=== PATIENT | male | born 1945 | race Caucasian/White ===

== ENCOUNTER 2016-08-17 03:42 | Observation (INO) | payer MEDICARE, MEDICAID ==
[~2016-08-17] VITALS: Ht 185.4 cm; Wt 87.4 kg
[~2016-08-17 03:42] MED LIST: ADVODART; ALPR.25T PO; AMLO5TAB2 PO; ASPI325T4; BENZ100C8 PO; BSP10T PO; CEFP500T4 PO; CEPH-507 PO; CEPH500C PO; CODE-54 PO; CPR500T PO; FLC100T1 PO; FNST5T PO; HYDR-757 PO; HYDR-91 PO; LSNP20T PO; MECL12.579 PO; METR500T PO; NERVE PILL; NITR-65 PO; ONDA-42 SL; PHEN-639 PO; TMSL.4C PO; TRAM50TA2 PO; [UNRECOGNIZED DRUG - CODE] INJ; [UNRECOGNIZED DRUG - REMARK] PO
[2016-08-17] MEDS ORDERED: RT-ALBUTEROL/IPRATROPIUM 3 ML (DUONEB) VIAL ONE (03:48)
--- OUTSIDE RECORDS SUMMARY | 2016-08-17 03:49 | XMS REPORT | Continuity of Care Document ---
Author Author [facility] Address Unknown Phone Unavailable Allergies Active Description Code Type Severity Reaction Onset Reported/Identified Relationship to Patient Clinical Status Yes iodine [id number] Drug Allergy Mild N/A 03/26/2009 Yes Iodine Drug Allergy N/A N/A 09/04/2009 Medications Problems Date Dx Coded Attending Type Code Diagnosis Diagnosed By 02/23/2008 NARDA MONTANA DO 401.1 HYPERTENSION, BENIGN ESSENTIAL 02/23/2008 NAN WALKER NARDA K 721.90 OSTEOARTHRITIS 02/23/2008 NAN WALKER NARDA K 401.1 HYPERTENSION, BENIGN ESSENTIAL 02/23/2008 LINUS MONTANA DOA K 721.90 OSTEOARTHRITIS 02/29/2008 LINUS MONTANA DOA K 338.4 PAIN CHRONIC SYNDROME 02/29/2008 NAN WALKER NARDA K 338.4 PAIN CHRONIC SYNDROME 06/05/2008 NAN WALKER NARDA K 780.52 Insomnia Unspecified 06/05/2008 NAN WALKER NARDA K 780.52 Insomnia Unspecified 07/10/2008 LINUS MONTANA DOA K 307.40 Insomnia 07/10/2008 NAN WALKER NARDA K 729.5 PAIN IN LIMB 07/10/2008 MONTANA DO NARDA K 307.40 Insomnia 07/10/2008 LINUS MONTANA DOA K 729.5 PAIN IN LIMB 11/24/2008 NAN WALKER NARDA K 780.79 MALAISE AND FATIGUE 11/24/2008 MON[place] DO NARDA K 780.79 MALAISE AND FATIGUE 01/29/2009 NAN WALKER NARDA K 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 01/29/2009 NAN WALKER NARDA K 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 02/07/2009 NAN WALKER NARDA K 270.7 Hyperglycemia 02/07/2009 NAN WALKER NARDA K 296.90 Mo Mood Dis Nos 02/07/2009 LINUS MONTANA DOA K 270.7 Hyperglycemia 02/07/2009 MON[place] DO NARDA K 296.90 Mo Mood Dis Nos 02/13/2009 NAN WALKER NARDA K NODX No Diagnosis 02/13/2009 MONTANA DO, NARDA K NODX No Diagnosis 02/16/2009 MONTANA DO, NARDA K 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 02/16/2009 MONTANA DO, NARDA K 300.00 An Anxiety Unspec 02/16/2009 MONTANA DO, NARDA K 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 02/16/2009 MON[place]NA DO NARDA K 300.00 An Anxiety Unspec 02/26/2009 MONTANA DO NARDA K 300.02 An Gen Anxiety 02/26/2009 MONTANA DO, NARDA K 301.6 PD DEPENDENT 02/26/2009 MONTANA DO, NARDA K 300.02 An Gen Anxiety 02/26/2009 MONTANA DO, NARDA K 301.6 PD DEPENDENT 03/14/2009 MONTANA DO NARDA K 788.1 Dysuria 03/14/2009 MONTANA DO, NARDA K 788.1 Dysuria 04/02/2009 MONTANA DO NARDA K 590.2 Kidney Stones 04/02/2009 MONTANA DO NARDA K 590.2 Kidney Stones 04/17/2009 MONTANA DO, NARDA K 465.9 Upper Respiratory Infection 04/17/2009 MONTANA DO, NARDA K 465.9 Upper Respiratory Infection 04/25/2010 MONTANA DO, NARDA K 914.0 Abrasion Or Friction Burn Of Hand(s) Except Finger(s) Alone Without Infection 04/25/2010 MONTANA DO, NARDA K E906.0 Dog Bite 04/25/2010 MONTANA DO, NARDA K 914.0 Abrasion Or Friction Burn Of Hand(s) Except Finger(s) Alone Without Infection 04/25/2010 MON[place] DO NARDA K E906.0 Dog Bite 06/12/2010 MON[place] DO NARDA K 681.02 Onychia And Paronychia Of Finger 06/12/2010 MONTANA DO, NARDA K 681.02 Onychia And Paronychia Of Finger 07/25/2010 Ot 038.42 07/25/2010 Ot 300.4 07/25/2010 Ot 403.90 07/25/2010 Ot 585.9 07/25/2010 Ot 599.0 07/25/2010 Ot 600.91 07/25/2010 Ot 715.90 07/25/2010 Ot 788.41 07/25/2010 Ot 788.62 07/25/2010 Ot 788.63 07/25/2010 Ot 788.64 07/25/2010 Ot 995.91 07/25/2010 Ot V12.79 07/25/2010 Ot V13.01 10/24/2010 Ot 599.0 10/24/2010 Ot V58.69 12/31/2010 Ot 562.11 12/31/2010 Ot 789.00 12/31/2010 Ot 791.9 01/06/2011 Ot 276.50 01/06/2011 Ot 300.4 01/06/2011 Ot 401.9 01/06/2011 Ot 562.11 01/06/2011 Ot 584.9 01/06/2011 Ot 600.00 01/06/2011 Ot 715.90 01/06/2011 Ot 995.94 01/31/2011 Ot 562.10 11/29/2011 Ot 038.42 11/29/2011 Ot 276.50 11/29/2011 Ot 300.00 11/29/2011 Ot 311 11/29/2011 Ot 401.9 11/29/2011 Ot 562.10 11/29/2011 Ot 592.0 11/29/2011 Ot 593.2 11/29/2011 Ot 593.9 11/29/2011 Ot 599.0 11/29/2011 Ot 600.90 11/29/2011 Ot 601.9 11/29/2011 Ot 715.89 11/29/2011 Ot 995.91 11/29/2011 Ot V03.82 11/29/2011 Ot V13.01 12/03/2011 Ot 592.0 12/31/2011 Ot 401.9 12/31/2011 Ot 592.0 04/13/2012 Ot 599.0 04/13/2012 Ot V58.69 04/26/2013 NARDA MONTANA DO 599.0 URINARY TRACT INFECTION 04/26/2013 NARDA MONTANA DO 599.0 URINARY TRACT INFECTION 05/11/2013 NARDA MONTANA DO 724.2 LUMBAGO/ LOW BACK PAIN 09/13/2013 ALEXANDER NULL DO Ot 490 09/13/2013 ALEXANDER NULL DO Ot 786.2 09/18/2013 BUBBA URIAS, MIKE T Ot 276.8 09/18/2013 BUBBA URIAS, MIKE T Ot 599.0 09/18/2013 BUBBA URIAS, MIKE T Ot 787.02 11/29/2013 BUBBA URIAS, MIKE T Ot 466.0 11/29/2013 BUBBA URIAS, MIKE T Ot 786.05 11/29/2013 BUBBA URIAS, MIKE T Ot 790.29 11/29/2013 BUBBA URIAS, MIKE T Ot V58.69 05/15/2014 Ot 715.36 05/15/2014 Ot 719.62 05/15/2014 Ot 401.9 05/15/2014 Ot 780.79 05/15/2014 Ot 255.41 05/15/2014 Ot 592.0 05/15/2014 Ot V72.81 05/15/2014 Ot 592.0 05/15/2014 Ot V72.83 05/15/2014 Ot V74.8 05/15/2014 Ot 592.0 05/15/2014 Ot V45.89 05/15/2014 Ot 592.0 05/15/2014 Ot V45.89 05/15/2014 Ot 599.0 05/15/2014 Ot V58.69 05/15/2014 Ot 564.00 05/15/2014 Ot 789.00 05/17/2014 Ot 715.36 05/17/2014 Ot 719.62 05/17/2014 Ot 401.9 05/17/2014 Ot 780.79 05/17/2014 Ot 255.41 05/17/2014 Ot 592.0 05/17/2014 Ot V72.81 05/17/2014 Ot 592.0 05/17/2014 Ot V72.83 05/17/2014 Ot V74.8 05/17/2014 Ot 592.0 05/17/2014 Ot V45.89 05/17/2014 Ot 592.0 05/17/2014 Ot V45.89 05/17/2014 Ot 599.0 05/17/2014 Ot V58.69 05/17/2014 Ot 564.00 05/17/2014 Ot 789.00 05/24/2014 ANTIONETTE RODRIGUES DO Ot 786.50 06/05/2014 ANTIONETTE RODRIGUES DO Ot 786.50 07/07/2014 ANTIONETTE RODRIGUES DO Ot 786.50 08/03/2014 Ot 715.36 08/03/2014 Ot 719.62 08/03/2014 Ot 401.9 08/03/2014 Ot 780.79 08/03/2014 Ot 255.41 08/03/2014 Ot 592.0 08/03/2014 Ot V72.81 08/03/2014 Ot 592.0 08/03/2014 Ot V72.83 08/03/2014 Ot V74.8 08/03/2014 Ot 592.0 08/03/2014 Ot V45.89 08/03/2014 Ot 592.0 08/03/2014 Ot V45.89 08/03/2014 Ot 599.0 08/03/2014 Ot V58.69 08/03/2014 Ot 564.00 08/03/2014 Ot 789.00 08/03/2014 ANTIONETTE RODRIGUES DO Ot 786.50 01/17/2015 Ot 715.36 01/17/2015 Ot 719.62 01/17/2015 Ot 401.9 01/17/2015 Ot 780.79 01/17/2015 Ot 255.41 01/17/2015 Ot 592.0 01/17/2015 Ot V72.81 01/17/2015 Ot 592.0 01/17/2015 Ot V72.83 01/17/2015 Ot V74.8 01/17/2015 Ot 592.0 01/17/2015 Ot V45.89 01/17/2015 Ot 592.0 01/17/2015 Ot V45.89 01/17/2015 Ot 786.2 01/17/2015 Ot 599.0 01/17/2015 Ot V58.69 01/17/2015 Ot 564.00 01/17/2015 Ot 789.00 01/17/2015 ANTIONETTE RODRIGUES DO Ot 786.50 01/30/2015 Ot 786.2 02/14/2015 ANTIONETTE RODRIGUES DO Ot 781.0 02/26/2015 ANTIONETTE RODRIGUES DO Ot 781.0 03/30/2015 DALILA PORTILLO Ot F01.50 03/30/2015 DALILA PORTILLO Ot N39.0 03/30/2015 DALILA PORTILLO Ot R25.1 03/30/2015 DALILA PORTILLO Ot Z79.899 06/19/2015 DONNA BYRD BLACK TOPPER Ot S63.115A 06/19/2015 DONNA BYRD BLACK TOPPER Ot W01.0XXA 06/19/2015 DONNA BYRD BLACK TOPPER Ot Y92.009 06/19/2015 DONNA BYRD BLACK TOPPER Ot Y99.8 07/09/2016 Ot 562.11 DIVERTICULITIS COLON (W/O MENT OF HEMORR 07/09/2016 Ot 789.00 ABDOMINAL PAIN, UNSPECIFIED SITE 07/09/2016 Ot 791.9 ABN URINE FINDINGS NEC Procedures Code [place] [address] UA W/ CULTURE IF INDICATED 04/26/2013 66080 CULTURE URINE 68566 URINE DRUG SCREEN (IN-HOUSE) 05/11/2013 73374 UA W/ CULTURE IF INDICATED 05/11/2013 Results Encounters ACCT No. Visit Date/Time Discharge Status Pt. Type Provider Facility Loc./Unit Complaint [id number] 05/11/2013 13:11:00 05/11/2013 23: 59:59 CLS Outpatient NARDA MONTANA DO [id number] 04/26/2013 18:13:00 04/26/2013 23: 59:59 CLS Outpatient NARDA MONTANA DO
[2016-08-17] MEDS ORDERED: NS IV 1000 ML 1,000 ML IV ONE ×2 (03:50→05:01)
[2016-08-17] MEDS ORDERED: RT-ALBUTEROL SULF 2.5 MG/3 ML PRE-MIX VIAL ONE ×2 (03:57→04:18)
[2016-08-17] MEDS ORDERED: RT-ALBUTEROL/IPRATROPIUM 3 ML (DUONEB) VIAL INH ONE (04:00)
[2016-08-17] MEDS ORDERED: RT-ALBUTEROL SULF 2.5 MG/3 ML PRE-MIX VIAL IH ONE (04:00)
[2016-08-17 04:17] LABS: BASOPHILS % (AUTO) 0 % (0-10); EOSINOPHILS # (AUTO) 0.4 10^3/uL (0.0-0.3); EOSINOPHILS % (AUTO) 8 % (0-10); LYMPHOCYTES # (AUTO) 1.4 X 10^3 (1.0-4.0); LYMPHOCYTES % (AUTO) 31 % (12-44); MEAN CORPUSCULAR HEMOGLOBIN 31 PG (25-34); MEAN CORPUSCULAR HGB CONC 34 G/DL (32-36); MEAN CORPUSCULAR VOLUME 92 FL (80-99); MEAN PLATELET VOLUME 9.1 FL (7.4-10.4); MONOCYTES # (AUTO) 0.7 X 10^3 (0.0-1.0); MONOCYTES % (AUTO) 15 % (0-12); NEUTROPHILS # (AUTO) 2.1 X 10^3 (1.8-7.8); NEUTROPHILS % (AUTO) 46 % (42-75); PLATELET COUNT 170 10^3/uL (130-400); RED BLOOD COUNT 4.55 10^6/uL (4.35-5.85); WHITE BLOOD COUNT 4.6 10^3/uL (4.3-11.0)
[2016-08-17 04:30] LABS: PROTHROMBIN TIME PATIENT 12.8 SEC (12.2-14.7)
[2016-08-17] MEDS ORDERED: RT-ALBUTEROL SULF 2.5 MG/3 ML PRE-MIX VIAL INH ONE (04:30)
[2016-08-17] MEDS ORDERED: DIVA125C10 (04:36)
[2016-08-17] MEDS ORDERED: METO-333 (04:36)
[2016-08-17] MEDS ORDERED: BUSP10TA95 (04:36)
[2016-08-17] MEDS ORDERED: RIVA1PAT (04:36)
[2016-08-17 04:38] LABS: ALBUMIN 3.7 G/DL (3.2-4.5); BILIRUBIN,TOTAL 0.3 MG/DL (0.1-1.0); CALCIUM 8.8 MG/DL (8.5-10.1); CREATININE SERUM 2.46 MG/DL (0.60-1.30); POTASSIUM 4.2 MMOL/L (3.6-5.0); TOTAL PROTEIN 6.6 G/DL (6.4-8.2)
[2016-08-17] MEDS ORDERED: methylPREDNISolone 125 MG (Solu-MEDROL) VIAL IVP ONE (04:45)
[2016-08-17 04:48] LABS: hs C REACTIVE PROTEIN 0.6 MG/DL (0.00-0.50)
--- NOTE | 2016-08-17 05:17 | ED General ---
General Chief Complaint: Respiratory Problems Stated Complaint: SOA Nursing Triage Note: patient reports having a cold and cough for a couple days, patient reports waking up with severe SOA. Nursing Sepsis Screen: Possible Sepsis Risk Source of Information: Patient, Family, Old Records Exam Limitations: No Limitations History of Present Illness Time Seen by Provider: 03:45 Initial Comments This 70-year-old gentleman presents to the emergency room in respiratory distress with very tight and wheezing. He has had URI symptoms with cough and congestion for a couple of days. No fever. He had diarrhea yesterday. He denies history of COPD or cardiac problems. He does have some dementia and has a little difficulty providing his medical history. Chart was reviewed for some information. He presents with friends or family with whom he is presently living. They wonder if cat allergies may be part of his problem. Allergies and Home Medications Allergies Coded Allergies: iodine (Unverified Allergy, Mild, 03/26/09) Home Medications Alprazolam 0.25 Mg Tablet 1 TAB PO TID PRN (Reported) Amlodipine Besylate 5 Mg Tablet 5 MG PO DAILY (Reported) Buspirone HCl 10 Mg Tablet #56 (Reported) Divalproex Sodium 125 Mg Cap.sprink #120 (Reported) Finasteride 5 Mg Tab 5 MG PO DAILY (Reported) Metoprolol Tartrate 25 Mg Tablet #56 (Reported) Rivastigmine 4.6 Mg Patch #30 (Reported) Tamsulosin Hcl 0.4 Mg Cap 0.4 MG PO Daily@@2100 (Reported) Constitutional: no symptoms reported EENTM: see HPI Respiratory: no symptoms reported Cardiovascular: no symptoms reported Gastrointestinal: no symptoms reported Genitourinary: no symptoms reported Musculoskeletal: no symptoms reported Skin: no symptoms reported Psychiatric/Neurological: No Symptoms Reported Hematologic/Lymphatic: No Symptoms Reported Past Ivcotxp-Jhqxfm-Kptnvf Hx Patient Social History Alcohol Use: Denies Use Recreational Drug Use: No Smoking Status: Never a Smoker Recent Foreign Travel: No Contact w/Someone Who Travel: No Recent Infectious Disease Expo: No Recent Hopitalizations: No (previous kidney stones) Immunizations Up To Date Date of Pneumonia Vaccine: Dec 10, 2011 Date of Influenza Vaccine: Feb 06, 2011 Surgeries HX Surgeries: Yes (for previous kidney stones, and left ankle) Surgeries: Orthopedic (ankle), Renal (renal stent, lithotripsy and laparotomy for renal stone resection) Respiratory Hx Respiratory Disorders: No Cardiovascular Hx Cardiac Disorders: Yes Cardiac Disorders: Hypertension Neurological Hx Neurological Disorders: Yes Neurological Disorders: Dementia Reproductive System Hx Reproductive Disorders: No Genitourinary Hx Genitourinary Disorders: Yes (history of pyelonephritis) Genitourinary Disorders: Benign Prostatic Hyperpl, Kidney Stones, Renal Failure (chronic kidney disease) Gastrointestinal Hx Gastrointestinal Disorders: Yes Gastrointestinal Disorders: Diverticulosis (with diverticulitis) Musculoskeletal Hx Musculoskeletal Disorders: Yes (Left ankle) Musculoskeletal Disorders: Arthritis, Fractures Endocrine Hx Endocrine Disorders: No HEENT HX ENT Disorders: No Cancer Hx Cancer: No Psychosocial Hx Psychiatric Problems: Yes Behavioral Health Disorders: Sleep Difficulties, Anxiety, Bipolar, Depression Integumentary HX Skin/Integumentary Disorder: No Blood Transfusions Hx Blood Disorders: No Family Medical History Significant Family History: No Pertinent Family Hx Physical Exam Vital Signs Vital Sign - Last 12Hours 08/17/16 08/17/16 03:47 03:54 Temp 98.4 Pulse 93 Resp 34 B/P 178/138 Pulse Ox 90 O2 Delivery Room Air O2 Flow Rate 4 Capillary Refill : Less Than 3 Seconds General Appearance: WD/WN Moderate Distress HEENT: PERRL/EOMI Normal ENT Inspection Pharynx Normal Neck: Normal Inspection Respiratory: Accessory Muscle Use Respiratory Distress Wheezing (very tight wheezing with prolonged expiratory phase) Cardiovascular: Regular Rate, Rhythm No Edema No Murmur Gastrointestinal: Non Tender Soft Extremity: Normal Inspection Non Tender No Calf Tenderness No Pedal Edema Other (negative Agatha) Neurologic/Psychiatric: Alert Oriented x3 No Motor/Sensory Deficits Normal 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 Norm as Tested Skin: Normal Color Warm/Dry Progress/Results/Core Measures Results/Orders Lab Results Laboratory Tests Test 08/17/16 04:02 Range/Units Activated Partial Thromboplast Time 28 24-35 SEC Alanine Aminotransferase (ALT/SGPT) 9 0-55 U/L Albumin 3.7 3.2-4.5 G/DL Alkaline Phosphatase 70 40-136 U/L Anion Gap 13 5-14 MMOL/L Aspartate Amino Transf (AST/SGOT) 14 5-34 U/L B-Type Natriuretic Peptide 28.5 <100.0 PG/ML BUN/Creatinine Ratio 14 Basophils # (Auto) 0.0 0.0-0.1 10^3/uL Basophils (%) (Auto) 0 0-10 % Blood Urea Nitrogen 34 H 7-18 MG/DL C-Reactive Protein High Sensitivity 0.60 H 0.00-0.50 MG/DL Calcium Level 8.8 8.5-10.1 MG/DL Carbon Dioxide Level 20 L 21-32 MMOL/L Chloride Level 109 H 98-107 MMOL/L Creatinine 2.46 H 0.60-1.30 MG/DL D-Dimer 0.44 0.00-0.49 UG/ML Eosinophils # (Auto) 0.4 H 0.0-0.3 10^3/uL Eosinophils (%) (Auto) 8 0-10 % Estimat Glomerular Filtration Rate 26 Glucose Level 173 H 70-105 MG/DL Hematocrit 42 40-54 % Hemoglobin 14.1 13.3-17.7 G/DL INR Comment 1.0 0.8-1.4 Lactic Acid Level 1.36 0.50-2.00 MMOL/L Lymphocytes # (Auto) 1.4 1.0-4.0 X 10^3 Lymphocytes (%) (Auto) 31 12-44 % Mean Corpuscular Hemoglobin 31 25-34 PG Mean Corpuscular Hemoglobin Concent 34 32-36 G/DL Mean Corpuscular Volume 92 80-99 FL Mean Platelet Volume 9.1 7.4-10.4 FL Monocytes # (Auto) 0.7 0.0-1.0 X 10^3 Monocytes (%) (Auto) 15 H 0-12 % Neutrophils # (Auto) 2.1 1.8-7.8 X 10^3 Neutrophils (%) (Auto) 46 42-75 % Platelet Count 170 130-400 10^3/uL Potassium Level 4.2 3.6-5.0 MMOL/L Prothrombin Time 12.8 12.2-14.7 SEC Red Blood Count 4.55 4.35-5.85 10^6/uL Red Cell Distribution Width 14.0 10.0-14.5 % Sodium Level 142 135-145 MMOL/L Total Bilirubin 0.3 0.1-1.0 MG/DL Total Protein 6.6 6.4-8.2 G/DL Valproic Acid (Depakene) Level 44.0 L 50.0-100.0 UG/ML White Blood Count 4.6 4.3-11.0 10^3/uL Micro Results Microbiology 3/12/17 Influenza Types A,B Antigen (ABDIAZIZ) - Final, Complete My Orders Orders-MIKE MAC MD Albuterol/Ipra Inhalation Soln (Duoneb I (08/17/16 04:00) Svn Sm Volume Nebulizer Rt-Rfs (08/17/16 03:49) Albuterol/Ipra Inhalation Soln (Duoneb I (08/17/16 03:48) Cbc With Automated Diff (08/17/16 03:50) Comprehensive Metabolic Panel (08/17/16 03:50) Lactic Acid Analyzer (08/17/16 03:50) Blood Culture (08/17/16 03:50) Sputum Culture (08/17/16 03:50) Ua Culture If Indicated (08/17/16 03:50) Protime With Inr (08/17/16 03:50) Partial Thromboplastin Time (08/17/16 03:50) Chest 1 View, Ap/Pa Only (08/17/16 03:50) O2 (08/17/16 03:50) Saline Lock/Iv-Start (08/17/16 03:50) Saline Lock/Iv-Start (08/17/16 03:50) Ekg Tracing (08/17/16 03:50) Vital Signs Adult Sepsis Patie Q1HR (08/17/16 03:50) Remove Rings In Anticipation O (08/17/16 03:50) Influenza A And B Antigens (08/17/16 03:50) BNP (08/17/16 03:50) Ns Iv 1000 Ml (Sodium Chloride 0.9%) (08/17/16 03:50) Albuterol Pre-Mix Nebs (Rt) (Proventil P (08/17/16 03:57) Albuterol Pre-Mix Nebs (Rt) (Proventil P (08/17/16 04:00) Albuterol Pre-Mix Nebs (Rt) (Proventil P (08/17/16 04:18) Albuterol Pre-Mix Nebs (Rt) (Proventil P (08/17/16 04:30) Rt Request For Service (08/17/16 04:22) Hs C Reactive Protein (08/17/16 04:33) Fibrin Degradation Products (08/17/16 04:33) Valproic Acid (08/17/16 04:33) Methylprednisolone Sod Succ (Solu-Medrol (08/17/16 04:45) Ns Iv 1000 Ml (Sodium Chloride 0.9%) (08/17/16 05:01) Medications Given in ED Current Medications Medications Dose Ordered Sig/Farideh Route Start Time Stop Time Status Last Admin Dose Admin Albuterol Sulfate 2.5 mg STK-MED ONCE .ROUTE 08/17/16 03:57 08/17/16 04:01 DC 08/17/16 04:02 2.5 MG Albuterol Sulfate 10 mg ONCE ONCE INH 08/17/16 04:30 08/17/16 04:31 DC 08/17/16 04:28 10 MG Albuterol/ Ipratropium 3 ml 3 ml STK-MED ONCE .ROUTE 08/17/16 03:48 08/17/16 03:50 DC 08/17/16 03:53 3 ML Methylprednisolone Sodium Succinate 62.5 mg 62.5 mg ONCE ONCE IVP 08/17/16 04:45 08/17/16 04:46 DC 08/17/16 04:40 62.5 MG Sodium Chloride 1,000 ml @ 0 mls/hr Q0M ONCE IV 08/17/16 03:50 08/17/16 03:52 DC 08/17/16 04:09 0 MLS/HR Sodium Chloride 1,000 ml @ 0 mls/hr Q0M ONCE IV 08/17/16 05:01 08/17/16 05:02 DC 08/17/16 05:07 0 MLS/HR Vital Signs/I&O Vital Sign - Last 12Hours 08/17/16 08/17/16 08/17/16 08/17/16 03:47 03:54 04:03 04:12 Temp 98.4 Pulse 93 Resp 34 B/P 178/138 Pulse Ox 90 94 97 92 O2 Delivery Room Air Nasal Cannula Nasal Cannula Nasal Cannula O2 Flow Rate 4 4 4 08/17/16 04:26 Pulse Ox 95 O2 Delivery Nasal Cannula O2 Flow Rate 4 Blood Pressure Mean: 151 Progress Note : Progress Note Patient was initially treated with DuoNeb followed by albuterol. He remained rather tight and an hour-long treatment was ordered. After the 2 initial treatments he was still hypoxic with saturations around 90 percent on 4 L by nasal cannula. Septic workup was pursued because of the severity of his respiratory status. Workup was relatively unremarkable. Patient was given Solu -Medrol 62.5 mg by IV route. After steroid therapy and the hour-long treatment , he had significant improvement in his respiratory status. A liter of IV fluids was ordered after review of labs and x-ray. Patient was admitted for observation due to the severity of his respiratory status on presentation and concern for rapid rebound. 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 ECG Initial ECG Impression Date: Aug 17, 2016 Initial ECG Impression Time: 02:56 Initial ECG Rate: 90 Initial ECG Rhythm: Normal Sinus Comment sinus rhythm with no ST elevation or depression. No abnormal intervals or axis deviation. Diagnostic Imaging Diagonstic Imaging: Xray Plain Films/CT/US/NM/MRI: chest Comments Single view chest x-ray viewed by me. Report not yet available. No acute abnormalities were appreciated. Departure Communication Time/Spoke to Admitting Phy: 05:05 Communication Case reviewed with Dr. Toledo who agrees with admission for observation due to the severity of his bronchospasm and hypoxia. Impression Impression: Primary Impression: Bronchospasm with bronchitis, acute Additional Impression: Hypoxia Disposition: ADMITTED INPATIENT Condition: Improved Decision to Admit Reason: Admit from ER (General) Decision to Admit/Date: Aug 17, 2016 Time/Decision to Admit Time: 05:00 Departure-Patient Inst. Referrals: ANTIONETTE RODRIGUES DO (PCP/Family) Primary Care Physician MIKE MAC MD Aug 17, 2016 05:17
[2016-08-17 05:42] VITALS: BP 148/72
--- NOTE | 2016-08-17 07:03 | Diagnostic Imaging Report ---
INDICATION: Shortness of air, cough. TECHNIQUE: Single view chest 4:19 AM. CORRELATION STUDY: 08/03/2014 FINDINGS: The heart size, mediastinal configuration and pulmonary vascularity are within normal limits. Lung chong are mildly hyperinflated but generally clear and without evidence for infiltrate. IMPRESSION: 1. Mild hyperinflation lung chong. Negative for acute abnormality. Dictated by: Dictated on workstation # [id number]
[2016-08-17] MEDS ORDERED: NS IV 1000 ML 1,000 ML IV SCH (07:30)
[2016-08-17] MEDS ORDERED: FLU TRIvalent (5 YOA+) 2016-17 (AFLURIA) 0.5 ML IM ONE (07:30)
[2016-08-17] MEDS ORDERED: CATHETER FLUSH 10 ML SYR IV PRN (07:30)
[2016-08-17] MEDS: LORATADINE (CLARITIN) 10 MG TAB PO SCH (07:58)
[2016-08-17 08:00] VITALS: BP 133/68
[2016-08-17 10:33] LABS: BILIRUBIN,URINE NEGATIVE (NEGATIVE); KETONES,URINE 1+ (NEGATIVE); LEUKOCYTE ESTERASE ,URINE 3+ (NEGATIVE); NITRITE,URINE NEGATIVE (NEGATIVE); PH,URINE 5 (5-9); PROTEIN,URINE 3+ (NEGATIVE); UROBILINOGEN,URINE NORMAL (NORMAL); WBC,URINE TNTC /HPF
[2016-08-17] MEDS: methylPREDNISolone 40 MG/ML (Solu-MEDROL) VIAL IV SCH ×2 (11:47→17:21)
[2016-08-17] MEDS: cefTRIAXone INJECTION 1,000 MG in NS (IVPB) 50 ML IV SCH (12:14)
[2016-08-17 12:23] VITALS: BP 158/75
--- NOTE | 2016-08-17 12:49 | History & Physical-Hospitalist ---
HPI History of Present Illness: HPI/Chief Complaint CC: Hypoxia HPI: This is a 70-year-old white male that reports he's been in excellent health all of his life that presents to the emergency room with cough and overall weakness. He was found to be hypoxic and could not evaluate the exact source of that issue since chest x-ray did not show infiltrate and breast workup was negative including BNP so he was placed in observation placed on oxygen IV steroids and breathing treatments. I did note the urinalysis today was too numerous count white cells he denies any urinary frequency or dysuria so we'll place her on Rocephin empirically and also have Dr. Morales evaluate him from a cardiology standpoint since he's never had any heart workup he said. He reports these had a cough for the past several days. I review the creatinine that he has had in the past and it's always been 2.1-2.3 but he reports that he has no knowledge of renal insufficiency. Source: patient Exam Limitations: no limitations Date Seen 08/17/16 Attending Physician Tatyana Toledo DO PCP Kulwinder Ruff DO Referring Physician Date of Admission Aug 17, 2016 at 05:17 Home Medications & Allergies Home Medications Reviewed patient Home Medication Reconciliation Form Allergies Coded Allergies: iodine (Unverified Allergy, Mild, 03/26/09) Past Egmgbrt-Drfaiw-Udfndd Hx Patient Social History Marrital Status: single Employed/Student: retired ([employer]) Alcohol Use: Rarely Uses Recreational Drug Use: No Smoking Status: Never a Smoker Physical Abuse Screen: No Sexual Abuse: No Recent Foreign Travel: No Contact w/other who traveled: No Recent Hopitalizations: No (previous kidney stones) Recent Infectious Disease Expo: No Immunizations Up To Date Date of Pneumonia Vaccine: Dec 10, 2011 Date of Influenza Vaccine: Feb 06, 2011 Seasonal Allergies Seasonal Allergies: No Surgeries HX Surgeries: Yes (for previous kidney stones, and left ankle) Surgeries: Orthopedic (ankle), Renal (renal stent, lithotripsy and laparotomy for renal stone resection) Respiratory Hx Respiratory Disorders: No Cardiovascular Hx Cardiovascular Disorders: Yes Cardiac Disorders: Hypertension Neurological Hx Neurological Disorders: Yes Neurological Disorders: Dementia Reproductive System Hx Reproductive Disorders: No Genitourinary Hx Genitourinary Disorders: Yes (history of pyelonephritis) Genitourinary Disorders: Benign Prostatic Hyperpl, Kidney Stones Gastrointestinal Hx Gastrointestinal Disorders: Yes Gastrointestinal Disorders: Diverticulosis Musculoskeletal Hx Musculoskeletal Disorders: Yes (Left ankle) Musculoskeletal Disorders: Arthritis, Fractures Endocrine Hx Endocrine Disorders: No HEENT HX ENT Disorders: No Cancer Hx Cancer: No Psychosocial Hx Psychiatric Problems: Yes Behavioral Health Disorders: Sleep Difficulties, Depression Integumentary HX Skin/Integumentary Disorder: No Blood Transfusions Hx Blood Disorders: No Family Medical History Significant Family History: No Pertinent Family Hx Family Hx: Patient reports no known family medical history. Review of Systems Constitutional: see HPI EENTM: no symptoms reported Respiratory: cough dyspnea on exertion short of breath Cardiovascular: no symptoms reported Gastrointestinal: no symptoms reported Genitourinary: no symptoms reported Musculoskeletal: back pain Skin: no symptoms reported Psychiatric/Neurological: Depressed All Other Systems Reviewed Negative Unless Noted: Yes Physical Exam Physical Exam Vital Signs Vital Sign - Last 12Hours 08/17/16 08/17/16 03:47 03:54 Temp 98.4 Pulse 93 Resp 34 B/P 178/138 Pulse Ox 90 O2 Delivery Room Air O2 Flow Rate 4 Capillary Refill : Less Than 3 Seconds General Appearance: No Apparent Distress WD/WN Chronically ill Obese Eyes: Bilateral Eye Normal Inspection, Bilateral Eye PERRL HEENT: PERRL/EOMI Normal ENT Inspection Pharynx Normal Neck: Full Range of Motion Normal Inspection Non Tender Supple Carotid Bruit Respiratory: Chest Non Tender No Accessory Muscle Use No Respiratory Distress Crackles (in the bases) Decreased Breath Sounds Cardiovascular: Regular Rate, Rhythm No Edema No Gallop No JVD No Murmur Normal Peripheral Pulses Gastrointestinal: Normal Bowel Sounds No Organomegaly No Pulsatile Mass Non Tender Soft Back: Normal Inspection No CVA Tenderness No Vertebral Tenderness Extremity: Normal Capillary Refill Normal Inspection Normal Range of Motion Non Tender No Calf Tenderness No Pedal Edema Neurologic/Psychiatric: Alert Oriented x3 No Motor/Sensory Deficits Depressed Affect Other (poor recall) Skin: Normal Color Warm/Dry Lymphatic: No Adenopathy Results Results/Procedures Lab Laboratory Tests 08/17/16 04:02 Assessment/Plan Admission Diagnosis Assessment: Hypoxia of uncertain etiology but wheezing on exam placed on IV steroids and nebulizer treatments Chronic renal insufficiency but patient was unaware of this Nonspecific lethargy we'll consult cardiology Dementia listed on medical history Renal lithiasis BPH Hypertension Assessment and Plan Plan: Cardiology evaluation Check chest x-ray in a.m. Monitor labs Discontinue telemetry Ambulate Hep-locked IV fluid Monitor closely but no source at this current time except for acute bronchospasm that is causing hypoxia Clinical Quality Measures DVT/VTE Risk/Contraindication: Risk Factor Score Per Nursin RFS Level Per Nursing on Admit: 2=Moderate TATYANA TOLEDO DO Aug 17, 2016 12:48
[2016-08-17] MEDS ORDERED: ALPRAZolam 0.25 MG (XANAX) TAB PO PRN (13:00)
[2016-08-17] MEDS ORDERED: PATIENT MAY USE OWN MEDS, ALL MC SCH (13:00)
[2016-08-17] MEDS: RT-ALBUTEROL/IPRATROPIUM 3 ML (DUONEB) VIAL INH SCH (14:28)
[2016-08-17] MEDS: RT-BUDESONIDE NEBS 0.5 MG/2ML (PULMICORT) AMP INH SCH ×2 (14:28→19:24)
[2016-08-17 16:00] VITALS: BP 145/71
[2016-08-17] MEDS ORDERED: ALFUZOSIN HCL 10 MG TAB (UROXATRAL) PO SCH (18:00)
[2016-08-17 20:00] VITALS: BP 130/80
[2016-08-17] MEDS ORDERED: busPIRone 10 MG (BUSPAR) TAB PO SCH (21:00)
[2016-08-17] MEDS ORDERED: TAMSULOSIN 0.4 MG (FLOMAX) CAP PO SCH (21:00)
[2016-08-17] MEDS: RT-ALBUTEROL/IPRATROPIUM 3 ML (DUONEB) VIAL INH PRN (21:07)
[2016-08-17] MEDS: meTOprolol TARTRATE 25 MG (LOPRESSOR) TABLET PO SCH (21:33)
[2016-08-17] MEDS: DIVALPROX SPRINKLE 125 MG (DEPAKOTE) CAP PO SCH (21:33)
[2016-08-18 00:10] VITALS: BP 138/70
[2016-08-18] MEDS: methylPREDNISolone 40 MG/ML (Solu-MEDROL) VIAL IV SCH ×3 (00:43→11:34)
[2016-08-18 04:30] VITALS: BP 158/80
[2016-08-18] MEDS: RT-ALBUTEROL/IPRATROPIUM 3 ML (DUONEB) VIAL INH PRN (05:06)
[2016-08-18 05:51] LABS: BASOPHILS % (AUTO) 0 % (0-10); EOSINOPHILS % (AUTO) 0 % (0-10); LYMPHOCYTES # (AUTO) 0.8 X 10^3 (1.0-4.0); LYMPHOCYTES % (AUTO) 9 % (12-44); MEAN CORPUSCULAR HEMOGLOBIN 31 PG (25-34); MEAN CORPUSCULAR HGB CONC 34 G/DL (32-36); MEAN CORPUSCULAR VOLUME 91 FL (80-99); MEAN PLATELET VOLUME 9.5 FL (7.4-10.4); MONOCYTES # (AUTO) 0.4 X 10^3 (0.0-1.0); MONOCYTES % (AUTO) 5 % (0-12); NEUTROPHILS # (AUTO) 7.4 X 10^3 (1.8-7.8); NEUTROPHILS % (AUTO) 86 % (42-75); PLATELET COUNT 154 10^3/uL (130-400); RED BLOOD COUNT 3.91 10^6/uL (4.35-5.85); WHITE BLOOD COUNT 8.6 10^3/uL (4.3-11.0)
[2016-08-18 06:11] LABS: ALBUMIN 3.3 G/DL (3.2-4.5); BILIRUBIN,TOTAL 0.2 MG/DL (0.1-1.0); CALCIUM 8.5 MG/DL (8.5-10.1); CREATININE SERUM 2.02 MG/DL (0.60-1.30); POTASSIUM 4.4 MMOL/L (3.6-5.0); TOTAL PROTEIN 5.7 G/DL (6.4-8.2)
[2016-08-18 08:02] VITALS: BP 142/78
[2016-08-18] MEDS: LORATADINE (CLARITIN) 10 MG TAB PO SCH (08:34)
[2016-08-18] MEDS: DIVALPROX SPRINKLE 125 MG (DEPAKOTE) CAP PO SCH (08:35)
[2016-08-18] MEDS: meTOprolol TARTRATE 25 MG (LOPRESSOR) TABLET PO SCH (08:35)
--- NOTE | 2016-08-18 08:43 | Consultation-Cardiology ---
HPI-Cardiology Cardiology Consultation Date of Consultation 08/18/16 Date of Admission Indication: CP, dyspnea HPI 70 y/o gentleman presented to the ER yesterday with complaints of dyspnea. Noted to be hypoxic. Workup in the ER negative other than UTI. Upon evaluation this morning, he is complaining of "burning sensation" in his chest, worse with deep inspiration. Continues to complain of some dyspnea. Denies any dizziness, lightheadedness or syncope. Denies any previous heart history or recent cardiac workup. Patient was seen and evaluated he is a 70 years old gentleman with increasing shortness of breath, admitted for hypoxia, workup has been negative. Treated empirically with antibiotics. Reported some chest discomfort, left-sided, no significant pain, no palpitation, no previous cardiac workup. He is being discharged today, I will evaluate stress test as an outpatient. Home Medications & Allergies Allergies: Coded Allergies: iodine (Unverified Allergy, Mild, 03/26/09) Home Medication List Reviewed: Yes BAS-[id number]-Ppqyhu Hx Patient Social History Marital Status: single Employed/Student: retired Alcohol Use: Rarely Uses Recreational Drug Use: No Smoking Status: Never a Smoker Recent Foreign Travel: No Recent Infectious Disease Expo: No Recent Hopitalizations: No (previous kidney stones) Physical Abuse Screen: No Sexual Abuse: No Immunizations Up To Date Date of Pneumonia Vaccine: Dec 10, 2011 Date of Influenza Vaccine: Feb 06, 2011 Past Medical History HTN Family Medical History Significant Family History: No Pertinent Family Hx Family History: Patient reports no known family medical history. Constitutional: No diaphoresis, No fever, No malaise EENTM: No blurred vision, No double vision, No ear pain, No vision loss Respiratory: cough dyspnea on exertion short of breath Cardiovascular: chest painNo palpitations Gastrointestinal: No constipation, No diarrhea Musculoskeletal: No back pain Skin: No rash Psychiatric/Neurological: Denies Anxiety, Denies Depressed Reviewed Test Results Reviewed Test Results Lab Laboratory Tests 08/17/16 09:05: Urine Bacteria LARGEH, Urine Bilirubin NEGATIVE, Urine Casts NONE, Urine Clarity VERY CLOUDYH, Urine Color YELLOW, Urine Crystals NONE, Urine Culture Indicated YES, Urine Glucose (UA) 3+H, Urine Ketones 1+H, Urine Leukocyte Esterase 3+H, Urine Mucus NEGATIVE, Urine Nitrite NEGATIVE, Urine Protein 3+H, Urine RBC NONE, Urine RBC (Auto) 2+H, Urine Specific [place] 1.015L, Urine Urobilinogen NORMAL, Urine WBC TNTCH, Urine pH 5 08/18/16 05:20: Alanine Aminotransferase (ALT/SGPT) 10, Albumin 3.3, Alkaline Phosphatase 58, Anion Gap 11, Aspartate Amino Transf (AST/SGOT) 14, BUN/Creatinine Ratio 16, Basophils # (Auto) 0.0, Basophils (%) (Auto) 0, Blood Urea Nitrogen 33H, Calcium Level 8.5, Carbon Dioxide Level 17L, Chloride Level 113H, Creatinine 2.02H, Eosinophils # (Auto) 0.0, Eosinophils (%) (Auto) 0, Estimat Glomerular Filtration Rate 33, Glucose Level 149H, Hematocrit 36L, Hemoglobin 12.0L, Lymphocytes # (Auto) 0.8L, Lymphocytes (%) (Auto) 9L, Mean Corpuscular Hemoglobin 31, Mean Corpuscular Hemoglobin Concent 34, Mean Corpuscular Volume 91, Mean Platelet Volume 9.5, Monocytes # (Auto) 0.4, Monocytes (%) (Auto) 5, Neutrophils # (Auto) 7.4, Neutrophils (%) (Auto) 86H, Platelet Count 154, Potassium Level 4.4, Red Blood Count 3.91L, Red Cell Distribution Width 14.0, Sodium Level 141, Total Bilirubin 0.2, Total Protein 5.7L, White Blood Count 8.6 Microbiology 08/17/16 Influenza Types A,B Antigen (ABDIAZIZ) - Final, Complete 08/17/16 Urine Culture - Preliminary, Resulted Escherichia Coli Physical Exam Vital Signs Vital Sign - Last 12Hours 08/17/16 08/17/16 03:47 03:54 Temp 98.4 Pulse 93 Resp 34 B/P 178/138 Pulse Ox 90 O2 Delivery Room Air O2 Flow Rate 4 Capillary Refill : Less Than 3 Seconds General Appearance: No Apparent Distress WD/WN HEENT: PERRL/EOMI TMs Normal Normal ENT Inspection Neck: Full Range of Motion Non Tender Supple Respiratory: Chest Non Tender Lungs Clear Normal Breath Sounds No Accessory Muscle Use No Respiratory Distress Cardiovascular: Regular Rate, Rhythm No Edema Normal Peripheral Pulses Gastrointestinal: Non Tender Soft Rectal: Deferred Back: No CVA Tenderness Extremity: No Calf Tenderness Neurologic/Psychiatric: Alert 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 Continue to monitor. Dyspnea, bronchitis- continue MAT protocol and continue to montior. HTN- restart home BP medications and continue to monitor. UTI- continue antibiotlic and continue to monitor. Mild AR per 2D Echo done over 10 years ago. I will reevaluate 2D Echo. Thank you for allowing us to participate in the management of Mr. Bonilla. This is Amie Elizondo PA-C as a scribe for Dr. Morales. Patient was seen and evaluated, interviewed and examined. He had mild chest discomfort, atypical in presentation, EKG showed sinus rhythm with no ischemic changes. Cardec enzymes were normal. He had mild dyspnea, diagnosed with bronchitis and received Rocephin. Had history of hypertension, increased risk for underlying coronary artery disease, planning to evaluate Lexiscan stress test as an outpatient. Okay for discharge, on examination lungs were clear to auscultation bilaterally, heart is regular rate and rhythm, I reviewed with the above-noted and meat few modification and used Italic Font Clinical Quality Measures DVT/VTE Risk/Contraindication: Risk Factor Score Per Nursin RFS Level Per Nursing on Admit: 2=Moderate AMIE SMITH Aug 18, 2016 08:43 MORTEZA MORALES MD Aug 18, 2016 09:27
[2016-08-18] MEDS ORDERED: PRED10TA22 PO (08:51)
[2016-08-18] MEDS ORDERED: CEFD300C3 PO (08:51)
--- NOTE | 2016-08-18 08:52 | Discharge Instructions ---
Discharge Instructions Discharge Medications New, Converted or Re-Newed RX: Transmitted to Pharmacy New Medications: Cefdinir (Cefdinir) 300 Mg Capsule 300 MG PO BID #10 CAP Prednisone (Prednisone) 10 Mg Tab.ds.pk 20 MG PO BID #8 PKG Continued Medications: Alprazolam (Xanax) 0.25 Mg Tablet 1 TAB PO TID PRN Amlodipine Besylate (Amlodipine Besylate) 5 Mg Tablet 5 MG PO DAILY Buspirone HCl (Buspirone HCl) 10 Mg Tablet #56 Divalproex Sodium (Divalproex Sodium) 125 Mg Cap.sprink #120 Finasteride (Proscar) 5 Mg Tab 5 MG PO DAILY Metoprolol Tartrate (Metoprolol Tartrate) 25 Mg Tablet #56 Rivastigmine (Exelon) 4.6 Mg Patch #30 Tamsulosin Hcl (Flomax) 0.4 Mg Cap 0.4 MG PO Daily@@2100 Patient Instructions Goal/Follow Up Appt: Dr Ruff in 1 week Activity & Diet Discharge Diet: No Restrictions Activity as Tolerated: Yes DOMINIK CRUZ DO Aug 18, 2016 08:52
--- NOTE | 2016-08-18 08:55 | Discharge Summary-Hospitalist ---
Diagnosis/Chief Complaint Date of Admission Aug 17, 2016 at 05:17 Date of Discharge Discharge Date: Aug 18, 2016 Admission Diagnosis Assessment: Hypoxia of uncertain etiology but wheezing on exam placed on IV steroids and nebulizer treatments Chronic renal insufficiency but patient was unaware of this Nonspecific lethargy we'll consult cardiology Dementia listed on medical history Renal lithiasis BPH Hypertension Discharge Diagnosis Assessment: Hypoxia with wheezing resolved when placed on IV steroids and nebulizer treatments Acute UTI Chronic renal insufficiency but patient was unaware of this Nonspecific lethargy we'll consult cardiology Dementia listed on medical history Renal lithiasis BPH Hypertension Plan: Cardiology evaluation Check chest x-ray in a.m. Monitor labs Discontinue telemetry Ambulate Hep-locked IV fluid Monitor closely but no source at this current time except for acute bronchospasm that is causing hypoxia Reason Hospital Visit/Course CC: Hypoxia HPI: This is a 70-year-old white male that reports he's been in excellent health all of his life that presents to the emergency room with cough and overall weakness. He was found to be hypoxic and could not evaluate the exact source of that issue since chest x-ray did not show infiltrate and breast workup was negative including BNP so he was placed in observation placed on oxygen IV steroids and breathing treatments. I did note the urinalysis today was too numerous count white cells he denies any urinary frequency or dysuria so we'll place her on Rocephin empirically and also have Dr. Morales evaluate him from a cardiology standpoint since he's never had any heart workup he said. He reports these had a cough for the past several days. I review the creatinine that he has had in the past and it's always been 2.1-2.3 but he reports that he has no knowledge of renal insufficiency. Note from 08/18/16: Patient doing well Does not remember what pharmacy he uses indicative of dementia Is breathing well and overall feeling much better No wheezing on exam today Does not meet criteria for home O2 Fever, vital signs stable, pleasant Regular rate and rhythm, clear to auscultation bilaterally no wheezing is noted No edema Hospital course: Patient had a brief hospital course he was admitted for wheezing and hypoxia placed on nebulizer treatments oxygen and IV steroids with good results. Acute UTI diagnosed cities placed on Rocephin empirically urine culture showing Escherichia coli so he'll be discharged with 5 more days of Omnicef with close follow Dr. Ruff for lung check and renal insufficiency monitoring. Discharge Summary Discharge Physical Examination Allergies: Coded Allergies: iodine (Unverified Allergy, Mild, 03/26/09) Vitals & I&Os Vital Signs Date Time Temp Pulse Resp B/P Pulse Ox O2 Delivery O2 Flow Rate FiO2 08/18/16 08:02 97.1 80 20 142/78 95 08/18/16 04:30 Room Air 08/17/16 20:00 1.00 Hospital Course Labs (last 24 hrs) Laboratory Tests 08/17/16 09:05: Urine Bacteria LARGEH, Urine Bilirubin NEGATIVE, Urine Casts NONE, Urine Clarity VERY CLOUDYH, Urine Color YELLOW, Urine Crystals NONE, Urine Culture Indicated YES, Urine Glucose (UA) 3+H, Urine Ketones 1+H, Urine Leukocyte Esterase 3+H, Urine Mucus NEGATIVE, Urine Nitrite NEGATIVE, Urine Protein 3+H, Urine RBC NONE, Urine RBC (Auto) 2+H, Urine Specific [place] 1.015L, Urine Urobilinogen NORMAL, Urine WBC TNTCH, Urine pH 5 08/18/16 05:20: Alanine Aminotransferase (ALT/SGPT) 10, Albumin 3.3, Alkaline Phosphatase 58, Anion Gap 11, Aspartate Amino Transf (AST/SGOT) 14, BUN/Creatinine Ratio 16, Basophils # (Auto) 0.0, Basophils (%) (Auto) 0, Blood Urea Nitrogen 33H, Calcium Level 8.5, Carbon Dioxide Level 17L, Chloride Level 113H, Creatinine 2.02H, Eosinophils # (Auto) 0.0, Eosinophils (%) (Auto) 0, Estimat Glomerular Filtration Rate 33, Glucose Level 149H, Hematocrit 36L, Hemoglobin 12.0L, Lymphocytes # (Auto) 0.8L, Lymphocytes (%) (Auto) 9L, Mean Corpuscular Hemoglobin 31, Mean Corpuscular Hemoglobin Concent 34, Mean Corpuscular Volume 91, Mean Platelet Volume 9.5, Monocytes # (Auto) 0.4, Monocytes (%) (Auto) 5, Neutrophils # (Auto) 7.4, Neutrophils (%) (Auto) 86H, Platelet Count 154, Potassium Level 4.4, Red Blood Count 3.91L, Red Cell Distribution Width 14.0, Sodium Level 141, Total Bilirubin 0.2, Total Protein 5.7L, White Blood Count 8.6 Microbiology 08/17/16 Influenza Types A,B Antigen (ABDIAZIZ) - Final, Complete 08/17/16 Urine Culture - Preliminary, Resulted Escherichia Coli Pending Labs Laboratory Tests 08/18/16 05:20: Alanine Aminotransferase (ALT/SGPT) 10, Albumin 3.3, Alkaline Phosphatase 58, Anion Gap 11, Aspartate Amino Transf (AST/SGOT) 14, BUN/Creatinine Ratio 16, Basophils # (Auto) 0.0, Basophils (%) (Auto) 0, Blood Urea Nitrogen 33, Calcium Level 8.5, Carbon Dioxide Level 17, Chloride Level 113, Creatinine 2.02, Eosinophils # (Auto) 0.0, Eosinophils (%) (Auto) 0, Estimat Glomerular Filtration Rate 33, Glucose Level 149, Hematocrit 36, Hemoglobin 12.0, Lymphocytes # (Auto) 0.8, Lymphocytes (%) (Auto) 9, Mean Corpuscular Hemoglobin 31, Mean Corpuscular Hemoglobin Concent 34, Mean Corpuscular Volume 91, Mean Platelet Volume 9.5, Monocytes # (Auto) 0.4, Monocytes (%) (Auto) 5, Neutrophils # (Auto) 7.4, Neutrophils (%) (Auto) 86, Platelet Count 154, Potassium Level 4.4, Red Blood Count 3.91, Red Cell Distribution Width 14.0, Sodium Level 141, Total Bilirubin 0.2, Total Protein 5.7, White Blood Count 8.6 Discharge Home Medications: Active Scripts Active Cefdinir 300 Mg Capsule 300 Mg PO BID Prednisone 10 Mg Tab.ds.pk 20 Mg PO BID Reported Exelon (Rivastigmine) 4.6 Mg Patch Metoprolol Tartrate 25 Mg Tablet Divalproex Sodium 125 Mg Cap.sprink Buspirone HCl 10 Mg Tablet Amlodipine Besylate 5 Mg Tablet 5 Mg PO DAILY Flomax (Tamsulosin HCl) 0.4 Mg Cap 0.4 Mg PO DAILY@@2100 Xanax (Alprazolam) 0.25 Mg Tablet 1 Tab PO TID PRN Proscar (Finasteride) 5 Mg Tab 5 Mg PO DAILY Instructions to patient/family Please see electonic discharge instructions given to patient. Clinical Quality Measures DVT/VTE Risk/Contraindication: Risk Factor Score Per Nursin RFS Level Per Nursing on Admit: 2=Moderate DOMINIK CRUZ DO Aug 18, 2016 08:55
[2016-08-18] MEDS ORDERED: amLODIPine 5 MG (NORVASC) TAB PO SCH (09:00)
[2016-08-18] MEDS ORDERED: FINASTERIDE (PROSCAR) 5 MG TAB PO SCH (09:00)
[2016-08-18] MEDS: RT-ALBUTEROL/IPRATROPIUM 3 ML (DUONEB) VIAL INH SCH (09:35)
[2016-08-18] MEDS: RT-BUDESONIDE NEBS 0.5 MG/2ML (PULMICORT) AMP INH SCH (09:36)
--- NOTE | 2016-08-18 10:30 | Diagnostic Imaging Report ---
EXAMINATION: PA and lateral views of the chest. INDICATION: Cough. COMPARISON: 08/17/2016. FINDINGS: The lungs are clear. The heart size is normal. There is no effusion or pneumothorax. The mediastinum and peyman appear unremarkable. There are mild anterior osteophytes seen at multiple levels. IMPRESSION: Unremarkable exam. Dictated by: Dictated on workstation # [id number]
[2016-08-18] MEDS: cefTRIAXone INJECTION 1,000 MG in NS (IVPB) 50 ML IV SCH (11:34)
--- NOTE | 2016-08-19 09:14 | ECHOCARDIOGRAPHY REPORT ---
PROCEDURE PHYSICIAN: MORTEZA ROMAN DATE OF PROCEDURE: 08/18/2016 TWO DIMENSIONAL ECHOCARDIOGRAM REPORT PRIMARY PHYSICIAN: OTHER PHYSICIAN: REFERRING PHYSICIAN: Dr. Ruff ORDERING PHYSICIAN: INDICATION FOR THE PROCEDURE: Shortness of breath. MEASUREMENTS DERIVED VALUES LV DIAMETER (LAX) NORMALS NORMALS Diastolic 4.7 (3.6-5.2) Eject. Fract. 60% (60%+/-6%) Systolic (2.3-3.9) Diastolic Vol. % Shortening (0.22-0.42) Systolic Vol. Aortic Root IVS THICKNESS Diastolic 1.3 (0.6-1.1) LVPW THICKNESS Diastolic 1.3 (0.6-1.1) LA DIAMETER Systolic 1.5 (2.1-3.7) FINDINGS: 1. Technically suboptimal study. 2. The left ventricle is normal in size with mild to moderate left ventricular hypertrophy noted diffusely, more pronounced at the base of the septum giving the septum a sigmoid shape. Systolic function appeared to be normal. Estimated ejection fraction 60%. Diastolic dysfunction is suggested by Doppler. 3. The left atrium is dilated. No clot or thrombus were seen within the left atrium. 4. The right atrium and right ventricle are normal in size. No clot or thrombus were seen within the right side. 5. Mitral valve is calcified with mild mitral regurgitation noted by color Doppler flow. No mitral valve prolapse. No mitral valve stenosis. 6. Aortic valve is calcified. No significant aortic valve stenosis was noted. Mild to moderate aortic regurgitation noted by color Doppler flow. 7. Tricuspid valve is normal in morphology with mild tricuspid regurgitation noted by color Doppler flow. Doppler across tricuspid valve estimated pulmonary artery pressure 29+ right atrial pressure. 8. Pulmonic valve is functioning normally. 9. No pericardial effusion. IN CONCLUSION: 1. Mild to moderate left ventricular hypertrophy noted diffusely, more pronounced at the base of the septum giving the septum a sigmoid shape. Systolic function appeared to be normal. Estimated ejection fraction 60%. Diastolic dysfunction is suggested by Doppler. 2. Dilated left atrium. 3. Aortic valve sclerosis. No aortic stenosis, mild to moderate aortic regurgitation. Mild mitral regurgitation, mild tricuspid regurgitation. 4. Estimated pulmonary artery pressure of 35 mmHg. Job ID: [id number] Dictated Date: 08/18/2016 16:32:17 Ball Warper Tender Date: 08/19/2016 08:58:30 / peg
== END 2016-08-18 08:51 | disposition home or self-care (01) ==
LOC: EDUNIT# 03:42 → ER 03:45 → UNDOADMOB 05:17 → 4TH 05:17 → UNDODISOB 08-18 14:15
PROVIDERS: ADMIT Internal Medicine; ATTEND Internal Medicine
DX: J20.9 Acute bronchitis, unspecified (principal); R09.02 Hypoxemia; N39.0 Urinary tract infection, site not specified; I35.8 Other nonrheumatic aortic valve disorders; R53.83 Other fatigue; N40.0 Benign prostatic hyperplasia without lower urinary tract symptoms; I12.9 Hypertensive chronic kidney disease with stage 1 through stage 4 chronic kidney disease, or unspecified chronic kidney disease; N18.9 Chronic kidney disease, unspecified; N20.0 Calculus of kidney; F03.90 Unspecified dementia, unspecified severity, without behavioral disturbance, psychotic disturbance, mood disturbance, and anxiety; Z79.899 Other long term (current) drug therapy
CPT/HCPCS: 36415; 71010; 71020; 80053; 80164; 81000; 83605; 83880; 85025; 85379; 85610; 85730; 86141; 87040; 87088; 87186; 87804; 93005; 93306; 94640; 94760; 94761; 96361; 96374; G0378

== ENCOUNTER 2018-11-29 10:14 | Inpatient (IN) | payer MEDICARE, MEDICAID ==
[~2018-11-29] VITALS: Ht 185.4 cm; Wt 88.5 kg
[~2018-11-29 10:14] MED LIST changes: +BUSP10TA95 PO; +CEFD300C3 PO; +DIVA125C10 PO; +HYDR-4226 PO; -HYDR-757 PO; +METO-333 PO; +PRED10TA22 PO; +RIVA1PAT
--- OUTSIDE RECORDS SUMMARY | 2018-11-29 10:19 | XMS REPORT ---
Author Author Migration, Doctor Organization [facility] Address Unknown Phone Unavailable Care Team Providers Care Sheep Clipper Name Role Phone Migration, Doctor Unavailable Unavailable PROBLEMS Type Condition ICD9-CM Code REK33-TT Code Onset Dates Condition Status SNOMED Code Problem Lumbago 724.2 Active 870810763 Problem Urinary tract infection, site not specified 599.0 Active 85761834 ALLERGIES No Information ENCOUNTERS Encounter Location Date Diagnosis [facility] [address] [id number] Nov, Dental examination Z01.20 and Dental caries K02.9 [facility] [id number] [place] [id number] Sep, [facility] [address] [address] Sep, [facility] [id number] [place] [phone] May, [facility] [id number] [place] [phone] May, [facility] [id number] [place] [phone] May, [facility] [id number] [place] [phone] May, [facility] [id number] [place] [phone] Apr, [facility] [id number] [place] [phone] Apr, [facility] [id number] [place] [phone] Apr, [facility] [id number] [place] [phone] Apr, [facility] [address] [id number] [place] [address] Apr, [facility] [place] [facility] [address] [id number] [place] [address] Apr, [facility] [address] [facility] [id number] [place] [address] Feb, [facility] [place] [facility] [address] [id number] [place] [address] May, [facility] [id number] [place] [address], [place] [address] May, [facility] [place] [facility] [address] [facility] [id number] [place] [address] May, [facility] [id number] [place] [address] May, [facility] [place] [facility] [address] [facility] [id number] [place] [address] May, [facility] [place] [facility] [id number] [place] [address] May, [facility] [place] [facility] [id number] [place] [address] May, [facility] [place] [facility] [address] [facility] [id number] [address] Apr, [facility] [place] [facility] [address] [facility] [id number] [address] Apr, [facility] [place] [facility] [address] [facility] [id number] [place] [address] Apr, [facility] [place] [facility] [address] [facility] [id number] [place] [address] Mar, [facility] [place] [facility] [id number] [address] May, [facility] [place] [facility] [id number] [address] May, [facility] [id number] [address] Apr, [facility] [id number] [address] Apr, [facility] [id number] [address] Apr, [facility] [id number] [address] Mar, [facility] [id number] [address] Mar, [facility] [id number] [address] Feb, [facility] [id number] [address] Nov, IMMUNIZATIONS No Known Immunizations SOCIAL HISTORY Never Assessed [place]AS[place] FOR [place] [place] VITAL SIGNS MEDICATIONS No Known Medications RESULTS No Results PROCEDURES No Known procedures INSTRUCTIONS MEDICATIONS ADMINISTERED No Known Medications
--- OUTSIDE RECORDS SUMMARY | 2018-11-29 10:19 | XMS REPORT ---
Author Author Migration, Doctor Organization [facility] Address Unknown Phone Unavailable Care Team Providers Care Kennel Keeper Name Role Phone Migration, Doctor Unavailable Unavailable PROBLEMS Type Condition ICD9-CM Code IQE84-TA Code Onset Dates Condition Status SNOMED Code Problem Lumbago 724.2 Active 220368784 Problem Urinary tract infection, site not specified 599.0 Active 50985237 ALLERGIES No Information ENCOUNTERS Encounter Location Date Diagnosis [facility] [address] [id number] Nov, Dental examination Z01.20 and Dental caries K02.9 [facility] [id number] [place] [address] Sep, [facility] [address] [address] Sep, [facility] [id number] [place] [address] May, [facility] [id number] [place] [address] May, [facility] [id number] [place] [address] May, [facility] [id number] [place] [address] May, [facility] [id number] [place] [address] Apr, [facility] [id number] [place] [address] Apr, [facility] [id number] [place] [address] Apr, [facility] [id number] [place] [address] Apr, [facility] [address] [id number] [place] [address] Apr, [facility] [place] [facility] [address] [id number] [place] [address] Apr, [facility] [address] [facility] [id number] [place] [address] Feb, [facility] [place] [facility] [address] [id number] [place] [address] May, [facility] [address] [id number] [place] [address], [place] [address] May, [facility] [place] [facility] [address] [facility] [id number] [place] [address] May, [facility] [address] [place] [address] May, [facility] [place] [facility] [address] [facility] [id number] [place] [address] May, [facility] [place] [facility] [id number] [place] [address] May, [facility] [place] [facility] [id number] [place] [address] May, [facility] [place] [facility] [address] [facility] [id number], [place] [address] Apr, [facility] [place] [facility] [address] [facility] [id number], [place] [address] Apr, [facility] [place] [facility] [address] [facility] [id number] [place] [address] Apr, [facility] [place] [facility] [address] [facility] [id number] [place] [address] Mar, [facility] [place] [facility] [address] [id number] [address] May, [facility] [place] [facility] [address], [place] [address] May, [facility] [address], [place] [address] Apr, [facility] [address] [address] Apr, [facility] [address] [address] Apr, [facility] [address] [address] Mar, [facility] [address] [address] Mar, [facility] [address], [place] [address] Feb, [facility] [address], [place] [address] Nov, IMMUNIZATIONS No Known Immunizations SOCIAL HISTORY Never Assessed REASON FOR VISIT [facility] [place] OF CARE VITAL SIGNS MEDICATIONS No Known Medications RESULTS No Results PROCEDURES No Known procedures INSTRUCTIONS MEDICATIONS ADMINISTERED No Known Medications
--- OUTSIDE RECORDS SUMMARY | 2018-11-29 10:19 | XMS REPORT ---
Author Author Migration, Doctor Organization [facility] Address Unknown Phone Unavailable Care Team Providers Care Lasting Machine Operator Bed Name Role Phone Migration, Doctor Unavailable Unavailable PROBLEMS Type Condition ICD9-CM Code DMK06-WH Code Onset Dates Condition Status SNOMED Code Problem Lumbago 724.2 Active 421087120 Problem Urinary tract infection, site not specified 599.0 Active 04145485 ALLERGIES No Information ENCOUNTERS Encounter Location Date Diagnosis [facility] [address] [id number] Nov, Dental examination Z01.20 and Dental caries K02.9 [facility] [id number] [place] [address] Sep, [facility] [id number] [place] [address] Sep, [facility] [id number] [place] [address] May, [facility] [id number] [place] [address] May, [facility] [id number] [place] [address] May, [facility] [id number] [place] [address] May, [facility] [id number] [place] [address] Apr, [facility] [id number] [place] [address] Apr, [facility] [id number] [place] [address] Apr, [facility] [id number] [place] [address] Apr, [facility] [place] [facility] [address] [id number] [place] [address] Apr, [facility] [place] [facility] [address] [id number] [place] [address] Apr, [facility] [place] [facility] [address] [facility] [id number] [place] [address] Feb, [facility] [place] [facility] [address] [id number] [place] [address] May, [facility] [place] [facility] [address] [id number] [place] [address], [place] [address] May, [facility] [place] [facility] [address] [facility] [id number] [place] [address] May, [facility] [place] [facility] [id number] [place] [address] May, [facility] [place] [facility] [address] [facility] [id number] [place] [address] May, [facility] [place] [facility] [address] [id number] [place] [address] May, [facility] [place] [facility] [address] [id number] [place] [address] May, [facility] [place] [facility] [address] [facility] [id number], [place] [address] Apr, [facility] [place] [facility] [address] [facility] [id number], [place] [address] Apr, [facility] [place] [facility] [address] [facility] [id number] [place] [address] Apr, [facility] [place] [facility] [address] [facility] [id number] [place] [address] Mar, [facility] [place] [facility] [address] [id number] [address] May, [facility] [place] [facility] [address] [id number] [address] May, [facility] [address], [place] [address] Apr, [facility] [address] [facility] [id number], [place] [address] Apr, [facility] [address], [place] [address] Apr, [facility] [address], [place] [address] Mar, [facility] [address], [place] [address] Mar, [facility] [address], [place] [address] Feb, [facility] [address], [place] [address] Nov, IMMUNIZATIONS No Known Immunizations SOCIAL HISTORY Never Assessed REASON FOR VISIT EMR-[facility] [place] PLAN OF CARE VITAL SIGNS MEDICATIONS Medication Instructions Dosage Frequency Start Date End Date Duration Status amlodipine 5 mg take 1 tablet (5 mg) by oral route once daily May, Active HydrOXYzine HCl 25 mg 1 Tablet by Po route 3 times per day for 10 days May, Active Cipro 500 mg 1 tablet by Oral route every 12 hours for 10 day(s) Apr, Active Allopurinol 100 mg take 1 tablet (100 mg) by oral route once daily Apr, Active Finasteride 5 mg take 1 tablet (5 mg) by oral route once daily Apr, Active tamsulosin 0.4 mg Apr, Active Cefdinir 300 mg take 1 capsule (300 mg) by oral route every 12 hours for 10 days May, Active RESULTS No Results PROCEDURES No Known procedures INSTRUCTIONS MEDICATIONS ADMINISTERED No Known Medications
--- OUTSIDE RECORDS SUMMARY | 2018-11-29 10:19 | XMS REPORT ---
Author Author Migration, Doctor Organization [facility] Address Unknown Phone Unavailable Care Team Providers Care Air Pollution Control Engineer Name Role Phone Migration, Doctor Unavailable Unavailable PROBLEMS Type Condition ICD9-CM Code VFM26-AC Code Onset Dates Condition Status SNOMED Code Problem Lumbago 724.2 Active 593082634 Problem Urinary tract infection, site not specified 599.0 Active 45633199 ALLERGIES No Information ENCOUNTERS Encounter Location Date Diagnosis [facility] [address] [id number] Nov, Dental examination Z01.20 and Dental caries K02.9 [facility] [id number] [place] [address] Sep, [facility] [address] [address] Sep, [facility] [id number] [place] [address] May, [facility] [id number] [place] [address] May, [facility] [id number] [place] [address] May, [facility] [id number] [place] [address] May, [facility] [id number] [place] [address] Apr, [facility] [id number] [place] [address] Apr, [facility] [id number] [place] [address] Apr, [facility] [id number] [place] [address] Apr, [facility] [address] [id number] [place] [address] Apr, [facility] [place] [facility] [address] [id number] [place] [address] Apr, [facility] [address] [facility] [id number] [place] [address] Feb, [facility] [place] [facility] [address] [id number] [place] [address] May, [facility] [address] [id number] [place] [address], [place] [address] May, [facility] [place] [facility] [address] [facility] [id number] [place] [address] May, [facility] [id number] [place] [address] May, [facility] [place] [facility] [address] [facility] [id number] [place] [address] May, [facility] [place] [facility] [address] [id number] [place] [address] May, [facility] [place] [facility] [address] [id number] [place] [address] May, [facility] [place] [facility] [address] [facility] [id number], [place] [address] Apr, [facility] [place] [facility] [address] [facility] [id number], [place] [address] Apr, [facility] [place] [facility] [address] [facility] [id number] [place] [address] Apr, [facility] [place] [facility] [address] [facility] [id number] [place] [address] Mar, [facility] [place] [facility] [id number] [address] May, [facility] [place] [facility] [address]00565[address], [place] [address] May, [facility] [address] [address] Apr, [facility] [address]00565[address] [address] Apr, [facility] [address]00565[address] [address] Apr, [facility] [address]00565[address], [place] [address] Mar, [facility] [address]005[address], [place] [address] Mar, [facility] [address]005[address], [place] [address] Feb, [facility] [address], [place] [address] Nov, IMMUNIZATIONS No Known Immunizations SOCIAL HISTORY Never Assessed REASON FOR VISIT [place] [place] VITAL SIGNS MEDICATIONS No Known Medications RESULTS No Results PROCEDURES No Known procedures INSTRUCTIONS MEDICATIONS ADMINISTERED No Known Medications
--- OUTSIDE RECORDS SUMMARY | 2018-11-29 10:20 | XMS REPORT | Continuity of Care Document ---
Author Organization Unknown Address Unknown Allergies Active Description Code Type Severity Reaction Onset Reported/Identified Relationship to Patient Clinical Status Yes iodine [id number] Drug Allergy Mild N/A 03/26/2009 Yes Iodine Drug Allergy N/A N/A 09/04/2009 Medications There is no data. Problems Date Dx Coded Attending Type Code Diagnosis Diagnosed By 02/23/2008 NARDA MONTANA DO 401.1 HYPERTENSION, BENIGN ESSENTIAL 02/23/2008 LINUS MONTANA DOA K 721.90 OSTEOARTHRITIS 02/23/2008 LINUS MONTANA DOA K 401.1 HYPERTENSION, BENIGN ESSENTIAL 02/23/2008 LINUS MONTANA DOA K 721.90 OSTEOARTHRITIS 02/29/2008 NARDA MONTANA DO K 338.4 PAIN CHRONIC SYNDROME 02/29/2008 LINUS MONTANA DOA K 338.4 PAIN CHRONIC SYNDROME 06/05/2008 LINUS MONTANA DOA K 780.52 Insomnia Unspecified 06/05/2008 LINUS MONTANA DOA K 780.52 Insomnia Unspecified 07/10/2008 LINUS MONTANA DOA K 307.40 Insomnia 07/10/2008 LINUS MONTANA DOA K 729.5 PAIN IN LIMB 07/10/2008 LINUS MONTANA DOA K 307.40 Insomnia 07/10/2008 LINUS MONTANA DOA K 729.5 PAIN IN LIMB 11/24/2008 LINUS MONTANA DOA K 780.79 MALAISE AND FATIGUE 11/24/2008 MON[place] DO NARDA K 780.79 MALAISE AND FATIGUE 01/29/2009 NAN WALKER NARDA K 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 01/29/2009 LINUS MONTANA DOA K 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 02/07/2009 LINUS MONTANA DOA K 270.7 Hyperglycemia 02/07/2009 NAN WALKER NARDA K 296.90 Mo Mood Dis Nos 02/07/2009 LINUS MONTANA DOA K 270.7 Hyperglycemia 02/07/2009 LINUS MONTANA DOA K 296.90 Mo Mood Dis Nos 02/13/2009 NARDA MONTANA DO K NODX No Diagnosis 02/13/2009 [place]TANA DO NARDA K NODX No Diagnosis 02/16/2009 MONTANA DO, NARDA K 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 02/16/2009 MONTANA DO, NARDA K 300.00 An Anxiety Unspec 02/16/2009 NAN DO, NARDA K 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 02/16/2009 MONTANA DO, NARDA K 300.00 An Anxiety Unspec 02/26/2009 MONTANA DO, NARDA K 300.02 An Gen Anxiety 02/26/2009 MONTANA DO, NARDA K 301.6 PD DEPENDENT 02/26/2009 MONTANA DO, NARDA K 300.02 An Gen Anxiety 02/26/2009 MONTANA DO, NARDA K 301.6 PD DEPENDENT 03/14/2009 MONTANA DO, NARDA K 788.1 Dysuria 03/14/2009 MONTANA DO, NARDA K 788.1 Dysuria 04/02/2009 MONTANA DO, NARDA K 590.2 Kidney Stones 04/02/2009 MONTANA DO, NARDA K 590.2 Kidney Stones 04/17/2009 MONTANA DO, NARDA K 465.9 Upper Respiratory Infection 04/17/2009 MONTANA DO, NARDA K 465.9 Upper Respiratory Infection 04/25/2010 MONTANA DO, NARDA K 914.0 Abrasion Or Friction Burn Of Hand(s) Except Finger(s) Alone Without Infection 04/25/2010 MONTANA DO, NARDA K E906.0 Dog Bite 04/25/2010 MONTANA DO, NARAD K 914.0 Abrasion Or Friction Burn Of Hand(s) Except Finger(s) Alone Without Infection 04/25/2010 MONTANA DO, NARDA K E906.0 Dog Bite 06/12/2010 MONTANA DO, NARDA K 681.02 Onychia [...] 995.94 01/31/2011 Ot 562.10 11/29/2011 Ot 038.42 E COLI SEPTICEMIA 11/29/2011 Ot 276.50 VOLUME DEPLETION, UNSPECIFIED 11/29/2011 Ot 300.00 ANXIETY STATE NOS 11/29/2011 Ot 311 DEPRESSIVE DISORDER NEC 11/29/2011 Ot 401.9 HYPERTENSION NOS 11/29/2011 Ot 562.10 DIVERTICULOSIS COLON (W/O MENT OF HEMORR 11/29/2011 Ot 592.0 CALCULUS OF KIDNEY 11/29/2011 Ot 593.2 CYST OF KIDNEY, ACQUIRED 11/29/2011 Ot 593.9 RENAL URETERAL DIS NOS 11/29/2011 Ot 599.0 URIN TRACT INFECTION NOS 11/29/2011 Ot 600.90 HYPERPLASIA OF PROSTATE, UNSPEC, W/O URI 11/29/2011 Ot 601.9 PROSTATITIS NOS 11/29/2011 Ot 715.89 OSTEOARTHROSIS- MULT SITE 11/29/2011 Ot 995.91 SEPSIS 11/29/2011 Ot V03.82 PROPHYLACTIC VACC AGAINST STREPTOCOCCUS 11/29/2011 Ot V13.01 PERSONAL HISTORY OF URINARY CALCULI 12/03/2011 Ot 592.0 CALCULUS OF KIDNEY 12/31/2011 Ot 401.9 HYPERTENSION NOS 12/31/2011 Ot 592.0 CALCULUS OF KIDNEY 04/13/2012 Ot 599.0 URIN TRACT INFECTION NOS 04/13/2012 Ot V58.69 OTH MED,LT,CURRENT USE 04/26/2013 MONTANA DO, NARDA K 599.0 URINARY TRACT INFECTION 04/26/2013 NARDA MONTANA DO K 599.0 URINARY TRACT INFECTION 05/11/2013 NARDA MONTANA DO K 724.2 LUMBAGO/ LOW BACK PAIN 09/13/2013 ALEXANDER NULL DO Ot 490 BRONCHITIS NOS 09/13/2013 ALEXANDER NULL DO Ot 786.2 COUGH 09/18/2013 BUBBA URIAS, MIKE Yang Ot 276.8 HYPOPOTASSEMIA 09/18/2013 BUBBA URIAS, MIKE Yang Ot 599.0 URIN TRACT INFECTION NOS 09/18/2013 BUBBA URIAS, MIKE Yang Ot 787.02 NAUSEA ALONE 11/29/2013 BUBBA URIAS, MIKE Yang Ot 466.0 ACUTE BRONCHITIS 11/29/2013 BUBBA URIAS, MIKE Yang Ot 786.05 SHORTNESS OF BREATH 11/29/2013 BUBBA URIAS, MIKE Yang Ot 790.29 OTHER ABNORMAL GLUCOSE 11/29/2013 BUBBA URIAS, MIKE Yang Ot V58.69 OT MED,LT,CURRENT USE 05/15/2014 Ot 715.36 05/15/2014 Ot 719.62 05/15/2014 [...] DO Ot 786.50 01/30/2015 Ot 786.2 02/14/2015 RAVI WALKER ANTIONETTE Negin Ot 781.0 02/26/2015 ANTIONETTE RODRIGUES DO Ot 781.0 03/30/2015 DALILA PORTILLO Ot 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 03/30/2015 DALILA PORTILLO Ot N39.0 URINARY TRACT INFECTION, SITE NOT SPECIF 03/30/2015 DALILA PORTILLO Ot R25.1 TREMOR, UNSPECIFIED 03/30/2015 DALILA PORTILLO Ot Z79.899 OTHER PRISON (CURRENT) DRUG THERAPY 06/19/2015 ODNNA BYRD APRN Ot 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.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 06/19/2015 DONNA BYRD APRN Ot W01.0XXA FALL SAME LEV FROM SLIP/TRIP W/O STRIKE 06/19/2015 DONNA BYRD APRN Ot Y92.[address] [facility] 06/19/2015 DONNA BYRD INTERNATIONAL EXCHANGE COORDINATOR Ot Y99.8 OTHER EXTERNAL CAUSE STATUS 07/09/2016 Ot 562.11 DIVERTICULITIS COLON (W/O MENT OF HEMORR 07/09/2016 Ot 789.00 ABDOMINAL PAIN, UNSPECIFIED SITE 07/09/2016 Ot 791.9 ABN URINE FINDINGS NEC 08/17/2016 Ot 715.36 LOC OSTEOARTH NOS-L/LEG 08/17/2016 Ot 719.62 JOINT SYMPTOM NEC-UP/ARM 08/17/2016 Ot 401.9 HYPERTENSION NOS 08/17/2016 Ot 780.79 OTH MALAISE FATIGUE 08/17/2016 Ot 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 08/17/2016 Ot 592.0 CALCULUS OF KIDNEY 08/17/2016 Ot V72.81 IERE-[id number] CARDIOVASCULAR 08/17/2016 Ot 592.0 CALCULUS OF KIDNEY 08/17/2016 Ot V72.83 EXAM PRE-OPERATIVE NEC 08/17/2016 Ot V74.8 SCREEN-BACTERIAL DIS NEC 08/17/2016 Ot 592.0 CALCULUS OF KIDNEY 08/17/2016 Ot V45.89 POSTSURGICAL STATES NEC 08/17/2016 Ot 592.0 CALCULUS OF KIDNEY 08/17/2016 Ot V45.89 POSTSURGICAL STATES NEC 08/17/2016 Ot 786.2 COUGH 08/17/2016 Ot 599.0 URIN TRACT INFECTION NOS 08/17/2016 Ot V58.69 OTH MED,LT,CURRENT USE 08/17/2016 Ot 564.00 UNSPEC CONSTIPATION 08/17/2016 Ot 789.00 ABDOMINAL PAIN, UNSPECIFIED SITE 08/17/2016 ANTIONETTE RODRIGUES DO Ot 786.50 CHEST PAIN NOS 08/17/2016 ANTIONETTE RODRIGUES DO Ot 781.0 ABN INVOLUN MOVEMENT NEC 08/17/2016 ANTIONETTE RODRIGUES DO Ot 781.3 LACK OF COORDINATION 08/17/2016 ANTIONETTE RODRIGUES DO Ot 781.0 ABN INVOLUN MOVEMENT NEC 08/17/2016 Ot 715.36 LOC OSTEOARTH NOS-L/LEG 08/17/2016 Ot 719.62 JOINT SYMPTOM NEC-UP/ARM 08/17/2016 Ot 401.9 HYPERTENSION NOS 08/17/2016 Ot 780.79 OTH MALAISE FATIGUE 08/17/2016 Ot 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 08/17/2016 Ot 592.0 CALCULUS OF KIDNEY 08/17/2016 Ot V72.81 [id number] CARDIOVASCULAR 08/17/2016 Ot 592.0 CALCULUS OF KIDNEY 08/17/2016 Ot V72.83 EXAM PRE-OPERATIVE NEC 08/17/2016 Ot V74.8 SCREEN-BACTERIAL DIS NEC 08/17/2016 Ot 592.0 CALCULUS OF KIDNEY 08/17/2016 Ot V45.89 POSTSURGICAL STATES NEC 08/17/2016 Ot 592.0 CALCULUS OF KIDNEY 08/17/2016 Ot V45.89 POSTSURGICAL STATES NEC 08/17/2016 Ot 786.2 COUGH 08/17/2016 Ot 599.0 URIN TRACT INFECTION NOS 08/17/2016 Ot V58.69 OTH MED,LT,CURRENT USE 08/17/2016 Ot 564.00 UNSPEC CONSTIPATION 08/17/2016 Ot 789.00 ABDOMINAL PAIN, UNSPECIFIED SITE 08/17/2016 ANTIONETTE RODRIGUES DO Ot 786.50 CHEST PAIN NOS 08/17/2016 ANTIONETTE RODRIGUES DO Ot 781.0 ABN INVOLUN MOVEMENT NEC 08/17/2016 ANTIONETTE RODRIGUES DO Ot 781.3 LACK OF COORDINATION 08/17/2016 ANTIONETTE RODRIGUES DO Ot 781.0 ABN INVOLUN MOVEMENT NEC 08/17/2016 Ot 715.36 LOC OSTEOARTH NOS-L/LEG 08/17/2016 Ot 719.62 JOINT SYMPTOM NEC-UP/ARM 08/17/2016 Ot 401.9 HYPERTENSION NOS 08/17/2016 Ot 780.79 OTH MALAISE FATIGUE 08/17/2016 Ot 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 08/17/2016 Ot 592.0 CALCULUS OF KIDNEY 08/17/2016 Ot V72.81 [id number] CARDIOVASCULAR 08/17/2016 Ot 592.0 CALCULUS OF KIDNEY 08/17/2016 Ot V72.83 EXAM PRE-OPERATIVE NEC 08/17/2016 Ot V74.8 SCREEN-BACTERIAL DIS NEC 08/17/2016 Ot 592.0 CALCULUS OF KIDNEY 08/17/2016 Ot V45.89 POSTSURGICAL STATES NEC 08/17/2016 Ot 592.0 CALCULUS OF KIDNEY 08/17/2016 Ot V45.89 POSTSURGICAL STATES NEC 08/17/2016 Ot 786.2 COUGH 08/17/2016 Ot 599.0 URIN TRACT INFECTION NOS 08/17/2016 Ot V58.69 OTH MED,LT,CURRENT USE 08/17/2016 Ot 564.00 UNSPEC CONSTIPATION 08/17/2016 Ot 789.00 ABDOMINAL PAIN, UNSPECIFIED SITE 08/17/2016 ANTIONETTE RODRIGUES DO Ot 786.50 CHEST PAIN NOS 08/17/2016 ANTIONETTE RODRIGUES DO Ot 781.0 ABN INVOLUN MOVEMENT NEC 08/17/2016 ANTIONETTE RODRIGUES DO Ot 781.3 LACK OF COORDINATION 08/17/2016 ANTIONETTE RODRIGUES DO Ot 781.0 ABN INVOLUN MOVEMENT NEC 08/18/2016 DOMINIK CRUZ DO Ot F03.90 UNSPECIFIED DEMENTIA WITHOUT BEHAVIORAL 08/18/2016 DOMINIK CRUZ DO Ot I12.9 HYPERTENSIVE CHRONIC KIDNEY DISEASE W ST 08/18/2016 DOMINIK CRUZ DO Ot 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 08/18/2016 DOMINIK CRUZ DO Ot J20.9 ACUTE BRONCHITIS, UNSPECIFIED 08/18/2016 CRUZ DO, DOMINIK Ot N18.9 CHRONIC KIDNEY DISEASE, UNSPECIFIED 08/18/2016 NANCY WALKER DOMINIK Ot N20.0 CALCULUS OF KIDNEY 08/18/2016 NANCY WALKER DOMINIK Ot N39.0 URINARY TRACT INFECTION, SITE NOT SPECIF 08/18/2016 NANCY WALKER DOMINIK Ot N40.0 BENIGN PROSTATIC HYPERPLASIA WITHOUT LOW 08/18/2016 NANCY WALKER DOMINIK Ot R09.02 HYPOXEMIA 08/18/2016 NANCY WALKER DOMINIK Ot R53.83 OTHER FATIGUE 08/18/2016 NANCY WALKER DOMINIK Ot Z79.899 OTHER FOUNDATION DIRECTOR (CURRENT) DRUG THERAPY Procedures Code Description [place] [address] UA W/ CULTURE IF INDICATED 04/26/2013 22156 CULTURE URINE 04/29/2013 75275 URINE DRUG SCREEN (IN-HOUSE) 05/11/2013 93552 UA W/ CULTURE IF INDICATED 05/11/2013 Results Test Result Range Complete blood count (CBC) with automated white blood cell (WBC) differential - 08/17/16 04:02 Blood leukocytes automated count (number/volume) 4.6 10*3/uL 4.3-11.0 Blood erythrocytes automated count (number/volume) 4.55 10*6/uL 4.35-5.85 Venous blood hemoglobin measurement (mass/volume) 14.1 g/dL 13.3-17.7 Blood hematocrit (volume fraction) 42 % 40-54 Automated erythrocyte mean corpuscular volume 92 [foz_us] 80-99 Automated erythrocyte mean corpuscular hemoglobin (mass per erythrocyte) 31 pg 25-34 Automated erythrocyte mean corpuscular hemoglobin concentration measurement (mass/volume) 34 g/dL 32-36 Automated erythrocyte distribution width ratio 14.0 % 10.0- 14.5 Automated blood platelet count (count/volume) 170 10*3/uL 130-400 Automated blood platelet mean volume measurement 9.1 [foz_us] 7.4-10.4 Automated blood neutrophils/100 leukocytes 46 % 42-75 Automated blood lymphocytes/100 leukocytes 31 % 12-44 Blood monocytes/100 leukocytes 15 % 0-12 Automated blood eosinophils/100 leukocytes 8 % 0-10 Automated blood basophils/100 leukocytes 0 % 0-10 Blood neutrophils automated count (number/volume) 2.1 10*3 1.8-7.8 Blood lymphocytes automated count (number/volume) 1.4 10*3 1.0-4.0 Blood monocytes automated count (number/volume) 0.7 10*3 0.0- 1.0 Automated eosinophil count 0.4 10*3/uL 0.0-0.3 Automated blood basophil count (count/volume) 0.0 10*3/uL 0.0-0.1 Blood lactic acid measurement (moles/volume) - 08/17/16 04:02 Blood lactic acid measurement (moles/volume) 1.36 mmol/L 0.50- 2.00 Influenza virus A and B antigen detection - 08/17/16 04:02 FLU RESULT NEGATIVE FOR INFLUENZA A AND B ANTIGENS BY IA [facility] PT panel in platelet poor plasma by coagulation assay - 08/17/16 04:02 Prothrombin time (PT) in platelet poor plasma by coagulation assay 12.8 s 12.2-14.7 INR in platelet poor plasma or blood by coagulation assay 1.0 0.8-1.4 Activated partial thromboplastin time (aPTT) in platelet poor plasma bycoagulation assay - 08/17/16 04:02 Activated partial thromboplastin time (aPTT) in platelet poor plasma bycoagulation assay 28 s 24-35 Comprehensive metabolic panel - 08/17/16 04:02 Serum or plasma sodium measurement (moles/volume) 142 mmol/L 135-145 Serum or plasma potassium measurement (moles/volume) 4.2 mmol/L 3.6-5.0 Serum or plasma chloride measurement (moles/volume) 109 mmol/L 98-107 Carbon dioxide 20 mmol/L 21-32 Serum or plasma anion gap determination (moles/volume) 13 mmol/L 5-14 Serum or plasma urea nitrogen measurement (mass/volume) 34 mg/dL 7-18 Serum or plasma creatinine measurement (mass/volume) 2.46 mg/dL 0.60-1.30 Serum or plasma urea nitrogen/creatinine mass ratio 14 NRG Serum or plasma creatinine measurement with calculation of estimated glomerular filtration rate 26 NRG Serum or plasma glucose measurement (mass/volume) 173 mg/dL 70-105 Serum or plasma calcium measurement (mass/volume) 8.8 mg/dL 8.5-10.1 Serum or plasma total bilirubin measurement (mass/volume) 0.3 mg/dL 0.1-1.0 Serum or plasma alkaline phosphatase measurement (enzymatic activity/volume) 70 U/L 40-136 Serum or plasma aspartate aminotransferase measurement (enzymatic activity/volume) 14 U/L 5-34 Serum or plasma alanine aminotransferase measurement (enzymatic activity/volume) 9 U/L 0-55 Serum or plasma protein measurement (mass/volume) 6.6 g/dL 6.4-8.2 Serum or plasma albumin measurement (mass/volume) 3.7 g/dL 3.2-4.5 Fibrin D-dimer FEU measurement in platelet poor plasma (mass/volume) - 08/17/16 04:02 Fibrin D-dimer FEU measurement in platelet poor plasma (mass/volume) 0.44 ug/mL 0.00-0.49 Serum or plasma lithium measurement (moles/volume) - 08/17/16 04:02 BNP level 28.5 pg/mL <100.0 Serum or plasma C reactive protein measurement (mass/volume) - 08/17/16 04:02 Serum or plasma C reactive protein measurement (mass/volume) 0.60 mg/dL 0.00-0.50 Valproic acid - 08/17/16 04:02 Valproic acid 44.0 ug/mL 50.0-100.0 Bacterial blood culture - 08/17/16 04:02 Bacterial blood culture NG NRG Bacterial blood culture - 08/17/16 05:05 QUANTITY OF GROWTH Isolated NRG Bacterial blood culture [id number] [facility] Complete urinalysis with reflex to culture - 08/17/16 09:05 Urine color determination YELLOW NRG Urine clarity determination VERY CLOUDY NRG Urine pH measurement by test strip 5 5-9 Specific gravity of urine by test strip 1.015 1.016-1.022 Urine protein assay by test strip, semi-quantitative 3+ NEGATIVE Urine glucose detection by automated test strip 3+ NEGATIVE Erythrocytes detection in urine sediment by light microscopy 2+ NEGATIVE Urine ketones detection by automated test strip 1+ NEGATIVE Urine nitrite detection by test strip NEGATIVE NEGATIVE Urine total bilirubin detection by test strip NEGATIVE NEGATIVE Urine urobilinogen measurement by automated test strip (mass/volume) NORMAL NORMAL Urine leukocyte esterase detection by dipstick 3+ NEGATIVE Automated urine sediment erythrocyte count by microscopy (number/high power field) NONE NRG Automated urine sediment leukocyte count by microscopy (number/high power field) TNTC NRG Bacteria detection in urine sediment by light microscopy LARGE NRG Crystals detection in urine sediment by light microscopy NONE NRG Casts detection in urine sediment by light microscopy NONE NRG Mucus detection in urine sediment by light microscopy NEGATIVE NRG Complete urinalysis with reflex to culture YES NRG Bacterial urine culture - 08/17/16 09:05 Bacterial urine culture [id number] NRG COLONY COUNT >100,000/ML NRG FTX;REPORTABLE SENSITIVITY REPORTED 08/18/16 15:30 NRG Bacterial susceptibility panel - 08/17/16 09:05 Gentamicin susceptibility test by minimum inhibitory concentration <= NRG Trimethoprim/sulfamethoxazole susceptibility test by minimum inhibitoryconcentration <= NRG Ampicillin susceptibility test by minimum inhibitory concentration >= NRG Tobramycin susceptibility test by minimum inhibitory concentration <= NRG Cefazolin susceptibility test by minimum inhibitory concentration <= NRG Ceftriaxone susceptibility test by minimum inhibitory concentration <= NRG Ampicillin/sulbactam susceptibility test by minimum inhibitory concentration 16 NRG Piperacillin/tazobactam susceptibility test by minimum inhibitory concentration <= NRG Ciprofloxacin susceptibility test by minimum inhibitory concentration >= NRG Meropenem susceptibility test by minimum inhibitory concentration <= NRG Nitrofurantoin susceptibility test by minimum inhibitory concentration <= NRG Aztreonam susceptibility test by minimum inhibitory concentration <= NRG Extended spectrum beta lactamase (ESBL) producing bacteria susceptibility test by minimum inhibitory concentration - NRG Complete blood count (CBC) with automated white blood cell (WBC) differential - 08/18/16 05:20 Blood leukocytes automated count (number/volume) 8.6 10*3/uL 4.3-11.0 Blood erythrocytes automated count (number/volume) 3.91 10*6/uL 4.35-5.85 Venous blood hemoglobin measurement (mass/volume) 12.0 g/dL 13.3-17.7 Blood hematocrit (volume fraction) 36 % 40-54 Automated erythrocyte mean corpuscular volume 91 [foz_us] 80-99 Automated erythrocyte mean corpuscular hemoglobin (mass per erythrocyte) 31 pg 25-34 Automated erythrocyte mean corpuscular hemoglobin concentration measurement (mass/volume) 34 g/dL 32-36 Automated erythrocyte distribution width ratio 14.0 % 10.0- 14.5 Automated blood platelet count (count/volume) 154 10*3/uL 130-400 Automated blood platelet mean volume measurement 9.5 [foz_us] 7.4-10.4 Automated blood neutrophils/100 leukocytes 86 % 42-75 Automated blood lymphocytes/100 leukocytes 9 % 12-44 Blood monocytes/100 leukocytes 5 % 0-12 Automated blood eosinophils/100 leukocytes 0 % 0-10 Automated blood basophils/100 leukocytes 0 % 0-10 Blood neutrophils automated count (number/volume) 7.4 10*3 1.8-7.8 Blood lymphocytes automated count (number/volume) 0.8 10*3 1.0-4.0 Blood monocytes automated count (number/volume) 0.4 10*3 0.0- 1.0 Automated eosinophil count 0.0 10*3/uL 0.0-0.3 Automated blood basophil count (count/volume) 0.0 10*3/uL 0.0-0.1 Comprehensive metabolic panel - 08/18/16 05:20 Serum or plasma sodium measurement (moles/volume) 141 mmol/L 135-145 Serum or plasma potassium measurement (moles/volume) 4.4 mmol/L 3.6-5.0 Serum or plasma chloride measurement (moles/volume) 113 mmol/L 98-107 Carbon dioxide 17 mmol/L 21-32 Serum or plasma anion gap determination (moles/volume) 11 mmol/L 5-14 Serum or plasma urea nitrogen measurement (mass/volume) 33 mg/dL 7-18 Serum or plasma creatinine measurement (mass/volume) 2.02 mg/dL 0.60-1.30 Serum or plasma urea nitrogen/creatinine mass ratio 16 NRG Serum or plasma creatinine measurement with calculation of estimated glomerular filtration rate 33 NRG Serum or plasma glucose measurement (mass/volume) 149 mg/dL 70-105 Serum or plasma calcium measurement (mass/volume) 8.5 mg/dL 8.5-10.1 Serum or plasma total bilirubin measurement (mass/volume) 0.2 mg/dL 0.1-1.0 Serum or plasma alkaline phosphatase measurement (enzymatic activity/volume) 58 U/L 40-136 Serum or plasma aspartate aminotransferase measurement (enzymatic activity/volume) 14 U/L 5-34 Serum or plasma alanine aminotransferase measurement (enzymatic activity/volume) 10 U/L 0-55 Serum or plasma protein measurement (mass/volume) 5.7 g/dL 6.4-8.2 Serum or plasma albumin measurement (mass/volume) 3.3 g/dL 3.2-4.5 Encounters ACCT No. Visit Date/Time Discharge Status Pt. Type Provider Facility Loc./Unit Complaint [id number] 05/11/2013 13:11:00 05/11/2013 23:59:59 CLS Outpatient NARDA MONTANA DO [id number] 04/26/2013 18:13:00 04/26/2013 23:59:59 CLS Outpatient NARDA MONTANA DO [id number] 12/17/2016 10:15:00 12/17/2016 23:59:59 CLS Preadmit ANTIONETTE RODRIGUES DO [facility] RAD CERVICAL PAIN [id number] 08/17/2016 05:17:00 08/18/2016 14:15:00 DIS Inpatient CRUZ ARIELLE WALKERI [facility] 4TH ACUTE BRONCHITIS, BRONCHOSPASM, HYPOXIA [id number] 06/19/2015 21:04:00 06/19/2015 22:43:00 DIS Emergency DONNA BYRD APRN [facility] ER L HAND PAIN [id number] 03/30/2015 17:33:00 03/30/2015 22:20:00 DIS Emergency DALILA PORTILLO [facility] ER SHAKING, UNSTABLE [id number] 02/02/2015 12:56:00 02/02/2015 23:59:59 CLS Outpatient ANTIONETTE RODRIGUES DO [facility] RAD AXOTIO TUMOR [id number] 01/17/2015 11:05:00 01/17/2015 23:59:59 CLS Outpatient ANTIONETTE RODRIGUES DO [facility] RAD ATOXIA TREMOR [id number] 05/17/2014 06:38:00 05/17/2014 23:59:59 CLS Outpatient ANTIONETTE RODRIGUES DO [facility] CARD CP [id number] 11/29/2013 01:43:00 11/29/2013 02:42:00 DIS Emergency MIKE MAC MD [facility] ER SOB [id number] 09/18/2013 18:18:00 09/18/2013 21:33:00 DIS Emergency MIKE MAC MD [facility] ER NAUSEA [id number] 09/13/2013 07:46:00 09/13/2013 08:37:00 DIS Emergency ALEXANDER NULL DO [facility] ER COUGH [id number] 08/03/2014 09:37:00 Document Registration [id number] 04/21/2012 11:41:00 Document Registration [id number] 04/14/2012 00:00:00 Document Registration [id number] 01/16/2012 05:45:00 Document Registration [id number] 01/14/2012 13:06:00 Document Registration [id number] 12/31/2011 05:35:00 Document Registration [id number] 12/26/2011 14:54:00 Document Registration [id number] 12/22/2011 10:12:00 Document Registration [id number] 12/03/2011 05:34:00 Document Registration [id number] 12/02/2011 08:37:00 Document Registration [id number] 11/24/2011 22:55:00 Document Registration [id number] 11/04/2011 06:26:00 Document Registration [id number] 09/26/2011 08:27:00 Document Registration [id number] 05/07/2011 13:33:00 Document Registration [id number] 04/17/2011 15:31:00 Document Registration [id number] 01/31/2011 09:14:00 Document Registration [id number] 01/01/2011 12:38:00 Document Registration [id number] 12/31/2010 12:49:00 Document Registration [id number] 07/29/2010 08:27:00 Document Registration [id number] 07/22/2010 19:46:00 Document Registration [id number] 02/02/2015 12:57:56 ACT Document Registration
--- NOTE | 2018-11-29 10:45 | NUR ---
To CT with KATERYNA Fung
--- NOTE | 2018-11-29 10:49 | ED Neurological Problem ---
General Stated Complaint: DIZZINESS;FALL;WEAKNESS Source: patient, family (daughter) Exam Limitations: no limitations History of Present Illness Date Seen by Provider: Nov 29, 2018 Time Seen by Provider: 10:40 Initial Comments Patient presents to ER with his daughter and chief complaint that he has not been acting right since he woke up this morning. [facility] lives [facility] and has mild dementia but is usually very conversational and walks around without assistance. Today he had to get up with assistance and had a fall this morning. He does not recall whether he struck his head nor lost consciousness. He is not diabetic and last known well time was yesterday evening when his daughter was visiting him. She says he is slurring his speech and seems confused but does not have any facial asymmetry. Patient denies any focal weakness but says he feels weak all over. Denies cough, shortness of breath, chest pain, nausea, fevers, chills, diarrhea, constipation, dysuria or discharge. Not on blood thinners and no history of atrial fibrillation. No history of stroke. Allergies and Home Medications Allergies Coded Allergies: iodine (Unverified Allergy, Mild, 03/26/09) Home Medications Alprazolam 0.25 Mg Tablet, 1 TAB PO TID PRN, (Reported) Amlodipine Besylate 5 Mg Tablet, 5 MG PO DAILY, (Reported) Cefdinir 300 Mg Capsule, 300 MG PO BID Prescribed by: DOMINIK CRUZ on 08/18/16 08 Finasteride 5 Mg Tab, 5 MG PO DAILY, (Reported) Prednisone 10 Mg Tab.ds.pk, 20 MG PO BID Prescribed by: DOMINIK CRUZ on 08/18/16 08 Tamsulosin Hcl 0.4 Mg Cap, 0.4 MG PO Daily@@2100, (Reported) Patient Home Medication List Home Medication List Reviewed: Yes Review of Systems Review of Systems Constitutional: No chills; dizziness; No fever; malaise, weakness Eyes: Denies Blindness, Denies Blurred Vision, Denies Drainage Ears, Nose, Mouth, Throat: denies ear pain, denies ear discharge Respiratory: No cough, No short of breath Cardiovascular: No chest pain, No edema Gastrointestinal: No abdominal pain, No constipation, No diarrhea, No nausea, No vomiting Genitourinary: No discharge, No dysuria Musculoskeletal: back pain (chronic no worse than usual); No joint pain Skin: No pruritus, No rash Past Nrfhlmv-Ukyjiz-Abakkb Hx Patient Social History Alcohol Use: Occasionally Uses Alcohol Beverage of Choice: Whiskey Recreational Drug Use: No Smoking Status: Never a Smoker Recent Foreign Travel: No Contact w/Someone Who Travel: No Recent Hopitalizations: No (previous kidney stones) Immunizations Up To Date Date of Pneumonia Vaccine: Dec 10, 2011 Date of Influenza Vaccine: Feb 06, 2011 Seasonal Allergies Seasonal Allergies: No Past Medical History Surgeries: Yes (for previous kidney stones, and left ankle) Orthopedic, Renal Respiratory: Yes (BRONCHITIS THIS ADMISSION) Cardiac: Yes Hypertension Neurological: Yes (BEGINNING STAGES OF DEMENTIA) Dementia Reproductive Disorders: No Benign Prostatic Hyperpl, Kidney Stones Gastrointestinal: Yes Diverticulosis Musculoskeletal: Yes (Left ankle) Arthritis, Fractures Endocrine: No HEENT: No Cancer: No Psychosocial: Yes Sleep Difficulties, Depression Integumentary: No Blood Disorders: No Family Medical History Patient reports no known family medical history. No Pertinent Family Hx Physical Exam Vital Signs Vital Signs - First Documented 11/29/18 10:30 Temp 96.0 Pulse 59 Resp 18 B/P (MAP) 171/89 (116) Pulse Ox 98 O2 Delivery Room Air Capillary Refill : Height, Weight, BMI Height: 6'1.00" Weight: 192lbs. 12.0oz. 87.705418ha; 25.4 BMI Method:Stated General Appearance: WD/WN HEENT: PERRL/EOMI, normal ENT inspection, TMs normal, pharynx normal Neck: non-tender, full range of motion, supple, normal inspection Respiratory: lungs clear, normal breath sounds, no respiratory distress, no accessory muscle use Cardiovascular: normal peripheral pulses, regular rate, rhythm, no edema Peripheral Pulses: 2+ Dorsalis Pedis (R), 2+ Left Dors-Pedis (L), 2+ Radial Pulses (R), 2+ Radial Pulses (L) Gastrointestinal: normal bowel sounds, non tender, soft, no organomegaly Extremities: normal range of motion, non-tender, normal inspection, no pedal edema, no calf tenderness, normal capillary refill Neurologic/Psychiatric: director hris II-XII nml as tested, alert, other (oriented to person and place but not time) Crainal Nerves: normal hearing, PERRL, abnormal speech (subtle slurring of speech), facial droop (extremely subtle right corner of the lips); No facial paresthesias, No gaze palsy Coordination/Gait: normal finger to nose, abnormal gait (transfers with two- person assist) Motor/Sensory: no sensory deficit, no pronator drift, weak motor strength RLE (4-5), weak motor strength LLE (4 out of 5 bilateral lower extremities) Skin: normal color, warm/dry Stroke Onset of Symptoms Date of Onset of Symptoms: Nov 29, 2018 Symptoms onset unknown: Yes NIH Stroke Scale Assessment Select: Initial Level of Consciousness: 0=Alert (0), Level of Consciousness- Questions: 0=Answers both month/age (0), LOC Commands: 0=Performs both tasks (0), Gaze: Normal (0), Visual Mora: 0=No visual loss (0), Facial Movement (Facial Paresis): 1=Minor paralysis (1), Motor Function-Arms Right: 0=No drif t (0), Motor Function-Arms Left: 0=No drift (0), Motor Function-Legs Right: 0=No drift (0), Motor Function-Legs Left: 0=No drift (0), Limb Ataxia: 0=Absent (0), Sensory: 0=Normal:no loss (0), Best Language: 1=Mild to moderat aphasia dysnomia (1), Dysarthria: 1=Mild to moderate loss Subtle slurred speech (1), Extinction & Inattention: 0=No abnormality (0), Total: 3 Stroke Thrombolytic Exclusion Age 18 or Over: Yes Acute intenal hemorrhage: No History of CVA: No Uncontrolled Coagulation Defec: No Intracranial Hemorrhage: No Severe Hypertension: No GI or Bleed: No Subarachnoid Hemorrhage: No Intracranial Neoplasm/Aneurysm: No Oral Anticoagulants: No Surgery or Trauma: No Puncture of Non-Compressible V: No Recent CPR: No Diabetic Hemorrhagic Retinopat: No Organ Biopsy: No Recent Obstetric Delivery: No Glucose: No (166) Significant Hepatic Dysfunctio: No NIH Stoke Scale >22: No Bacterial Endocarditis: No Pericarditis: No Improving Symptoms: No TPA Contraindication: Yes (outside the window) IV - TPa Received IV - TPa Procedure Performed?: No Progress/Results/Core Measures Results/Orders Lab Results Laboratory Tests Test 11/29/18 10:45 11/29/18 10:50 11/29/18 11:34 11/29/18 11:55 Range/Units White Blood Count 9.0 4.3-11.0 10^3/uL Red Blood Count 4.47 4.35-5.85 10^6/uL Hemoglobin 13.4 13.3-17.7 G/DL Hematocrit 42 40-54 % Mean Corpuscular Volume 95 80-99 FL Mean Corpuscular Hemoglobin 30 25-34 PG Mean Corpuscular Hemoglobin Concent 32 32-36 G/DL Red Cell Distribution Width 15.8 H 10.0-14.5 % Platelet Count 185 130-400 10^3/uL Mean Platelet Volume 9.9 7.4-10.4 FL Neutrophils (%) (Auto) 77 H 42-75 % Lymphocytes (%) (Auto) 13 12-44 % Monocytes (%) (Auto) 7 0-12 % Eosinophils (%) (Auto) 4 0-10 % Basophils (%) (Auto) 0 0-10 % Neutrophils # (Auto) 6.9 1.8-7.8 X 10^3 Lymphocytes # (Auto) 1.2 1.0-4.0 X 10^3 Monocytes # (Auto) 0.6 0.0-1.0 X 10^3 Eosinophils # (Auto) 0.3 0.0-0.3 10^3/uL Basophils # (Auto) 0.0 0.0-0.1 10^3/uL Sodium Level 140 135-145 MMOL/L Potassium Level 4.9 3.6-5.0 MMOL/L Chloride Level 111 H 98-107 MMOL/L Carbon Dioxide Level 17 L 21-32 MMOL/L Anion Gap 12 5-14 MMOL/L Blood Urea Nitrogen 31 H 7-18 MG/DL Creatinine 2.40 H 0.60-1.30 MG/DL Estimat Glomerular Filtration Rate 27 BUN/Creatinine Ratio 13 Glucose Level 172 H 70-105 MG/DL Calcium Level 8.9 8.5-10.1 MG/DL Corrected Calcium 8.9 8.5-10.1 MG/DL Total Bilirubin 0.4 0.1-1.0 MG/DL Aspartate Amino Transf (AST/SGOT) 19 5-34 U/L Alanine Aminotransferase (ALT/SGPT) 11 0-55 U/L Alkaline Phosphatase 69 40-136 U/L Troponin I < 0.028 <0.028 NG/ML Total Protein 7.2 6.4-8.2 GM/DL Albumin 4.0 3.2-4.5 GM/DL Glucometer 166 H 70-110 MG/DL Prothrombin Time 13.2 12.2-14.7 SEC INR Comment 1.0 0.8-1.4 Activated Partial Thromboplast Time 29 24-35 SEC D-Dimer 0.87 H 0.00-0.49 UG/ML Urine Color YELLOW Urine Clarity VERY CLOUDY H Urine pH 6 5-9 Urine Specific [place] 1.015 L 1.016-1.022 Urine Protein 4+ NEGATIVE Urine Glucose (UA) 1+ H NEGATIVE Urine Ketones NEGATIVE NEGATIVE Urine Nitrite POSITIVE H NEGATIVE Urine Bilirubin NEGATIVE NEGATIVE Urine Urobilinogen NORMAL NORMAL MG/DL Urine Leukocyte Esterase 3+ H NEGATIVE Urine RBC (Auto) 1+ H NEGATIVE Urine RBC NONE /HPF Urine WBC >100 H /HPF Urine Squamous Epithelial Cells RARE /HPF Urine Crystals NONE /LPF Urine Bacteria LARGE H /HPF Urine Casts NONE /LPF Urine Mucus NEGATIVE /LPF Urine Culture Indicated YES My Orders Orders - EDNA CARRERA Cbc With Automated Diff (11/29/18 10:47) Protime With Inr (11/29/18 10:47) Partial Thromboplastin Time (11/29/18 10:47) Comprehensive Metabolic Panel (11/29/18 10:47) Fibrin Degradation Products (11/29/18 10:47) Troponin I (11/29/18 10:47) Ua Culture If Indicated (11/29/18 10:47) Chest 1 View, Ap/Pa Only (11/29/18 10:47) Ekg Tracing (11/29/18 10:47) Nothing By Mouth (11/29/18 Dinner) Accucheck Stat ONCE (11/29/18 10:47) Ed Iv/Invasive Line Start (11/29/18 10:47) Ed Iv/Invasive Line Start (11/29/18 10:47) Vital Signs Stroke Patient Q15M (11/29/18 10:47) Ct Head Wo-R/O Stroke (11/29/18 10:47) O2 (11/29/18 10:47) Intake & Output 06,14,22 (11/29/18 10:47) Monitor-Rhythm Ecg Trace Only (11/29/18 10:47) Dysphagia Screening Tool (11/29/18 10:47) Post Thrombolytic Adminstratio (11/29/18 10:47) Lipid Panel (11/30/18 06:00) Ct Cervical Spine Wo (11/29/18 10:49) Vital Signs/I&O 11/29/18 10:30 Temp 96.0 Pulse 59 Resp 18 B/P (MAP) 171/89 (116) Pulse Ox 98 O2 Delivery Room Air Progress Progress Note : Time: 11:12 Progress Note The patient has mild dysnomia, very subtle right corner of the mouth droop, slurred speech giving him a total of 3 points on initial exam but the last known well time is unknown. The fall so CT of the head and C-spine were obtained. He is not on blood thinners. His blood pressure is elevated at 180s over 85. Could be more consistent with a delirium and he did just finish course of antibiotics less than 10 days ago for UTI so we plan to obtain urine. Initial ECG Impression Date: Nov 29, 2018 Initial ECG Impression Time: 11:24 Initial ECG Rate: 58 Initial ECG Rhythm: Normal Sinus Initial ECG Intervals: AK (228ms) Initial ECG Impression: Nonspecific Changes, 1st Degree AV Block Comment No significant ST elevation or depression. Diagnostic Imaging Diagonstic Imaging: CT Plain Films/CT/US/NM/MRI: c-spine, head Comments NAME: JULISA MILLS [facility] REC#: [id number] PT STATUS: REG ER : 1945 PHYSICIAN: EDNA CARRERA MD ADMIT DATE: 11/29/18/ER Draft Date of Exam:11/29/18 CT CERVICAL SPINE WO CLINICAL INDICATION: Patient with recent fall. EXAM: Axial CT scan of the cervical spine performed without IV contrast. Sagittal and coronal reformat images are created. COMPARISON: None. FINDINGS: There is no acute cervical spine fracture. There is grade 1 anterolisthesis of C4 on C5 and grade 1 retrolisthesis of C3 on C4. There is no pars defect and is likely degenerative. There is solid intervertebral bony bridging/fusion of the C5-C6 level. There is vertebral body spurs and facet arthropathy. There is severe bilateral C5-C6 neural foramen narrowing, severe bilateral C3-C4 neural foramen narrowing and severe left C4-C5 neural foramen narrowing. There is at least mild central canal stenosis at the C3-C4 and C5-C6 levels. There is no significant neck soft tissue abnormality. Visualized upper lung mora are clear. IMPRESSION: 1: There is no acute cervical spine fracture. 2: There is multilevel cervical spine degenerative disease including grade 1 retrolisthesis of C3 on C4 and grade 1 anterolisthesis of C4 on C5. Dictated on workstation # [id number] Dict: 11/29/18 1105 Trans: 11/29/18 1112 TS Interpreted by: LORIE HERBERT MD Electronically signed by: [place], [place] NAME: JULISA MILLS [facility] REC#: [id number] PT STATUS: REG ER : 1945 PHYSICIAN: EDNA CARRERA MD ADMIT DATE: 11/29/18/ER Draft Date of Exam:11/29/18 CT HEAD WO-R/O STROKE PROCEDURE: CT head wok r/o stroke. TECHNIQUE: Multiple contiguous axial images were obtained through the brain without the use of intravenous contrast. Auto Exposure Controls were utilized during the CT exam to meet ALARA standards for radiation dose reduction. INDICATION: Right-sided weakness. Slurred speech. COMPARISON: CT head without contrast 03/30/2015. FINDINGS: Indeterminate low-attenuation changes in the genu of the internal capsule on the right appear to be new since the prior exam. No intracranial hemorrhage, mass effect, hydrocephalus or extra-axial fluid collections. The paranasal sinuses and mastoids are clear. Osseous structures are intact. IMPRESSION: Age-indeterminate subcentimeter low-attenuation changes in the genu of the right internal capsule. Findings could represent a subacute infarct. Remainder stable. This could be better evaluated with MRI. Dictated on workstation # [id number] Dict: 11/29/18 1059 Trans: 11/29/18 1105 CVB Interpreted by: YAYO SCOTT MD Electronically signed by: Kimmy Imaging: Xray Plain Films/CT/US/NM/MRI: chest (1v) Comments NAME: JULISA MILLS [facility] REC#: [id number] PT STATUS: REG ER : 1945 PHYSICIAN: EDNA CARRERA MD ADMIT DATE: 11/29/18/ER Draft Date of Exam:11/29/18 CHEST 1 VIEW, AP/PA ONLY INDICATION: Stroke with weakness and fall. Time of exam: 11:05 AM Correlation is made with prior chest radiograph from 08/18/2016. The heart size is normal. The pulmonary vascularity is unremarkable. The lungs are clear. No infiltrate, effusion or pneumothorax is detected. Impression: No acute cardiopulmonary process is detected. Dictated on workstation # [id number] Dict: 11/29/18 1110 Trans: 11/29/18 1114 [facility] [id number] Interpreted by: KRISTI DURON MD Electronically signed by: Reviewed: Reviewed by Me Consults : Consults Notes Dr. Patterson: Stroke neurologist on-call at [facility] agrees the patient is not a TPA candidate and it does not sound like a large vessel occlusion based on history. He would recommend an MRI and maybe a short inpatient workup followed by the rest of the workup can be done outpatient. He would recommend that if it is a subacute stroke aspirin and a statin be started. Departure Communication (Admissions) Time/Spoke to Admitting Phy: 12:00 Discussed the case lab EKG imaging with Dr. Comer and he agrees with an MRI brain. Impression Primary Impression: Cerebrovascular accident due to cerebral artery occlusion Additional Impressions: UTI (urinary tract infection) Qualified Codes: N30.01 - Acute cystitis with hematuria Delirium due to another medical condition, acute, hypoactive Disposition: ADMITTED INPATIENT Condition: Stable Admissions Decision to Admit Reason: Admit from ER (General) Decision to Admit/Date: Nov 29, 2018 Time/Decision to Admit Time: 11:55 Departure-Patient Inst. Referrals: ANTIONETTE RODRIGUES DO (PCP/Family) Primary Care Physician EDNA CARRERA Nov 29, 2018 10:49
[2018-11-29 10:54] LABS: BASOPHILS % (AUTO) 0 % (0-10); EOSINOPHILS # (AUTO) 0.3 10^3/uL (0.0-0.3); EOSINOPHILS % (AUTO) 4 % (0-10); HEMATOCRIT 42 % (40-54); HEMOGLOBIN 13.4 G/DL (13.3-17.7); LYMPHOCYTES # (AUTO) 1.2 X 10^3 (1.0-4.0); LYMPHOCYTES % (AUTO) 13 % (12-44); MEAN CORPUSCULAR HEMOGLOBIN 30 PG (25-34); MEAN CORPUSCULAR HGB CONC 32 G/DL (32-36); MEAN CORPUSCULAR VOLUME 95 FL (80-99); MEAN PLATELET VOLUME 9.9 FL (7.4-10.4); MONOCYTES # (AUTO) 0.6 X 10^3 (0.0-1.0); MONOCYTES % (AUTO) 7 % (0-12); NEUTROPHILS # (AUTO) 6.9 X 10^3 (1.8-7.8); NEUTROPHILS % (AUTO) 77 % (42-75); PLATELET COUNT 185 10^3/uL (130-400); RED CELL DISTRIBUTION WIDTH 15.8 % (10.0-14.5)
--- NOTE | 2018-11-29 11:06 | Diagnostic Imaging Report ---
PROCEDURE: CT head wok r/o stroke. TECHNIQUE: Multiple contiguous axial images were obtained through the brain without the use of intravenous contrast. Auto Exposure Controls were utilized during the CT exam to meet ALARA standards for radiation dose reduction. INDICATION: Right-sided weakness. Slurred speech. COMPARISON: CT head without contrast 03/30/2015. FINDINGS: Indeterminate low-attenuation changes in the genu of the internal capsule on the right appear to be new since the prior exam. No intracranial hemorrhage, mass effect, hydrocephalus or extra-axial fluid collections. The paranasal sinuses and mastoids are clear. Osseous structures are intact. IMPRESSION: Age-indeterminate subcentimeter low-attenuation changes in the genu of the right internal capsule. Findings could represent a subacute infarct. Remainder stable. This could be better evaluated with MRI. Dictated by: Dictated on workstation # [id number]
--- NOTE | 2018-11-29 11:08 | NUR ---
Post CT NIH performed by KATERYNA Fung
--- NOTE | 2018-11-29 11:13 | Diagnostic Imaging Report ---
CLINICAL INDICATION: Patient with recent fall. EXAM: Axial CT scan of the cervical spine performed without IV contrast. Sagittal and coronal reformat images are created. COMPARISON: None. FINDINGS: There is no acute cervical spine fracture. There is grade 1 anterolisthesis of C4 on C5 and grade 1 retrolisthesis of C3 on C4. There is no pars defect and is likely degenerative. There is solid intervertebral bony bridging/fusion of the C5-C6 level. There is vertebral body spurs and facet arthropathy. There is severe bilateral C5-C6 neural foramen narrowing, severe bilateral C3-C4 neural foramen narrowing and severe left C4-C5 neural foramen narrowing. There is at least mild central canal stenosis at the C3-C4 and C5-C6 levels. There is no significant neck soft tissue abnormality. Visualized upper lung chong are clear. IMPRESSION: 1: There is no acute cervical spine fracture. 2: There is multilevel cervical spine degenerative disease including grade 1 retrolisthesis of C3 on C4 and grade 1 anterolisthesis of C4 on C5. Dictated by: Dictated on workstation # [id number]
--- NOTE | 2018-11-29 11:15 | Diagnostic Imaging Report ---
INDICATION: Stroke with weakness and fall. Time of exam: 11:05 AM Correlation is made with prior chest radiograph from 08/18/2016. The heart size is normal. The pulmonary vascularity is unremarkable. The lungs are clear. No infiltrate, effusion or pneumothorax is detected. Impression: No acute cardiopulmonary process is detected. Dictated by: Dictated on workstation # [id number]
[2018-11-29 11:17] LABS: ALANINE AMINOTRANSFERASE 11 U/L (0-55); ALKALINE PHOSPHATASE 69 U/L (40-136); BILIRUBIN,TOTAL 0.4 MG/DL (0.1-1.0); BUN/CREATININE RATIO 13; CALCIUM 8.9 MG/DL (8.5-10.1); CARBON DIOXIDE 17 MMOL/L (21-32); CHLORIDE 111 MMOL/L (98-107); GFR ESTIMATED 27; GLUCOSE 172 MG/DL (70-105); POTASSIUM 4.9 MMOL/L (3.6-5.0); SODIUM 140 MMOL/L (135-145); TOTAL PROTEIN 7.2 GM/DL (6.4-8.2)
[2018-11-29 12:00] LABS: FIBRIN DEGRADATION PRODUCTS 0.87 UG/ML (0.00-0.49); PROTHROMBIN TIME PATIENT 13.2 SEC (12.2-14.7)
[2018-11-29 12:15] LABS: BILIRUBIN,URINE NEGATIVE (NEGATIVE); CLARITY,URINE VERY CLOUDY; COLOR,URINE YELLOW; GLUCOSE, URINE (UA) 1+ (NEGATIVE); KETONES,URINE NEGATIVE (NEGATIVE); LEUKOCYTE ESTERASE ,URINE 3+ (NEGATIVE); NITRITE,URINE POSITIVE (NEGATIVE); PH,URINE 6 (5-9); PROTEIN,URINE 4+ (NEGATIVE); UROBILINOGEN,URINE NORMAL (NORMAL)
[2018-11-29 12:30] LABS: BACTERIA,URINE LARGE /HPF; WBC,URINE >100 /HPF
[2018-11-29 12:31] LABS: SQUAMOUS EPITHELIAL CELL,UR RARE /HPF
--- NOTE | 2018-11-29 13:14 | NUR ---
Called for report. Nurse to call back.
--- NOTE | 2018-11-29 13:52 | NUR ---
pharmacy called for med rec
[2018-11-29] MEDS ORDERED: cefTRIAXone FOR IV USE 1,000 MG in WATER (STERILE) FOR INJECTION 10 ML IV ONE (14:00)
--- NOTE | 2018-11-29 14:45 | NUR ---
JULISA MILLS admitted to room 423-1, with an admitting diagnosis of SUSPECT CVA, on 11/29/18 from ED via W/C, accompanied by ED STAFF. JULISA MILLS introduced to surroundings, call light, bed controls, phone, TV, temperature control, lights, meal times, smoking policy, visitor policy, side rail policy, bathrooms and showers. Patient Rights given to patient in the handbook. JULISA MILLS verbalizes understanding that [facility] is not responsible for the loss or damage to any personal effects or valuables that are kept in the patients possession during their hospitalization.
[2018-11-29 15:15] VITALS: BP 212/93
[2018-11-29] MEDS ORDERED: ONDANSETRON 4 MG/2 ML (SDV) Z0FRAN IVP PRN (15:15)
[2018-11-29] MEDS ORDERED: ALPRAZolam 1 MG (XANAX) TAB PO PRN (15:15)
[2018-11-29 15:16] VITALS: BP 212/93
--- NOTE | 2018-11-29 15:52 | Physical Therapy Evaluation ---
PT Evaluation-General Medical Diagnosis Admission Date Nov 29, 2018 at 12:20 Medical Diagnosis: suspect CVA Onset Date: Nov 29, 2018 Therapy Diagnosis Therapy Diagnosis: generalized weakness/debility Height/Weight Height (Feet): 6 Height (Inches): 1.00 Weight (Pounds): 195 Weight (Ounces): 0.0 Precautions Precautions/Isolations: Fall Prevention, Standard Precautions Weight Bear Status Right Lower Extremity: Right Full Weight Bearing Left Lower Extremity: Left Full Weight Bearing Referral Physician: Nahomi Reason for Referral: Evaluation/Treatment Medical History Pertinent Medical History: Alcoholism, Arthritis, Dementia Current History ED via family secondary to falls, dizziness, weakness at [place] Reviewed History: Yes Social History Home: Assisted Living Prior/Core FIM Prior Level of Function Therapy Code Descriptions/Definitions Functional Higden Measure: 0=Not Assessed/NA 4=Minimal Assistance 1=Total Assistance 5=Supervision or Setup 2=Maximal Assistance 6=Modified Higden 3=Moderate Assistance 7=Complete Higden Therapy Quality Codes: 6 Independent with activity with or without an assistive device 5 Patient requires set up or clean up by helper. Patient completes activity by themselves 4 Supervision or touching assist (CGA). [place] provide cues , steadying assist 3 The helper provides less than half the effort to complete the activity 2 The helper provides more than half the effort to complete the activity 1 Dependent. The helper does all the effort to complete an activity 7 Patient refused to complete or attempt activity 9 The patient did not perform the activity before the current illness or injury 88 Not attempted due to Medical conditions or safety concerns Functional Abilities and Goals: Independent: Patient completed the activities by him/herself, with or without an assistive device, with no assistance from a helper. Needed Some Help: Patient needed partial assistance from another person to complete activities. Dependent: A helper completed the activities for the patient. Unknown: Not Applicable: Bed Mobility: 7 Transfers (B,C,W/C) (FIM): 7 Gait: 7 Indoor Mobility (Ambulation): Independent Stairs: Independent Prior Devices Use: None PT Evaluation-Current Subjective Patient is in bed and agrees to PT/OT co treat. Pain Numeric Pain Scale: 0-No Pain Location: No Pain Reported Objective Problem Solving: Fair ROM/Strength ROM Lower Extremities bilateral LE WFL Strength Lower Extremities right knee flexion/extension 4/5; hip flexion 4/5; DF/PF 4/5 left knee flexion/extension 4/5; hip flexion4/5; DF/PF 4/5 Integumentary/Posture Integumentary refer to nursing notes Bowel Incontinence: No Bladder Incontinence: No Posture trunk flexed posture Neuromuscular (Tone, Coordination, Reflexes) grossly intact Sensory Vision: Wears Glasses Hearing: Functional Sensation Right Lower Extremit: Intact Sensation Left Lower Extremity: Intact Transfers Therapy Code Descriptions/Definitions Functional Higden Measure: 0=Not Assessed/NA 4=Minimal Assistance 1=Total Assistance 5=Supervision or Setup 2=Maximal Assistance 6=Modified [place]den 3=Moderate Assistance 7=Complete [place] Transfers (B, C, W/C) (FIM): 4 Scootin Rollin Supine to/from Sit: 5 Sit to/from Stand: 4 minimal assist for safety and patient diminished balance Gait Mode of Locomotion: Walk Anticipated Mode of Locomotion: Walk Gait (FIM): 2 Distance (FIM): 2=962-97 ft Distance: 50' Gait Level of Assist: 3 Gait Persons Needed: 1 Gait Assistive Device: FWW Comments/Gait Description unsteady gait sequence with forward lean with PT correct Balance Sitting Static: Fair Sitting Dynamic: Fair Standing Static: Poor Standing Dynamic: Poor Assessment/Needs 73 y.o. male, will benefit from skilled PT to address functional strength and mobility to improve current LOF. Patient is limited with balance and unaware of safety concerns. Bed alarm activated with 4 rails up after treatment. Rehab Potential: Fair PT Lead [employer] Goals Care Home Goals PT Care Home Goals Time Frame: Dec 18, 2018 Transfers (B,C,W/C) (FIM): 6 Gait (FIM): 6 Gait distance (FIM): 3=150 ft Distance: 200' Gait Level of Assist: 6 Gait Assistive Device: FWW PT Plan Problem List Problem List: Activity Tolerance, Safety, Balance, Gait Treatment/Plan Treatment Plan: Continue Plan of Care Treatment Plan: Bed Mobility, Education, Functional Activity Velma, Functional Strength, Gait, Safety, Therapeutic Exercise, Transfers Treatment Duration: Dec 18, 2018 Frequency: 6 times per week Estimated Hrs Per Day: .5 hour per day Patient and/or Family Agrees t: Yes Safety Risks/Education Patient Education: Safety Issues Teaching Recipient: Patient Teaching Methods: Discussion Response to Teaching: Reinforcement Needed Discharge Recommendations Therapy D/C Recommendations: Assisted Living Time/GCodes Time In: 1530 Time Out: 1545 Total Billed Treatment Time: 15 Total Billed Treatment 1 visit EVModC 15 min YESSI CARCAMO PT Nov 29, 2018 15:51
--- NOTE | 2018-11-29 15:52 | Occupational Therapy Eval ---
OT Evaluation-General/PLF Medical Diagnosis Admission Date Nov 29, 2018 at 12:20 Medical Diagnosis: suspect CVA Onset Date: Nov 29, 2018 Therapy Diagnosis Therapy Diagnosis: impaired ADLs and mobility Height/Weight Height (Feet): 6 Height (Inches): 1.00 Weight (Pounds): 195 Weight (Ounces): 0.0 Precautions Precautions/Isolations: Fall Prevention, Standard Precautions Weight Bear Status Weight Bearing Restriction: Weight Bearing/Tolerated Referral Referral Reason: Activity Tolerance, Self Care, Evaluation/Treatment, Strengthening/ROM Medical History Additional Medical History Past Medical History Surgeries: Yes (for previous kidney stones, and left ankle) Orthopedic, Renal Respiratory: Yes (BRONCHITIS THIS ADMISSION) Cardiac: Yes Hypertension Neurological: Yes (BEGINNING STAGES OF DEMENTIA) Dementia Reproductive Disorders: No Benign Prostatic Hyperpl, Kidney Stones Gastrointestinal: Yes Diverticulosis Musculoskeletal: Yes (Left ankle) Arthritis, Fractures Endocrine: No HEENT: No Cancer: No Psychosocial: Yes Sleep Difficulties, Depression Integumentary: No Blood Disorders: No Current History Patient presents to ER with his daughter and chief complaint that he has not been acting right since he woke up this morning. He lives in retirement and has mild dementia but is usually very conversational and walks around without assistance. Today he had to get up with assistance and had a fall this morning. He does not recall whether he struck his head nor lost consciousness. He is not diabetic and last known well time was yesterday evening when his daughter was visiting him. She says he is slurring his speech and seems confused but does not have any facial asymmetry. Patient denies any focal weakness but says he feels weak all over. Denies cough, shortness of breath, chest pain, nausea, fevers, chills, diarrhea, constipation, dysuria or discharge. Not on blood thinners and no history of atrial fibrillation. No history of stroke. Reviewed History: Yes Social History Home: Assisted Living Current Living Status: Alone Entry Into Home: Level Entry ADL-Prior Level of Function Therapy Code Descriptions/Definitions Functional [place] Measure: 0=Not Assessed/NA 4=Minimal Assistance 1=Total Assistance 5=Supervision or Setup 2=Maximal Assistance 6=Modified [place] 3=Moderate Assistance 7=Complete [place] Therapy Quality Codes: 6 Independent with activity with or without an assistive device 5 Patient requires set up or clean up by helper. Patient completes activity by themselves 4 Supervision or touching assist (CGA). [place] provide cues , steadying assist 3 The helper provides less than half the effort to complete the activity 2 The helper provides more than half the effort to complete the activity 1 Dependent. The helper does all the effort to complete an activity 7 Patient refused to complete or attempt activity 9 The patient did not perform the activity before the current illness or injury 88 Not attempted due to Medical conditions or safety concerns Functional Abilities and Goals: Independent: Patient completed the activities by him/herself, with or without an assistive device, with no assistance from a helper. Needed Some Help: Patient needed partial assistance from another person to complete activities. Dependent: A helper completed the activities for the patient. Unknown: Not Applicable: Self Care: Independent Functional Cognition: Independent DME/Equipment: Shower Drive Self: No OT Current Status Subjective pt laying in bed upon OT/PT arrival in no apparent distress. pt agreed to evaluation. co-evaluation required secondary to complexity of evaluation requiring skills from both disciplines. Current Glasses/Contacts: Yes Hearing Aids: No Hand Dominance: Right Upper Extremity ROM WFL Upper Extremity Coordination WFL finger to nose test Upper Extremity Sensation WFL Upper Extremity Strength 4/5 MMT ADL-Treatment Therapy Code Descriptions/Definitions Functional [place] Measure: 0=Not Assessed/NA 4=Minimal Assistance 1=Total Assistance 5=Supervision or Setup 2=Maximal Assistance 6=Modified [place] 3=Moderate Assistance 7=Complete [place] Therapy Quality Codes: 6 Independent with activity with or without an assistive device 5 Patient requires set up or clean up by helper. Patient completes activity by themselves 4 Supervision or touching assist (CGA). [place] provide cues , steadying assist 3 The helper provides less than half the effort to complete the activity 2 The helper provides more than half the effort to complete the activity 1 Dependent. The helper does all the effort to complete an activity 7 Patient refused to complete or attempt activity 9 The patient did not perform the activity before the current illness or inj ury 88 Not attempted due to Medical conditions or safety concerns pt demo ability to perform LB dressing with CGA secondary to L LE/ safety/ balance. pt perform functional transfers with MOD A using RW. and grooming wiht CGA while stanidng to wash face. noted left lateral lean and decrease static sitting balance. Education OT Patient Education: Progress toward Goal/Update tx plan, Purpose of tx/functional activities Teaching Recipient: Patient Teaching Methods: Discussion Response to Teaching: Verbalize Understanding OT Short Term Goals Short Term Goals Bathing(FIM): 4 Lower Body Dressing(FIM): 5 Toileting(FIM): 4 Transfers (B,C,W/C) (FIM): 4 Toilet/Commode Transfer(FIM): 4 Additional Short Term Goals: 3-ImproveStrength/Velma 1=Demonstrate adherence to instructed precautions during ADL tasks. 2=Patient will verbalize/demonstrate understanding of assistive devices/modifica tions for ADL. 3=Patient will improve strength/tolerance for activity to enable patient to perform ADL's. OT Sedimentationist Goals Sedimentationist Goals Grooming(FIM): 6 Bathing(FIM): 5 Bathing Location: L Arm, R Arm, L Upper Leg, R Upper Leg, L Lower Leg (including foot), R Lower Leg (including foot), Chest, Abdomen, Buttocks, Perineal Area Upper Body Dressing(FIM): 6 Lower Body Dressing(FIM): 6 Toileting(FIM): 6 Transfers (B,C,W/C) (FIM): 6 Toilet/Commode Transfer(FIM): 6 Additional Goals: 1-Demonstrate ADL Tasks, 2-Verbalize Understanding, 3-Improve Strength/Velma 1=Demonstrate adherence to instructed precautions during ADL tasks. 2=Patient will verbalize/demonstrate understanding of assistive devices/modifications for ADL. 3=Patient will improve strength/tolerance for activity to enable patient to pe rform ADL's. OT Education/Plan Problem List/Assessment Assessment: Decreased Activ Tolerance, Decreased Safety Aware, Decreased UE Strength, Impaired Bed Mobility, Impaired Coordination, Impaired Self-Care Skil ls pt presents with functional limitation affecting areas of ADLS/ functional transfers with the above mention deficits. pt would benefit from OT services to increase independence with ADLs/ functional transfers. OT will continue to follow to assist in d/ c planning. Discharge Recommendations Plan/Recommendations: Continue POC Treatment Plan/Plan of Care Treatment,Training & Education: Yes Patient would benefit from OT for education, treatment and training to promote independence in ADL's, mobility, safety and/or upper extremity function for ADL's. Plan of Care: ADL Retraining, Caregiver Training, Concurrent Therapy, Functional Mobility, Group Exercise/Act as Ind, UE Funct Exercise/Act, UE Neuromus Re-Ed/Coord Treatment Duration: Dec 13, 2018 Frequency: 5 times per week Estimated Hrs Per Day: .25 hour per day Agreement: Yes Rehab Potential: Fair Time/GCodes Start Time: 13:30 Stop Time: 13:45 Billed Treatment Time EVM 15 minutes FRANCK BABCOCK OT Nov 29, 2018 15:52
[2018-11-29 16:00] VITALS: BP 152/84
[2018-11-29] MEDS ORDERED: TRIA15CR TP (16:03)
[2018-11-29] MEDS ORDERED: FINA5TAB6 PO (16:03)
[2018-11-29] MEDS ORDERED: ACET-93 PO (16:03)
[2018-11-29] MEDS ORDERED: IBUP-1780 PO (16:03)
[2018-11-29] MEDS ORDERED: ACULAR OU (16:03)
[2018-11-29] MEDS ORDERED: TAMS0.4C98 PO (16:03)
[2018-11-29] MEDS ORDERED: [UNRECOGNIZED DRUG - CODE] PO (16:03)
[2018-11-29] MEDS ORDERED: HYDR-700 PO (16:03)
[2018-11-29] MEDS ORDERED: TRAZ-222 PO (16:03)
[2018-11-29] MEDS ORDERED: DONE5TAB30 PO (16:03)
[2018-11-29] MEDS ORDERED: HYDR-3812 PO (16:03)
[2018-11-29] MEDS ORDERED: LORA-404 PO (16:03)
[2018-11-29] MEDS ORDERED: GUAI1CAP51 PO (16:04)
--- NOTE | 2018-11-29 16:20 | NUR ---
UPDATED AND MADE ANY CHANGES FROM THE MAR FROM [facility].
--- NOTE | 2018-11-29 16:37 | Diagnostic Imaging Report ---
PROCEDURE: MR imaging of the brain without contrast. TECHNIQUE: Multiplanar, multisequence MR imaging of the brain was performed without contrast. INDICATION: Right weakness and slurred speech. FINDINGS: Ventricles and sulci are diffusely prominent. There is a focal region of T2 prolongation deep in the right basal ganglia adjacent to right foramen of [place]ro. This does demonstrate restricted diffusion. Otherwise, there is low level T2 signal seen within the deep white matter of both cerebral hemispheres without other site of an acute infarct. No hemorrhage is seen. There is no abnormal mass effect or shift of midline structures. 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 There is no evidence of hemorrhage or mass effect. Dictated by: Dictated on workstation # [id number]
[2018-11-29] MEDS: ACETAMINOPHEN 500 MG TAB (TYLENOL) PO PRN (16:49)
--- NOTE | 2018-11-29 16:53 | ST Dysphagia Evaluation ---
Speech Evaluation-General Medical Diagnosis suspect CVA Onset Date: Nov 29, 2018 Therapy Diagnosis Therapy Diagnosis: Oropharyngeal Dysphagia Precautions Precautions: Aspiration Precautions/Isolations: Fall Prevention, Standard Precautions Medical History Pertinent Medical History: Alcoholism, Arthritis, Dementia Reviewed History: Yes Social History Current Living Status: Alone Speech PLF/Current-Dysphagia Prior Level of Function The patient lives in a local longterm where he receives assistance as needed for his daily needs. Cognitive Status Patient Orientation: Person, Place, Situation Oral Motor Skills Dentition: Natural Oral Expression Ability: No Impairment Voice Voice Phonatory-Based Quality: Normal Voice Pitch: Normal Voice Loudness: Normal Face Facial Symmetry: Symmetrical Oral-Facial Assessment Oral-Facial Dentition: Normal Labial Seal Description: Normal Smile: Normal Lingual Protrusion: Normal Lingual ROM: Normal Lingual Strength: Normal Pharynx Velopharyngeal Move.: Normal Volitional Dry Swallow: Yes Voluntary Cough: Yes Dysphagia Evaluation Consistencies Presented: Regular, Thin Liquid, Mechanical Soft, Pureed Normal function for oral phase without s/s of aspiration. Normal function for pharyngeal phase without s/s of aspiration. Dietary Recommendations: Regular Liquid Recommendations: Thin Swallowing Precautions: Alternate Liquids/Solids, Liquids from Straw, Small Bites and Sips, Sitting Upright 90 Degrees, Sitting 90 Degrees 30 Post Intake Dysphagia Evaluation Summary The patient is a pleasant 73 year old man who was admitted to the hospital due to CVA like symptoms. He was referred for a Bedside Dysphagia Evaluation. He was sitting on the side of the bed without difficulty for the BDE. Presentations of thin liquid at 1/2 tsp x2 and small sip via straw x1 without s/s of aspiration. Patient was presented puree, mechanical soft and regular diet trials without difficulty. Oral and pharyngeal stages are noted to be within normal range without s/s of aspiration. The patient does not require skilled ST dysphagia services at this time. Barriers to Learning New onset CVA like symptoms. Speech-Plan Patient/Family Goals Patient/Family Goals: The patient will return to the longterm upon hospital discharge. Treatment Plan Speech Therapy Treatment Plan: Discontinue ST The patient will be on a regular diet with thin liquids which was provided to his nurse. Treatment Duration: Nov 29, 2018 Frequency: 1 time per week Estimated Hrs Per Day: .25 hour per day Rehab Potential: Fair Barriers to Learning: New onset CVA symptoms, mild dementia Pt/Family Agrees to Plan: Yes Safety Risks/Education Teaching Recipient: Patient Teaching Methods: Discussion Response to Teaching: Verbalize Understanding Education Topics Provided: Safety of oral intake Time Speech Therapy Time In: 16:30 Speech Therapy Time Out: 16:45 Total Billed Time: 15 Billed Treatment Time 1JANET [address] ST Nov 29, 2018 16:53
[2018-11-29 19:20] VITALS: BP 174/84
[2018-11-29 19:30] VITALS: BP 176/88
[2018-11-29] MEDS: TAMSULOSIN 0.4 MG (FLOMAX) CAP PO SCH (20:25)
[2018-11-29] MEDS: meTOprolol TARTRATE 25 MG (LOPRESSOR) TABLET PO SCH (20:25)
[2018-11-29 23:25] VITALS: BP 175/85
[2018-11-30 03:15] VITALS: BP 141/70
[2018-11-30 05:30] LABS: BASOPHILS % (AUTO) 0 % (0-10); EOSINOPHILS # (AUTO) 0.5 10^3/uL (0.0-0.3); EOSINOPHILS % (AUTO) 7 % (0-10); HEMATOCRIT 39 % (40-54); HEMOGLOBIN 12.6 G/DL (13.3-17.7); LYMPHOCYTES # (AUTO) 1.7 X 10^3 (1.0-4.0); LYMPHOCYTES % (AUTO) 25 % (12-44); MEAN CORPUSCULAR HEMOGLOBIN 31 PG (25-34); MEAN CORPUSCULAR HGB CONC 33 G/DL (32-36); MEAN CORPUSCULAR VOLUME 96 FL (80-99); MEAN PLATELET VOLUME 9.8 FL (7.4-10.4); MONOCYTES # (AUTO) 0.8 X 10^3 (0.0-1.0); MONOCYTES % (AUTO) 11 % (0-12); NEUTROPHILS # (AUTO) 3.9 X 10^3 (1.8-7.8); NEUTROPHILS % (AUTO) 57 % (42-75); PLATELET COUNT 174 10^3/uL (130-400); RED CELL DISTRIBUTION WIDTH 15.3 % (10.0-14.5); WHITE BLOOD COUNT 6.8 10^3/uL (4.3-11.0)
[2018-11-30 06:07] LABS: ALBUMIN 3.7 GM/DL (3.2-4.5); BILIRUBIN,TOTAL 0.4 MG/DL (0.1-1.0); CALCIUM 8.7 MG/DL (8.5-10.1); CREATININE SERUM 2.28 MG/DL (0.60-1.30); POTASSIUM 4.7 MMOL/L (3.6-5.0); TOTAL PROTEIN 6.5 GM/DL (6.4-8.2)
[2018-11-30 08:00] VITALS: BP 132/85
[2018-11-30] MEDS: amLODIPine 5 MG (NORVASC) TAB PO SCH (08:12)
[2018-11-30] MEDS: ACETAMINOPHEN 500 MG TAB (TYLENOL) PO PRN (08:12)
[2018-11-30] MEDS: meTOprolol TARTRATE 25 MG (LOPRESSOR) TABLET PO SCH ×2 (08:12→20:34)
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
--- NOTE | 2018-11-30 09:47 | Physical Therapy Daily Note ---
PT Daily Note-Current Subjective Patient in recliner with noted lean to left due to right CVA/dementia. Pain Numeric Pain Scale: 0-No Pain Location: No Pain Reported Mental Status Patient Orientation: Confused Transfers Therapy Code Descriptions/Definitions Functional [place] Measure: 0=Not Assessed/NA 4=Minimal Assistance 1=Total Assistance 5=Supervision or Setup 2=Maximal Assistance 6=Modified [place] 3=Moderate Assistance 7=Complete [place] Therapy Quality Codes: 6 Independent with activity with or without an assistive device 5 Patient requires set up or clean up by helper. Patient completes activity by themselves 4 Supervision or touching assist (CGA). [place] provide cues , steadying assist 3 The helper provides less than half the effort to complete the activity 2 The helper provides more than half the effort to complete the activity 1 Dependent. The helper does all the effort to complete an activity 7 Patient refused to complete or attempt activity 9 The patient did not perform the activity before the current illness or injury 88 Not attempted due to Medical conditions or safety concerns Transfers (B, C, W/C) (FIM): 4 Scootin Sit to/from Stand: 4 minimal assist with use of gait belt for safety due to left lean with sit to stand Weight Bearing Right Lower Extremity: Right Full Weight Bearing Left Lower Extremity: Left Full Weight Bearing Gait Training Gait (FIM): 3 Distance (FIM): 3=150 ft Distance: 175' Gait Level of Assist: 3 Gait Persons Needed: 1 Gait Assistive Device: FWW extended UE's, trunk flexed posture, shuffle gait sequence with left LE lag Exercises Seated Therapy Exercises: Ankle pumps, Long arc quads, Hip flexion Seated Reps: 15 Assessment Physician in to assess patient during treatment with probable transfer to ARU on this date. From a PT standpoint, patient would benefit from intensive skilled therapies to improve current LOF to return to AL safely. PT Short Term Goals Short Term Goals Transfers (B,C,W/C) (FIM): 4 PT Conveyor Line Bakery Worker Goals Conveyor Line Bakery Worker Goals PT Conveyor Line Bakery Worker Goals Time Frame: Dec 18, 2018 Transfers (B,C,W/C) (FIM): 6 Gait (FIM): 6 Gait distance (FIM): 3=150 ft Distance: 200' Gait Level of Assist: 6 Gait Assistive Device: FWW PT Plan Treatment/Plan Treatment Plan: Continue Plan of Care Treatment Plan: Bed Mobility, Education, Functional Activity Velma, Functional Strength, Gait, Safety, Therapeutic Exercise, Transfers Treatment Duration: Dec 18, 2018 Frequency: 6 times per week Estimated Hrs Per Day: .5 hour per day Patient and/or Family Agrees t: Yes Discharge Recommendations Therapy D/C Recommendations: Acute Rehab Time/GCodes Time In: 906 Time Out: 916 Total Billed Treatment Time: 10 Total Billed Treatment 1 visit GT 10 min YESSI CARCAMO PT Nov 30, 2018 09:47
--- NOTE | 2018-11-30 09:50 | NUR ---
IRF Evaluation Order received to evaluate patient for the ARU. Chart review completed and findings discussed with Dr. Toledo - patient accepted. It is noted the patient's primary insurance is [employer]. Attempted to discuss rehabilitation program with patient; however, he presented disoriented, e.g., stating he was going golfing. According to RN, patient had been going in and out of moments of clarity; therefore, call made to AL to get clarification to patient's baseline cognitive status. According to AL RN, prior to hospitalization, patient had been alert and oriented x 3, with mild dementia. He was actively social with his episcop[employer] group and attending regular outings. This information relayed to Dr. Comer and RN. Met with patient's daughter, Evonne to discuss details of rehabilitation program. Evonne agreeable to required therapy regimen and admission, as well as submission to [employer], for authorization. Prior authorization process initiated. [id number] provided authorization for patient to admit. Anticipate admission, 12/01/18. Addendum: 12/01/18 at 0958 by BLAINE Maki CHACON Evonne notified of authorization and room number patient will be admitting to.
[2018-11-30] MEDS: ASPIRIN E.C. 81 MG (ECOTRIN) TAB PO SCH (11:03)
--- NOTE | 2018-11-30 11:43 | Physical Therapy Daily Note ---
PT Daily Note-Current Subjective Patient states, "I can't believe all of this is happening to me. I was just golfing yesterday." (Note: he did not golf yesterday) RN notified of increase in confusion. Mental Status Patient Orientation: Confused Transfers Therapy Code Descriptions/Definitions Functional [place] Measure: 0=Not Assessed/NA 4=Minimal Assistance 1=Total Assistance 5=Supervision or Setup 2=Maximal Assistance 6=Modified [place] 3=Moderate Assistance 7=Complete [place] Therapy Quality Codes: 6 Independent with activity with or without an assistive device 5 Patient requires set up or clean up by helper. Patient completes activity by themselves 4 Supervision or touching assist (CGA). [place] provide cues , steadying assist 3 The helper provides less than half the effort to complete the activity 2 The helper provides more than half the effort to complete the activity 1 Dependent. The helper does all the effort to complete an activity 7 Patient refused to complete or attempt activity 9 The patient did not perform the activity before the current illness or injury 88 Not attempted due to Medical conditions or safety concerns Transfers (B, C, W/C) (FIM): 4 Scootin Sit to/from Stand: 4 Weight Bearing Right Lower Extremity: Right Full Weight Bearing Left Lower Extremity: Left Full Weight Bearing Gait Training Gait (FIM): 4 Distance (FIM): 3=150 ft Distance: 175' Gait Level of Assist: 4 Gait Persons Needed: 1 Gait Assistive Device: FWW improved gait sequence with no left LE lag. Continued trunk flexed posture with extended UE's with FWW use. Exercises Seated Therapy Exercises: Ankle pumps, Long arc quads, Hip flexion Seated Reps: 15 Assessment Patient remains up in recliner with OT in for treatment. PT to increase activity as tolerated. PT Short Term Goals Short Term Goals Transfers (B,C,W/C) (FIM): 4 PT Barrel Racer Goals Mcfp Goals PT Barrel Racer Goals Time Frame: Dec 18, 2018 Transfers (B,C,W/C) (FIM): 6 Gait (FIM): 6 Gait distance (FIM): 3=150 ft Distance: 200' Gait Level of Assist: 6 Gait Assistive Device: FWW PT Plan Treatment/Plan Treatment Plan: Continue Plan of Care Treatment Plan: Bed Mobility, Education, Functional Activity Velma, Functional Strength, Gait, Safety, Therapeutic Exercise, Transfers Treatment Duration: Dec 18, 2018 Frequency: 6 times per week Estimated Hrs Per Day: .5 hour per day Patient and/or Family Agrees t: Yes Time/GCodes Time In: 1120 Time Out: 1131 Total Billed Treatment Time: 11 Total Billed Treatment 1 visit GT 11 min YESSI CARCAMO PT Nov 30, 2018 11:43
--- NOTE | 2018-11-30 13:17 | Occupational Ther Daily Note ---
OT Current Status-Daily Note Subjective pt sitting in recliner chair upon OT arrival. pt c.o of no pain. pt agreed to OT TX session with focus on increasing independence with ADLS./functional transfers. pt stated during TX session. "I wish someone would given me a hammer so I can hit myself in the head with it." "I with I was " NSG aware of pt comments. Mental Status/Objective Therapy Code Descriptions/Definitions Functional [place] Measure: 0=Not Assessed/NA 4=Minimal Assistance 1=Total Assistance 5=Supervision or Setup 2=Maximal Assistance 6=Modified [place] 3=Moderate Assistance 7=Complete [place] ADL-Treatment Grooming (FIM): 4 (standing at sink to wash face/ brush teeth) Bathing (FIM): 4 (CGA for safety/ balance while seated in chiar. pt REF to bath in shower. ) Bathing Location: L Arm, R Arm, L Upper Leg, R Upper Leg, L Lower Leg (including foot), R Lower Leg (including foot), Chest, Abdomen, Buttocks, Perineal Area Upper Body (FIM): 5 (additional timing while seated in chiar. ) noted limited activity tolerance throughout session. pt required CGA while using RW for safety/ balance during functional transfers/ while standing. Education OT Patient Education: Instructions to caregiver, Modified ADL techniques, Progress toward Goal/Update tx plan, Purpose of tx/functional activities, Safety issues, Transfer techniques Teaching Recipient: Patient Teaching Methods: Demonstration, Discussion Response to Teaching: Verbalize Understanding, Return Demonstration OT Short Term Goals Short Term Goals Bathing(FIM): 4 Lower Body Dressing(FIM): 5 Toileting(FIM): 4 Transfers (B,C,W/C) (FIM): 4 Toilet/Commode Transfer(FIM): 4 Additional Short Term Goals: 3-ImproveStrength/Velma 1=Demonstrate adherence to instructed precautions during ADL tasks. 2=Patient will verbalize/demonstrate understanding of assistive devices/modifications for ADL. 3=Patient will improve strength/tolerance for activity to enable patient to perform ADL's. OT Diesel Engine Specialist Goals Senior Living Goals Grooming(FIM): 6 Bathing(FIM): 5 Bathing Location: L Arm, R Arm, L Upper Leg, R Upper Leg, L Lower Leg (including foot), R Lower Leg (including foot), Chest, Abdomen, Buttocks, Perineal Area Upper Body Dressing(FIM): 6 Lower Body Dressing(FIM): 6 Toileting(FIM): 6 Transfers (B,C,W/C) (FIM): 6 Toilet/Commode Transfer(FIM): 6 Additional Goals: 1-Demonstrate ADL Tasks, 2-Verbalize Understanding, 3- ImproveStrength/Velma 1=Demonstrate adherence to instructed precautions during ADL tasks. 2=Patient will verbalize/demonstrate understanding of assistive devices/modifications for ADL. 3=Patient will improve strength/tolerance for activity to enable patient to perform ADL's. OT Education/Plan Problem List/Assessment Assessment: Decreased Activ Tolerance, Impaired Funct Balance, Impaired I ADL's, Impaired Self-Care Skills pt presents with functional limitation affecting areas of ADLS/ functional transfers with the above mention deficits. pt would benefit from OT services to increase independence with ADLs/ functional transfers. recommend d/ to inpt rehab to continue address upon mention deficits and for safe transition to assist living. Discharge Recommendations Plan/Recommendations: Continue POC Treatment Plan/Plan of Care Treatment,Training & Education: Yes Patient would benefit from OT for education, treatment and training to promote independence in ADL's, mobility, safety and/or upper extremity function for ADL's. Plan of Care: ADL Retraining, Caregiver Training, Concurrent Therapy, Functional Mobility, Group Exercise/Act as Ind, UE Funct Exercise/Act, UE Neuromus Re-Ed/Coord Treatment Duration: Dec 13, 2018 Frequency: 5 times per week Estimated Hrs Per Day: .25 hour per day Agreement: Yes Rehab Potential: Fair Time/GCodes Start Time: 11:35 Stop Time: 12:00 Billed Treatment Time ADL 2 units, 25 minutes FRANCK BABCOCK OT Nov 30, 2018 13:17
[2018-11-30] MEDS ORDERED: cefTRIAXone 1,000 MG/SWFI 10 ML IV PUSH IV SCH ×2 (14:00)
[2018-11-30 16:40] VITALS: BP 163/91
[2018-11-30 20:32] VITALS: BP 186/85
[2018-11-30] MEDS: TAMSULOSIN 0.4 MG (FLOMAX) CAP PO SCH (20:34)
[2018-12-01 00:15] VITALS: BP 169/79
[2018-12-01 04:45] VITALS: BP 160/73
[2018-12-01] MEDS: meTOprolol TARTRATE 25 MG (LOPRESSOR) TABLET PO SCH (09:09)
[2018-12-01] MEDS: ASPIRIN E.C. 81 MG (ECOTRIN) TAB PO SCH (09:09)
[2018-12-01] MEDS: amLODIPine 5 MG (NORVASC) TAB PO SCH (09:09)
--- NOTE | 2018-12-01 09:55 | Progress Note-Hospitalist ---
Progress Note Dr Comer will complete DC summary thanks DOMINIK CRUZ DO Dec 01, 2018 09:55
[2018-12-01] MEDS ORDERED: ATOR20TA49 PO ×2 (10:49→14:29)
--- NOTE | 2018-12-01 11:04 | NUR ---
[facility] HERE TO TAKE PT. ATTEMPTED X2 TO CALL ARU NURSE WITH NO ANSWER.
--- NOTE | 2018-12-01 11:16 | NUR ---
REPORT CALLED TO KATERYNA SEGURA, IN ARU
[2018-12-01 11:17] VITALS: BP 160/73
--- NOTE | 2018-12-01 11:17 | NUR ---
ADDED ATORVASTIN 20MG TO DISCHARGE MEDICATION LIST NEW MEDICATION - PER DR CRUZ.
[2018-12-01] MEDS ORDERED: ASPI-983 PO (14:29)
[2018-12-01] MEDS ORDERED: ATORVASTATIN 20 MG (LIPITOR) TABLET PO SCH (21:00)
--- NOTE | 2018-12-02 14:40 | Physician Query-Final Dx ---
Final Diagnosis Give Final Diagnosis Please give Final Diagnosis JADA DURON Dec 02, 2018 14:40
== END 2018-12-01 11:15 | DRG 65 ==
LOC: EDUNIT# 10:14 → ER 10:15 → 4TH 12:20 → OBSVTOIN 11-30 14:00
PROVIDERS: ADMIT Internal Medicine; ATTEND Internal Medicine
DX: I63.81 Other cerebral infarction due to occlusion or stenosis of small artery (principal); F05 Delirium due to known physiological condition; N30.01 Acute cystitis with hematuria; F03.90 Unspecified dementia, unspecified severity, without behavioral disturbance, psychotic disturbance, mood disturbance, and anxiety; I69.322 Dysarthria following cerebral infarction; I69.320 Aphasia following cerebral infarction; R47.81 Slurred speech; R29.703 NIHSS score 3; I10 Essential (primary) hypertension; N40.0 Benign prostatic hyperplasia without lower urinary tract symptoms; K57.90 Diverticulosis of intestine, part unspecified, without perforation or abscess without bleeding; M19.91 Primary osteoarthritis, unspecified site; F32.9 Major depressive disorder, single episode, unspecified; Z87.442 Personal history of urinary calculi
CPT/HCPCS: 36415; 51702; 70450; 70551; 71045; 72125; 80053; 80061; 81000; 82962; 84484; 85025; 85379; 85610; 85730; 87077; 87088; 87186; 93005; 93041; 96374; G0378

== ENCOUNTER 2018-12-01 11:05 | Inpatient (IN) | payer MEDICARE, MEDICAID ==
[~2018-12-01] VITALS: Ht 185.4 cm; Wt 86.2 kg
[2018-12-01 11:05] VITALS: BP 155/93
[~2018-12-01 11:05] MED LIST changes: +ACET-93 PO; +ACULAR OU; +ATOR20TA49 PO; +DONE5TAB30 PO; +FINA5TAB6 PO; +GUAI1CAP51 PO; +HYDR-3812 PO; +HYDR-700 PO; +IBUP-1780 PO; +LORA-404 PO; +TAMS0.4C98 PO; +TRAZ-222 PO; +TRIA15CR TP; +[UNRECOGNIZED DRUG - CODE] PO
--- NOTE | 2018-12-01 11:05 | NUR ---
JULISA MILLS admitted to room 231-1, with an admitting diagnosis of CVA DUE TO CEREBRAL ARTERY OCCLUSION, on 12/01/[address] [facility] [address] via WHEELCHAIR, accompanied by STAFF. JULISA MILLS introduced to surroundings, call light, bed controls, phone, TV, temperature control, lights, meal times, smoking policy, visitor policy, side rail policy, bathrooms and showers. Patient Rights given to patient in the handbook.JULISA MILLS verbalizes understanding that [facility] is not responsible for the loss or damage to any personal effects or valuables that are kept in the patients posession during their hospitalization. The following Patient Care Plans were discussed with the PT: Discharge Planning AND CVA. JULISA MILLS verbalizes understanding of Interdisciplinary Patient Education. Patient received Patient Rights Booklet, which includes Privacy Act Statement and Data Collection Information Summary. DENIES PAIN. SALINE LOCK INTACT LEFT HAND. MILD CONFUSION, BUT COOPERATIVE. BED AND CHAIR EXIT ALARMS WILL BE USED.
--- NOTE | 2018-12-01 11:35 | NUR ---
UPDATED MED REC IT WAS REPORTED UPON ADMISSION TO 4TH FLOOR. NOTE I REMOVED THE NEW ORDER FOR LIPITOR THAT WAS ORDERED AT DISCHARGE FROM 4TH FLOOR TO REHAB.
--- NOTE | 2018-12-01 11:41 | PM&R H&P / Post Admit Assess ---
History of Present Illness HPI/Chief Complaint CC: Stroke HPI: This is a 73yoWM who required assisted living admission due to dementia who presented after an abrupt onset of confusion and difficulty of balance. Pt was found to have subacute early lacunar stroke in region of right globus pallidus but not a TPA candidate since there was no known last well time in order to meet protocol.Pt will need PT to work on balance issues and improve the independence of ADLs and speech therapy to work on cognition to manage his activities in order to return back to [facility]. I reviewed his home medication. He will continue Cefdinir for a couple more days for UTI maintained on Rocephin while on Med-Surg and will monitor closely for any stroke residual effects that are not identified at this current time. Source: patient Exam Limitations: no limitations Date Seen 12/01/18 Time Seen by a Provider: 11:30 Attending Physician Tatyana Toledo DO PCP Kulwinder Ruff DO Referring Physician Date of Admission Dec 01, 2018 at 11:05 Home Medications & Allergies Home Medications Reviewed patient Home Medication Reconciliation performed by pharmacy medication reconciliations automotive technician instructor and/or nursing. Patients Allergies have been reviewed. 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[employer]) Alcohol Beverage of Choice: Whiskey Smoking Status: Former Smoker Recent Hopitalizations: No (previous kidney stones) Immunizations Up To Date Date of Pneumonia Vaccine: Dec 10, 2011 Date of Influenza Vaccine: Feb 06, 2011 Seasonal Allergies Seasonal Allergies: No Past Medical History Surgeries: Orthopedic, Renal Cardiac: Hypertension Neurological: Dementia Reproductive: No Genitourinary: Benign Prostatic Hyperpl, Kidney Stones Gastrointestinal: Diverticulosis Musculoskeletal: Arthritis, Fractures Psychosocial: Sleep Difficulties, Depression History of Blood Disorders: No Family History Patient reports no known family medical history. No Pertinent Family Hx Review of Systems Constitutional: see HPI, malaise, weakness EENTM: no symptoms reported Respiratory: no symptoms reported Cardiovascular: no symptoms reported Gastrointestinal: no symptoms reported Genitourinary: no symptoms reported Musculoskeletal: no symptoms reported Skin: no symptoms reported Psychiatric/Neurological: Emotional Problems, Paresthesia, Pre-Existing Deficit, Other (confusion) Physical Exam Exam Vital Signs Vital Signs Date Time Temp Pulse Resp B/P (MAP) Pulse Ox O2 Delivery O2 Flow Rate FiO2 12/01/18 20:27 Room Air 12/01/18 17:39 99.2 78 20 156/84 (108) 95 Capillary Refill : General Appearance: No Apparent Distress, WD/WN, Chronically ill HEENT: PERRL/EOMI, Normal ENT Inspection, Pharynx Normal, Moist Mucous Membranes Neck: Full Range of Motion, Normal Inspection, Non Tender, Supple Respiratory: Chest Non Tender, Lungs Clear, Normal Breath Sounds, No Accessory Muscle Use, No Respiratory Distress Cardiovascular: Regular Rate, Rhythm, No Edema, No Gallop, No JVD, No Murmur Gastrointestinal: Normal Bowel Sounds, No Organomegaly, No Pulsatile Mass, Non Tender, Soft Back: Normal Inspection, No CVA Tenderness, No Vertebral Tenderness Extremity: Normal Capillary Refill, Normal Inspection, Normal Range of Motion, Non Tender, No Calf Tenderness, No Pedal Edema Neurologic/Psychiatric: Alert, Oriented x3, No Motor/Sensory Deficits, Normal Mood/Affect, monomer recovery supervisor II-XII Norm as Tested, Abnormal Gait, Disoriented, Motor Weakness (generalized upper and lower extremities), Other (imbalance) Skin: Normal Color, Warm/Dry Lymphatic: No Adenopathy Results Results/Procedures Labs Patient resulted labs reviewed. Assessment/Plan Assessment and Plan Assess & Plan/Chief Complaint Assessment: s/p CVA w/confusion and loss of balance Dementia CRI Acute UTI Plan: Monitor BP Abx PO PT/OT (1) Cerebrovascular accident due to cerebral artery occlusion (2) Delirium due to another medical condition, acute, hypoactive (3) UTI (urinary tract infection) (4) Hypoxia (5) Renal insufficiency Post Admission Physician Asses Date seen by provider: Dec 01, 2018 Time seen by provider: 11:30 The preadmission screen agrees with the post admission assessment that the patient is a good candidate for inpatient rehabilitation. The patient will have a comprehensive program of inpatient rehabilitation with a goal of maximizing level of functional independence prior to discharge home at [place]. The patient will have PT/OT ninety minutes per day, each discipline, five days a week for gait, strengthening, conditioning, balance, ADLs, any patient/family/caregiver training as necessary. Speech therapy to do cognitive assessment and treat as indicated. Rehabilitation nursing to assist with bowel, bladder, skin, wound care, medication administration, pain management. Chart Picker to assist with discharge planning, community reentry. SCD's for DVT prophylaxis. He appears to be well motivated to participate in three hours of therapy a day. He should be able to tolerate three hours of therapy a day from a medical standpoint. He should benefit from the three hours of therapy a day. He has a reasonable discharge plan, reasonable discharge rehabilitation goals and a supportive family. He has various comorbidities that need to be closely monitored with medications and treatments adjusted on a daily basis as needed. These include: see list Barriers to discharge for this patient who had been independent prior to this are for him to be modified independent to supervision for ADLs and mobility skills prior to discharge home at [place], so as to lessen the burden of the caregivers. Risks for this patient include: 1. Fall 2. Fracture 3. DVT 4. Pulmonary embolism 5. Wound infection 6. Skin breakdown 7. Contractures 8. Poorly controlled pain 9. Urinary retention 10. UTI 11. Respiratory infection 12. Aspiration Estimated Length of Stay: 10 days Prognosis: Rehab prognosis appears good for goal of discharge home at [place] modified independent to supervision for ADLs and mobility skills. TATYANA TOLEDO DO Dec 01, 2018 11:41
[2018-12-01] MEDS ORDERED: CALCIUM CARBONATE 500 MG (TUMS) TAB.CHEW PO PRN (11:45)
[2018-12-01] MEDS ORDERED: DOCUSATE SODIUM 100 MG (COLACE) CAP PO PRN (11:45)
[2018-12-01] MEDS ORDERED: diphenhydrAMINE 25 MG TAB (BENADRYL) PO PRN (11:45)
[2018-12-01] MEDS ORDERED: LOPERAMIDE 2 MG (IMODIUM) TABLET PO PRN (11:45)
[2018-12-01] MEDS ORDERED: ONDANSETRON 4 MG (ZOFRAN) ORAL DISSOLVE TAB PO PRN (11:45)
[2018-12-01] MEDS ORDERED: ALPRAZolam 1 MG (XANAX) TAB PO PRN (11:45)
[2018-12-01] MEDS ORDERED: ALPRAZolam 0.25 MG (XANAX) TAB PO PRN (11:45)
[2018-12-01] MEDS ORDERED: ACETAMINOPHEN 500 MG TAB (TYLENOL) PO PRN ×2 (11:45)
--- NOTE | 2018-12-01 11:52 | Physical Therapy Evaluation ---
PT Evaluation-General Medical Diagnosis Admission Date Dec 01, 2018 at 11:05 Medical Diagnosis: CVA Onset Date: Nov 29, 2018 Therapy Diagnosis Therapy Diagnosis: impaired mobility, strength, endurance, balance Height/Weight Height (Feet): 6 Height (Inches): 1.00 Weight (Pounds): 195 Weight (Ounces): 0.0 Referral Physician: Tatyana Toledo DO Reason for Referral: Evaluation/Treatment Medical History Pertinent Medical History: Alcoholism, Arthritis, Dementia Social History Home: Assisted Living Patient states he has one step to enter his home with handrail. Prior/Core FIM Prior Level of Function Therapy Code Descriptions/Definitions Functional [place] Measure: 0=Not Assessed/NA 4=Minimal Assistance 1=Total Assistance 5=Supervision or Setup 2=Maximal Assistance 6=Modified [place] 3=Moderate Assistance 7=Complete [place] Therapy Quality Codes: 6 Independent with activity with or without an assistive device 5 Patient requires set up or clean up by helper. Patient completes activity by themselves 4 Supervision or touching assist (CGA). [place] provide cues , steadying assist 3 The helper provides less than half the effort to complete the activity 2 The helper provides more than half the effort to complete the activity 1 Dependent. The helper does all the effort to complete an activity 7 Patient refused to complete or attempt activity 9 The patient did not perform the activity before the current illness or injury 88 Not attempted due to Medical conditions or safety concerns Functional Abilities and Goals: Independent: Patient completed the activities by him/herself, with or without an assistive device, with no assistance from a helper. Needed Some Help: Patient needed partial assistance from another person to complete activities. Dependent: A helper completed the activities for the patient. Unknown: Not Applicable: Bed Mobility: 7 Transfers (B,C,W/C) (FIM): 7 Gait: 7 Stairs: 7 Indoor Mobility (Ambulation): Independent Stairs: Independent Prior Devices Use: None PT Evaluation-Current Subjective Patient in bed pre tx, agrees to PT, has no complaints of pain. Will be taking him to the rehab floor and starting his evaluation now. He is confused and thinks the hospital is his mother's home and says he has an 8 year old boy. Pt/Family Goals "to go home" Objective Patient Orientation: Person, Confused, Situation ROM/Strength ROM Lower Extremities general LE tightness but WNL for his age and gender Strenght Lower Extremities right lower extremity (hip flexion 3+/5, knee flexion 4/5, knee extension 4/5, dorsiflexion 4/5), left lower extremity (hip flexion 3/5, knee flexion 4/5, knee extension 4/5, dorsiflexion 3+/5) Sensory Vision: Wears Glasses Hearing: Functional Sensation Right Lower Extremit: Intact Sensation Left Lower Extremity: Intact Transfers Therapy Code Descriptions/Definitions Functional [place] Measure: 0=Not Assessed/NA 4=Minimal Assistance 1=Total Assistance 5=Supervision or Setup 2=Maximal Assistance 6=Modified [place] 3=Moderate Assistance 7=Complete [place] Therapy Quality Codes: 6 Independent with activity with or without an assistive device 5 Patient requires set up or clean up by helper. Patient completes activity by themselves 4 Supervision or touching assist (CGA). [place] provide cues , steadying assist 3 The helper provides less than half the effort to complete the activity 2 The helper provides more than half the effort to complete the activity 1 Dependent. The helper does all the effort to complete an activity 7 Patient refused to complete or attempt activity 9 The patient did not perform the activity before the current illness or injury 88 Not attempted due to Medical conditions or safety concerns Transfers (B, C, W/C) (FIM): 4 Scootin Rollin Roll Left to Right (QC): 4 Supine to/from Sit: 5 Sit to/from Stand: 4 Sit to Lying (QC): 4 Lying to Sitting/Side of Bed(Q: 4 Sit to Stand (QC): 4 Chair/[id number]-dz-Hzvxa Xfer(QC): 4 Car Transfer (QC): 4 Patient performs bed mobility with SBA, supine <-> sit with SBA, sit <-> stand with CGA, transfers with CGA, car transfer CGA. Patient needs cues for safety and positioning and hand placement. Patient is impulsive and needs cues to slow down. Gait Does the Patient Walk?: Yes Mode of Locomotion: Walk Anticipated Mode of Locomotion: Walk Gait (FIM): 4 Walk 10 feet (QC): 4 Walk 50 ft with 2 Turns(QC): 4 Walk 150 ft (QC): 4 Walking 10ft/uneven surface-QC: 4 Distance: 200', 150' Gait Level of Assist: 4 Gait Persons Needed: 1 Gait Assistive Device: FWW Comments/Gait Description Patient can ambulate 200' with a rolling walker with CGA (including 50' with at least 2 turns of 90 degrees and 10' over an uneven surface). Patient has uncoordinated steps, toes out, collapsed arches bilaterally but worse on the right side, patient states he has a bad ankle on the left side. Wheelchair Training Does the Pt Use a Wheelchair?: No Stairs Stairs (FIM): 2 #of Steps: 4 Level of Assist: 4 1 Step (curb) (QC): 4 4 Steps (QC): 4 Patient can go up and down 4 steps using 2 handrails with CGA. He needs cues for safety and to slow down (he is impulsive), and for step placement. Balance Sitting Static: Normal Sitting Dynamic: Normal Standing Static: Fair Standing Dynamic: Fair Treatment NuStep level 5 for 15 min. Standing ex in parallel bars x15 (heel raises, marching, hip abd, mini-squats) Assessment/Needs Patient has impaired mobility, strength, endurance, balance. He is impulsive and is a fall risk. Patient in bed post tx with nurse call, phone, tray, bed alarm on. Rehab Potential: Fair PT Short Term Goals Short Term Goals Time Frame: Dec 08, 2018 Transfers (B,C,W/C) (FIM): 5 Gait (FIM): 5 Gait Distance Comment: 250' Gait Level of Assist: 5 Gait Assistive Device: FWW PT Senior Infrastructure Architect Goals Senior Infrastructure Architect Goals PT Senior Infrastructure Architect Goals Time Frame: Dec 22, 2018 Transfers (B,C,W/C) (FIM): 6 Sit to Lying (QC): 6 Lying-Sitting on Side/Bed(QC): 6 Sit to Stand (QC): 6 Rollin Roll Left to Right (QC): 6 Chair/Ltq-uo-Bxvsa Xfer(QC): 6 Car Transfer (QC): 6 Gait (FIM): 6 Distance: 300' Walk 10 feet (QC): 6 Walk 10ft-Uneven Surface(QC): 6 Walk 50ft with 2 Turns (QC): 6 Walk 150 ft (QC): 6 Gait Level of Assist: 6 Gait Assistive Device: FWW Stairs (FIM): 2 # of Steps: 4 1 Step (curb) (QC): 4 4 Steps (QC): 4 Stairs Level Of Assist: 5 PT Plan Problem List Problem List: Activity Tolerance, Functional Strength, Safety, Balance, Gait, Transfer, Bed Mobility Treatment/Plan Treatment Plan: Continue Plan of Care Treatment Plan: Bed Mobility, Education, Functional Activity Velma, Functional Strength, Group Therapy, Gait, Safety, Therapeutic Exercise, Transfers Treatment Duration: Dec 22, 2018 Frequency: At least 5 of 7 days/Wk (IRF) Estimated Hrs Per Day: 1.5 hours per day Patient and/or Family Agrees t: Yes Safety Risks/Education Patient Education: Gait Training, Transfer Techniques, Steps, Correct Positioning, Safety Issues Teaching Recipient: Patient Teaching Methods: Demonstration, Discussion Response to Teaching: Reinforcement Needed Discharge Recommendations Plan Patient will perform bed mobility and transfer training, balance and endurance training, functional strengthening, stair training, gait training, and education, to improve functional mobility and independence at home. Therapy D/C Recommendations: Assisted Living, Home w/ Family Support, Senior Living (TCU/NH) Time/GCodes Time In: 1100 Time Out: 1200 Total Billed Treatment Time: 60 Total Billed Treatment 1 visit EVM 30' EX 20' GT 10' MEKA ROYAL PT Dec 01, 2018 11:52
[2018-12-01 12:02] VITALS: BP 155/93
--- NOTE | 2018-12-01 14:03 | Occupational Therapy Eval ---
OT Evaluation-General/PLF Medical Diagnosis Admission Date Dec 01, 2018 at 11:05 Medical Diagnosis: CVA Onset Date: Nov 29, 2018 Therapy Diagnosis Therapy Diagnosis: IMPAIRED ADLS AND MOBILITY Height/Weight Height (Feet): 6 Height (Inches): 1.00 Weight (Pounds): 190 Weight (Ounces): 0.2 Precautions Precautions/Isolations: Fall Prevention, Standard Precautions Weight Bear Status Weight Bearing Restriction: Weight Bearing/Tolerated Referral Physician: Tatyana Toledo DO Referral Reason: Activity Tolerance, Self Care, Evaluation/Treatment, Strengthe julisa/ROM Medical History Pertinent Medical History: Alcoholism, Arthritis, Dementia Additional Medical History Past Medical History Surgeries: Orthopedic, Renal Cardiac: Hypertension Neurological: Dementia Reproductive: No Genitourinary: Benign Prostatic Hyperpl, Kidney Stones Gastrointestinal: Diverticulosis Musculoskeletal: Arthritis, Fractures Psychosocial: Sleep Difficulties, Depression History of Blood Disorders: No Current History [facility] and has mild dementia but is usually very conversational and walks around without assistance. pt s/p CVA admitted to in rehab for rehabilitation and medical treatment. Reviewed History: Yes Social History Home: Assisted Living Entry Into Home: Level Entry ADL-Prior Level of Function Therapy Code Descriptions/Definitions Functional [place] Measure: 0=Not Assessed/NA 4=Minimal Assistance 1=Total Assistance 5=Supervision or Setup 2=Maximal Assistance 6=Modified [place] 3=Moderate Assistance 7=Complete [place] Therapy Quality Codes: 6 Independent with activity with or without an assistive device 5 Patient requires set up or clean up by helper. Patient completes activity by themselves 4 Supervision or touching assist (CGA). [place] provide cues , steadying assist 3 The helper provides less than half the effort to complete the activity 2 The helper provides more than half the effort to complete the activity 1 Dependent. The helper does all the effort to complete an activity 7 Patient refused to complete or attempt activity 9 The patient did not perform the activity before the current illness or injury 88 Not attempted due to Medical conditions or safety concerns Functional Abilities and Goals: Independent: Patient completed the activities by him/herself, with or without an assistive device, with no assistance from a helper. Needed Some Help: Patient needed partial assistance from another person to complete activities. Dependent: A helper completed the activities for the patient. Unknown: Not Applicable: ADL PLOF Comments pt stated he can complete all ADLs independent but if he needed assistance he can Self Care: Independent Functional Cognition: Needed Some Help (demenita ) DME/Equipment: Bath Chair, Shower Drive Self: No OT Current Status Subjective pt sitting in recliner chair upon OT arrival in no apparent distress. pt on RA. pt agreed to OT evaluation/ treatment session. pt complains of no pain. pt reports he has 2 grown children but is not in contact with them and a 5 year old son that he also does not communicate with. Pain Numeric Pain Scale: 0-No Pain Mental Status/Objective Patient Orientation: Person, Confused, Time, Situation Current Glasses/Contacts: Yes Hearing Aids: No Dentures/Partials: No Hand Dominance: Right Upper Extremity ROM WNL Upper Extremity Coordination finger to nose WFL opposition WFL Upper Extremity Sensation light touch: intact temperature: intact Upper Extremity Strength WFL ADL-Treatment Eating (FIM): 5 (set up of food) Eating (QC): 4 Grooming (FIM): 4 (cga while stanidnd at sinkfor safety/ balacne) Oral Hygiene (QC): 4 Bathing (FIM): 4 (CGA for safety/ balance ) Bathing Location: L Arm, R Arm, L Upper Leg, R Upper Leg, L Lower Leg (including foot), R Lower Leg (including foot), Chest, Abdomen, Buttocks, Perineal Area Shower/Bathe Self (QC): 4 Upper Body Dressing (FIM): 4 (CGA fro safety/ balance ) Upper Body Dressing (QC): 4 Lower Body Dressing (FIM): 2 (pt required assist with be shoes adnd socks, threadign left LE of patns and underpants skilled cuing for figure 4 positioning ) Lower Body Dressing (QC): 1 On/Off Footwear (QC): 1 Toileting (FIM): 4 (CGA while standing at sink) Toileting Hygiene (QC): 4 Transfers (B, C, W/C) (FIM): 3 (MOD A with use of RW ) Toilet/Commode Transfer (FIM): 3 (MOD A with use of RW ) Toilet Transfer (QC): 3 (MOD A with use of RW ) Shower Transfer (FIM): 3 (MOD A with use of RW ) not decrease safety awareness throughout session with increase impulsivity. pt is confused on/ off during TX session. pt attempted to look for his keys stating "I have a golf game I have to get to " then next sentence would stated "I'm at the hospital because I had a stroke" Education OT Patient Education: Modified ADL techniques, Progress toward Goal/Update tx plan, Purpose of tx/functional activities, Reviewed precautions, Rehab process, Safety issues, Transfer techniques Teaching Recipient: Patient Teaching Methods: Demonstration, Discussion Response to Teaching: Verbalize Understanding, Reinforcement Needed OT Short Term Goals Short Term Goals Eating(FIM): 6 Grooming(FIM): 5 Bathing(FIM): 5 Upper Body Dressing(FIM): 5 Lower Body Dressing(FIM): 5 Toileting(FIM): 5 Transfers (B,C,W/C) (FIM): 5 Toilet/Commode Transfer(FIM): 5 Shower Transfer(FIM): 5 1=Demonstrate adherence to instructed precautions during ADL tasks. 2=Patient will verbalize/demonstrate understanding of assistive devices/modifications for ADL. 3=Patient will improve strength/tolerance for activity to enable patient to perform ADL's. OT Care Home Goals Commercial Manager Goals Time Frame: Dec 29, 2018 Eating (FIM): 7 Eating (QC): 6 Groomin Oral Hygiene (QC): 6 Bathing(FIM): 6 Bathing Location: L Arm, R Arm, L Upper Leg, R Upper Leg, L Lower Leg (including foot), R Lower Leg (including foot), Chest, Abdomen, Buttocks, Perine al Area Shower/Bathe Self (QC): 6 Upper Body Dressing(FIM): 6 Upper Body Dressing (QC): 6 Lower Body Dressing(FIM): 6 Lower Body Dressing (QC): 6 On/Off Footwear (QC): 6 Toileting(FIM): 6 Toileting Hygiene (QC): 6 Transfers (B,C,W/C) (FIM): 6 Toilet/Commode Transfer(FIM): 6 Toilet/Commode Transfer (QC): 6 Shower Transfer(FIM): 6 Additional Goals: 1-Demonstrate ADL Tasks, 2-Verbalize Understanding, 3- ImproveStrength/Velma 1=Demonstrate adherence to instructed precautions during ADL tasks. 2=Patient will verbalize/demonstrate understanding of assistive devices/modifications for ADL. 3=Patient will improve strength/tolerance for activity to enable patient to perform ADL's. OT Education/Plan Problem List/Assessment Assessment: Decreased Activ Tolerance, Decreased Safety Aware, Impaired Cognition, Impaired Coordination, Impaired Funct Balance, Impaired I ADL's, Impaired Self-Care Skills pt presents with functional limitations affecting areas of ADLs/ functional transfers with deficits in the above mentioned. pt would benefot from skilled OT services to to address above mention deficits and to increase independence with ADLS./ functional transfers Discharge Recommendations Plan/Recommendations: Continue POC Barriers to Progress cognition, impulsivity Treatment Plan/Plan of Care Treatment,Training & Education: Yes Patient would benefit from OT for education, treatment and training to promote independence in ADL's, mobility, safety and/or upper extremity function for ADL's. Plan of Care: ADL Retraining, Caregiver Training, Cognitive Retraining, Concurrent Therapy, Functional Mobility, Group Exercise/Act as Ind, UE Funct Exercise/Act, UE Neuromus Re-Ed/Coord Treatment Duration: Dec 29, 2018 Frequency: At least 5 of 7 days/Wk (IRF) Estimated Hrs Per Day: 1 hour per day (60 - 90 minutes per day ) Rehab Potential: Fair Time/GCodes Start Time: 13:00 Stop Time: 14:30 Billed Treatment Time EVM 15 minutes ADL 75 minutes, 5 units FRANCK BABCOCK OT Dec 01, 2018 14:03
[2018-12-01] MEDS ORDERED: ATOR20TA49 PO (14:29)
[2018-12-01] MEDS ORDERED: ASPI-983 PO (14:29)
--- NOTE | 2018-12-01 15:49 | Physical Therapy Daily Note ---
PT Daily Note-Current Subjective Pt. agreeable to Rx, talkative, states he was told he had a stroke but he "sure didnt know it". 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 Pt. denies any pain. Speaks of his children and w aurelio. Pt. states he has a 6 yr old son and 18 yr old daughter, this [facility] is not sure this is accurate info. Pain Location: No Pain Reported Mental Status Patient Orientation: Person, Situation Transfers Therapy Code Descriptions/Definitions Functional [place] Measure: 0=Not Assessed/NA 4=Minimal Assistance 1=Total Assistance 5=Supervision or Setup 2=Maximal Assistance 6=Modified [place] 3=Moderate Assistance 7=Complete [place] Therapy Quality Codes: 6 Independent with activity with or without an assistive device 5 Patient requires set up or clean up by helper. Patient completes activity by themselves 4 Supervision or touching assist (CGA). [place] provide cues , steadying assist 3 The helper provides less than half the effort to complete the activity 2 The helper provides more than half the effort to complete the activity 1 Dependent. The helper does all the effort to complete an activity 7 Patient refused to complete or attempt activity 9 The patient did not perform the activity before the current illness or injury 88 Not attempted due to Medical conditions or safety concerns all sit to stand and sup to sit Mod I Gait Training Gait Assistive Device: FWW gait with FWW needs instruction for safe effective use as pt. stays far behind FWW and his feet come outside the boundaries of the device. Pt. also abandons device before reaching his destination completely Exercises Seated Therapy Exercises: Ankle pumps, Sit to stand, Long arc quads, Hip flexion Seated Reps: 10 NuStep Minutes: 15 NuStep Workload: 5 Treatments Pt. also did seated leg presses on Nustep x 12 with instruction Assessment Current Status: Good Progress cognitive deficit noted PT Short Term Goals Short Term Goals Time Frame: Dec 08, 2018 Transfers (B,C,W/C) (FIM): 5 Gait (FIM): 5 Gait Distance Comment: 250' Gait Level of Assist: 5 Gait Assistive Device: FWW PT Front Desk Associate Goals Front Desk Associate Goals PT Snf Goals Time Frame: Dec 22, 2018 Transfers (B,C,W/C) (FIM): 6 Sit to Lying (QC): 6 Lying-Sitting on Side/Bed(QC): 6 Sit to Stand (QC): 6 Rollin Roll Left to Right (QC): 6 Chair/Pyn-hx-Ssdyu Xfer(QC): 6 Car Transfer (QC): 6 Gait (FIM): 6 Distance: 300' Walk 10 feet (QC): 6 Walk 10ft-Uneven Surface(QC): 6 Walk 50ft with 2 Turns (QC): 6 Walk 150 ft (QC): 6 Gait Level of Assist: 6 Gait Assistive Device: FWW Stairs (FIM): 2 # of Steps: 4 1 Step (curb) (QC): 4 4 Steps (QC): 4 Stairs Level Of Assist: 5 PT Plan Treatment/Plan Treatment Plan: Continue Plan of Care Treatment Plan: Bed Mobility, Education, Functional Activity Velma, Functional Strength, Group Therapy, Gait, Safety, Therapeutic Exercise, Transfers Treatment Duration: Dec 22, 2018 Frequency: At least 5 of 7 days/Wk (IRF) Estimated Hrs Per Day: 1.5 hours per day Patient and/or Family Agrees t: Yes Safety Risks/Education Patient Education: Gait Training, Transfer Techniques, Correct Positioning, Disease Process, Safety Issues Teaching Recipient: Patient Teaching Methods: Demonstration, Discussion Response to Teaching: Verbalize Understanding, Return Demonstration, Reinforcement Needed Time/GCodes Time In: 1520 Time Out: 1550 Total Billed Treatment Time: 30 Total Billed Treatment 1,GT15m,EX15m G Codes Necessary: TISHA Rehman [facility] Dec 01, 2018 15:49
--- NOTE | 2018-12-01 16:00 | NUR ---
NO APPARENT WEAKNESS, BUT IS CONFUSED. TELLS STORIES THAT THIS NURSE DOES NOT BELIEVE TO BE CORRECT.
[2018-12-01 17:39] VITALS: BP 156/84
[2018-12-01] MEDS: ATORVASTATIN 20 MG (LIPITOR) TABLET PO SCH (20:20)
[2018-12-01] MEDS: TAMSULOSIN 0.4 MG (FLOMAX) CAP PO SCH (20:20)
[2018-12-01] MEDS: CEFDINIR 300 MG (OMNICEF) CAP PO SCH (20:20)
[2018-12-01] MEDS: SENNA W/DOCUSATE (SENOKOT S) TABLET PO SCH (20:21)
[2018-12-01] MEDS: meTOprolol TARTRATE 25 MG (LOPRESSOR) TABLET PO SCH (20:21)
[2018-12-02 05:15] VITALS: BP 163/75
[2018-12-02 06:01] LABS: BASOPHILS % (AUTO) 0 % (0-10); EOSINOPHILS # (AUTO) 0.5 10^3/uL (0.0-0.3); EOSINOPHILS % (AUTO) 7 % (0-10); HEMATOCRIT 37 % (40-54); HEMOGLOBIN 11.8 G/DL (13.3-17.7); LYMPHOCYTES # (AUTO) 1.5 X 10^3 (1.0-4.0); LYMPHOCYTES % (AUTO) 23 % (12-44); MEAN CORPUSCULAR HEMOGLOBIN 30 PG (25-34); MEAN CORPUSCULAR HGB CONC 32 G/DL (32-36); MEAN CORPUSCULAR VOLUME 94 FL (80-99); MEAN PLATELET VOLUME 9.2 FL (7.4-10.4); MONOCYTES # (AUTO) 0.7 X 10^3 (0.0-1.0); MONOCYTES % (AUTO) 11 % (0-12); NEUTROPHILS # (AUTO) 3.8 X 10^3 (1.8-7.8); NEUTROPHILS % (AUTO) 59 % (42-75); PLATELET COUNT 191 10^3/uL (130-400); WHITE BLOOD COUNT 6.5 10^3/uL (4.3-11.0)
[2018-12-02 06:43] LABS: ALBUMIN 3.6 GM/DL (3.2-4.5); BILIRUBIN,TOTAL 0.4 MG/DL (0.1-1.0); CALCIUM 8.6 MG/DL (8.5-10.1); CREATININE SERUM 2.37 MG/DL (0.60-1.30); POTASSIUM 4.3 MMOL/L (3.6-5.0); TOTAL PROTEIN 6.1 GM/DL (6.4-8.2)
[2018-12-02] MEDS: ASPIRIN E.C. 81 MG (ECOTRIN) TAB PO SCH (08:05)
[2018-12-02] MEDS: SENNA W/DOCUSATE (SENOKOT S) TABLET PO SCH ×2 (08:05→20:34)
[2018-12-02] MEDS: CEFDINIR 300 MG (OMNICEF) CAP PO SCH ×2 (08:05→20:34)
[2018-12-02] MEDS: amLODIPine 5 MG (NORVASC) TAB PO SCH (08:05)
[2018-12-02] MEDS: meTOprolol TARTRATE 25 MG (LOPRESSOR) TABLET PO SCH ×2 (08:05→20:34)
--- NOTE | 2018-12-02 08:05 | PM&R Progress Note ---
Subjective HPI/CC On Admission Date Seen by Provider: Dec 02, 2018 Time Seen by Provider: 07:45 CC: Stroke HPI: This is a 73yoWM who required assisted living admission due to dementia who presented after an abrupt onset of confusion and difficulty of balance. Pt was found to have subacute early lacunar stroke in region of right globus pallidus but not a TPA candidate since there was no known last well time in order to meet protocol.Pt will need PT to work on balance issues and improve the independence of ADLs and speech therapy to work on cognition to manage his activities in order to return back to [facility]. I reviewed his home medication. He will continue Cefdinir for a couple more days for UTI maintained on Rocephin while on Med-Surg and will monitor closely for any stroke residual effects that are not identified at this current time. Subjective/Events-last exam Pt had an episode of dizziness but systolic showed no evidence of orthostasis. Stroke has caused the dizziness and off balance he is experiencing. Baseline confusion persists. Trying to get a hold of his . Bowels are moving. Completing UTI treatment. Overall doing much better. DVT prophylaxis is minimal since he is ambulatory. Review of Systems General: Fatigue Objective Exam Vital Signs Vital Signs Date Time Temp Pulse Resp B/P (MAP) Pulse Ox O2 Delivery O2 Flow Rate FiO2 12/02/18 20:48 68 113/69 (84) 12/02/18 20:30 Room Air 12/02/18 16:35 97.6 16 96 Capillary Refill : General Appearance: No Apparent Distress, WD/WN, Chronically ill HEENT: PERRL/EOMI, Normal ENT Inspection, Pharynx Normal, Moist Mucous Membranes Neck: Full Range of Motion, Normal Inspection, Non Tender, Supple Respiratory: Chest Non Tender, Lungs Clear, Normal Breath Sounds, No Accessory Muscle Use, No Respiratory Distress Cardiovascular: Regular Rate, Rhythm, No Edema, No Gallop, No JVD, No Murmur Gastrointestinal: Normal Bowel Sounds, No Organomegaly, No Pulsatile Mass, Non Tender, Soft Back: Normal Inspection, No CVA Tenderness, No Vertebral Tenderness Extremity: Normal Capillary Refill, Normal Inspection, Normal Range of Motion, Non Tender, No Calf Tenderness, No Pedal Edema Neurologic/Psychiatric: Alert, Oriented x3, No Motor/Sensory Deficits, Normal 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 FIM Transfers Therapy Code Descriptions/Definitions Functional [place] Measure: 0=Not Assessed/NA 4=Minimal Assistance 1=Total Assistance 5=Supervision or Setup 2=Maximal Assistance 6=Modified [place] 3=Moderate Assistance 7=Complete [place] Therapy Quality Codes: 6 Independent with activity with or without an assistive device 5 Patient requires set up or clean up by helper. Patient completes activity by themselves 4 Supervision or touching assist (CGA). [place] provide cues , steadying assist 3 The helper provides less than half the effort to complete the activity 2 The helper provides more than half the effort to complete the activity 1 Dependent. The helper does all the effort to complete an activity 7 Patient refused to complete or attempt activity 9 The patient did not perform the activity before the current illness or injury 88 Not attempted due to Medical conditions or safety concerns Transfers (B, C, W/C) (FIM): 3 (MOD A with use of RW ) Scootin Rollin Roll Left to Right (QC): 4 Supine to/from Sit: 5 Sit to/from Stand: 4 Sit to Lying (QC): 4 Sit to Stand (QC): 4 Chair/Mbg-rk-Ynllz Xfer(QC): 4 Car Transfer (QC): 4 Gait Training Does the Patient Walk?: Yes Gait (FIM): 4 Walk 10 feet (QC): 4 Walk 50 ft with 2 Turns(QC): 4 Walk 150 ft (QC): 4 Walking 10ft/uneven surface-QC: 4 Gait Level of Assist: 4 Gait Persons Needed: 1 Gait Assistive Device: FWW Wheelchair Training Does the Pt Use a Wheelchair?: No Stair Training Stairs (FIM): 2 #of Steps: 4 1 Step (curb) (QC): 4 4 Steps (QC): 4 Level of Assist: 4 ADL-Treatment Feedin (set up of food) Eating (QC): 4 Groomin (cga while stanidnd at sinkfor safety/ balacne) Oral Hygiene (QC): 4 Bathin (CGA for safety/ balance ) Bathing Location: L Arm, R Arm, L Upper Leg, R Upper Leg, L Lower Leg (including foot), R Lower Leg (including foot), Chest, Abdomen, Buttocks, Perineal Area Shower/Bathe Self (QC): 4 Upper Extremity Dressin (CGA fro safety/ balance ) Upper Body Dressing (QC): 4 Lower Extremity Dressin (pt required assist with be shoes adnd socks, threadign left LE of patns and underpants skilled cuing for figure 4 positioning ) Lower Body Dressing (QC): 1 On/Off Footwear (QC): 1 Toiletin (CGA while standing at sink) Toileting Hygiene (QC): 4 Toilet/Commode Transfer: 3 (MOD A with use of RW ) Toilet Transfer (QC): 3 (MOD A with use of RW ) Shower: 3 (MOD A with use of RW ) Assessment/Plan Assessment and Plan Assess & Plan/Chief Complaint Assessment: s/p CVA w/confusion and loss of balance Dementia CRI Acute UTI HTN OOC Plan: Monitor BP Abx PO PT/OT Norvasc Clonidine Hydralazine (1) Cerebrovascular accident due to cerebral artery occlusion (2) Delirium due to another medical condition, acute, hypoactive (3) UTI (urinary tract infection) (4) Hypoxia (5) Renal insufficiency (6) HTN (hypertension) DOMINIK CRUZ DO Dec 02, 2018 08:05
--- NOTE | 2018-12-02 08:15 | NUR ---
Dr. Toledo to floor. Informed of Creatinine- 2.37 and HTN. No new orders rec'd.
--- NOTE | 2018-12-02 10:46 | ST Cognitive Linguistic Eval ---
Speech Evaluation-General Medical Diagnosis CVA Onset Date: Nov 29, 2018 Therapy Diagnosis Therapy Diagnosis: Cognitive-communication Precautions Precautions/Isolations: Fall Prevention, Standard Precautions Referral Referring Physician: Dr. Toledo Medical History Pertinent Medical History: Alcoholism, Arthritis, Dementia Reviewed History: Yes Speech PLF-Current Status Prior Level of Function The patient will return to his assisted living facility upon rehab discharge. Subjective The patient was pleasant with the cognitive evaluation. Language Eval: Auditory Comprehends Simple Yes/No Ques: Functional Indent/Objects Multiple Mora: Functional Ident/Pics in Multiple Mora: Functional Follows 1-Step Commands: Functional Follows Complex Directions: Moderate Follows General Conversations: Mild Language Eval: Verbal Language Completes Spontaneous Greeting: Mild Produces Auto, Serial Info: Mild Imitates Simple Words/Phrases: Functional Word Finding: Mild Requests Basic Needs: Mild States Basic Personal Info: Mild Expresses Complex Ideas: Moderate Objective Cognitive Domain Attention: Mild Memory: Moderate Problem Solving: Moderate Executive Functions: Moderate Visuospatial Skills: Mild Composite Severity Rating: Moderate Clock Drawing Severity Rating: Moderate Objective Formal/Standardized Tests [facility] Status ([facility]) Results The patient scored an 8/30 with deficits in temporal, memory, problem solving and retention of new information. The patient had dementia diagnosis prior to ARU admit, however the CVA appears to have advanced his level of deficits. Oral Motor/Speech Production Within Functional Limits Impression The patient is a pleasant 73 year old man who presents with significant confusion. He was assessed with the [facility] with scores indicating moderate deficits in all areas assessed. The patient had a prior level of dementia, however it appears this has advanced with his recent CVA. The patient requires frequent redirection for safety, especially to stay seated. The patient will receive skilled services for orientation and memory related to safety in order to be able to return to his assisted living facility. Communication/Social Cognition Comprehension: 5 Expression: 4 Social Interaction: 5 Problem Solvin Memory: 3 Speech Patient Assess Expression of Ideas/Wants: Frequently (2) Understanding Verbal Content: Sometimes Understands(2) Brief Interview-Mental Status: Yes Repetition of Three Words: Three (3) Temporal Orientation: Year: Missed by more than 5 yrs (0) Temporal Orientation: Month: Missed by 6 days-1 month (1) Temporal Orientation: Day: Incorrect or No Answer(0) Recall : Wear to say "Sock": No, could not recall (0) Recall : Color: No, could not recall (0) Recall : Bed: No, could not recall (0) Memory/Recall Ability: None of the above were recalled Speech Short Term Goals Short Term Goals Short Term Goals 1) The patient will complete orientation exercises at 75% with minimal cues. 2) The patient will follow simple directions related to his daily needs with 75% with minimal cues. 3) The patient will demonstrate recall of new information at 75% with minimal cues. Speech Prison Goals Cream Hauler Goals The patient will improve his level of cognitive function in order to return to his assisted living facility. Speech-Plan Patient/Family Goals Patient/Family Goals: The patient will return to his assisted living facility post rehab. Treatment Plan Speech Therapy Treatment Plan: Continue Plan of Care The patient will receive cognitive therapy to improve safety and independence. Treatment Duration: Dec 10, 2018 Frequency: 5 times per week Estimated Hrs Per Day: .5 hour per day Rehab Potential: Fair Barriers to Learning: The patient has a diagnosis of dementia as well as low SLUMS score Pt/Family Agrees to Plan: Yes Safety Risks/Education Teaching Recipient: Patient Teaching Methods: Discussion Response to Teaching: Verbalize Understanding Education Topics Provided: Safety within his room including staying seated (with alarm on) and utilization of the call light as needed. Time Speech Therapy Time In: 10:15 Speech Therapy Time Out: 10:30 Total Billed Time: 15 Billed Treatment Time [address] Dec 02, 2018 10:46
--- NOTE | 2018-12-02 11:10 | Occupational Ther Daily Note ---
OT Current Status-Daily Note Subjective pt sitting in recliner chair upon OT arrival in no apparent distress. pt agreed to OT TX session with focus on increasing activity tolerance, and UE strength for daily activities. pt visible upset this date stating his is him. pt received a phone call from daughter during TX session and during phone call pt stated he was waiting for his to come in. Daughter informed pt that he has been divorce many years ago. Mental Status/Objective Patient Orientation: Person (only oriented to person this date) Therapy Code Descriptions/Definitions Functional [place] Measure: 0=Not Assessed/NA 4=Minimal Assistance 1=Total Assistance 5=Supervision or Setup 2=Maximal Assistance 6=Modified [place] 3=Moderate Assistance 7=Complete [place] ADL-Treatment Therapy Code Descriptions/Definitions Functional [place] Measure: 0=Not Assessed/NA 4=Minimal Assistance 1=Total Assistance 5=Supervision or Setup 2=Maximal Assistance 6=Modified [place] 3=Moderate Assistance 7=Complete [place] Therapy Quality Codes: 6 Independent with activity with or without an assistive device 5 Patient requires set up or clean up by helper. Patient completes activity by themselves 4 Supervision or touching assist (CGA). [place] provide cues , steadying assist 3 The helper provides less than half the effort to complete the activity 2 The helper provides more than half the effort to complete the activity 1 Dependent. The helper does all the effort to complete an activity 7 Patient refused to complete or attempt activity 9 The patient did not perform the activity before the current illness or injury 88 Not attempted due to Medical conditions or safety concerns Transfers (B, C, W/C) (FIM): 4 Other Treatment pt ambulated to TX gym using RW and CGA for safety. balance. pt required cuing for topographical orientation for directions. once in gym pt perform UBE with min resistance 5 minutes X3 to increase activity tolerance for daily activities. HEP developed during session. pt perform UE ex. using 3# dumbbells shoulder flex/ EXT/ ADD;/ EXT, elbow flex/ ext. pt then demo ability to maintain static standing for 2 minutes 20 seconds while completing table top game before requiring rest break. pt education on importance of rest break. pt verbalized understanding. pt given color coordination task while standing to match color using small clothes pins to increase FMC. pt demo correctly. pt then ambulated back to room approx 90 ft with CGA. post OT session pt sitting in recliner chiar, call light within reach, chair alarm on, and all needs met. pt very distracting during TX this date secondary to " him" Education OT Patient Education: Home exercise program, Progress toward Goal/Update tx plan, Purpose of tx/functional activities, Reviewed precautions, Rehab process, Safety issues Teaching Recipient: Patient Teaching Methods: Demonstration, Discussion Response to Teaching: Verbalize Understanding, Return Demonstration OT Short Term Goals Short Term Goals Eating(FIM): 6 Grooming(FIM): 5 Bathing(FIM): 5 Upper Body Dressing(FIM): 5 Lower Body Dressing(FIM): 5 Toileting(FIM): 5 Transfers (B,C,W/C) (FIM): 5 Toilet/Commode Transfer(FIM): 5 Shower Transfer(FIM): 5 1=Demonstrate adherence to instructed precautions during ADL tasks. 2=Patient will verbalize/demonstrate understanding of assistive devices/modifications for ADL. 3=Patient will improve strength/tolerance for activity to enable patient to perform ADL's. OT Prison Goals Lead Process Engineer Goals Time Frame: Dec 29, 2018 Eating (FIM): 7 Eating (QC): 6 Groomin Oral Hygiene (QC): 6 Bathing(FIM): 6 Bathing Location: L Arm, R Arm, L Upper Leg, R Upper Leg, L Lower Leg (including foot), R Lower Leg (including foot), Chest, Abdomen, Buttocks, Perineal Area Shower/Bathe Self (QC): 6 Upper Body Dressing(FIM): 6 Upper Body Dressing (QC): 6 Lower Body Dressing(FIM): 6 Lower Body Dressing (QC): 6 On/Off Footwear (QC): 6 Toileting(FIM): 6 Toileting Hygiene (QC): 6 Transfers (B,C,W/C) (FIM): 6 Toilet/Commode Transfer(FIM): 6 Toilet/Commode Transfer (QC): 6 Shower Transfer(FIM): 6 Additional Goals: 1-Demonstrate ADL Tasks, 2-Verbalize Understanding, 3- ImproveStrength/Velma 1=Demonstrate adherence to instructed precautions during ADL tasks. 2=Patient will verbalize/demonstrate understanding of assistive devices/mod ifications for ADL. 3=Patient will improve strength/tolerance for activity to enable patient to perform ADL's. OT Education/Plan Problem List/Assessment Assessment: Decreased Activ Tolerance, Decreased Safety Aware, Decreased UE Strength, Impaired Coordination, Impaired Funct Balance, Impaired I ADL's, Impaired Self-Care Skills pt presents with functional limitations affecting areas of ADLs/ functional transfers with deficits in the above mentioned. pt would benefot from skilled OT services to to address above mention deficits and to increase independence with ADLS./ functional transfers Discharge Recommendations Plan/Recommendations: Continue POC Barriers to Progress cognition Treatment Plan/Plan of Care Treatment,Training & Education: Yes Patient would benefit from OT for education, treatment and training to promote independence in ADL's, mobility, safety and/or upper extremity function for ADL's. Plan of Care: ADL Retraining, Caregiver Training, Cognitive Retraining, Concurrent Therapy, Functional Mobility, Group Exercise/Act as Ind, UE Funct Exercise/Act, UE Neuromus Re-Ed/Coord Treatment Duration: Dec 29, 2018 Frequency: At least 5 of 7 days/Wk (IRF) Estimated Hrs Per Day: 1 hour per day (60 - 90 minutes per day ) Rehab Potential: Fair Time/GCodes Start Time: 08:00 Stop Time: 09:30 Billed Treatment Time FA 45 minutes, 3 unites EX 45 minutes, 3 units FRANCK BABCOCK OT Dec 02, 2018 11:10
--- NOTE | 2018-12-02 11:23 | Physical Therapy Daily Note ---
PT Daily Note-Current Subjective Patient in recliner pre tx, agrees reluctantly to PT, has no complaints of pain. Patient is upset that he has a chair alarm. Appearance Patient in recliner post tx with nurse call, phone, tray, chair alarm on. Mental Status Patient Orientation: Person, Confused Transfers Therapy Code Descriptions/Definitions Functional [place] Measure: 0=Not Assessed/NA 4=Minimal Assistance 1=Total Assistance 5=Supervision or Setup 2=Maximal Assistance 6=Modified [place] 3=Moderate Assistance 7=Complete [place] Therapy Quality Codes: 6 Independent with activity with or without an assistive device 5 Patient requires set up or clean up by helper. Patient completes activity by themselves 4 Supervision or touching assist (CGA). [place] provide cues , steadying assist 3 The helper provides less than half the effort to complete the activity 2 The helper provides more than half the effort to complete the activity 1 Dependent. The helper does all the effort to complete an activity 7 Patient refused to complete or attempt activity 9 The patient did not perform the activity before the current illness or injury 88 Not attempted due to Medical conditions or safety concerns Transfers (B, C, W/C) (FIM): 5 Sit to/from Stand: 5 Bed to/from Chair: 5 Gait Training Gait (FIM): 5 Distance: 200'x2, 150' Gait Level of Assist: 5 Gait Assistive Device: None Slow but steady ambulation, patient turns his feet outward and takes short steps. Exercises Standing: Hip Abduction, Heel/toe raises, Marching, Mini squats Standing Reps: 15 NuStep Minutes: 15 NuStep Workload: 5 Treatments transfers, ambulation, LE strengthening Assessment Current Status: Fair Progress ambulation without AD PT Short Term Goals Short Term Goals Time Frame: Dec 08, 2018 Transfers (B,C,W/C) (FIM): 5 Gait (FIM): 5 Gait Distance Comment: 250' Gait Level of Assist: 5 Gait Assistive Device: FWW PT Chcf Goals Chcf Goals PT Protective Signal Installer Helper Goals Time Frame: Dec 22, 2018 Transfers (B,C,W/C) (FIM): 6 Sit to Lying (QC): 6 Lying-Sitting on Side/Bed(QC): 6 Sit to Stand (QC): 6 Rollin Roll Left to Right (QC): 6 Chair/Kvg-yc-Dusgx Xfer(QC): 6 Car Transfer (QC): 6 Gait (FIM): 6 Distance: 300' Walk 10 feet (QC): 6 Walk 10ft-Uneven Surface(QC): 6 Walk 50ft with 2 Turns (QC): 6 Walk 150 ft (QC): 6 Gait Level of Assist: 6 Gait Assistive Device: FWW Stairs (FIM): 2 # of Steps: 4 1 Step (curb) (QC): 4 4 Steps (QC): 4 Stairs Level Of Assist: 5 PT Plan Problem List Problem List: Activity Tolerance, Functional Strength, Safety, Balance, Gait, Transfer Treatment/Plan Treatment Plan: Continue Plan of Care Treatment Plan: Bed Mobility, Education, Functional Activity Velma, Functional Strength, Group Therapy, Gait, Safety, Therapeutic Exercise, Transfers Treatment Duration: Dec 22, 2018 Frequency: At least 5 of 7 days/Wk (IRF) Estimated Hrs Per Day: 1.5 hours per day Patient and/or Family Agrees t: Yes Safety Risks/Education Patient Education: Gait Training, Transfer Techniques, Correct Positioning, Safety Issues Teaching Recipient: Patient Teaching Methods: Demonstration, Discussion Response to Teaching: Reinforcement Needed Time/GCodes Time In: 1030 Time Out: 1130 Total Billed Treatment Time: 60 Total Billed Treatment 1 visit GT 30' EX 30' MEKA ROYAL PT Dec 02, 2018 11:23
--- NOTE | 2018-12-02 13:43 | Physical Therapy Daily Note ---
PT Daily Note-Current Subjective Patient in recliner pre tx, agrees to PT reluctantly, has no complaints of pain. Appearance Patient in recliner post tx with nurse call, phone, tray, all needs met. Thanh jarquin is ambulating now steady, no LOB, talked with nurse and we agree to take the chair alarm off and let him go to the bathroom by himself. Mental Status Patient Orientation: Person, Confused Transfers Therapy Code Descriptions/Definitions Functional [place] Measure: 0=Not Assessed/NA 4=Minimal Assistance 1=Total Assistance 5=Supervision or Setup 2=Maximal Assistance 6=Modified [place] 3=Moderate Assistance 7=Complete [place] Therapy Quality Codes: 6 Independent with activity with or without an assistive device 5 Patient requires set up or clean up by helper. Patient completes activity by themselves 4 Supervision or touching assist (CGA). [place] provide cues , steadying assist 3 The helper provides less than half the effort to complete the activity 2 The helper provides more than half the effort to complete the activity 1 Dependent. The helper does all the effort to complete an activity 7 Patient refused to complete or attempt activity 9 The patient did not perform the activity before the current illness or injury 88 Not attempted due to Medical conditions or safety concerns Sit to/from Stand: 6 Bed to/from Chair: 6 uses armrests to stand Gait Training Gait (FIM): 5 Distance: 400'x2 Gait Level of Assist: 5 Gait Persons Needed: 1 Gait Assistive Device: None Ambulation is slow but steady, no LOB. Rest break between bouts of ambulation. Treatments ambulation Assessment Current Status: Fair Progress improving ambulation, patient needs encouragement to participate PT Short Term Goals Short Term Goals Time Frame: Dec 08, 2018 Transfers (B,C,W/C) (FIM): 5 Gait (FIM): 5 Gait Distance Comment: 250' Gait Level of Assist: 5 Gait Assistive Device: FWW PT Photographic Artist Goals Photographic Artist Goals PT Photographic Artist Goals Time Frame: Dec 22, 2018 Transfers (B,C,W/C) (FIM): 6 Sit to Lying (QC): 6 Lying-Sitting on Side/Bed(QC): 6 Sit to Stand (QC): 6 Rollin Roll Left to Right (QC): 6 Chair/Oof-uu-Vxwwv Xfer(QC): 6 Car Transfer (QC): 6 Gait (FIM): 6 Distance: 300' Walk 10 feet (QC): 6 Walk 10ft-Uneven Surface(QC): 6 Walk 50ft with 2 Turns (QC): 6 Walk 150 ft (QC): 6 Gait Level of Assist: 6 Gait Assistive Device: FWW Stairs (FIM): 2 # of Steps: 4 1 Step (curb) (QC): 4 4 Steps (QC): 4 Stairs Level Of Assist: 5 PT Plan Problem List Problem List: Activity Tolerance, Functional Strength, Safety, Balance, Gait, Transfer Treatment/Plan Treatment Plan: Continue Plan of Care Treatment Plan: Bed Mobility, Education, Functional Activity Velma, Functional Strength, Group Therapy, Gait, Safety, Therapeutic Exercise, Transfers Treatment Duration: Dec 22, 2018 Frequency: At least 5 of 7 days/Wk (IRF) Estimated Hrs Per Day: 1.5 hours per day Patient and/or Family Agrees t: Yes Safety Risks/Education Patient Education: Gait Training, Transfer Techniques, Correct Positioning, Safety Issues Teaching Recipient: Patient Teaching Methods: Demonstration, Discussion Response to Teaching: Reinforcement Needed Time/GCodes Time In: 1315 Time Out: 1345 Total Billed Treatment Time: 30 Total Billed Treatment 1 visit GT 30' MEKA ROYAL PT Dec 02, 2018 13:43
--- NOTE | 2018-12-02 13:53 | NUR ---
Per Physical Therapy, patient may be up ad tyler in room.
--- NOTE | 2018-12-02 15:33 | NUR ---
Patient admitted to ARU from internally with debility following CVA. Due to reports of patient's increased confusion and forgetfulness, ELECTRONICS MECHANIC contacted patient's daughter, Evonne to obtain assessment information. Evonne reports having a somewhat estranged relationship with her father; however, she is designated is his power of employment law attorney. Per Evonne, patient has resided at [facility] for the past 3 years. He was independent with all ADL's and mobility without the need for DME. He's had struggles with short term memory recall for quite sometime, but nothing like the current deficits. PCP identified as Dr. Kulwinder Ruff. Primary and only contact identified as Evonne at [phone]. Insurance verified as [employer] and [employer]. Required clinicals due to insurance provider on 12/07 for continued stay review. ELECTRONICS MECHANIC reviewed weekly team conferences and typical ARU length of stay with Evonne; however, patient presented at ARU relatively high functioning with PT and OT skills; therefore, he may have a shortened length of stay. Ultimately, the plan is for patient to return to [facility] at discharge. ELECTRONICS MECHANIC will continue to follow for additional needs.
[2018-12-02 16:35] VITALS: BP 192/98
--- NOTE | 2018-12-02 17:14 | NUR ---
BP 192/98, HR 80. Dr. Toledo notified. Orders for Hydralazine- 25 MG PO Q4H PRN SBP >160.
[2018-12-02] MEDS: hydrALAZINE (APRESOLINE) 25 MG TAB PO PRN (17:31)
[2018-12-02 18:46] VITALS: BP 183/91
--- NOTE | 2018-12-02 18:46 | NUR ---
BP 183/91, P 69. Dr. Toledo notified. New order for Clonidine- 0.1 MG PO Q4H PRN. Vitals Q4H.
[2018-12-02] MEDS: cloNIDine 0.1 MG (CATAPRES) TAB PO PRN (19:03)
[2018-12-02] MEDS: busPIRone 10 MG (BUSPAR) TAB PO SCH (20:33)
[2018-12-02] MEDS: DIVALPROX SPRINKLE 125 MG (DEPAKOTE) CAP PO SCH (20:33)
[2018-12-02] MEDS: ATORVASTATIN 20 MG (LIPITOR) TABLET PO SCH (20:34)
[2018-12-02] MEDS: FINASTERIDE (PROSCAR) 5 MG TAB PO SCH (20:34)
[2018-12-02] MEDS: DONEPEZIL 5 MG (ARICEPT) TAB PO SCH (20:35)
[2018-12-02] MEDS: TAMSULOSIN 0.4 MG (FLOMAX) CAP PO SCH (20:35)
[2018-12-02 20:48] VITALS: BP 113/69
--- NOTE | 2018-12-02 20:48 | NUR ---
BP 113/69 and HR 68. Cont to monitor VS q4hrs.
[2018-12-02] MEDS ORDERED: NON-FORMULARY MEDICATION 1 EA EA (Buspirone HCl 10 MG) PO SCH (21:00)
[2018-12-03 00:59] VITALS: BP 135/77
--- NOTE | 2018-12-03 00:59 | NUR ---
BP 135/77 and HR 57. Cont to monitor.
[2018-12-03 05:36] VITALS: BP 148/81
[2018-12-03] MEDS: SENNA W/DOCUSATE (SENOKOT S) TABLET PO SCH ×2 (08:35→20:50)
[2018-12-03] MEDS: DIVALPROX SPRINKLE 125 MG (DEPAKOTE) CAP PO SCH ×2 (08:36→20:50)
[2018-12-03] MEDS: amLODIPine 5 MG (NORVASC) TAB PO SCH (08:36)
[2018-12-03] MEDS: ASPIRIN E.C. 81 MG (ECOTRIN) TAB PO SCH (08:36)
[2018-12-03] MEDS: meTOprolol TARTRATE 25 MG (LOPRESSOR) TABLET PO SCH ×2 (08:36→20:50)
[2018-12-03] MEDS: busPIRone 10 MG (BUSPAR) TAB PO SCH ×2 (08:36→20:50)
[2018-12-03] MEDS: CEFDINIR 300 MG (OMNICEF) CAP PO SCH ×2 (08:36→20:49)
--- NOTE | 2018-12-03 09:00 | Occupational Ther Daily Note ---
OT Current Status-Daily Note Subjective pt sitting EOB upon OT arrival in no apparent distress. pt c/o no pain. pt stated "I live at home with my " yesterday pt reported he was living at this assist living and was . today he does not recall he was living at this assist living Mental Status/Objective Patient Orientation: Person (only oriented to person ) Therapy Code Descriptions/Definitions Functional [place] Measure: 0=Not Assessed/NA 4=Minimal Assistance 1=Total Assistance 5=Supervision or Setup 2=Maximal Assistance 6=Modified [place] 3=Moderate Assistance 7=Complete [place] ADL-Treatment Therapy Code Descriptions/Definitions Functional [place] Measure: 0=Not Assessed/NA 4=Minimal Assistance 1=Total Assistance 5=Supervision or Setup 2=Maximal Assistance 6=Modified [place] 3=Moderate Assistance 7=Complete [place] Therapy Quality Codes: 6 Independent with activity with or without an assistive device 5 Patient requires set up or clean up by helper. Patient completes activity by themselves 4 Supervision or touching assist (CGA). [place] provide cues , steadying a ssist 3 The helper provides less than half the effort to complete the activity 2 The helper provides more than half the effort to complete the activity 1 Dependent. The helper does all the effort to complete an activity 7 Patient refused to complete or attempt activity 9 The patient did not perform the activity before the current illness or injury 88 Not attempted due to Medical conditions or safety concerns Eating (FIM): 7 Eating (QC): 6 Grooming (FIM): 5 (SBA while standign at sink. pt required set up of items on sink (comb hair, brush teeth, wash face, wash hands)) Oral Hygiene (QC): 4 Bathing (FIM): 5 (pt sat to shower. SBA fro safety/ balance., pt reuqired assist to adjust temp of water. ) Bathing Location: L Arm, R Arm, L Upper Leg, R Upper Leg, L Lower Leg (including foot), R Lower Leg (including foot), Chest, Abdomen, Buttocks, Perineal Area Shower/Bathe Self (QC): 4 Upper Body (FIM): 5 (setup) Upper Body Dressing (QC): 5 Lower Body Dressing (FIM): 5 (underpants, be socks, be shoes, pants. pt requried set up of shoes. noted decrease movemetn in LLE. pt education on figure 4 positioning. pt demo correctly with demo. ) Lower Body Dressing (QC): 4 On/Off Footwear (QC): 4 Toileting (FIM): 5 (3/3 toileting tasks ) Toileting Hygiene (QC): 4 Transfers (B, C, W/C) (FIM): 4 (no AD used bed <> chair ) Toilet/Commode Transfer (FIM): 4 (no AD. CGA for safety/ balacne. ) Toilet Transfer (QC): 4 Shower Transfer(FIM): 4 (useof GB and shower chair) noted decrease activity tolerance requiring seated rest breaks for recovery time. increase confusion this date and less recall this date. post completing bathroom task. pt education on how to order breakfast food. pt placed call to kitchen with SBA. post calling kitchen pt unable to recall what he ordered for breakfast or recall making the phone call. Education OT Patient Education: Energy conservation, Modified ADL techniques, Progress toward Goal/Update tx plan, Purpose of tx/functional activities, Rehab process, Safety issues, Transfer techniques Teaching Recipient: Patient Teaching Methods: Demonstration, Discussion Response to Teaching: Verbalize Understanding, Return Demonstration OT Short Term Goals Short Term Goals Eating(FIM): 6 Grooming(FIM): 5 Bathing(FIM): 5 Upper Body Dressing(FIM): 5 Lower Body Dressing(FIM): 5 Toileting(FIM): 5 Transfers (B,C,W/C) (FIM): 5 Toilet/Commode Transfer(FIM): 5 Shower Transfer(FIM): 5 1=Demonstrate adherence to instructed precautions during ADL tasks. 2=Patient will verbalize/demonstrate understanding of assistive devices/modifications for ADL. 3=Patient will improve strength/tolerance for activity to enable patient to perform ADL's. OT Long-Term Goals Deburring Machine Operator Goals Time Frame: Dec 29, 2018 Eating (FIM): 7 Eating (QC): 6 Groomin Oral Hygiene (QC): 6 Bathing(FIM): 6 Bathing Location: L Arm, R Arm, L Upper Leg, R Upper Leg, L Lower Leg (including foot), R Lower Leg (including foot), Chest, Abdomen, Buttocks, Perineal Area Shower/Bathe Self (QC): 6 Upper Body Dressing(FIM): 6 Upper Body Dressing (QC): 6 Lower Body Dressing(FIM): 6 Lower Body Dressing (QC): 6 On/Off Footwear (QC): 6 Toileting(FIM): 6 Toileting Hygiene (QC): 6 Transfers (B,C,W/C) (FIM): 6 Toilet/Commode Transfer(FIM): 6 Toilet/Commode Transfer (QC): 6 Shower Transfer(FIM): 6 Additional Goals: 1-Demonstrate ADL Tasks, 2-Verbalize Understanding, 3- ImproveStrength/Velma 1=Demonstrate adherence to instructed precautions during ADL tasks. 2=Patient will verbalize/demonstrate understanding of assistive devices/modifications for ADL. 3=Patient will improve strength/tolerance for activity to enable patient to perform ADL's. OT Education/Plan Problem List/Assessment Assessment: Decreased Activ Tolerance, Decreased Safety Aware, Decreased UE Strength, Impaired Funct Balance, Impaired I ADL's, Impaired Self-Care Skills pt presents with functional limitations affecting areas of ADLs/ functional transfers with deficits in the above mentioned. pt would benefot from skilled OT services to to address above mention deficits and to increase independence with ADLS./ functional transfers Discharge Recommendations Plan/Recommendations: Continue POC Barriers to Progress cognition Treatment Plan/Plan of Care Treatment,Training & Education: Yes Patient would benefit from OT for education, treatment and training to promote independence in ADL's, mobility, safety and/or upper extremity function for ADL's. Plan of Care: ADL Retraining, Caregiver Training, Cognitive Retraining, Concurrent Therapy, Functional Mobility, Group Exercise/Act as Ind, UE Funct Exercise/Act, UE Neuromus Re-Ed/Coord Treatment Duration: Dec 29, 2018 Frequency: At least 5 of 7 days/Wk (IRF) Estimated Hrs Per Day: 1 hour per day (60 - 90 minutes per day ) Rehab Potential: Fair Time/GCodes Start Time: 08:00 Stop Time: 09:15 Billed Treatment Time ADL 75 minutes, 5 units FRANCK BABCOCK OT Dec 03, 2018 09:00
--- NOTE | 2018-12-03 09:14 | PM&R Progress Note ---
Subjective HPI/CC On Admission Date Seen by Provider: Dec 03, 2018 Time Seen by Provider: 09:00 CC: Stroke HPI: This is a 73yoWM who required assisted living admission due to dementia who presented after an abrupt onset of confusion and difficulty of balance. Pt was found to have subacute early lacunar stroke in region of right globus pallidus but not a TPA candidate since there was no known last well time in order to meet protocol.Pt will need PT to work on balance issues and improve the independence of ADLs and speech therapy to work on cognition to manage his activities in order to return back to [facility]. I reviewed his home medication. He will continue Cefdinir for a couple more days for UTI maintained on Rocephin while on Med-Surg and will monitor closely for any stroke residual effects that are not identified at this current time. Subjective/Events-last exam BP was extremely elevated yesterday Stroke has caused the dizziness and off balance he is experiencing. Baseline confusion persists. Eating well Bowels are moving. Completing UTI treatment. Overall doing much better. DVT prophylaxis is minimal since he is ambulatory. Review of Systems General: Fatigue Objective Exam Vital Signs Vital Signs Date Time Temp Pulse Resp B/P (MAP) Pulse Ox O2 Delivery O2 Flow Rate FiO2 12/03/18 09:00 Room Air 12/03/18 05:36 97.3 59 20 148/81 (103) 98 Capillary Refill : General Appearance: No Apparent Distress, WD/WN, Chronically ill HEENT: PERRL/EOMI, Normal ENT Inspection, Pharynx Normal, Moist Mucous Mem branes Neck: Full Range of Motion, Normal Inspection, Non Tender, Supple Respiratory: Chest Non Tender, Lungs Clear, Normal Breath Sounds, No Accessory Muscle Use, No Respiratory Distress Cardiovascular: Regular Rate, Rhythm, No Edema, No Gallop, No JVD, No Murmur Gastrointestinal: Normal Bowel Sounds, No Organomegaly, No Pulsatile Mass, Non Tender, Soft Back: Normal Inspection, No CVA Tenderness, No Vertebral Tenderness Extremity: Normal Capillary Refill, Normal Inspection, Normal Range of Motion, Non Tender, No Calf Tenderness, No Pedal Edema Neurologic/Psychiatric: Alert, Oriented x3, No Motor/Sensory Deficits, Normal Mood/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 FIM Transfers Therapy Code Descriptions/Definitions Functional [place] Measure: 0=Not Assessed/NA 4=Minimal Assistance 1=Total Assistance 5=Supervision or Setup 2=Maximal Assistance 6=Modified [place] 3=Moderate Assistance 7=Complete [place] Therapy Quality Codes: 6 Independent with activity with or without an assistive device 5 Patient requires set up or clean up by helper. Patient completes activity by themselves 4 Supervision or touching assist (CGA). [place] provide cues , steadying assist 3 The helper provides less than half the effort to complete the activity 2 The helper provides more than half the effort to complete the activity 1 Dependent. The helper does all the effort to complete an activity 7 Patient refused to complete or attempt activity 9 The patient did not perform the activity before the current illness or injury 88 Not attempted due to Medical conditions or safety concerns Transfers (B, C, W/C) (FIM): 4 (no AD used bed <> chair ) Scootin Rollin Roll Left to Right (QC): 4 Supine to/from Sit: 5 Sit to/from Stand: 6 Sit to Lying (QC): 4 Sit to Stand (QC): 4 Chair/Ana-qe-Xfcfg Xfer(QC): 4 Bed to/from Chair: 6 Car Transfer (QC): 4 Gait Training Does the Patient Walk?: Yes Gait (FIM): 5 Distance: 400'x2 Walk 10 feet (QC): 4 Walk 50 ft with 2 Turns(QC): 4 Walk 150 ft (QC): 4 Walking 10ft/uneven surface-QC: 4 Gait Level of Assist: 5 Gait Persons Needed: 1 Gait Assistive Device: None Wheelchair Training Does the Pt Use a Wheelchair?: No Stair Training Stairs (FIM): 2 #of Steps: 4 1 Step (curb) (QC): 4 4 Steps (QC): 4 Level of Assist: 4 Mental Status/Objective Comprehension: 5 Expression: 4 Social Interaction: 5 Problem Solvin Memory: 3 ADL-Treatment Feedin Eating (QC): 6 Groomin (SBA while standign at sink. pt required set up of items on sink (comb hair, brush teeth, wash face, wash hands)) Oral Hygiene (QC): 4 Bathin (pt sat to shower. SBA fro safety/ balance., pt reuqired assist to adjust temp of water. ) Bathing Location: L Arm, R Arm, L Upper Leg, R Upper Leg, L Lower Leg (including foot), R Lower Leg (including foot), Chest, Abdomen, Buttocks, Perineal Area Shower/Bathe Self (QC): 4 Upper Extremity Dressin (setup) Upper Body Dressing (QC): 5 Lower Extremity Dressin (underpants, be socks, be shoes, pants. pt requried set up of shoes. noted decrease movemetn in LLE. pt education on figure 4 positioning. pt demo correctly with demo. ) Lower Body Dressing (QC): 4 On/Off Footwear (QC): 4 Toiletin (3/3 toileting tasks ) Toileting Hygiene (QC): 4 Toilet/Commode Transfer: 4 (no AD. CGA for safety/ balacne. ) Toilet Transfer (QC): 4 Shower: 4 (useof GB and shower chair) Assessment/Plan Assessment and Plan Assess & Plan/Chief Complaint Assessment: s/p CVA w/confusion and loss of balance Dementia CRI Acute UTI HTN OOC Plan: Monitor BP Abx PO PT/OT Norvasc, Clonidine, Hydralazine (1) Cerebrovascular accident due to cerebral artery occlusion (2) Delirium due to another medical condition, acute, hypoactive (3) UTI (urinary tract infection) (4) Hypoxia (5) Renal insufficiency (6) HTN (hypertension) DOMINIK CRUZ DO Dec 03, 2018 09:14
--- NOTE | 2018-12-03 09:14 | Individualized Plan of Care ---
Individualized Plan of Care Rehab Nursing IPOC Order Admission Date Dec 01, 2018 at 11:05 Current Orders Orders Admission Order(Inpt,Obs,Sdc) (12/01/18 09:55) Vital Signs: Per Unit Policy ( 08,16,00 (12/01/18 09:55) [employer] Machine Operator-Inpt Rehab Con (12/01/18 09:55) Rehab Nursing Orders-Ipoc (12/01/18 09:55) Physical Therapy Rehab Orders (12/01/18 09:55) Occupational Therapy Rehab Ord (12/01/18 09:55) Speech Therapy Rehab Orders (12/01/18 09:55) Intake & Output 06,14,22 (12/01/18 09:55) Precautions (Aru) (12/01/18 09:55) Weekly Weight (Lbs) WEEK (12/01/18 09:55) Rehab-Intensity Of Therapy (12/01/18 09:55) Initiate Admission Nursing Pro .admission (12/01/18 09:55) Intake & Output 06,14,22 (12/01/18 11:39) Sequential Compression Device 08,20 (12/01/18 11:39) Vital Signs: Every 4 Hours (Or (12/01/18 11:39) General/Regular (12/01/18 Dinner) Alprazolam Tablet (Xanax Tablet) (12/01/18 11:45) Acetaminophen Tablet (Tylenol Tablet) (12/01/18 11:45) Aspirin Enteric Coated Tablet (Ecotrin T (12/02/18 09:00) Atorvastatin Tablet (Lipitor Tablet) (12/01/18 21:00) Tamsulosin Capsule (Flomax Capsule) (12/01/18 21:00) Amlodipine Tablet (Norvasc Tablet) (12/02/18 09:00) Metoprolol Tartrate (Ir) Tab (Lopressor (12/01/18 21:00) Cefdinir Capsule (Omnicef Capsule) (12/01/18 21:00) Calcium Carbonate Chew Tablet (Antacid C (12/01/18 11:45) Diphenhydramine Tablet (Benadryl Tablet) (12/01/18 11:45) Docusate Sodium Capsule (Colace Capsule) (12/01/18 11:45) Loperamide Tablet (Imodium Tablet) (12/01/18 11:45) Melatonin Tablet (Melatonin Tablet) (12/01/18 11:45) Ondansetron Oral Dissolve Tab (Zofran (12/01/18 11:45) Senna S Tablet (Senokot S Tablet) (12/01/18 21:00) Cbc With Automated Diff (12/02/18 06:00) Comprehensive Metabolic Panel (12/02/18 06:00) Patient Visit (12/01/18 ) Pt Eval Moderate Complexity (12/01/18 ) Gait Training, Ea 15 Min (12/01/18 ) Exercise Therap, Ea 15 Min (12/01/18 ) Sequential Compression Device 08,20 (12/01/18 15:00) Dvt/Vte Risk - Notifiy Physici 08 (12/01/18 15:00) Patient Visit (12/01/18 ) Exercise Therap, Ea 15 Min (12/01/18 ) Gait Training, Ea 15 Min (12/01/18 ) Patient Visit (12/02/18 ) Speech Sound Lang Comp (12/02/18 ) Divalproex Sprinkle (Depakote Sprinkles) (12/02/18 21:00) Donepezil Tablet (Aricept Tablet) (12/02/18 21:00) (Nf) Buspirone Hcl (12/02/18 21:00) Buspirone Tablet (Buspar Tablet) (12/02/18 21:00) Patient Visit (12/02/18 ) Exercise Therap, Ea 15 Min (12/02/18 ) Gait Training, Ea 15 Min (12/02/18 ) Finasteride Tablet (Proscar Tablet) (12/02/18 21:00) Hydralazine Tablet (Apresoline Tablet) (12/02/18 17:15) Clonidine Tablet (Catapres Tablet) (12/02/18 19:00) Patient Visit (12/03/18 ) Gait Training, Ea 15 Min (12/03/18 ) Exercise Therap, Ea 15 Min (12/03/18 ) Patient Visit (12/03/18 ) Treat. Speech/Lang/Voice (12/03/18 ) Rehab Nursing Orders: Ongoing Assess. of Cognitive Status, Ongoing Assess. of Function Status, Bladder Management, Bladder Training, Disease Management & Educaiton, DVT Prophylaxis, Fall Prevention, Fluid/Electrolyte/Nutrition Mgmt, Infection Prevention, Medication Management & Education, Management of Risks & Complications, Management of Skin Intergrity, Patient/Family Support, Safety Management Intensity of Therapy to be met Patient to be seen: Min.3h per day/5 of 7d PT IPOC Problem List: Activity Tolerance, Functional Strength, Safety, Balance, Gait, Transfer Treatment Plan: Continue Plan of Care Bed Mobility, Education, Functional Activity Velma, Functional Strength, Group Therapy, Gait, Safety, Therapeutic Exercise, Transfers Treatment Duration: Dec 22, 2018 Frequency: At least 5 of 7 days/Wk (IRF) Estimated Hrs Per Day: 1.5 hours per day OT IPOC Problems: Decreased Activ Tolerance, Decreased Safety Aware, Decreased UE Strength, Impaired Funct Balance, Impaired I ADL's, Impaired Self-Care Skills OT Treatment, Training and Edu: Yes OT Problems pt presents with functional limitations affecting areas of ADLs/ functional transfers with deficits in the above mentioned. pt would benefot from skilled OT services to to address above mention deficits and to increase independence with ADLS./ functional transfers Plan of Care: ADL Retraining, Caregiver Training, Cognitive Retraining, Concurr ent Therapy, Functional Mobility, Group Exercise/Act as Ind, UE Funct Exercise/Act, UE Neuromus Re-Ed/Coord Treatment Duration: Dec 29, 2018 Frequency: At least 5 of 7 days/Wk (IRF) Estimated Hrs Per Day: 1 hour per day (60 - 90 minutes per day ) ST IPOC Speech Therapy Treatment Plan: Continue Plan of Care Treatment Duration: Dec 10, 2018 Frequency: 5 times per week Estimated Hrs Per Day: .5 hour per day [employer]vered[employer] Machine Operator/Case Mgmt Overedge Machine Operator/Case Managemen: Discharge Planning Dietitian/Sales Inspector Dietitian/Sales Inspector to monitor nutritional status and make changes and/or recommendations as needed and work with speech pathology on dietary upgrades as the occur. Physician IPOC Medical Issues being managed closely and that require the 24 hour availability of a physician: Severe and labile hypertension with recent stroke will require close monitoring and multiple medication changes to prevent recurrent stroke in addition to cognitive deficit places him at risk for further issues Medical Issues: Bowel/Bladder Function, DVT Prophylaxis, Falls Precautions, Fluid/Electrolyte/Nutrition Balance, Pain Management Brief Synthesis of Preadmission Screen, Post-Admission Evaluation, and Therapy Evaluations: PT will focus on ambulation and fall prevention OT focused on independent ADLs and safety precautions Speech therapy will work on cognition Medical Prognosis: Good Anticipated Length of Stay: 7 days DOMINIK CRUZ DO Dec 03, 2018 09:14
--- NOTE | 2018-12-03 11:22 | Physical Therapy Daily Note ---
PT Daily Note-Current Subjective Patient in recliner pre tx, agrees to PT, has no complaints of pain. Appearance Patient in recliner post tx with nurse call, phone, tray, all needs met. Mental Status Patient Orientation: Person, Confused Transfers Therapy Code Descriptions/Definitions Functional [place] Measure: 0=Not Assessed/NA 4=Minimal Assistance 1=Total Assistance 5=Supervision or Setup 2=Maximal Assistance 6=Modified [place] 3=Moderate Assistance 7=Complete [place] Therapy Quality Codes: 6 Independent with activity with or without an assistive device 5 Patient requires set up or clean up by helper. Patient completes activity by themselves 4 Supervision or touching assist (CGA). [place] provide cues , steadying assist 3 The helper provides less than half the effort to complete the activity 2 The helper provides more than half the effort to complete the activity 1 Dependent. The helper does all the effort to complete an activity 7 Patient refused to complete or attempt activity 9 The patient did not perform the activity before the current illness or injury 88 Not attempted due to Medical conditions or safety concerns Transfers (B, C, W/C) (FIM): 6 Sit to/from Stand: 6 Bed to/from Chair: 6 Uses armrest to stand. Gait Training Gait (FIM): 7 Distance: 150', 400'x2 Gait Assistive Device: None slow but steady ambulation, no LOB, BLE externally rotated and toes out. 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 PT [facility] Goals Time Frame: Dec 22, 2018 Transfers (B,C,W/C) (FIM): 6 Sit to Lying (QC): 6 Lying-Sitting on Side/Bed(QC): 6 Sit to Stand (QC): 6 Rollin Roll Left to Right (QC): 6 Chair/Nlz-be-Zhldg Xfer(QC): 6 Car Transfer (QC): 6 Gait (FIM): 6 Distance: 300' Walk 10 feet (QC): 6 Walk 10ft-Uneven Surface(QC): 6 Walk 50ft with 2 Turns (QC): 6 Walk 150 ft (QC): 6 Gait Level of Assist: 6 Gait Assistive Device: FWW Stairs (FIM): 2 # of Steps: 4 1 Step (curb) (QC): 4 4 Steps (QC): 4 Stairs Level Of Assist: 5 PT Plan Problem List Problem List: Activity Tolerance, Functional Strength, Safety, Balance, Gait, Transfer Treatment/Plan Treatment Plan: Continue Plan of Care Treatment Plan: Bed Mobility, Education, Functional Activity [place], Functional Strength, Group Therapy, Gait, Safety, Therapeutic Exercise, Transfers Treatment Duration: Dec 22, 2018 Frequency: At least 5 of 7 days/Wk (IRF) Estimated Hrs Per Day: 1.5 hours per day Patient and/or Family Agrees t: Yes Safety Risks/Education Patient Education: Gait Training, Transfer Techniques, Correct Positioning, Safety Issues Teaching Recipient: Patient Teaching Methods: Demonstration, Discussion Response to Teaching: Reinforcement Needed Time/GCodes Time In: 0945 Time Out: 1030 Total Billed Treatment Time: 45 Total Billed Treatment 1 visit EX 15' GT 30' MEKA ROYAL PT Dec 03, 2018 11:22
[2018-12-03 12:00] VITALS: BP 133/82
--- NOTE | 2018-12-03 13:42 | Physical Therapy Daily Note ---
PT Daily Note-Current Subjective Patient in recliner pre tx, agrees to PT, has no complaints of pain. Appearance Patient in recliner post tx with nurse call, phone, tray, all needs met. Mental Status Patient Orientation: Person, Confused Transfers Therapy Code Descriptions/Definitions Functional [place] Measure: 0=Not Assessed/NA 4=Minimal Assistance 1=Total Assistance 5=Supervision or Setup 2=Maximal Assistance 6=Modified [place] 3=Moderate Assistance 7=Complete [place] Therapy Quality Codes: 6 Independent with activity with or without an assistive device 5 Patient requires set up or clean up by helper. Patient completes activity by themselves 4 Supervision or touching assist (CGA). [place] provide cues , steadying assist 3 The helper provides less than half the effort to complete the activity 2 The helper provides more than half the effort to complete the activity 1 Dependent. The helper does all the effort to complete an activity 7 Patient refused to complete or attempt activity 9 The patient did not perform the activity before the current illness or injury 88 Not attempted due to Medical conditions or safety concerns Sit to/from Stand: 6 Bed to/from Chair: 6 Gait Training Gait (FIM): 5 Distance: 1000' Gait Level of Assist: 5 Gait Persons Needed: 1 Gait Assistive Device: None Patient ambulates slowly but steady, needs cues for direction, occasional standing rest break. 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 Goals PT [facility] Goals Time Frame: Dec 22, 2018 Transfers (B,C,W/C) (FIM): 6 Sit to Lying (QC): 6 Lying-Sitting on Side/Bed(QC): 6 Sit to Stand (QC): 6 Rollin Roll Left to Right (QC): 6 Chair/Wmv-mf-Wrbdn Xfer(QC): 6 Car Transfer (QC): 6 Gait (FIM): 6 Distance: 300' Walk 10 feet (QC): 6 Walk 10ft-Uneven Surface(QC): 6 Walk 50ft with 2 Turns (QC): 6 Walk 150 ft (QC): 6 Gait Level of Assist: 6 Gait Assistive Device: FWW Stairs (FIM): 2 # of Steps: 4 1 Step (curb) (QC): 4 4 Steps (QC): 4 Stairs Level Of Assist: 5 PT Plan Problem List Problem List: Activity Tolerance, Functional Strength, Safety, Balance, Gait, Transfer, Bed Mobility Treatment/Plan Treatment Plan: Continue Plan of Care Treatment Plan: Bed Mobility, Education, Functional Activity [place], Functional Strength, Group Therapy, Gait, Safety, Therapeutic Exercise, Transfers Treatment Duration: Dec 22, 2018 Frequency: At least 5 of 7 days/Wk (IRF) Estimated Hrs Per Day: 1.5 hours per day Patient and/or Family Agrees t: Yes Safety Risks/Education Patient Education: Gait Training, Transfer Techniques, Correct Positioning, Safety Issues Teaching Recipient: Patient Teaching Methods: Demonstration, Discussion Response to Teaching: Reinforcement Needed Time/GCodes Time In: 1310 Time Out: 1340 Total Billed Treatment Time: 30 Total Billed Treatment 1 visit GT 30' MEKA ROYAL PT Dec 03, 2018 13:42
--- NOTE | 2018-12-03 15:50 | Speech Therapy Daily Note ---
Speech Daily Progress Note Subjective Date Seen by Provider: Dec 03, 2018 Time Seen by Provider: 00:30 The patient was resting in his bed watching television when I entered his room. Objective The patient completed a series of memory questions related to himself with 70% accuracy given min to mod verbal cues. Assessment Assessment Current Status: Fair Progress Treatment Plan Continue Plan of Care Communication Comprehension: 5 Expression: 4 Social Cognition Social Interaction: 5 Problem Solvin Memory: 3 Speech Short Term Goals Short Term Goals Short Term Goals 1) The patient will complete orientation exercises at 75% with minimal cues. 2) The patient will follow simple directions related to his daily needs with 75% with minimal cues. 3) The patient will demonstrate recall of new information at 75% with minimal cu es. Speech Buffer Chrome Goals Intermediate Goals The patient will improve his level of cognitive function in order to return to his assisted living facility. Speech-Plan Patient/Family Goals Patient/Family Goals: The patient plans on returning to his assisted livng apartment post rehab. Due to his cognitive deficits, SNF may be a more appropriate placement at the time of discharge. Treatment Plan Speech Therapy Treatment Plan: Continue Plan of Care The patient is noted to wander the halls when he's up out of bed. Treatment Duration: Dec 10, 2018 Frequency: 5 times per week Estimated Hrs Per Day: .5 hour per day Rehab Potential: Fair Barriers to Learning: Patient has dementia Pt/Family Agrees to Plan: Yes Safety Risks/Education Teaching Recipient: Patient Teaching Methods: Discussion Response to Teaching: Verbalize Understanding Education Topics Provided: Discussed safety within his room Time Speech Therapy Time In: 14:30 Speech Therapy Time Out: 15:00 Total Billed Time: 30 Billed Treatment Time 1AID[address] Dec 03, 2018 15:50
[2018-12-03 16:16] VITALS: BP 166/88
[2018-12-03] MEDS: cloNIDine 0.1 MG (CATAPRES) TAB PO PRN (19:33)
[2018-12-03 20:15] VITALS: BP 133/78
[2018-12-03] MEDS: ATORVASTATIN 20 MG (LIPITOR) TABLET PO SCH (20:49)
[2018-12-03] MEDS: TAMSULOSIN 0.4 MG (FLOMAX) CAP PO SCH (20:50)
[2018-12-03] MEDS: FINASTERIDE (PROSCAR) 5 MG TAB PO SCH (20:50)
[2018-12-03] MEDS: DONEPEZIL 5 MG (ARICEPT) TAB PO SCH (20:50)
[2018-12-03 23:51] VITALS: BP 157/83
[2018-12-04] MEDS: MELATONIN 3 MG TABLET PO PRN (00:03)
[2018-12-04 03:55] VITALS: BP 139/86
--- NOTE | 2018-12-04 04:55 | NUR ---
pt very confused et anxiety noted , see mar med given for anxiety with relief noted , pt rested most of noc with eyes closed resp reg et easy.
[2018-12-04 08:00] VITALS: BP 129/87
[2018-12-04] MEDS: meTOprolol TARTRATE 25 MG (LOPRESSOR) TABLET PO SCH ×2 (08:26→20:26)
[2018-12-04] MEDS: CEFDINIR 300 MG (OMNICEF) CAP PO SCH ×2 (08:26→20:26)
[2018-12-04] MEDS: SENNA W/DOCUSATE (SENOKOT S) TABLET PO SCH ×2 (08:26→20:26)
[2018-12-04] MEDS: ASPIRIN E.C. 81 MG (ECOTRIN) TAB PO SCH (08:26)
[2018-12-04] MEDS: busPIRone 10 MG (BUSPAR) TAB PO SCH ×2 (08:26→20:26)
[2018-12-04] MEDS: DIVALPROX SPRINKLE 125 MG (DEPAKOTE) CAP PO SCH ×2 (08:26→20:26)
[2018-12-04] MEDS: amLODIPine 5 MG (NORVASC) TAB PO SCH (08:26)
[2018-12-04 12:00] VITALS: BP 142/84
--- NOTE | 2018-12-04 13:00 | PM&R Progress Note ---
Subjective HPI/CC On Admission Date Seen by Provider: Dec 04, 2018 Time Seen by Provider: 10:30 CC: Stroke HPI: This is a 73yoWM who required assisted living admission due to dementia who presented after an abrupt onset of confusion and difficulty of balance. Pt was found to have subacute early lacunar stroke in region of right globus pallidus but not a TPA candidate since there was no known last well time in order to meet protocol.Pt will need PT to work on balance issues and improve the independence of ADLs and speech therapy to work on cognition to manage his activities in order to return back to [facility]. I reviewed his home medication. He will continue Cefdinir for a couple more days for UTI maintained on Rocephin while on Med-Surg and will monitor closely for any stroke residual effects that are not identified at this current time. Subjective/Events-last exam BP was extremely elevated and still a bit elevated so will increase Norvasc to 10mg daily and maintain prn meds also Stroke has caused the dizziness and off balance he is experiencing but he is tolerating PT well and participating Baseline confusion persists and had issues last night so Risperdal 0.5mg PO QHS will be given to help delirium and Eating well Bowels are moving. Completing UTI treatment. Overall doing much better. DVT prophylaxis is minimal since he is ambulatory. Review of Systems Neurological: Weakness, Numbness, Incoordination, Confusion Objective Exam Vital Signs Vital Signs Date Time Temp Pulse Resp B/P (MAP) Pulse Ox O2 Delivery O2 Flow Rate FiO2 12/04/18 12:00 96.8 57 18 142/84 (103) 97 Room Air Capillary Refill : General Appearance: No Apparent Distress, WD/WN, Chronically ill HEENT: PERRL/EOMI, Normal ENT Inspection, Pharynx Normal, Moist Mucous Membrane s Neck: Full Range of Motion, Normal Inspection, Non Tender, Supple Respiratory: Chest Non Tender, Lungs Clear, Normal Breath Sounds, No Accessory Muscle Use, No Respiratory Distress Cardiovascular: Regular Rate, Rhythm, No Edema, No Gallop, No JVD, No Murmur Gastrointestinal: Normal Bowel Sounds, No Organomegaly, No Pulsatile Mass, Non Tender, Soft Back: Normal Inspection, No CVA Tenderness, No Vertebral Tenderness Extremity: Normal Capillary Refill, Normal Inspection, Normal Range of Motion, Non Tender, No Calf Tenderness, No Pedal Edema Neurologic/Psychiatric: Alert, Oriented x3, No Motor/Sensory Deficits, Normal Mood/Affect, associate pastor II-XII Norm as Tested, Abnormal Gait, Disoriented, Motor Weakness (generalized upper and lower extremities), Other (imbalance) Skin: Normal Color, Warm/Dry Lymphatic: No Adenopathy Results/Procedures Lab Patient resulted labs reviewed. FIM Transfers Therapy Code Descriptions/Definitions Functional [place] Measure: 0=Not Assessed/NA 4=Minimal Assistance 1=Total Assistance 5=Supervision or Setup 2=Maximal Assistance 6=Modified [place] 3=Moderate Assistance 7=Complete [place] Therapy Quality Codes: 6 Independent with activity with or without an assistive device 5 Patient requires set up or clean up by helper. Patient completes activity by themselves 4 Supervision or touching assist (CGA). [place] provide cues , steadying assist 3 The helper provides less than half the effort to complete the activity 2 The helper provides more than half the effort to complete the activity 1 Dependent. The helper does all the effort to complete an activity 7 Patient refused to complete or attempt activity 9 The patient did not perform the activity before the current illness or injury 88 Not attempted due to Medical conditions or safety concerns Transfers (B, C, W/C) (FIM): 6 Scootin Rollin Roll Left to Right (QC): 4 Supine to/from Sit: 5 Sit to/from Stand: 6 Sit to Lying (QC): 4 Sit to Stand (QC): 4 Chair/Cql-zy-Ktbih Xfer(QC): 4 Bed to/from Chair: 6 Car Transfer (QC): 4 Gait Training Does the Patient Walk?: Yes Gait (FIM): 5 Distance: 1000' Walk 10 feet (QC): 4 Walk 50 ft with 2 Turns(QC): 4 Walk 150 ft (QC): 4 Walking 10ft/uneven surface-QC: 4 Gait Level of Assist: 5 Gait Persons Needed: 1 Gait Assistive Device: None Wheelchair Training Does the Pt Use a Wheelchair?: No Stair Training Stairs (FIM): 2 #of Steps: 4 1 Step (curb) (QC): 4 4 Steps (QC): 4 Level of Assist: 4 Mental Status/Objective Comprehension: 5 Expression: 4 Social Interaction: 5 Problem Solvin Memory: 3 ADL-Treatment Feedin Eating (QC): 6 Groomin (SBA while standign at sink. pt required set up of items on sink (comb hair, brush teeth, wash face, wash hands)) Oral Hygiene (QC): 4 Bathin (pt sat to shower. SBA fro safety/ balance., pt reuqired assist to adjust temp of water. ) Bathing Location: L Arm, R Arm, L Upper Leg, R Upper Leg, L Lower Leg (including foot), R Lower Leg (including foot), Chest, Abdomen, Buttocks, Perineal Area Shower/Bathe Self (QC): 4 Upper Extremity Dressin (setup) Upper Body Dressing (QC): 5 Lower Extremity Dressin (underpants, be socks, be shoes, pants. pt requried set up of shoes. noted decrease movemetn in LLE. pt education on figure 4 positioning. pt demo correctly with demo. ) Lower Body Dressing (QC): 4 On/Off Footwear (QC): 4 Toiletin (3/3 toileting tasks ) Toileting Hygiene (QC): 4 Toilet/Commode Transfer: 4 (no AD. CGA for safety/ balacne. ) Toilet Transfer (QC): 4 Shower: 4 (useof GB and shower chair) Assessment/Plan Assessment and Plan Assess & Plan/Chief Complaint Assessment: s/p CVA w/confusion and loss of balance Dementia CRI Acute UTI HTN OOC Confusion with Plan: Monitor BP Abx PO PT/OT Norvasc increased to 10mg po daily Risperdal at night (1) Cerebrovascular accident due to cerebral artery occlusion (2) Delirium due to another medical condition, acute, hypoactive (3) UTI (urinary tract infection) (4) Hypoxia (5) Renal insufficiency (6) HTN (hypertension) DOMINIK CRUZ DO Dec 04, 2018 13:00
[2018-12-04] MEDS ORDERED: amLODIPine 5 MG (NORVASC) TAB PO ONE (17:15)
[2018-12-04] MEDS: hydrALAZINE (APRESOLINE) 25 MG TAB PO PRN (17:16)
[2018-12-04 17:33] VITALS: BP 186/98
[2018-12-04 20:00] VITALS: BP 155/88
[2018-12-04] MEDS: TAMSULOSIN 0.4 MG (FLOMAX) CAP PO SCH (20:26)
[2018-12-04] MEDS: ATORVASTATIN 20 MG (LIPITOR) TABLET PO SCH (20:26)
[2018-12-04] MEDS: DONEPEZIL 5 MG (ARICEPT) TAB PO SCH (20:26)
[2018-12-04] MEDS: FINASTERIDE (PROSCAR) 5 MG TAB PO SCH (20:26)
[2018-12-04] MEDS: risperiDONE 0.25 MG (RisperDAL) TAB PO SCH (20:26)
[2018-12-05 00:21] VITALS: BP 140/73
[2018-12-05 04:00] VITALS: BP 156/85
[2018-12-05 08:00] VITALS: BP 176/89
[2018-12-05] MEDS: SENNA W/DOCUSATE (SENOKOT S) TABLET PO SCH ×2 (08:15→21:00)
[2018-12-05] MEDS: busPIRone 10 MG (BUSPAR) TAB PO SCH ×2 (08:15→20:35)
[2018-12-05] MEDS: amLODIPine 10 MG (NORVASC) TAB PO SCH (08:15)
[2018-12-05] MEDS: meTOprolol TARTRATE 25 MG (LOPRESSOR) TABLET PO SCH ×2 (08:15→20:35)
[2018-12-05] MEDS: CEFDINIR 300 MG (OMNICEF) CAP PO SCH (08:15)
[2018-12-05] MEDS: DIVALPROX SPRINKLE 125 MG (DEPAKOTE) CAP PO SCH ×2 (08:15→20:35)
[2018-12-05] MEDS: ASPIRIN E.C. 81 MG (ECOTRIN) TAB PO SCH (08:15)
[2018-12-05] MEDS: cloNIDine 0.1 MG (CATAPRES) TAB PO PRN (08:16)
--- NOTE | 2018-12-05 11:48 | PM&R Progress Note ---
Subjective HPI/CC On Admission Date Seen by Provider: Dec 05, 2018 Time Seen by Provider: 11:15 CC: Stroke HPI: This is a 73yoWM who required assisted living admission due to dementia who presented after an abrupt onset of confusion and difficulty of balance. Pt was found to have subacute early lacunar stroke in region of right globus pallidus but not a TPA candidate since there was no known last well time in order to meet protocol.Pt will need PT to work on balance issues and improve the independence of ADLs and speech therapy to work on cognition to manage his activities in order to return back to [facility]. I reviewed his home medication. He will continue Cefdinir for a couple more days for UTI maintained on Rocephin while on Med-Surg and will monitor closely for any stroke residual effects that are not identified at this current time. Subjective/Events-last exam BP is much better on blood pressure medication of Norvasc of 10 MG in addition to his other meds Stroke has caused the dizziness and off balance he is experiencing but he is tolerating PT well and participating Risperdal 0.5mg PO QHS was very successful in eliminating sundowning and del irium last night and I do recall him being admitted to the senior behavioral unit in the past don't see any of those medications that were prescribed on his med list currently Eating well Bowels are moving. Completed UTI treatment. Overall doing much better. DVT prophylaxis is minimal since he is ambulatory. I have seen him every day for 5 days and he asked to I was again today Review of Systems General: Fatigue Neurological: Confusion Objective Exam Vital Signs Vital Signs Date Time Temp Pulse Resp B/P (MAP) Pulse Ox O2 Delivery O2 Flow Rate FiO2 12/05/18 09:00 Room Air 12/05/18 08:00 97.8 76 16 176/89 (118) 98 Capillary Refill : General Appearance: No Apparent Distress, WD/WN, Chronically ill HEENT: PERRL/EOMI, Normal ENT Inspection, Pharynx Normal, Moist Mucous Membranes Neck: Full Range of Motion, Normal Inspection, Non Tender, Supple Respiratory: Chest Non Tender, Lungs Clear, Normal Breath Sounds, No Accessory Muscle Use, No Respiratory Distress Cardiovascular: Regular Rate, Rhythm, No Edema, No Gallop, No JVD, No Murmur Gastrointestinal: Normal Bowel Sounds, No Organomegaly, No Pulsatile Mass, Non Tender, Soft Back: Normal Inspection, No CVA Tenderness, No Vertebral Tenderness Extremity: Normal Capillary Refill, Normal Inspection, Normal Range of Motion, Non Tender, No Calf Tenderness, No Pedal Edema Neurologic/Psychiatric: Alert, Oriented x3, No Motor/Sensory Deficits, Normal Mood/Affect, barrel tester and drainer II-XII Norm as Tested, Abnormal Gait, Disoriented, Motor Weakness (generalized upper and lower extremities), Other (imbalance) Skin: Normal Color, Warm/Dry Lymphatic: No Adenopathy Results/Procedures Lab Patient resulted labs reviewed. FIM Transfers Therapy Code Descriptions/Definitions Functional [place] Measure: 0=Not Assessed/NA 4=Minimal Assistance 1=Total Assistance 5=Supervision or Setup 2=Maximal Assistance 6=Modified [place] 3=Moderate Assistance 7=Complete [place] Therapy Quality Codes: 6 Independent with activity with or without an assistive device 5 Patient requires set up or clean up by helper. Patient completes activity by themselves 4 Supervision or touching assist (CGA). [place] provide cues , steadying assist 3 The helper provides less than half the effort to complete the activity 2 The helper provides more than half the effort to complete the activity 1 Dependent. The helper does all the effort to complete an activity 7 Patient refused to complete or attempt activity 9 The patient did not perform the activity before the current illness or injury 88 Not attempted due to Medical conditions or safety concerns Transfers (B, C, W/C) (FIM): 6 Scootin Rollin Roll Left to Right (QC): 4 Supine to/from Sit: 5 Sit to/from Stand: 6 Sit to Lying (QC): 4 Sit to Stand (QC): 4 Chair/Qda-yt-Tjxin Xfer(QC): 4 Bed to/from Chair: 6 Car Transfer (QC): 4 Gait Training Does the Patient Walk?: Yes Gait (FIM): 5 Distance: 1000' Walk 10 feet (QC): 4 Walk 50 ft with 2 Turns(QC): 4 Walk 150 ft (QC): 4 Walking 10ft/uneven surface-QC: 4 Gait Level of Assist: 5 Gait Persons Needed: 1 Gait Assistive Device: None Wheelchair Training Does the Pt Use a Wheelchair?: No Stair Training Stairs (FIM): 2 #of Steps: 4 1 Step (curb) (QC): 4 4 Steps (QC): 4 Level of Assist: 4 Mental Status/Objective Comprehension: 5 Expression: 4 Social Interaction: 5 Problem Solvin Memory: 3 ADL-Treatment Feedin Eating (QC): 6 Groomin (SBA while standign at sink. pt required set up of items on sink (comb hair, brush teeth, wash face, wash hands)) Oral Hygiene (QC): 4 Bathin (pt sat to shower. SBA fro safety/ balance., pt reuqired assist to adjust temp of water. ) Bathing Location: L Arm, R Arm, L Upper Leg, R Upper Leg, L Lower Leg (including foot), R Lower Leg (including foot), Chest, Abdomen, Buttocks, Perineal Area Shower/Bathe Self (QC): 4 Upper Extremity Dressin (setup) Upper Body Dressing (QC): 5 Lower Extremity Dressin (underpants, be socks, be shoes, pants. pt requried set up of shoes. noted decrease movemetn in LLE. pt education on figure 4 positioning. pt demo correctly with demo. ) Lower Body Dressing (QC): 4 On/Off Footwear (QC): 4 Toiletin (3/3 toileting tasks ) Toileting Hygiene (QC): 4 Toilet/Commode Transfer: 4 (no AD. CGA for safety/ balacne. ) Toilet Transfer (QC): 4 Shower: 4 (useof GB and shower chair) Assessment/Plan Assessment and Plan Assess & Plan/Chief Complaint Assessment: s/p CVA w/confusion and loss of balance Dementia CRI Acute UTI treatment completed today HTN OOC Confusion with sundowning resolved with Risperdal at night Plan: Monitor BP Abx PO PT/OT Norvasc increased to 10mg po daily Risperdal at night to be continued (1) Cerebrovascular accident due to cerebral artery occlusion (2) Delirium due to another medical condition, acute, hypoactive (3) UTI (urinary tract infection) (4) Hypoxia (5) Renal insufficiency (6) HTN (hypertension) (7) Dementia (8) Disequilibrium (9) Risk for falls (10) Sundowning DOMINIK CRUZ DO Dec 05, 2018 11:48
[2018-12-05 12:00] VITALS: BP 128/86
[2018-12-05 15:07] VITALS: BP 136/84
[2018-12-05 20:00] VITALS: BP 121/64
[2018-12-05] MEDS: MELATONIN 3 MG TABLET PO PRN (20:35)
[2018-12-05] MEDS: FINASTERIDE (PROSCAR) 5 MG TAB PO SCH (20:35)
[2018-12-05] MEDS: ATORVASTATIN 20 MG (LIPITOR) TABLET PO SCH (20:35)
[2018-12-05] MEDS: risperiDONE 0.25 MG (RisperDAL) TAB PO SCH (20:35)
[2018-12-05] MEDS: DONEPEZIL 5 MG (ARICEPT) TAB PO SCH (20:35)
[2018-12-05] MEDS: TAMSULOSIN 0.4 MG (FLOMAX) CAP PO SCH (20:35)
[2018-12-06 00:15] VITALS: BP 136/79
[2018-12-06 04:00] VITALS: BP 174/74
[2018-12-06 06:18] LABS: BASOPHILS % (AUTO) 0 % (0-10); EOSINOPHILS # (AUTO) 0.4 10^3/uL (0.0-0.3); EOSINOPHILS % (AUTO) 6 % (0-10); HEMATOCRIT 37 % (40-54); HEMOGLOBIN 11.8 G/DL (13.3-17.7); LYMPHOCYTES # (AUTO) 1.9 X 10^3 (1.0-4.0); LYMPHOCYTES % (AUTO) 25 % (12-44); MEAN CORPUSCULAR HEMOGLOBIN 30 PG (25-34); MEAN CORPUSCULAR HGB CONC 32 G/DL (32-36); MEAN CORPUSCULAR VOLUME 93 FL (80-99); MEAN PLATELET VOLUME 9.3 FL (7.4-10.4); MONOCYTES # (AUTO) 0.8 X 10^3 (0.0-1.0); MONOCYTES % (AUTO) 11 % (0-12); NEUTROPHILS # (AUTO) 4.2 X 10^3 (1.8-7.8); NEUTROPHILS % (AUTO) 57 % (42-75); PLATELET COUNT 216 10^3/uL (130-400); RED CELL DISTRIBUTION WIDTH 14.8 % (10.0-14.5); WHITE BLOOD COUNT 7.3 10^3/uL (4.3-11.0)
[2018-12-06 06:36] LABS: ALBUMIN 3.7 GM/DL (3.2-4.5); BILIRUBIN,TOTAL 0.4 MG/DL (0.1-1.0); CREATININE SERUM 2.35 MG/DL (0.60-1.30); POTASSIUM 4.3 MMOL/L (3.6-5.0); TOTAL PROTEIN 6.4 GM/DL (6.4-8.2)
--- NOTE | 2018-12-06 08:08 | NUR ---
Per conversation with Dr. Toledo and RN, a recommendation was made for [facility] to screen in order to determine if appropriate for short term placement to address dementia and medication regimen. [employer] OPERATOR notified [facility] of consult, Elsa Curiel will complete evaluation this morning.
[2018-12-06 08:35] VITALS: BP 171/84
--- NOTE | 2018-12-06 08:48 | Occupational Ther Daily Note ---
OT Current Status-Daily Note Subjective pt sitting at able in main common area enjoying breakfast and reading magazine. pt reports no pain. pt oriented to person and place this date. noted increase recall this date. Mental Status/Objective Patient Orientation: Person, Place Therapy Code Descriptions/Definitions Functional [place] Measure: 0=Not Assessed/NA 4=Minimal Assistance 1=Total Assistance 5=Supervision or Setup 2=Maximal Assistance 6=Modified [place] 3=Moderate Assistance 7=Complete [place] ADL-Treatment Therapy Code Descriptions/Definitions Functional [place] Measure: 0=Not Assessed/NA 4=Minimal Assistance 1=Total Assistance 5=Supervision or Setup 2=Maximal Assistance 6=Modified [place] 3=Moderate Assistance 7=Complete [place] Therapy Quality Codes: 6 Independent with activity with or without an assistive device 5 Patient requires set up or clean up by helper. Patient completes activity by themselves 4 Supervision or touching assist (CGA). [place] provide cues , steadying assist 3 The helper provides less than half the effort to complete the activity 2 The helper provides more than half the effort to complete the activity 1 Dependent. The helper does all the effort to complete an activity 7 Patient refused to complete or attempt activity 9 The patient did not perform the activity before the current illness or injury 88 Not attempted due to Medical conditions or safety concerns Eating (FIM): 7 Eating (QC): 6 Grooming (FIM): 6 (standing at sink. ) Oral Hygiene (QC): 6 Bathing (FIM): 6 (sitting/ standing during shower. ) Bathing Location: L Arm, R Arm, L Upper Leg, R Upper Leg, L Lower Leg (including foot), R Lower Leg (including foot), Chest, Abdomen, Buttocks, Perineal Area Shower/Bathe Self (QC): 6 Upper Body (FIM): 6 (standing (loop puller shirt) ) Upper Body Dressing (QC): 6 (sitting/ standing) Lower Body Dressing (FIM): 6 Lower Body Dressing (QC): 6 On/Off Footwear (QC): 6 Toileting (FIM): 6 (standing at toilet. ) Toileting Hygiene (QC): 6 Transfers (B, C, W/C) (FIM): 6 (no AD. safety concerns secodnary to cognition ) Toilet/Commode Transfer (FIM): 6 Toilet Transfer (QC): 6 Shower Transfer(FIM): 6 pt perform ADLs in room MOD I with safety concerns secondary to cognition/ confusion. pt demo ability to gather clothing from closet and carry them into bathroom using no AD. pt perform ADLs in bathroom with intermitting sitting for safety. post ADLs pt gather items from floor and placed in laundry basket. Other Treatment post OT session pt demo ability to ambulate to laundry room approx 100 ft and perform laundry task with SBA for safety secondary to cognition/ requiring cuing for direction. pt required VC to turn on washer. post placeing clothing in washer. pt ambulated back to room. pt sitting in recliner chair at end of session. reports no pain, call light, tray, and water in reach, all needs met. Education OT Patient Education: Modified ADL techniques, Progress toward Goal/Update tx plan, Purpose of tx/functional activities, Reviewed precautions, Rehab process, Safety issues, Transfer techniques Teaching Recipient: Patient Teaching Methods: Demonstration, Discussion Response to Teaching: Verbalize Understanding, Return Demonstration OT Short Term Goals Short Term Goals Eating(FIM): 6 Grooming(FIM): 5 Bathing(FIM): 5 Upper Body Dressing(FIM): 5 Lower Body Dressing(FIM): 5 Toileting(FIM): 5 Transfers (B,C,W/C) (FIM): 5 Toilet/Commode Transfer(FIM): 5 Shower Transfer(FIM): 5 1=Demonstrate adherence to instructed precautions during ADL tasks. 2=Patient will verbalize/demonstrate understanding of assistive devices/modifications for ADL. 3=Patient will improve strength/tolerance for activity to enable patient to perform ADL's. OT School Treasurer Goals School Treasurer Goals Time Frame: Dec 29, 2018 Eating (FIM): 7 Eating (QC): 6 Groomin Oral Hygiene (QC): 6 Bathing(FIM): 6 Bathing Location: L Arm, R Arm, L Upper Leg, R Upper Leg, L Lower Leg (including foot), R Lower Leg (including foot), Chest, Abdomen, Buttocks, Perineal Area Shower/Bathe Self (QC): 6 Upper Body Dressing(FIM): 6 Upper Body Dressing (QC): 6 Lower Body Dressing(FIM): 6 Lower Body Dressing (QC): 6 On/Off Footwear (QC): 6 Toileting(FIM): 6 Toileting Hygiene (QC): 6 Transfers (B,C,W/C) (FIM): 6 Toilet/Commode Transfer(FIM): 6 Toilet/Commode Transfer (QC): 6 Shower Transfer(FIM): 6 Additional Goals: 1-Demonstrate ADL Tasks, 2-Verbalize Understanding, 3- ImproveStrength/Velma 1=Demonstrate adherence to instructed precautions during ADL tasks. 2=Patient will verbalize/demonstrate understanding of assistive devices/modifications for ADL. 3=Patient will improve strength/tolerance for activity to enable patient to perform ADL's. OT Education/Plan Problem List/Assessment Assessment: Impaired Cognition, Impaired I ADL's pt presents with functional limitations affecting areas of ADLs/ functional transfers with deficits in the above mentioned. pt would benefit from skilled OT services to to address above mention deficits and to increase independence with ADLS./ functional transfers Discharge Recommendations Plan/Recommendations: Continue POC Barriers to Progress cognition Treatment Plan/Plan of Care Treatment,Training & Education: Yes Patient would benefit from OT for education, treatment and training to promote independence in ADL's, mobility, safety and/or upper extremity function for ADL's. Plan of Care: ADL Retraining, Caregiver Training, Cognitive Retraining, Concurrent Therapy, Functional Mobility, Group Exercise/Act as Ind, UE Funct Exercise/Act, UE Neuromus Re-Ed/Coord Treatment Duration: Dec 29, 2018 Frequency: At least 5 of 7 days/Wk (IRF) Estimated Hrs Per Day: 1 hour per day (60 - 90 minutes per day ) Rehab Potential: Fair Time/GCodes Start Time: 08:00 Stop Time: 09:15 Billed Treatment Time ADL 60 minutes, 4 units FA 15 minutes, 1 unit FRANCK BABCOCK OT Dec 06, 2018 08:48
[2018-12-06] MEDS: SENNA W/DOCUSATE (SENOKOT S) TABLET PO SCH ×2 (09:01→21:02)
[2018-12-06] MEDS: amLODIPine 10 MG (NORVASC) TAB PO SCH (09:01)
[2018-12-06] MEDS: DIVALPROX SPRINKLE 125 MG (DEPAKOTE) CAP PO SCH ×2 (09:01→20:00)
[2018-12-06] MEDS: ASPIRIN E.C. 81 MG (ECOTRIN) TAB PO SCH (09:01)
[2018-12-06] MEDS: meTOprolol TARTRATE 25 MG (LOPRESSOR) TABLET PO SCH ×2 (09:01→20:00)
[2018-12-06] MEDS: busPIRone 10 MG (BUSPAR) TAB PO SCH ×2 (09:01→20:00)
--- NOTE | 2018-12-06 09:07 | PM&R Progress Note ---
Subjective HPI/CC On Admission Date Seen by Provider: Dec 06, 2018 Time Seen by Provider: 09:00 CC: Stroke HPI: This is a 73yoWM who required assisted living admission due to dementia who presented after an abrupt onset of confusion and difficulty of balance. Pt was found to have subacute early lacunar stroke in region of right globus pallidus but not a TPA candidate since there was no known last well time in order to meet protocol.Pt will need PT to work on balance issues and improve the independence of ADLs and speech therapy to work on cognition to manage his activities in order to return back to [facility]. I reviewed his home medication. He will continue Cefdinir for a couple more days for UTI maintained on Rocephin while on Med-Surg and will monitor closely for any stroke residual effects that are not identified at this current time. Subjective/Events-last exam BP is elevated but tolerating 10 mg of Norvasc Poor cognition and he's still having some behavioral problems so we'll admit to the senior behavioral unit at [facility] tomorrow Checked meds and labs No falls Overall much improved Risperdal at night is really helping him Checked meds and labs Conferred with RN Reviewed therapy notes Review of Systems General: Fatigue Neurological: Confusion Objective Exam Vital Signs Vital Signs Date Time Temp Pulse Resp B/P (MAP) Pulse Ox O2 Delivery O2 Flow Rate FiO2 12/06/18 16:16 97.2 68 16 159/79 (105) 98 Room Air Capillary Refill : General Appearance: No Apparent Distress, WD/WN, Chronically ill HEENT: PERRL/EOMI, Normal ENT Inspection, Pharynx Normal, Moist Mucous Membranes Neck: Full Range of Motion, Normal Inspection, Non Tender, Supple Respiratory: Chest Non Tender, Lungs Clear, Normal Breath Sounds, No Accessory Muscle Use, No Respiratory Distress Cardiovascular: Regular Rate, Rhythm, No Edema, No Gallop, No JVD, No Murmur Gastrointestinal: Normal Bowel Sounds, No Organomegaly, No Pulsatile Mass, Non Tender, Soft Back: Normal Inspection, No CVA Tenderness, No Vertebral Tenderness Extremity: Normal Capillary Refill, Normal Inspection, Normal Range of Motion, Non Tender, No Calf Tenderness, No Pedal Edema Neurologic/Psychiatric: Alert, Oriented x3, No Motor/Sensory Deficits, Normal Mood/Affect, practice manager II-XII Norm as Tested, Abnormal Gait, Disoriented, Motor Weakness (generalized upper and lower extremities), Other (imbalance) Skin: Normal Color, Warm/Dry Lymphatic: No Adenopathy Results/Procedures Lab Laboratory Tests 12/06/18 05:05 12/06/18 06:05 Patient resulted labs reviewed. FIM Transfers Therapy Code Descriptions/Definitions Functional [place] Measure: 0=Not Assessed/NA 4=Minimal Assistance 1=Total Assistance 5=Supervision or Setup 2=Maximal Assistance 6=Modified [place] 3=Moderate Assistance 7=Complete [place] Therapy Quality Codes: 6 Independent with activity with or without an assistive device 5 Patient requires set up or clean up by helper. Patient completes activity by themselves 4 Supervision or touching assist (CGA). [place] provide cues , steadying a ssist 3 The helper provides less than half the effort to complete the activity 2 The helper provides more than half the effort to complete the activity 1 Dependent. The helper does all the effort to complete an activity 7 Patient refused to complete or attempt activity 9 The patient did not perform the activity before the current illness or injury 88 Not attempted due to Medical conditions or safety concerns Transfers (B, C, W/C) (FIM): 6 (no AD. safety concerns secodnary to cognition ) Scootin Rollin Roll Left to Right (QC): 4 Supine to/from Sit: 5 Sit to/from Stand: 6 Sit to Lying (QC): 4 Sit to Stand (QC): 4 Chair/Hoi-bk-Jvrzn Xfer(QC): 4 Bed to/from Chair: 6 Car Transfer (QC): 4 Gait Training Does the Patient Walk?: Yes Gait (FIM): 5 Distance: 1000' Walk 10 feet (QC): 4 Walk 50 ft with 2 Turns(QC): 4 Walk 150 ft (QC): 4 Walking 10ft/uneven surface-QC: 4 Gait Level of Assist: 5 Gait Persons Needed: 1 Gait Assistive Device: None Wheelchair Training Does the Pt Use a Wheelchair?: No Stair Training Stairs (FIM): 2 #of Steps: 4 1 Step (curb) (QC): 4 4 Steps (QC): 4 Level of Assist: 4 Mental Status/Objective Comprehension: 5 Expression: 4 Social Interaction: 5 Problem Solvin Memory: 3 ADL-Treatment Feedin Eating (QC): 6 Groomin (standing at sink. ) Oral Hygiene (QC): 6 Bathin (sitting/ standing during shower. ) Bathing Location: L Arm, R Arm, L Upper Leg, R Upper Leg, L Lower Leg (including foot), R Lower Leg (including foot), Chest, Abdomen, Buttocks, Perineal Area Shower/Bathe Self (QC): 6 Upper Extremity Dressin (standing (boat puller shirt) ) Upper Body Dressing (QC): 6 (sitting/ standing) Lower Extremity Dressin Lower Body Dressing (QC): 6 On/Off Footwear (QC): 6 Toiletin (standing at toilet. ) Toileting Hygiene (QC): 6 Toilet/Commode Transfer: 6 Toilet Transfer (QC): 6 Shower: 6 Assessment/Plan Assessment and Plan Assess & Plan/Chief Complaint Assessment: s/p CVA w/confusion and loss of balance Dementia CRI Acute UTI treatment completed today HTN OOC Confusion with owning resolved with Risperdal at night in need fo geripsych unit tomorrow Plan: Monitor BP Abx PO PT/OT Norvasc increased to 10mg po daily Risperdal at night to be continued DC to [facility] tomorrow (1) Cerebrovascular accident due to cerebral artery occlusion (2) Delirium due to another medical condition, acute, hypoactive (3) UTI (urinary tract infection) (4) Hypoxia (5) Renal insufficiency (6) HTN (hypertension) (7) Dementia (8) Disequilibrium (9) Risk for falls (10) Sundowning DOMINIK CRUZ DO Dec 06, 2018 09:07
--- NOTE | 2018-12-06 11:20 | NUR ---
Pastoral care visit.
--- NOTE | 2018-12-06 11:53 | NUR ---
Elsa from [facility] completed assessment and believe patient will be appropriate for a short stay at the unit for medication adjustments and management. She has contacted insurance and has received approval for patient to admit tomorrow. Dr. Toledo is in agreement with this plan. PLANT RELIABILITY ENGINEER reached out to patient's daughter/POA, Evonne to discuss recommendation of placement, she is onboard with this plan, as she is hopeful to reduce patient's increased confusion. Evonne can provide transport to facility tomorrow at 1030a. PLANT RELIABILITY ENGINEER reviewed IMM and Patient Choice Letter with Evonne and obtained a verbal consent. PLANT RELIABILITY ENGINEER provided RN with report number. Please see discharge summary for further information.
[2018-12-06 12:00] VITALS: BP 152/90
--- NOTE | 2018-12-06 14:34 | Speech Therapy Daily Note ---
Speech Daily Progress Note Subjective Date Seen by Provider: Dec 06, 2018 Time Seen by Provider: 00:30 The patient was pleasant and cooperative during therapy. Objective The patient completed memory exercises with 70% given moderate verbal cues and/or redirection. Communication Comprehension: 5 Expression: 4 Social Cognition Social Interaction: 5 Problem Solvin Memory: 3 Speech Short Term Goals Short Term Goals Short Term Goals 1) The patient will complete orientation exercises at 75% with minimal cues. 2) The patient will follow simple directions related to his daily needs with 75% with minimal cues. 3) The patient will demonstrate recall of new information at 75% with minimal cues. Speech Geophysical Party Chief Goals Geophysical Party Chief Goals The patient will improve his level of cognitive function in order to return to his assisted living facility. Speech-Plan Patient/Family Goals Patient/Family Goals: The patient will be discharged to [facility] tomorrow. Treatment Plan Speech Therapy Treatment Plan: Discontinue ST The patient has memory deficits. Treatment Duration: Dec 10, 2018 Frequency: 5 times per week Estimated Hrs Per Day: .5 hour per day Rehab Potential: Fair Barriers to Learning: Patient has moderate dementia. Safety Risks/Education Teaching Recipient: Patient Teaching Methods: Discussion Response to Teaching: Verbalize Understanding Education Topics Provided: Continued safety within his environment. Time Speech Therapy Time In: 13:30 Speech Therapy Time Out: 14:00 Total Billed Time: 30 Billed Treatment Time 1AIDEE [address] ST Dec 06, 2018 14:34
--- NOTE | 2018-12-06 14:44 | Physical Therapy Daily Note ---
PT Daily Note-Current Subjective Pt. agrees to Rx. No c/o pain Pain Location: No Pain Reported Mental Status Patient Orientation: Person Transfers Therapy Code Descriptions/Definitions Functional [place] Measure: 0=Not Assessed/NA 4=Minimal Assistance 1=Total Assistance 5=Supervision or Setup 2=Maximal Assistance 6=Modified [place] 3=Moderate Assistance 7=Complete [place] Therapy Quality Codes: 6 Independent with activity with or without an assistive device 5 Patient requires set up or clean up by helper. Patient completes activity by themselves 4 Supervision or touching assist (CGA). Fountain provide cues , steadying assist 3 The helper provides less than half the effort to complete the activity 2 The helper provides more than half the effort to complete the activity 1 Dependent. The helper does all the effort to complete an activity 7 Patient refused to complete or attempt activity 9 The patient did not perform the activity before the current illness or injury 88 Not attempted due to Medical conditions or safety concerns Transfers (B, C, W/C) (FIM): 6 Scootin Rollin Roll Left to Right (QC): 6 Supine to/from Sit: 6 Sit to/from Stand: 6 Sit to Lying (QC): 6 Sit to Stand (QC): 6 Chair/Ikt-dn-Sgebc Xfer(QC): 6 Bed to/from Chair: 6 Car Transfer (QC): 6 Gait Training Does the Patient Walk?: Yes Gait (FIM): 6 Distance (FIM): 3=150 ft (300,200) Walk 10 feet (QC): 6 Walk 50 ft with 2 Turns(QC): 6 Walk 150 ft (QC): 6 Walking 10ft/uneven surface-QC: 6 Gait Level of Assist: 6 Gait Persons Needed: 0 Gait Assistive Device: None pt. up ad tyler in room Stair Training Stair Training: Handrails/: 2 handrails Stairs (FIM): 5 #of Steps: 4 Stairs: Pattern: Step to Level of Assist: 5 household exception Balance Picking up an Object (QC): 6 Exercises Supine Ex: Ankle pumps, Quad Set, Heel Slides, Short Arc Quads, Straight leg raise, Hip abd/add Supine Reps: 12 NuStep Minutes: 11 NuStep Workload: 5 Assessment Current Status: Good Progress PT Short Term Goals Short Term Goals Time Frame: Dec 08, 2018 Transfers (B,C,W/C) (FIM): 5 Gait (FIM): 5 Gait Distance Comment: 250' Gait Level of Assist: 5 Gait Assistive Device: FWW PT Jail Goals Jail Goals PT Coat Presser Goals Time Frame: Dec 22, 2018 Transfers (B,C,W/C) (FIM): 6 Sit to Lying (QC): 6 Lying-Sitting on Side/Bed(QC): 6 Sit to Stand (QC): 6 Rollin Roll Left to Right (QC): 6 Chair/Uju-en-Omweu Xfer(QC): 6 Car Transfer (QC): 6 Gait (FIM): 6 Distance: 300' Walk 10 feet (QC): 6 Walk 10ft-Uneven Surface(QC): 6 Walk 50ft with 2 Turns (QC): 6 Walk 150 ft (QC): 6 Gait Level of Assist: 6 Gait Assistive Device: FWW Stairs (FIM): 2 # of Steps: 4 1 Step (curb) (QC): 4 4 Steps (QC): 4 Stairs Level Of Assist: 5 PT Plan Treatment/Plan Treatment Plan: Continue Plan of Care Treatment Plan: Bed Mobility, Education, Functional Activity Velma, Functional Strength, Group Therapy, Gait, Safety, Therapeutic Exercise, Transfers Treatment Duration: Dec 22, 2018 Frequency: At least 5 of 7 days/Wk (IRF) Estimated Hrs Per Day: 1.5 hours per day Patient and/or Family Agrees t: Yes Safety Risks/Education Patient Education: Gait Training, Transfer Techniques, Steps, Correct Positioning, Disease Process, Safety Issues Teaching Recipient: Patient Teaching Methods: Demonstration, Discussion Response to Teaching: Verbalize Understanding, Return Demonstration, Reinforcement Needed Time/GCodes Time In: 1100 Time Out: 1200 Total Billed Treatment Time: 60 Total Billed Treatment 1,GT20m,EX15m,FA25m G Codes Necessary: TISHA Rehman JEWEL BEARING POLISHER Dec 06, 2018 14:44
--- NOTE | 2018-12-06 14:57 | Therapy Group Daily Note ---
Therapy Daily Group Note Patient Education Topic Other List Below (transfers) Exercises LE Seated Exercise, UE Exercise Session Ratio (pt:therapist): 4:1 Goal of Session: UE/LE Strengthing, Safety with Transfers Goal Met for this Session: Yes Pt Benefit of Group: Contributions to Others, Increased Functional Safety, Increased Functional Strength, Improved Cognition, Recognition of Peers, Socialization Other/Notes Pt ambulated to [facility] for OT/PT group. Group consisted of introductions (name, place living, first summer job), socialization, UE/LE seated exercises and safety in transfers. Pt introduced self appropriately and actively listened to peers. Pt able to complete UE/LE seated exercises without difficulty. Pt acknowledged understanding verbally of different techniques for safe transfers. When asked when pt arrived at [facility] pt stated that he got here yesterday (pt has been on [facility] for 5 days). Pt had speech therapy from [id number] then returned to group from [id number]. After therapy, pt sitting in recliner with call light/phone in reach. All needs met in room. Start Time: 13:00 ([id number]) Stop Time: 14:15 ([id number]) Total Billed Treatment Time: 45 Total Billed Treatment 1-GRP LANRE CRUZ Dec 06, 2018 14:57
[2018-12-06 16:16] VITALS: BP 159/79
[2018-12-06] MEDS: ATORVASTATIN 20 MG (LIPITOR) TABLET PO SCH (20:00)
[2018-12-06] MEDS: MELATONIN 3 MG TABLET PO PRN (20:00)
[2018-12-06] MEDS: DONEPEZIL 5 MG (ARICEPT) TAB PO SCH (20:00)
[2018-12-06] MEDS: FINASTERIDE (PROSCAR) 5 MG TAB PO SCH (20:00)
[2018-12-06] MEDS: TAMSULOSIN 0.4 MG (FLOMAX) CAP PO SCH (20:00)
[2018-12-06] MEDS: risperiDONE 0.25 MG (RisperDAL) TAB PO SCH (20:00)
[2018-12-06 21:16] VITALS: BP 129/80
[2018-12-07 00:31] VITALS: BP 147/82
[2018-12-07 04:29] VITALS: BP 158/68
[2018-12-07 08:00] VITALS: BP 166/75
--- NOTE | 2018-12-07 08:04 | Therapy Team Discharge Summary ---
Therapy Discharge Summary Discharge Recommendations Date of Discharge Therapy D/C Recommendations: Assisted Living, Home w/ Family Support, [facility] (TCU/NH) Physical Therapy Patient came to rehab following a CVA. Upon admission patient performed bed mobility with SBA, supine <-> sit with SBA, sit <-> stand with CGA, transfers with CGA, car transfer CGA, ambulated 200' with a rolling walker with CGA (including 50' with at least 2 turns of 90 degrees and 10' over an uneven surface), and went up and down 4 steps using 2 handrails with CGA. Patient has been performing bed mobility and transfer training, balance and endurance training, functional strengthening, stair training, gait training, and education, to improve functional mobility and independence at home. Patient has made good progress and has met all of his custodial goals. Now, patient performs bed mobility and transfer with mod I, car transfer mod I, ambulates 300' without an assistive device with independence, and can go up and down 4 steps using 2 handrails with SBA. Patient still has confusion. Patient is discharging from this facility today and will be discharged from PT at this time. Occupational Therapy Impaired Cognition, Impaired I ADL's PT Fdc Goals Linotyper Goals PT Linotyper Goals Time Frame: Dec 22, 2018 Transfers (B,C,W/C) (FIM): 6 Roll Left to Right (QC): 6 Sit to Lying (QC): 6 Lying-Sitting on Side/Bed(QC): 6 Sit to Stand (QC): 6 Chair/Nvd-fn-Ebudg Xfer(QC): 6 Car Transfer (QC): 6 Gait (FIM): 6 Distance: 300' Walk 10 feet (QC): 6 Walk 10ft-Uneven Surface(QC): 6 Walk 50ft with 2 Turns (QC): 6 Walk 150 ft (QC): 6 Gait Level of Assist: 6 Gait Assistive Device: FWW Stairs (FIM): 2 # of Steps: 4 1 Step (curb) (QC): 4 4 Steps (QC): 4 Stairs Level Of Assist: 5 OT Fdc Goals Fdc Goals Time Frame: Dec 29, 2018 Eating (FIM): 7 Eating (QC): 6 Oral Hygiene (QC): 6 Grooming(FIM): 6 Bathing(FIM): 6 Bathing Location: L Arm, R Arm, L Upper Leg, R Upper Leg, L Lower Leg (including foot), R Lower Leg (including foot), Chest, Abdomen, Buttocks, Perineal Area Shower/Bathe Self (QC): 6 Upper Body Dressing(FIM): 6 Upper Body Dressing (QC): 6 Lower Body Dressing(FIM): 6 Lower Body Dressing (QC): 6 On/Off Footwear (QC): 6 Toileting(FIM): 6 Toileting Hygiene (QC): 6 Transfers (B,C,W/C) (FIM): 6 Toilet/Commode Transfer(FIM): 6 Toilet/Commode Transfer (QC): 6 Shower Transfer(FIM): 6 Additional Goals: 1-Demonstrate ADL Tasks, 2-Verbalize Understanding, 3- ImproveStrength/Velma 1=Demonstrate adherence to instructed precautions during ADL tasks. 2=Patient will verbalize/demonstrate understanding of assistive devices/modifications for ADL. 3=Patient will improve strength/tolerance for activity to enable patient to perform ADL's. Speech Linotyper Goals Linotyper Goals The patient will improve his level of cognitive function in order to return to his assisted living facility. MEKA ROYAL PT Dec 07, 2018 08:04
[2018-12-07] MEDS: SENNA W/DOCUSATE (SENOKOT S) TABLET PO SCH (08:05)
[2018-12-07] MEDS: ASPIRIN E.C. 81 MG (ECOTRIN) TAB PO SCH (08:05)
[2018-12-07] MEDS: amLODIPine 10 MG (NORVASC) TAB PO SCH (08:05)
[2018-12-07] MEDS: meTOprolol TARTRATE 25 MG (LOPRESSOR) TABLET PO SCH (08:05)
[2018-12-07] MEDS: busPIRone 10 MG (BUSPAR) TAB PO SCH (08:05)
[2018-12-07] MEDS: DIVALPROX SPRINKLE 125 MG (DEPAKOTE) CAP PO SCH (08:05)
[2018-12-07] MEDS: hydrALAZINE (APRESOLINE) 25 MG TAB PO PRN (08:11)
--- NOTE | 2018-12-07 08:28 | Therapy Team Discharge Summary ---
Therapy Discharge Summary Discharge Recommendations Date of Discharge Therapy D/C Recommendations: Assisted Living, Home w/ Family Support, [facility] (TCU/[facility]) Occupational Therapy pt has made great progress while in inpt rehabilitations since admission. OT has focus on increasing independence with ADLS, functional transfers, increase UE strength with developing HEP, increase activity tolerance/ endurance, standing balance, energy conservation techniques, and overall safety with functional task in sitting and standing. currently, pt requires SBA/ supervision while performing IADL secondary to cognition. pt is MOD I with grooming, UB/ LB dressing, toileting, bathing, and functional transfers using shower bench for shower. pt does have safety concerns with ADLS secondary to cognition. pt recall did improve since admission with OT. recommended equipment: shower chair, non skid shower mat. pt expected to d/c back to assisted living. Impaired Cognition, Impaired I ADL's PT Device Engineer Goals Skilled Nursing Goals PT Skilled Nursing Goals Time Frame: Dec 22, 2018 Transfers (B,C,W/C) (FIM): 6 Roll Left to Right (QC): 6 Sit to Lying (QC): 6 Lying-Sitting on Side/Bed(QC): 6 Sit to Stand (QC): 6 Chair/Pfk-rw-Wymiu Xfer(QC): 6 Car Transfer (QC): 6 Gait (FIM): 6 Distance: 300' Walk 10 feet (QC): 6 Walk 10ft-Uneven Surface(QC): 6 Walk 50ft with 2 Turns (QC): 6 Walk 150 ft (QC): 6 Gait Level of Assist: 6 Gait Assistive Device: FWW Stairs (FIM): 2 # of Steps: 4 1 Step (curb) (QC): 4 4 Steps (QC): 4 Stairs Level Of Assist: 5 OT Device Engineer Goals Device Engineer Goals Time Frame: Dec 29, 2018 Eating (FIM): 7 (MET ) Eating (QC): 6 (MET ) Oral Hygiene (QC): 6 (MET ) Grooming(FIM): 6 (MET ) Bathing(FIM): 6 (MET ) Bathing Location: L Arm, R Arm, L Upper Leg, R Upper Leg, L Lower Leg (including foot), R Lower Leg (including foot), Chest, Abdomen, Buttocks, Perineal Area Shower/Bathe Self (QC): 6 (MET ) Upper Body Dressing(FIM): 6 (MET ) Upper Body Dressing (QC): 6 (MET ) Lower Body Dressing(FIM): 6 (MET ) Lower Body Dressing (QC): 6 (MET ) On/Off Footwear (QC): 6 (MET ) Toileting(FIM): 6 (MET ) Toileting Hygiene (QC): 6 (MET ) Transfers (B,C,W/C) (FIM): 6 (MET ) Toilet/Commode Transfer(FIM): 6 (MET ) Toilet/Commode Transfer (QC): 6 (MET ) Shower Transfer(FIM): 6 (MET ) Additional Goals: 1-Demonstrate ADL Tasks, 2-Verbalize Understanding, 3- ImproveStrength/Velma 1=Demonstrate adherence to instructed precautions during ADL tasks. 2=Patient will verbalize/demonstrate understanding of assistive devices/modifications for ADL. 3=Patient will improve strength/tolerance for activity to enable patient to perform ADL's. Speech Skilled Nursing Goals Skilled Nursing Goals The patient will improve his level of cognitive function in order to return to his assisted living facility. FRANCK BABCOCK OT Dec 07, 2018 08:28
[2018-12-07] MEDS ORDERED: CLON0.1T PO (09:02)
[2018-12-07] MEDS ORDERED: AMLO10TA7 PO (09:02)
[2018-12-07] MEDS ORDERED: HYDR-3923 PO (09:02)
--- NOTE | 2018-12-07 09:05 | Discharge Summary ---
Diagnosis/Chief Complaint Date of Admission Dec 01, 2018 at 11:05 Date of Discharge Discharge Date: Dec 07, 2018 Discharge Diagnosis Assessment: s/p CVA w/confusion and loss of balance Dementia CRI Acute UTI treatment completed today HTN OOC Confusion with sundowning resolved with Risperdal at night in need fo geripsych unit tomorrow Plan: Monitor BP Abx PO PT/OT Norvasc increased to 10mg po daily Risperdal at night to be continued DC to [facility] today Discharge Summary Discharge Physical Examination Allergies: Coded Allergies: iodine (Unverified Allergy, Mild, 03/26/09) Vitals & I&Os Vital Signs Date Time Temp Pulse Resp B/P (MAP) Pulse Ox O2 Delivery O2 Flow Rate FiO2 12/07/18 12:14 83 18 166/75 99 Room Air 12/07/18 08:00 98.0 General Appearance: Alert, Cooperative, No Acute Distress, Other (memory loss noted) Respiratory: Clear to Auscultation, Normal Air Movement Cardiovascular: Regular Rate, Normal S1, Normal S2 Neuro: Normal Gait, Normal Speech, Strength at 5/5 X4 Ext Psych/Mental Status: Mental Status NL, Mood NL Hospital Course Was the Problem List Reviewed?: Yes Hospital Course; Pt had a short hospital course for 7 days in in patient rehab when he was assessed as a status post stroke pt in need of intensive therapy for clearance of residual from the stroke of lost of balance fall risk and worsening dementia and poor judgement. BP became significantly elevated requiring multiple meds that controlled the levels by time of discharge. He had been at the senior behavioral [facility] in the past and he started having delirium sundowning and confusion so we will need to optimize his medical treatment and go to the senior behavioral unit for medication modification and behavior modification prior to going back to assisted living due to the fact of his increased delirium and confusion. He was stable at time of discharge creatinine remained his chronic level of 2.3 and was deemed stable for discharge. Labs (last 24 hrs) Laboratory Tests 12/02/18 05:55: White Blood Count 6.5, Red Blood Count 3.89L, Hemoglobin 11.8L, Hematocrit 37L, Mean Corpuscular Volume 94, Mean Corpuscular Hemoglobin 30, Mean Corpuscular Hemoglobin Concent 32, Red Cell Distribution Width 15.0H, Platelet Count 191, Mean Platelet Volume 9.2, Neutrophils (%) (Auto) 59, Lymphocytes (%) (Auto) 23, Monocytes (%) (Auto) 11, Eosinophils (%) (Auto) 7, Basophils (%) (Auto) 0, Neutrophils # (Auto) 3.8, Lymphocytes # (Auto) 1.5, Monocytes # (Auto) 0.7, Eosinophils # (Auto) 0.5H, Basophils # (Auto) 0.0, Sodium Level 141, Potassium Level 4.3, Chloride Level 112H, Carbon Dioxide Level 19L, Anion Gap 10, Blood Urea Nitrogen 37H, Creatinine 2.37H, Estimat Glomerular Filtration Rate 27, BUN/Creatinine Ratio 16, Glucose Level 104, Calcium Level 8.6, Corrected Calcium 8.9, Total Bilirubin 0.4, Aspartate Amino Transf (AST/SGOT) 10, Alanine Aminotransferase (ALT/SGPT) 11, Alkaline Phosphatase 66, Total Protein 6.1L, Albumin 3.6 12/06/18 05:05: Sodium Level 141, Potassium Level 4.3, Chloride Level 112H, Carbon Dioxide Level 18L, Anion Gap 11, Blood Urea Nitrogen 41H, Creatinine 2.35H, Estimat Glomerular Filtration Rate 27, BUN/Creatinine Ratio 17, Glucose Level 89, Calcium Level 9.0, Corrected Calcium 9.2, Total Bilirubin 0.4, Aspartate Amino Transf (AST/SGOT) 10, Alanine Aminotransferase (ALT/SGPT) 9, Alkaline Phosphatase 72, Total Protein 6.4, Albumin 3.7 12/06/18 06:05: White Blood Count 7.3, Red Blood Count 3.92L, Hemoglobin 11.8L, Hematocrit 37L, Mean Corpuscular Volume 93, Mean Corpuscular Hemoglobin 30, Mean Corpuscular Hemoglobin Concent 32, Red Cell Distribution Width 14.8H, Platelet Count 216, Mean Platelet Volume 9.3, Neutrophils (%) (Auto) 57, Lymphocytes (%) (Auto) 25, Monocytes (%) (Auto) 11, Eosinophils (%) (Auto) 6, Basophils (%) (Auto) 0, Neutrophils # (Auto) 4.2, Lymphocytes # (Auto) 1.9, Monocytes # (Auto) 0.8, Eosinophils # (Auto) 0.4H, Basophils # (Auto) 0.0 Pending Labs Laboratory Tests 12/02/18 05:55: White Blood Count 6.5, Red Blood Count 3.89, Hemoglobin 11.8, Hematocrit 37, Mean Corpuscular Volume 94, Mean Corpuscular Hemoglobin 30, Mean Corpuscular Hemoglobin Concent 32, Red Cell Distribution Width 15.0, Platelet Count 191, Mean Platelet Volume 9.2, Neutrophils (%) (Auto) 59, Lymphocytes (%) (Auto) 23, Monocytes (%) (Auto) 11, Eosinophils (%) (Auto) 7, Basophils (%) (Auto) 0, Neutrophils # (Auto) 3.8, Lymphocytes # (Auto) 1.5, Monocytes # (Auto) 0.7, Eosinophils # (Auto) 0.5, Basophils # (Auto) 0.0, Sodium Level 141, Potassium Level 4.3, Chloride Level 112, Carbon Dioxide Level 19, Anion Gap 10, Blood Urea Nitrogen 37, Creatinine 2.37, Estimat Glomerular Filtration Rate 27, BUN/Creatinine Ratio 16, Glucose Level 104, Calcium Level 8.6, Corrected Calcium 8.9, Total Bilirubin 0.4, Aspartate Amino Transf (AST/SGOT) 10, Alanine Aminotransferase (ALT/SGPT) 11, Alkaline Phosphatase 66, Total Protein 6.1, Albumin 3.6 12/06/18 05:05: Sodium Level 141, Potassium Level 4.3, Chloride Level 112, Carbon Dioxide Level 18, Anion Gap 11, Blood Urea Nitrogen 41, Creatinine 2.35, Estimat Glomerular Filtration Rate 27, BUN/Creatinine Ratio 17, Glucose Level 89, Calcium Level 9.0, Corrected Calcium 9.2, Total Bilirubin 0.4, Aspartate Amino Transf (AST/SGOT) 10, Alanine Aminotransferase (ALT/SGPT) 9, Alkaline Phosphatase 72, Total Protein 6.4, Albumin 3.7 12/06/18 06:05: White Blood Count 7.3, Red Blood Count 3.92, Hemoglobin 11.8, Hematocrit 37, Mean Corpuscular Volume 93, Mean Corpuscular Hemoglobin 30, Mean Corpuscular Hemoglobin Concent 32, Red Cell Distribution Width 14.8, Platelet Count 216, Mean Platelet Volume 9.3, Neutrophils (%) (Auto) 57, Lymphocytes (%) (Auto) 25, Monocytes (%) (Auto) 11, Eosinophils (%) (Auto) 6, Basophils (%) (Auto) 0, Neutrophils # (Auto) 4.2, Lymphocytes # (Auto) 1.9, Monocytes # (Auto) 0.8, Eosinophils # (Auto) 0.4, Basophils # (Auto) 0.0 Discharge Home Medications: Active Scripts Active Amlodipine Besylate 10 Mg Tablet 10 Mg PO DAILY 30 Days Hydralazine HCl 25 Mg Tablet 25 Mg PO Q4HR PRN 14 Days Clonidine HCl 0.1 Mg Tablet 0.1 Mg PO Q4HR PRN 14 Days Lipitor (Atorvastatin Calcium) 20 Mg Tablet 20 Mg PO HS Aspirin EC (Aspirin) 81 Mg Tablet.dr 81 Mg PO DAILY Reported Coricidin Hbp Softgel (Guaifenesin/Dextromethorphan) 1 Each Capsule 1 Tab PO Q6H PRN Ativan (Lorazepam) 0.5 Mg Tablet 0.5 Mg PO Q8H PRN Triamcinolone Acetonide 0.5% Cream (Triamcinolone Acetonide) 15 Gm Cream..g. TP BID PRN apply to face twice daily as needed Ibuprofen 800 Mg Tablet 800 Mg PO Q8H PRN Hydrocodone-Acetamin 5-325 mg (Hydrocodone/Acetaminophen) 1 Each Tablet 1 Tab PO Q6H PRN Hydroxyzine HCl 25 Mg Tablet 25 Mg PO Q6H PRN Trazodone HCl 50 Mg Tablet 50 Mg PO HS PRN MAY REPEAT DOSE IF NEEDED Acetaminophen 500 Mg Tablet 500-1,000 Mg PO Q6H PRN Diphenhist (Diphenhydramine HCl) 25 Mg Tablet 25 Mg PO Q4H PRN Acular Ls (Ketorolac Tromethamine) 5 Ml Btl 1 Drop OU QID PRN Donepezil HCl 5 Mg Tablet 5 Mg PO HS Flomax (Tamsulosin HCl) 0.4 Mg Cap 0.4 Mg PO HS Finasteride 5 Mg Tablet 5 Mg PO HS Metoprolol Tartrate 25 Mg Tablet 25 Mg PO BID Divalproex Sodium 125 Mg Cap.sprink 125 Mg PO BID Buspirone HCl 10 Mg Tablet 10 Mg PO BID Instructions to patient/family Please see electronic discharge instructions given to patient. Diagnosis/Problems Diagnosis/Problems (1) Cerebrovascular accident due to cerebral artery occlusion Status: Acute (2) Delirium due to another medical condition, acute, hypoactive Status: Acute (3) UTI (urinary tract infection) Status: Acute (4) Hypoxia Status: Acute (5) Renal insufficiency (6) HTN (hypertension) (7) Dementia (8) Disequilibrium (9) Risk for falls (10) Sundowning Clinical Quality Measures DVT/VTE Risk/Contraindication: Risk Factor Score Per Nursin RFS Level Per Nursing on Admit: 2=Moderate DOMINIK CRUZ DO Dec 07, 2018 09:05
--- NOTE | 2018-12-07 10:08 | Therapy Team Discharge Summary ---
Therapy Discharge Summary Discharge Recommendations Date of Discharge Therapy D/C Recommendations: Assisted Living, Home w/ Family Support, Alf (TCU/NH) Occupational Therapy Impaired Cognition, Impaired I ADL's Speech-Language Pathology The patient was admitted to the ARU s/p CVA for strengthening. The patient was given the SLUMS with moderate deficit noted with memory. The patient made slight progress with ST goals, however his memory skills were intermittent for STM. He is being released this date to a [facility] for medical changes as needed and evaluation. He is being discharged from skilled ST at this time as well. PT Custodial Goals Warehouse Operations Manager Goals PT Warehouse Operations Manager Goals Time Frame: Dec 22, 2018 Transfers (B,C,W/C) (FIM): 6 Roll Left to Right (QC): 6 Sit to Lying (QC): 6 Lying-Sitting on Side/Bed(QC): 6 Sit to Stand (QC): 6 Chair/Geu-li-[place]ud[place] Xfer(QC): 6 Car Transfer (QC): 6 Gait (FIM): 6 Distance: 300' Walk 10 feet (QC): 6 Walk 10ft-Uneven Surface(QC): 6 Walk 50ft with 2 Turns (QC): 6 Walk 150 ft (QC): 6 Gait Level of Assist: 6 Gait Assistive Device: FWW Stairs (FIM): 2 # of Steps: 4 1 Step (curb) (QC): 4 4 Steps (QC): 4 Stairs Level Of Assist: 5 OT Custodial Goals Warehouse Operations Manager Goals Time Frame: Dec 29, 2018 Eating (FIM): 7 (MET ) Eating (QC): 6 (MET ) Oral Hygiene (QC): 6 (MET ) Grooming(FIM): 6 (MET ) Bathing(FIM): 6 (MET ) Bathing Location: L Arm, R Arm, L Upper Leg, R Upper Leg, L Lower Leg (including foot), R Lower Leg (including foot), Chest, Abdomen, Buttocks, Perineal Area Shower/Bathe Self (QC): 6 (MET ) Upper Body Dressing(FIM): 6 (MET ) Upper Body Dressing (QC): 6 (MET ) Lower Body Dressing(FIM): 6 (MET ) Lower Body Dressing (QC): 6 (MET ) On/Off Footwear (QC): 6 (MET ) Toileting(FIM): 6 (MET ) Toileting Hygiene (QC): 6 (MET ) Transfers (B,C,W/C) (FIM): 6 (MET ) Toilet/Commode Transfer(FIM): 6 (MET ) Toilet/Commode Transfer (QC): 6 (MET ) Shower Transfer(FIM): 6 (MET ) Additional Goals: 1-Demonstrate ADL Tasks, 2-Verbalize Understanding, 3-Impro veStrength/Velma 1=Demonstrate adherence to instructed precautions during ADL tasks. 2=Patient will verbalize/demonstrate understanding of assistive devices/modifications for ADL. 3=Patient will improve strength/tolerance for activity to enable patient to perform ADL's. Speech Warehouse Operations Manager Goals Custodial Goals The patient will improve his level of cognitive function in order to return to his assisted living facility. Met at 70% OLIVER JARRETT Dec 07, 2018 10:08
--- NOTE | 2018-12-07 11:03 | NUR ---
Copy of Post-Discharge Instructions given to pts daughter. JULISA MILLS is not able to manage continuing needs after discharge and transferred to [facility]. Patients belongings returned to . Patient discharged from [facility] on 12-07-18 at 1050. JULISA MILLS left floor via , accompanied by . Report called to Rosmery Dunlap. Notified of labs WBC WNL. Hgb 11.8. Bun 41, Creat 2.35 and GFR 27. Also notfied pt does try to leave and will need to be closly monitored. New med resperdal at HS has helped. Cont Q 4 vitals r/t HTN and prn apresaline given this am with lopressor and norvasc 10mg. LBM 12/06. Pt with CVA/cerebral artery occlusion, dementia with sundowners.Hx: BPH, kidneystones, pyelonephritis, depression and diveticulosis. Inc of urine and wears depends.
[2018-12-07 12:14] VITALS: BP 166/75
== END 2018-12-07 10:50 | DRG 57 ==
PROVIDERS: ADMIT Internal Medicine; ATTEND Internal Medicine
DX: I69.398 Other sequelae of cerebral infarction (principal); R26.89 Other abnormalities of gait and mobility; I69.318 Other symptoms and signs involving cognitive functions following cerebral infarction; R41.0 Disorientation, unspecified; F03.90 Unspecified dementia, unspecified severity, without behavioral disturbance, psychotic disturbance, mood disturbance, and anxiety; N10 Acute pyelonephritis; N40.1 Benign prostatic hyperplasia with lower urinary tract symptoms; R32 Unspecified urinary incontinence; I12.9 Hypertensive chronic kidney disease with stage 1 through stage 4 chronic kidney disease, or unspecified chronic kidney disease; N18.9 Chronic kidney disease, unspecified; F32.9 Major depressive disorder, single episode, unspecified; N20.0 Calculus of kidney; K57.90 Diverticulosis of intestine, part unspecified, without perforation or abscess without bleeding; Z87.891 Personal history of nicotine dependence
CPT/HCPCS: 36415; 80053; 85025

== ENCOUNTER → 2020-07-10 | Outpatient (CLI) | payer MEDICARE, MEDICAID ==
[~2020-07-10] MED LIST changes: +ACHD5005 PO; +AMLO-251 PO; +ASPI-1238 PO; +CLN.1T PO; -HYDR-3812 PO; +HYDR-3923 PO; -TAMS0.4C98 PO; -TRAZ-222 PO; +TRZ50T PO
--- NOTE | 2020-07-10 10:21 | Diagnostic Imaging Report ---
PROCEDURE: US Renal Bilateral. TECHNIQUE: Multiple Real-time grayscale images were obtained over the kidneys in various projections bilaterally. INDICATION: Chronic kidney disease. COMPARISON: The most recent relevant comparison is an abdominal/pelvic CT dated 11/24/2011. FINDINGS: The right kidney is 13 cm and shows cortical thinning and elevated parenchymal echotexture as well as a unilocular simple appearing cyst measuring 2.9 cm maximally. No hydronephrosis. No sonographically apparent echogenic or shadowing stone. The left kidney measures 13.5 cm and shows cortical thinning and elevated echotexture with multiple simple appearing renal cysts. The largest cyst is in the lower pole measuring 2 cm. No echogenic or shadowing stone is found and there is no hydronephrosis. The urinary bladder appears unremarkable. IMPRESSION: Normal renal volumes; however, there is elevated echotexture and cortical thinning on a chronic basis with simple appearing bilateral renal cysts. No sonographically apparent stone or hydronephrosis. Dictated by: Dictated on workstation # [id number]
== END ==
LOC: RAD 08:37
PROVIDERS: ATTEND Internal Medicine
DX: N18.4 Chronic kidney disease, stage 4 (severe) (principal); N28.89 Other specified disorders of kidney and ureter
CPT/HCPCS: 76770

== ENCOUNTER → 2021-06-17 | Outpatient (CLI) | payer MEDICARE, MEDICAID ==
--- NOTE | 2021-06-17 10:11 | Diagnostic Imaging Report ---
PROCEDURE: US Renal Bilateral. TECHNIQUE: Multiple real-time grayscale images were obtained over the kidneys in various projections bilaterally. INDICATION: Chronic kidney disease stage IV. Right kidney measures 10.1 x 4.2 x 5.3 cm, left kidney measures 9.6 x 4.0 x 4.8 cm. Both kidneys are echogenic consistent with medical renal disease. Both kidneys contain multiple cysts. Largest cyst on the right is in the midportion measuring approximate 3 cm in size. Largest cyst on the left is in the mid to lower aspect measuring 2.8 cm. No calculi or hydronephrosis is seen. Urinary bladder volume is 404 mL. Postvoid volume is 245 mL. Bilateral ureteral jets are visualized. IMPRESSION: 1. 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 No hydronephrosis is detected. 2. Large postvoid residual bladder volume. Dictated by: Dictated on workstation # [id number]
== END ==
LOC: RAD 09:00
PROVIDERS: ATTEND Internal Medicine Nephrology
DX: N28.1 Cyst of kidney, acquired (principal); I12.9 Hypertensive chronic kidney disease with stage 1 through stage 4 chronic kidney disease, or unspecified chronic kidney disease; N18.4 Chronic kidney disease, stage 4 (severe); D63.1 Anemia in chronic kidney disease; E21.1 Secondary hyperparathyroidism, not elsewhere classified; N40.0 Benign prostatic hyperplasia without lower urinary tract symptoms; F01.50 Vascular dementia, unspecified severity, without behavioral disturbance, psychotic disturbance, mood disturbance, and anxiety
CPT/HCPCS: 76770

== ENCOUNTER 2022-02-03 19:27 | Emergency (ER) | payer MEDICARE, MEDICAID ==
[~2022-02-03] VITALS: Ht 185.5 cm; Wt 79.4 kg
--- NOTE | 2022-02-03 19:41 | ED General ---
General Stated Complaint: BLEEDING History of Present Illness Date Seen by Provider: Feb 03, 2022 Time Seen by Provider: 19:39 Initial Comments 76-year-old male who is on Eliquis, is [facility] in [facility] with complaints of his dialysis shunt area bleeding. Patient and [facility] staff deny falls, injury. In the ER the wound is oozing very slowly and eventually stopped while he was still in the ER. Denies any other symptoms. Allergies and Home Medications Allergies Coded Allergies: iodine (Unverified Allergy, Mild, 03/26/09) Patient Home Medication List Home Medication List Reviewed: Yes Acetaminophen (Acetaminophen) 500 Mg Tablet, 500-1,000 MG PO Q6H PRN for PAIN- MILD, (Reported) Entered as Reported by: ALEKSANDER MUKHERJEE on 11/29/18 160 Amlodipine Besylate (Amlodipine Besylate) 10 Mg Tablet, 10 MG PO DAILY Prescribed by: DOMINIK CRUZ on 12/07/18 09 Aspirin (Aspirin EC) 81 Mg Tablet.dr, 81 MG PO DAILY Prescribed by: DOMINIK CRUZ on 12/01/18 142 Atorvastatin Calcium (Lipitor) 20 Mg Tablet, 20 MG PO HS Prescribed by: DOMINIK CRUZ on 12/01/18 142 Buspirone HCl (Buspirone HCl) 10 Mg Tablet, 10 MG PO BID, (Reported) Entered as Reported by: DIANELYS SULLIVAN on 08/17/16 043 Clonidine HCl (Clonidine HCl) 0.1 Mg Tablet, 0.1 MG PO Q4HR PRN for SBP >160 Prescribed by: DOMINIK CRUZ on 12/07/18 09 Diphenhydramine HCl (Diphenhist) 25 Mg Tablet, 25 MG PO Q4H PRN for allergies, (Reported) Entered as Reported by: ALEKSANDER MUKHERJEE on 11/29/18 160 Divalproex Sodium (Divalproex Sodium) 125 Mg Cap.sprink, 125 MG PO BID, (Reported) Entered as Reported by: DIANELYS SULLIVAN on 08/17/16 043 Donepezil HCl (Donepezil HCl) 5 Mg Tablet, 5 MG PO HS, (Reported) Entered as Reported by: ALEKSANDER MUKHERJEE on 11/29/18 160 Finasteride (Finasteride) 5 Mg Tablet, 5 MG PO HS, (Reported) Entered as Reported by: ALEKSANDER MUKHERJEE on 11/29/18 160 Guaifenesin/Dextromethorphan (Coricidin Hbp Softgel) 1 Each Capsule, 1 TAB PO Q6H PRN for CONGESTION, (Reported) Entered as Reported by: ALEKSANDER MUKHERJEE on 11/29/18 1604 Hydralazine HCl (Hydralazine HCl) 25 Mg Tablet, 25 MG PO Q4HR PRN for SBP >160 Prescribed by: DOMINIK CRUZ on 12/07/18 0902 Hydrocodone Bit/Acetaminophen (Lortab 5 Mg Tablet) 1 Each Tablet, 1 TAB PO Q6H PRN for PAIN-MODERATE, (Reported) Entered as Reported by: ALEKSANDER MUKHERJEE on 11/29/18 160 Hydroxyzine HCl (Hydroxyzine HCl) 25 Mg Tablet, 25 MG PO Q6H PRN for ANXIETY/AGITATION, (Reported) Entered as Reported by: ALEKSANDER MUKHERJEE on 11/29/18 160 Ibuprofen (Ibuprofen) 800 Mg Tablet, 800 MG PO Q8H PRN for PAIN-MILD, (Reported) Entered as Reported by: ALEKSANDER MUKHERJEE on 11/29/18 160 Ketorolac Tromethamine (Acular Ls) 5 Ml Btl, 1 DROP OU QID PRN for allergic conjuctivitis, (Reported) Entered as Reported by: ALEKSANDER MUKHERJEE on 11/29/18 160 Lorazepam (Ativan) 0.5 Mg Tablet, 0.5 MG PO Q8H PRN for ANXIETY, (Reported) Entered as Reported by: ALEKSANDER MUKHERJEE on 11/29/18 160 Metoprolol Tartrate (Metoprolol Tartrate) 25 Mg Tablet, 25 MG PO BID, (Reported) Entered as Reported by: DIANELYS SULLIVAN on 08/17/16 0436 Tamsulosin HCl (Flomax) 0.4 Mg Cap, 0.4 MG PO HS, (Reported) Entered as Reported by: ALEKSANDER MUKHERJEE on 11/29/18 160 Trazodone HCl (Trazodone HCl) 50 Mg Tablet, 50 MG PO HS PRN for SLEEP, (Reported) Entered as Reported by: ALEKSANDER MUKHERJEE on 11/29/18 160 Triamcinolone Acetonide (Triamcinolone Acetonide 0.5% Cream) 15 Gm Cream..g., TP BID PRN for RASH, (Reported) Entered as Reported by: ALEKSANDER MUKHERJEE on 11/29/18 1603 Review of Systems Review of Systems Constitutional: no symptoms reported EENTM: no symptoms reported Respiratory: no symptoms reported Cardiovascular: no symptoms reported Gastrointestinal: no symptoms reported Genitourinary: no symptoms reported Musculoskeletal: no symptoms reported Skin: other (oozing from dialysis shunt site) Psychiatric/Neurological: No Symptoms Reported Hematologic/Lymphatic: No Symptoms Reported Immunological/Allergic: no symptoms reported Past Uuxcook-Njesez-Zfkynf Hx Seasonal Allergies Seasonal Allergies: No Past Medical History Surgeries: Yes (left ankle) Orthopedic, Renal Respiratory: No Currently Using CPAP: No Currently Using BIPAP: No Cardiac: Yes Hypertension Neurological: Yes (BEGINNING STAGES OF DEMENTIA) Dementia Reproductive Disorders: No Benign Prostatic Hyperpl, Kidney Stones Gastrointestinal: Yes Diverticulosis Musculoskeletal: Yes (Left ankle) Arthritis, Fractures Endocrine: No HEENT: No Cancer: No Psychosocial: Yes Sleep Difficulties, Anxiety, Depression Integumentary: No Blood Disorders: No Family Medical History Patient reports no known family medical history. No Pertinent Family Hx Physical Exam Vital Signs Vital Signs - First Documented 02/03/22 19:32 Temp 36.2 Pulse 73 Resp 16 B/P (MAP) 139/64 (89) Pulse Ox 98 O2 Delivery Room Air Capillary Refill : Height, Weight, BMI Height: 6'1.00" Weight: 190lbs. 0.2oz. 86.291183pl; 25.1 BMI Method:Stated General Appearance: No Apparent Distress, WD/WN HEENT: PERRL/EOMI Neck: Full Range of Motion Respiratory: Lungs Clear Cardiovascular: Regular Rate, Rhythm Extremity: Normal Range of Motion Neurologic/Psychiatric: Alert, Oriented x3 Skin: Other (Was seen from right upper arm which eventually stopped in the ER.) Progress/Results/Core Measures Suspected Sepsis SIRS Temperature: Pulse: Respiratory Rate: Blood Pressure / Mean: Laboratory Tests 02/03/22 19:55: INR Comment 1.0 Results/Orders Lab Results Laboratory Tests Test 02/03/22 19:55 Range/Units Prothrombin Time 14.0 12.2-14.7 SEC INR Comment 1.0 0.8-1.4 Activated Partial Thromboplast Time 33 24-35 SEC My Orders Orders - LAUREN ROBERSON MD Cbc With Automated Diff (02/03/22 19:47) Protime With Inr (02/03/22 19:47) Partial Thromboplastin Time (02/03/22 19:47) Factor X Assay (02/03/22 20:48) Vital Signs/I&O 02/03/22 19:32 Temp 36.2 Pulse 73 Resp 16 B/P (MAP) 139/64 (89) Pulse Ox 98 O2 Delivery Room Air Capillary Refill : Progress Note : Progress Note 1. BLEEDING FROM DIALYSIS SHUNT SITE: - Bleeding stopped with pressure and dressing change. -Stop Eliquis for 24 hours since the anticoagulant effect will persist for about that time -Follow-up with PCP within the next 3 days. -The patient was seen in the ED, and treated appropriately to presentation at a specific point in time. Patient is informed that there is a possibility that disease and illness can evolve and change in acuity rapidly or slowly after patient is discharged from the ER. Precautionary advice given to the patient for immediate return to ER if symptoms worsen or do not resolve, and to seek emergency care sooner rather than later. Pt also advised on the importance of PCP follow up and compliance with management and follow up plan with PCP and/or specialist, as this is part of the management plan. Pt verbally expressed understanding. Departure Impression Primary Impression: Bleeding from dialysis shunt Qualified Codes: T82.838A - Hemorrhage due to vascular prosthetic devices, implants and grafts, initial encounter Disposition: HOME, SELF-CARE ([facility]) Condition: Improved Departure-Patient Inst. Referrals: ANTIONETTE RODRIGUES DO (PCP/Family) Primary Care Physician Add. Discharge Instructions: Bleeding stopped in ER - Follow up with PCP - Hold Eliquis for 24 hours LAUREN ROBERSON MD Feb 03, 2022 19:41
[2022-02-03 22:45] VITALS: BP 133/86
== END 2022-02-03 22:42 | disposition home or self-care (01) ==
LOC: EDUNIT# 19:27 → ER 19:28
DX: T82.838A Hemorrhage due to vascular prosthetic devices, implants and grafts, initial encounter (principal)
CPT/HCPCS: 36415; 85260; 85610; 85730

== ENCOUNTER 2022-05-09 16:44 | Emergency (ER) | payer MEDICARE, MEDICAID ==
[~2022-05-09] VITALS: Ht 182.8 cm; Wt 95.3 kg
[2022-05-09 17:24] LABS: BASOPHILS % (AUTO) 0 % (0-10); EOSINOPHILS % (AUTO) 0 % (0-10); HEMATOCRIT 31 % (40-54); HEMOGLOBIN 10.6 g/dL (13.3-17.7); LYMPHOCYTES # (AUTO) 0.9 10^3/uL (1.0-4.0); LYMPHOCYTES % (AUTO) 6 % (12-44); MEAN CORPUSCULAR HEMOGLOBIN 33 pg (25-34); MEAN CORPUSCULAR HGB CONC 34 g/dL (32-36); MEAN CORPUSCULAR VOLUME 99 fL (80-99); MEAN PLATELET VOLUME 9.7 fL (9.0-12.2); MONOCYTES # (AUTO) 0.9 10^3/uL (0.0-1.0); MONOCYTES % (AUTO) 6 % (0-12); NEUTROPHILS # (AUTO) 12.7 10^3/uL (1.8-7.8); NEUTROPHILS % (AUTO) 87 % (42-75); PLATELET COUNT 217 10^3/uL (130-400); WHITE BLOOD COUNT 14.6 10^3/uL (4.3-11.0)
[2022-05-09 17:27] LABS: ALBUMIN 3.9 GM/DL (3.2-4.5)
[2022-05-09 17:28] LABS: POTASSIUM 4.1 MMOL/L (3.6-5.0)
[2022-05-09 17:29] LABS: CALCIUM 9.2 MG/DL (8.5-10.1)
[2022-05-09 17:30] LABS: TOTAL PROTEIN 7.8 GM/DL (6.4-8.2)
[2022-05-09] MEDS ORDERED: NS IV 1000 ML 1,000 ML IV SCH (17:30)
[2022-05-09 17:32] LABS: BILIRUBIN,TOTAL 0.6 MG/DL (0.1-1.0)
[2022-05-09 17:34] LABS: CREATININE SERUM 4.75 MG/DL (0.60-1.30)
[2022-05-09 17:37] LABS: MAGNESIUM 1.8 MG/DL (1.6-2.4)
[2022-05-09 17:45] LABS: ANISOCYTOSIS SLIGHT; BAND NEUTROPHILS 7 %; LYMPHOCYTES % (MANUAL) 11 %; MONOCYTES % (MANUAL) 5 %; NEUTROPHILS % (MANUAL) 77 %
[2022-05-09] MEDS ORDERED: CEFEPIME INJECTION 1,000 MG in NS (IVPB) 50 ML IV ONE (18:15)
--- NOTE | 2022-05-09 18:21 | Diagnostic Imaging Report ---
INDICATION: Shortness of breath COMPARISON: 11/29/2018 TECHNIQUE: Single radiograph of the chest dated 05/09/2022. FINDINGS: The cardiac silhouette is borderline enlarged. No significant pulmonary vascular congestion. The left lung is clear. Mild right basilar interstitial opacities are present. No significant pleural effusion. No pneumothorax. No acute osseous abnormality. IMPRESSION: Mild right basilar atelectasis and/or pneumonitis. Dictated by: Dictated on workstation # [id number]
--- NOTE | 2022-05-09 18:28 | ED General ---
General Chief Complaint: Fever-Adult/Adol Stated Complaint: FEVER, NOT ACTING RIGHT Nursing Triage Note: PT TO RM 9 WITH COMPLAINT OF FEVER, ABD PAIN. [facility] STAFF CALLED DAUGHTER STATING PT WAS RUNNING A FEVER, NOT ACTING HIMSELF AND ABD PAIN. Source of Information: Patient Exam Limitations: No Limitations History of Present Illness Date Seen by Provider: May 09, 2022 Time Seen by Provider: 16:55 Initial Comments Patient is a 76-year-old male who presents to the emergency department with reported fever, abdominal pain, and increased confusion over the last 2 to 3 days. Patient currently lives in assisted living facility. Staff there reported that patient has had a fever for the last 2 to 3 days. He has not had anything today for the symptoms. He is brought to the ER by his daughter. Patient has a history of end-stage renal disease requiring dialysis as well as atrial fibrillation. He is currently on anticoagulation via Eliquis. Daughter states patient is not like himself and is much more confused. Patient does have a history of dementia but is typically very conversant. Daughter states patient also had an episode of urinary incontinence earlier today which is abnormal for the patient. No specific known sick contacts in the recent past although patient is around many other residents of the assisted living facility. Patient did test positive for COVID approximately 1 month ago. Patient denies any complaints at the time of this exam. Daughter states earlier he was complaining of abdominal pain and the staff at the assisted living facility corroborated this report per daughter. Allergies and Home Medications Allergies Coded Allergies: iodine (Unverified Allergy, Mild, 03/26/09) Patient Home Medication List Home Medication List Reviewed: Yes Acetaminophen (Acetaminophen) 500 Mg Tablet, 500-1,000 MG PO Q6H PRN for PAIN- MILD, (Reported) Entered as Reported by: ALEKSANDER MUKHERJEE on 11/29/18 1603 Amlodipine Besylate (Amlodipine Besylate) 10 Mg Tablet, 10 MG PO DAILY Prescribed by: DOMINIK CRUZ on 12/07/18 0902 Aspirin (Aspirin EC) 81 Mg Tablet.dr, 81 MG PO DAILY Prescribed by: DOMINIK CRUZ on 12/01/18 1429 Atorvastatin Calcium (Lipitor) 20 Mg Tablet, 20 MG PO HS Prescribed by: DOMINIK CRUZ on 12/01/18 142 Buspirone HCl (Buspirone HCl) 10 Mg Tablet, 10 MG PO BID, (Reported) Entered as Reported by: DIANELYS SULLIVAN on 08/17/16435 Clonidine HCl (Clonidine HCl) 0.1 Mg Tablet, 0.1 MG PO Q4HR PRN for SBP >160 Prescribed by: DOMINIK CRUZ on 12/07/18901 Diphenhydramine HCl (Diphenhist) 25 Mg Tablet, 25 MG PO Q4H PRN for allergies, (Reported) Entered as Reported by: ALEKSANDER MUKHERJEE on 11/29/18 160 Divalproex Sodium (Divalproex Sodium) 125 Mg Cap.sprink, 125 MG PO BID, (Reported) Entered as Reported by: DIANELYS SULLIVAN on 08/17/16435 Donepezil HCl (Donepezil HCl) 5 Mg Tablet, 5 MG PO HS, (Reported) Entered as Reported by: ALEKSANDER MUKHERJEE on 11/29/18 160 Finasteride (Finasteride) 5 Mg Tablet, 5 MG PO HS, (Reported) Entered as Reported by: ALEKSANDER MUKHERJEE on 11/29/18 160 Guaifenesin/Dextromethorphan (Coricidin Hbp Softgel) 1 Each Capsule, 1 TAB PO Q6H PRN for CONGESTION, (Reported) Entered as Reported by: ALEKSANDER MUKHERJEE on 11/29/18 160 Hydralazine HCl (Hydralazine HCl) 25 Mg Tablet, 25 MG PO Q4HR PRN for SBP >160 Prescribed by: DOMINIK CRUZ on 12/07/18901 Hydrocodone Bit/Acetaminophen (Lortab 5 Mg Tablet) 1 Each Tablet, 1 TAB PO Q6H PRN for PAIN-MODERATE, (Reported) Entered as Reported by: ALEKSANDER MUKHERJEE on 11/29/18 160 Hydroxyzine HCl (Hydroxyzine HCl) 25 Mg Tablet, 25 MG PO Q6H PRN for ANXIETY/AGITATION, (Reported) Entered as Reported by: ALEKSANDER MUKHERJEE on 11/29/18 160 Ibuprofen (Ibuprofen) 800 Mg Tablet, 800 MG PO Q8H PRN for PAIN-MILD, (Reported) Entered as Reported by: ALEKSANDER MUKHERJEE on 11/29/18 160 Ketorolac Tromethamine (Acular Ls) 5 Ml Btl, 1 DROP OU QID PRN for allergic conjuctivitis, (Reported) Entered as Reported by: ALEKSANDER MUKHERJEE on 11/29/18 1603 Lorazepam (Ativan) 0.5 Mg Tablet, 0.5 MG PO Q8H PRN for ANXIETY, (Reported) Entered as Reported by: ALEKSANDER MUKHERJEE on 11/29/18 1603 Metoprolol Tartrate (Metoprolol Tartrate) 25 Mg Tablet, 25 MG PO BID, (Reported) Entered as Reported by: DIANELYS SULLIVAN on 08/17/16 0436 Tamsulosin HCl (Flomax) 0.4 Mg Cap, 0.4 MG PO HS, (Reported) Entered as Reported by: ALEKSANDER MUKHERJEE on 11/29/18 1603 Trazodone HCl (Trazodone HCl) 50 Mg Tablet, 50 MG PO HS PRN for SLEEP, (Reported) Entered as Reported by: ALEKSANDER MUKHERJEE on 11/29/18 1603 Triamcinolone Acetonide (Triamcinolone Acetonide 0.5% Cream) 15 Gm Cream..g., TP BID PRN for RASH, (Reported) Entered as Reported by: ALEKSANDER MUKHERJEE on 11/29/18 1603 Review of Systems Review of Systems Constitutional: see HPI, fever EENTM: no symptoms reported Respiratory: no symptoms reported Cardiovascular: no symptoms reported Gastrointestinal: see HPI, abdominal pain Genitourinary: no symptoms reported Musculoskeletal: no symptoms reported Skin: no symptoms reported Psychiatric/Neurological: No Symptoms Reported Hematologic/Lymphatic: No Symptoms Reported Past Obehnuv-Hkhxtn-Djreyq Hx Patient Social History Tobacco Use?: No Use of E-Cig and/or Vaping dev: No Substance use?: No Alcohol Use?: No Pt feels they are or have been: No Immunizations Up To Date First/Initial COVID19 Vaccinat: 2020 Second COVID19 Vaccination Alberto: 2020 Third COVID19 Vaccination Date: 2020 Seasonal Allergies Seasonal Allergies: No Past Medical History Surgeries: Yes (left ankle) Orthopedic, Renal Respiratory: No Currently Using CPAP: No Currently Using BIPAP: No Cardiac: Yes Hypertension Neurological: Yes (BEGINNING STAGES OF DEMENTIA) Dementia Reproductive Disorders: No Benign Prostatic Hyperpl, Kidney Stones Gastrointestinal: Yes Diverticulosis Musculoskeletal: Yes (Left ankle) Arthritis, Fractures Endocrine: No HEENT: No Cancer: No Psychosocial: Yes Sleep Difficulties, Anxiety, Depression Integumentary: No Blood Disorders: No Family Medical History Patient reports no known family medical history. No Pertinent Family Hx Physical Exam-Suspected Sepsis Physical Exam Vital Signs Vital Signs - First Documented 05/09/22 16:50 Temp 37.4 Pulse 106 Resp 28 B/P (MAP) 159/85 (109) O2 Delivery Room Air Capillary Refill : Less Than 3 Seconds Blood Pressure Mean: 109 Height, Weight, BMI Height: 6'1.00" Weight: 190lbs. 0.2oz. [id number]; 28.00 BMI Method:Stated General Appearance: No Apparent Distress, WD/WN HEENT: PERRL/EOMI, TMs Normal, Normal ENT Inspection, Pharynx Normal Neck: Non Tender, Supple Respiratory: Chest Non Tender, Lungs Clear, Normal Breath Sounds, No Accessory Muscle Use, No Respiratory Distress Cardiovascular: Irregularly Irregular Gastrointestinal: Non Tender, Soft Extremity: Non Tender, No Calf Tenderness Neurologic/Psychiatric: No Motor/Sensory Deficits, Disoriented Skin: normal color, warm/dry; No mottled, No rash, No ulcerations Focused Exam Lactate Level 05/09/22 17:30: Lactic Acid Level 2.45*H 05/09/22 21:07: Lactic Acid Level 2.30*H Respiratory: Chest Non Tender, Lungs Clear, Normal Breath Sounds, No Accessory Muscle Use, No Respiratory Distress Cardiovascular: Normal Peripheral Pulses, Irregularly Irregular Skin: normal color, warm/dry Lactic Acid Level Laboratory Tests Test 05/09/22 21:07 Lactic Acid Level 2.30 MMOL/L (0.50-2.00) *H Progress/Results/Core Measures Suspected Sepsis SIRS Temperature: Pulse: 106 Respiratory Rate: 28 Laboratory Tests 05/09/22 16:55: White Blood Count 14.6H Blood Pressure 159 /85 Mean: 109 05/09/22 17:30: Lactic Acid Level 2.45*H 05/09/22 21:07: Lactic Acid Level 2.30*H Laboratory Tests 05/09/22 16:55: Creatinine 4.75H, Platelet Count 217, Total Bilirubin 0.6 Results/Orders Lab Results Laboratory Tests Test 05/09/22 14:02 05/09/22 16:55 05/09/22 17:30 05/09/22 21:07 Range/Units Urine Color YELLOW Urine Clarity CLEAR Urine pH 7.5 5-9 Urine Specific [place] 1.015 L 1.016-1.022 Urine Protein 2+ H NEGATIVE Urine Glucose (UA) 2+ H NEGATIVE Urine Ketones NEGATIVE NEGATIVE Urine Nitrite NEGATIVE NEGATIVE Urine Bilirubin NEGATIVE NEGATIVE Urine Urobilinogen 0.2 < = 1.0 MG/DL Urine Leukocyte Esterase 1+ H NEGATIVE Urine RBC (Auto) 1+ H NEGATIVE Urine RBC 5-10 H /HPF Urine WBC 10-25 H /HPF Urine Squamous Epithelial Cells NONE /HPF Urine Crystals NONE /LPF Urine Bacteria FEW H /HPF Urine Casts NONE /LPF Urine Mucus NEGATIVE /LPF Urine Culture Indicated YES White Blood Count 14.6 H 4.3-11.0 10^3/uL Red Blood Count 3.17 L 4.30-5.52 10^6/uL Hemoglobin 10.6 L 13.3-17.7 g/dL Hematocrit 31 L 40-54 % Mean Corpuscular Volume 99 80-99 fL Mean Corpuscular Hemoglobin 33 25-34 pg Mean Corpuscular Hemoglobin Concent 34 32-36 g/dL Red Cell Distribution Width 16.2 H 10.0-14.5 % Platelet Count 217 130-400 10^3/uL Mean Platelet Volume 9.7 9.0-12.2 fL Immature Granulocyte % (Auto) 0 % Neutrophils (%) (Auto) 87 H 42-75 % Lymphocytes (%) (Auto) 6 L 12-44 % Monocytes (%) (Auto) 6 0-12 % Eosinophils (%) (Auto) 0 0-10 % Basophils (%) (Auto) 0 0-10 % Neutrophils # (Auto) 12.7 H 1.8-7.8 10^3/uL Lymphocytes # (Auto) 0.9 L 1.0-4.0 10^3/uL Monocytes # (Auto) 0.9 0.0-1.0 10^3/uL Eosinophils # (Auto) 0.0 0.0-0.3 10^3/uL Basophils # (Auto) 0.0 0.0-0.1 10^3/uL Immature Granulocyte # (Auto) 0.1 0.0-0.1 10^3/uL Neutrophils % (Manual) 77 % Lymphocytes % (Manual) 11 % Monocytes % (Manual) 5 % Band Neutrophils 7 % Anisocytosis SLIGHT Sodium Level 134 L 135-145 MMOL/L Potassium Level 4.1 3.6-5.0 MMOL/L Chloride Level 98 98-107 MMOL/L Carbon Dioxide Level 20 L 21-32 MMOL/L Anion Gap 16 H 5-14 MMOL/L Blood Urea Nitrogen 34 H 7-18 MG/DL Creatinine 4.75 H 0.60-1.30 MG/DL Estimat Glomerular Filtration Rate 12 BUN/Creatinine Ratio 7 Glucose Level 190 H 70-105 MG/DL Calcium Level 9.2 8.5-10.1 MG/DL Corrected Calcium 9.3 8.5-10.1 MG/DL Magnesium Level 1.8 1.6-2.4 MG/DL Total Bilirubin 0.6 0.1-1.0 MG/DL Aspartate Amino Transf (AST/SGOT) 22 5-34 U/L Alanine Aminotransferase (ALT/SGPT) 26 0-55 U/L Alkaline Phosphatase 63 40-136 U/L Ammonia 23 11-32 UMOL/L Troponin I 0.266 H <0.028 NG/ML Total Protein 7.8 6.4-8.2 GM/DL Albumin 3.9 3.2-4.5 GM/DL Lipase 31 8-78 U/L Influenza Type A Antigen NEGATIVE NEGATIVE Influenza Type B Antigen NEGATIVE NEGATIVE Lactic Acid Level 2.45 *H 2.30 *H 0.50-2.00 MMOL/L My Orders Orders - WINNIE GOMEZ ACCESS COORDINATOR Cbc With Automated Diff (05/09/22 17:11) Comprehensive Metabolic Panel (05/09/22 17:11) Ua Culture If Indicated (05/09/22 17:11) Chest 1 View, Ap/Pa Only (05/09/22 17:11) Influenza A & B Antigens (05/09/22 17:11) Ct Abdomen/Pelvis Wo (05/09/22 17:11) Lipase (05/09/22 17:11) Ammonia (05/09/22 17:11) Magnesium (05/09/22 17:11) Ekg Tracing (05/09/22 17:11) Troponin I [place]ulk (05/09/22 17:11) Blood Culture (05/09/22 17:11) Lactic Acid Analyzer (05/09/22 17:11) Ns Iv 1000 Ml (Sodium Chloride 0.9%) (05/09/22 17:30) Manual Differential (05/09/22 16:55) Ed Iv/Invasive Line Start (05/09/22 17:38) Cefepime Injection (Maxipime Injection) (05/09/22 18:15) Urine Culture (05/09/22 14:02) Medications Given in ED Current Medications Medications Dose Ordered Sig/Farideh Route Start Time Stop Time Status Last Admin Dose Admin Cefepime HCl 1000 mg/Sodium Chloride 50 ml @ 100 mls/hr ONCE ONCE IV 05/09/22 18:15 05/09/22 18:44 DC 05/09/22 18:40 100 MLS/HR Vital Signs/I&O 05/09/22 16:50 Temp 37.4 Pulse 106 Resp 28 B/P (MAP) 159/85 (109) O2 Delivery Room Air Capillary Refill : Less Than 3 Seconds Blood Pressure Mean: 109 Progress Note : Progress Note Patient is nontoxic and well-hydrated on exam. Vital signs are reassuring. Patient is confused but there are no focal neurologic abnormalities noted. No adventitious lung sounds or increased work of breathing noted on exam. No tenderness to palpation about the abdomen. Laboratory evaluation notable for leukocytosis and elevated lactate. Patient has elevated creatinine and BUN as expected in end-stage renal disease. Troponin is elevated at 0.266. Patient persists in his statement that he has no pain in his chest or abdomen. Chest x- ray without any definitive infiltrate suspicious for pneumonia. CT of the abdomen and pelvis without contrast obtained. No definitive acute abnormality noted. Urinalysis notable for pyuria suspicious for UTI. Patient is septic. He is not currently in septic shock. UTI appears the most likely etiology of the sepsis. Patient was given a dose of cefepime and resuscitated with a liter of normal saline. Further resuscitation with fluids was held due to patient's end-stage renal disease and risk of fluid overload. Lactic was not above 4.0 on initial check. Due to patient needing nephrology services and hemodialysis, he will be transferred to facility with the services. Patient was accepted by Wendy Anthony as a direct transfer to the [facility] floor. I spoke with the receiving physician who kindly excepted the patient. Patient and daughter were updated on plan of care and understanding verbalized. ECG EKG : EKG Time: 17:43 Rate: 100 Rhythm: A Fib/Flutter ECG Impression: Atrial Fibrillation Departure Impression Primary Impression: Sepsis due to urinary tract infection Additional Impressions: Elevated troponin ESRD on hemodialysis Disposition: XFER SHT-TRM HOSP Condition: Stable Transfer Transfer Reason: Exceeds level of care Time Spoke to Accepting Phy: 20:30 Transfer Facility: [facility] Method of Transfer: EMS Departure-Patient Inst. Referrals: ANTIONETTE RODRIGUES DO (PCP/Family) Primary Care Physician WINNIE GOMEZ APRN May 09, 2022 18:28
[2022-05-09 18:45] LABS: BILIRUBIN,URINE NEGATIVE (NEGATIVE); CLARITY,URINE CLEAR; COLOR,URINE YELLOW; GLUCOSE, URINE (UA) 2+ (NEGATIVE); KETONES,URINE NEGATIVE (NEGATIVE); LEUKOCYTE ESTERASE ,URINE 1+ (NEGATIVE); NITRITE,URINE NEGATIVE (NEGATIVE); PH,URINE 7.5 (5-9); PROTEIN,URINE 2+ (NEGATIVE)
--- NOTE | 2022-05-09 18:45 | Diagnostic Imaging Report ---
PROCEDURE: CT abdomen and pelvis without contrast. TECHNIQUE: Multiple contiguous axial images were obtained through the abdomen and pelvis without the use of intravenous contrast. Auto Exposure Controls were utilized during the CT exam to meet ALARA standards for radiation dose reduction. INDICATION: Abdominal pain. COMPARISON: None. FINDINGS: There is a nodule in the right lung base which measures 1.1 cm in size. The heart is upper normal in size. The liver demonstrates no focal lesions. There is significant motion artifact on multiple images. The spleen appears normal. The pancreas is unremarkable. The adrenal glands appear normal. The kidneys are markedly atrophic and demonstrate multiple cysts. Evaluation is suboptimal due to motion artifact and lack of contrast. The urinary bladder is markedly distended with a diverticulum at the fundus, arising above the level of the umbilicus. There is air in the bladder. The bowel loops are nondistended without obstruction. The appendix appears normal. There is diverticulosis of the distal colon without diverticulitis seen. There is moderate stool in the colon. No free fluid or free air is seen. There are advanced degenerative changes in the lumbar spine. IMPRESSION: 1. Marked distention of the urinary bladder. There is a diverticulum suggestive of chronic outlet obstruction. There is air in the bladder, please correlate with any recent instrumentation. 2. Marked atrophy of the kidneys with multiple renal cysts. 3. Moderate stool in the colon, please correlate with any history of constipation. 4. Right lower lobe pulmonary nodule. Recommend follow-up CT in three months, PET scan, or tissue sampling. Dictated by: Dictated on workstation # [id number]
[2022-05-09 19:09] LABS: BACTERIA,URINE FEW /HPF
[2022-05-09 23:35] VITALS: BP 164/83
== END 2022-05-09 23:55 | disposition short-term general hospital (02) ==
LOC: EDUNIT# 16:44 → ER 16:45
DX: A41.9 Sepsis, unspecified organism (principal); N39.0 Urinary tract infection, site not specified; I12.0 Hypertensive chronic kidney disease with stage 5 chronic kidney disease or end stage renal disease; N18.6 End stage renal disease; R74.8 Abnormal levels of other serum enzymes; I48.91 Unspecified atrial fibrillation; Z79.01 Long term (current) use of anticoagulants; Z99.2 Dependence on renal dialysis; Z86.16 Personal history of COVID-19
CPT/HCPCS: 36415; 71045; 74176; 80053; 81000; 82140; 83605; 83690; 83735; 84484; 85007; 85027; 87040; 87077; 87088; 87186; 87804; 93005

== ENCOUNTER 2022-07-02 15:38 | Emergency (ER) | payer MEDICARE, MEDICAID ==
[~2022-07-02] VITALS: Ht 185 cm; Wt 95.0 kg
--- NOTE | 2022-07-02 15:59 | ED Lower Extremity ---
General Chief Complaint: Lower Extremity Stated Complaint: FALL Nursing Triage Note: PT ARRIVED PER EMS, PT FELL AFTER DIALYSIS ONTO L KNEE. PT DENIES ANY OTHER INJURIES. PT CO OF PAIN PT IS ABLE TO MOVE KNEE. R ARM HAS DIALYSIS FISTULA Source: patient (HARD OF HEARING AND HAS SOME DEMENTIA), EMS History of Present Illness Date Seen by Provider: Jul 02, 2022 Time Seen by Provider: 15:40 Initial Comments PT ARRIVES VIA EMS [facility] PT HAD JUST COMPLETED DIALYSIS, AND WAS WALKING BACK INTO THE FACILITY, AND HE FELL, LANDING ON HIS LEFT KNEE HE STATES THAT HIS KNEE DOESN'T REALLY HURT, IT JUST FEELS A LITTLE "TIGHT", AND HE IS ABLE TO MOVE HIS KNEE PT DENIES HITTING HIS HEAD OR HAVING ANY OTHER INJURIES NO PRIOR PROBLEMS OR SURGERIES TO THIS KNEE NO OTHER INFORMATION AVAILABLE AT THIS TIME. PCP: DR. RODRIGUES Allergies and Home Medications Allergies Coded Allergies: iodine (Unverified Allergy, Mild, 03/26/09) Patient Home Medication List Home Medication List Reviewed: Yes Acetaminophen (Acetaminophen) 500 Mg Tablet, 500-1,000 MG PO Q6H PRN for PAIN- MILD, (Reported) Entered as Reported by: ALEKSANDER MUKHERJEE on 11/29/18 1603 Amlodipine Besylate (Amlodipine Besylate) 10 Mg Tablet, 10 MG PO DAILY Prescribed by: DOMINIK CRUZ on 12/07/18 09 Aspirin (Aspirin EC) 81 Mg Tablet.dr, 81 MG PO DAILY Prescribed by: DOMINIK CRUZ on 12/01/18 1429 Atorvastatin Calcium (Lipitor) 20 Mg Tablet, 20 MG PO HS Prescribed by: DOMINIK CRUZ on 12/01/18 1429 Buspirone HCl (Buspirone HCl) 10 Mg Tablet, 10 MG PO BID, (Reported) Entered as Reported by: DIANELYS SULLIVAN on 08/17/16 0436 Clonidine HCl (Clonidine HCl) 0.1 Mg Tablet, 0.1 MG PO Q4HR PRN for SBP >160 Prescribed by: DOMINIK CRUZ on 12/07/18 0902 Diphenhydramine HCl (Diphenhist) 25 Mg Tablet, 25 MG PO Q4H PRN for allergies, ( Reported) Entered as Reported by: ALEKSANDER MUKHERJEE on 11/29/18 1603 Divalproex Sodium (Divalproex Sodium) 125 Mg Cap.sprink, 125 MG PO BID, (Reported) Entered as Reported by: DIANELYS SULLIVAN on 08/17/16 043 Donepezil HCl (Donepezil HCl) 5 Mg Tablet, 5 MG PO HS, (Reported) Entered as Reported by: ALEKSANDER MUKHERJEE on 11/29/18 160 Finasteride (Finasteride) 5 Mg Tablet, 5 MG PO HS, (Reported) Entered as Reported by: ALEKSANDER MUKHERJEE on 11/29/18 160 Guaifenesin/Dextromethorphan (Coricidin Hbp Softgel) 1 Each Capsule, 1 TAB PO Q6H PRN for CONGESTION, (Reported) Entered as Reported by: ALEKSANDER MUKHERJEE on 11/29/18 160 Hydralazine HCl (Hydralazine HCl) 25 Mg Tablet, 25 MG PO Q4HR PRN for SBP >160 Prescribed by: DOMINIK CRUZ on 12/07/18 0902 Hydrocodone Bit/Acetaminophen (Lortab 5 Mg Tablet) 1 Each Tablet, 1 TAB PO Q6H PRN for PAIN-MODERATE, (Reported) Entered as Reported by: ALEKSANDER MUKHERJEE on 11/29/18 160 Hydroxyzine HCl (Hydroxyzine HCl) 25 Mg Tablet, 25 MG PO Q6H PRN for ANXIETY/AGITATION, (Reported) Entered as Reported by: ALEKSANDER MUKHERJEE on 11/29/18 160 Ibuprofen (Ibuprofen) 800 Mg Tablet, 800 MG PO Q8H PRN for PAIN-MILD, (Reported) Entered as Reported by: ALEKSANDER MUKHERJEE on 11/29/18 160 Ketorolac Tromethamine (Acular Ls) 5 Ml Btl, 1 DROP OU QID PRN for allergic conjuctivitis, (Reported) Entered as Reported by: ALEKSANDER MUKHERJEE on 11/29/18 160 Lorazepam (Ativan) 0.5 Mg Tablet, 0.5 MG PO Q8H PRN for ANXIETY, (Reported) Entered as Reported by: ALEKSANDER MUKHERJEE on 11/29/18 160 Metoprolol Tartrate (Metoprolol Tartrate) 25 Mg Tablet, 25 MG PO BID, (Reported) Entered as Reported by: DIANELYS SULLIVAN on 08/17/16435 Tamsulosin HCl (Flomax) 0.4 Mg Cap, 0.4 MG PO HS, (Reported) Entered as Reported by: ALEKSANDER MUKHERJEE on 11/29/18 160 Trazodone HCl (Trazodone HCl) 50 Mg Tablet, 50 MG PO HS PRN for SLEEP, (Reported) Entered as Reported by: ALEKSANDER MUKHERJEE on 11/29/181602 Triamcinolone Acetonide (Triamcinolone Acetonide 0.5% Cream) 15 Gm Cream..g., TP BID PRN for RASH, (Reported) Entered as Reported by: ALEKSANDER MUKHERJEE on 11/29/18 160 Review of Systems Constitutional: no symptoms reported Musculoskeletal: see HPI Skin: no symptoms reported Psychiatric/Neurological: No Symptoms Reported Past Yxwbymi-Wnoevs-Sqnxpg Hx Patient Social History Tobacco Use?: Yes Tobacco type used: Cigarettes Smoking Status: Former Smoker Substance use?: No Alcohol Use?: No Pt feels they are or have been: No Immunizations Up To Date Influenza Vaccine Up-to-Date: No; Not Current First/Initial COVID19 Vaccinat: 2020 Second COVID19 Vaccination Alberto: 2020 Third COVID19 Vaccination Date: 2020 Seasonal Allergies Seasonal Allergies: No Past Medical History Surgery/Hospitalization HX: DIALYSIS SHUNT. Surgeries: Yes (left ankle) Dialysis, Orthopedic, Renal, Vascular Surgery Respiratory: No Currently Using CPAP: No Currently Using BIPAP: No Cardiac: Yes Atrial Fibrillation, High Cholesterol, Hypertension Neurological: Yes Dementia, Stroke Reproductive Disorders: No Genitourinary: Yes Benign Prostatic Hyperpl, Bladder Infection, Kidney Stones, Renal Failure, Dialysis Gastrointestinal: Yes Diverticulosis Musculoskeletal: Yes (Left ankle SURGERY) Arthritis, Fractures Endocrine: No HEENT: No Cancer: No Psychosocial: Yes Sleep Difficulties, Anxiety, Depression Integumentary: No Blood Disorders: No Family Medical History Patient reports no known family medical history. No Pertinent Family Hx Physical Exam Vital Signs Vital Signs - First Documented 07/02/22 07/02/22 15:40 16:50 Temp 36.4 Pulse 80 Resp 18 B/P (MAP) 144/62 (89) Capillary Refill : Less Than 3 Seconds Height, Weight, BMI Height: 6'1.00" Weight: 190lbs. 0.2oz. [id number]; 27.00 BMI Method:Stated General Appearance: WD/WN, no apparent distress, other (PLEASANT, COOPERATIVE. DOES NOT APPEAR TO BE IN ANY DISCOMFORT OR DISTRESS. PT IS ABLE TO ASSIST WITH TRANSFER FROM EMS COT TO ER COT, AND IS ABLE TO MOVE/REPOSITION HIMSELF ON THE COT, AND IS ABLE TO BEND AND STRAIGHTEN BOTH OF HIS KNEES. ) Cardiovascular: regular rate, rhythm Hips: bilateral hip non-tender, bilateral hip normal inspection, bilateral hip normal range of motion, bilateral hip no evidence of injury Legs: bilateral leg non-tender, bilateral leg normal inspection, bilateral leg normal range of motion, bilateral leg no evidence of injury Knees: right knee non-tender, right knee normal inspection, right knee normal range of motion, right knee no evidence of injury; left knee other (MILD TENDERNESS TO SUPERIOR AND INFERIOR ASPECTS OF LEFT KNEE. NO EXTERNAL EVIDENCE OF TRAUMA. NO LIGAMENT LAXITY. NO SWELLING. DISTAL MOTOR/SENSORY/VASCULAR INTACT. ) Ankles: bilateral ankle non-tender, bilateral ankle normal inspection, bilateral ankle normal range of motion, bilateral ankle no evidence of injury Feet: bilateral foot non-tender, bilateral foot normal inspection, bilateral foot normal range of motion, bilateral foot no evidence of injury Neurologic/Tendon: normal sensation, normal motor functions, normal tendon functions Neurologic/Psychiatric: no motor/sensory deficits, alert, normal mood/affect, oriented x 3 (LIMITED MEMORY) DIALYSIS GRAFT/FISTULA IN RIGHT ARM. Progress/Results/Core Measures Results/Orders My Orders Orders - ALEXANDER NULL DO Femur, Left, 2 Views (07/02/22 15:45) Tibia/Fibula, Left, 2 Views (07/02/22 15:45) Knee, Left, 3 Views (07/02/22 15:45) Pelvis 1 To 2 Views (07/02/22 15:45) Vital Signs/I&O 07/02/22 07/02/22 15:40 16:50 Temp 36.4 Pulse 80 Resp 18 18 B/P (MAP) 144/62 (89) 140/64 Blood Pressure Mean: 89 Progress Progress Note : Progress Note UNVENTFUL ER STAY PT IS ABLE TO AMBULATE ON HIS OWN AT DISMISSAL REVIEWED TEST RESULTS, ANTICIPATED COURSE, SYMPTOMATIC TREATMENT, NEED FOR FOLLO W UP AND RETURN PRECAUTIONS DISCUSSED WITH PT AND DAUGHTER. REVIEWED PRIOR RECORDS INCLUDING ER VISITS, ADMITS, H&P'S, CONSULTS, DISCHARGE SUMMARIES Diagnostic Imaging Comments XRAYS--PER RADIOLOGIST REPORTS AT 1642 PELVIS-- FINDINGS: A single frontal view of the pelvis was performed. There is no radiographic evidence of acute fracture or dislocation. Pubic symphysis is within normal limits. SI joints are symmetric. Proximal femurs are intact, bilaterally. The femoro-acetabular joint spaces appear maintained on this single frontal view. Remainder of the bony pelvis is intact as well. No unexpected radiopaque foreign bodies are seen. Included small bowel loops are nondistended. Impression: 1. No radiographic evidence of acute fracture or dislocation of the bony pelvis. LEFT FEMUR-- FINDINGS: Multiple radiographic views of the left femur were obtained and show no fractures, dislocations, or other acute bony abnormalities. Joint spaces are well maintained throughout. The soft tissues appear unremarkable. No unexpected radiopaque foreign bodies are identified. IMPRESSION: Unremarkable radiographic exam of the left femur. LEFT KNEE-- FINDINGS: 3 views of the left knee joint demonstrate no acute fracture or dislocation. No focal osseous lesions are seen. No significant joint effusion is seen. The surrounding soft tissue structures are unremarkable. There are no radiopaque foreign bodies. IMPRESSION: No acute fractures or dislocations of the left knee joint. LEFT TIB-FIB-- FINDINGS: Multiple radiographic views of the left tibia and fibula were obtained. Patient is status post previous arthroplasty changes to the tibiotalar joint space. Surgical hardware appears appropriately positioned. No unexpected radiopaque foreign bodies are seen. Remainder of the left tibia and fibula are intact. Left knee joint appears appropriate. IMPRESSION: No evidence of acute fracture or dislocation of the left tibia or fibula. Reviewed: Reviewed by Me Departure Impression Primary Impression: Fall from standing Additional Impression: Contusion of left knee Disposition: 03 XF SNF Condition: Stable Departure-Patient Inst. Decision time for Depature: 16:43 Referrals: ANTIONETTE RODRIGUES DO (PCP/Family) Primary Care Physician Patient Instructions: Contusion (DC), Knee Pain (DC), Preventing Falls ED Add. Discharge Instructions: ICE TO AREA AT 20 MINUTE INTERVALS TYLENOL NEEDED FOR PAIN FOLLOW UP WITH YOUR DR. IF SYMPTOMS WORSEN OR PERSIST All discharge instructions reviewed with patient and/or family. Voiced understanding. ALEXANDER NULL DO Jul 02, 2022 15:58
--- NOTE | 2022-07-02 16:34 | Diagnostic Imaging Report ---
INDICATION: leg pain COMPARISON: None. FINDINGS: Multiple radiographic views of the left femur were obtained and show no fractures, dislocations, or other acute bony abnormalities. Joint spaces are well maintained throughout. The soft tissues appear unremarkable. No unexpected radiopaque foreign bodies are identified. IMPRESSION: Unremarkable radiographic exam of the left femur. Dictated by: Dictated on workstation # [id number]
--- NOTE | 2022-07-02 16:35 | Diagnostic Imaging Report ---
INDICATION: Knee pain COMPARISON: None. FINDINGS: 3 views of the left knee joint demonstrate no acute fracture or dislocation. No focal osseous lesions are seen. No significant joint effusion is seen. The surrounding soft tissue structures are unremarkable. There are no radiopaque foreign bodies. IMPRESSION: No acute fractures or dislocations of the left knee joint. Dictated by: Dictated on workstation # [id number]
--- NOTE | 2022-07-02 16:35 | Diagnostic Imaging Report ---
INDICATION: Pelvic pain COMPARISON: None FINDINGS: A single frontal view of the pelvis was performed. There is no radiographic evidence of acute fracture or dislocation. Pubic symphysis is within normal limits. SI joints are symmetric. Proximal femurs are intact, bilaterally. The femoro-acetabular joint spaces appear maintained on this single frontal view. Remainder of the bony pelvis is intact as well. No unexpected radiopaque foreign bodies are seen. Included small bowel loops are nondistended. Impression: 1. No radiographic evidence of acute fracture or dislocation of the bony pelvis. Dictated by: Dictated on workstation # [id number]
--- NOTE | 2022-07-02 16:37 | Diagnostic Imaging Report ---
INDICATION: Leg pain COMPARISON: None. FINDINGS: Multiple radiographic views of the left tibia and fibula were obtained. Patient is status post previous arthroplasty changes to the tibiotalar joint space. Surgical hardware appears appropriately positioned. No unexpected radiopaque foreign bodies are seen. Remainder of the left tibia and fibula are intact. Left knee joint appears appropriate. IMPRESSION: No evidence of acute fracture or dislocation of the left tibia or fibula. Dictated by: Dictated on workstation # [id number]
[2022-07-02 16:50] VITALS: BP 140/64
== END 2022-07-02 16:45 ==
LOC: EDUNIT# 15:38 → ER 15:40
DX: S80.02XA Contusion of left knee, initial encounter (principal); I12.0 Hypertensive chronic kidney disease with stage 5 chronic kidney disease or end stage renal disease; N18.6 End stage renal disease; Z99.2 Dependence on renal dialysis; Z87.891 Personal history of nicotine dependence; W18.30XA Fall on same level, unspecified, initial encounter; Y92.239 Unspecified place in hospital as the place of occurrence of the external cause
CPT/HCPCS: 72170; 73552; 73562; 73590

== ENCOUNTER 2022-07-16 16:18 | Emergency (ER) | payer MEDICARE, MEDICAID ==
[~2022-07-16] VITALS: Ht 185 cm; Wt 90.7 kg
[2022-07-16 16:50] LABS: BASOPHILS % (AUTO) 0 % (0-10); EOSINOPHILS # (AUTO) 0.3 10^3/uL (0.0-0.3); EOSINOPHILS % (AUTO) 4 % (0-10); HEMATOCRIT 28 % (40-54); HEMOGLOBIN 9.5 g/dL (13.3-17.7); LYMPHOCYTES # (AUTO) 1.5 10^3/uL (1.0-4.0); LYMPHOCYTES % (AUTO) 20 % (12-44); MEAN CORPUSCULAR HEMOGLOBIN 36 pg (25-34); MEAN CORPUSCULAR HGB CONC 34 g/dL (32-36); MEAN CORPUSCULAR VOLUME 106 fL (80-99); MEAN PLATELET VOLUME 9.2 fL (9.0-12.2); MONOCYTES # (AUTO) 0.8 10^3/uL (0.0-1.0); MONOCYTES % (AUTO) 10 % (0-12); NEUTROPHILS # (AUTO) 4.8 10^3/uL (1.8-7.8); NEUTROPHILS % (AUTO) 65 % (42-75); PLATELET COUNT 230 10^3/uL (130-400); WHITE BLOOD COUNT 7.4 10^3/uL (4.3-11.0)
--- NOTE | 2022-07-16 16:55 | Diagnostic Imaging Report ---
PROCEDURE: CT head wo r/o stroke. TECHNIQUE: Multiple contiguous axial images were obtained through the brain without the use of intravenous contrast. Auto Exposure Controls were utilized during the CT exam to meet ALARA standards for radiation dose reduction. DATE: July 16, 2022. COMPARISON: MRI brain November 29, 2018. CT head November 29, 2018. INDICATION: 76-year-old male, right-sided facial droop. Weakness of the right arm. Evaluation for stroke. FINDINGS: There is no identified dense vessel sign. 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 The ventricles and cerebral spinal fluid spaces are of normal size and configuration for the patient's age. There is no mass effect or midline shift. There is no acute intracranial hemorrhage. There is no abnormal extra-axial fluid collection. The visualized portions of the paranasal sinuses, mastoid air cells and middle ears are well aerated. IMPRESSION: 1. No identified acute intracranial abnormality. Dictated by: Dictated on workstation # [id number]
--- NOTE | 2022-07-16 16:56 | Diagnostic Imaging Report ---
INDICATION: Stroke. COMPARISON: 05/09/2022. TECHNIQUE: Single frontal radiograph of the chest dated 07/16/2022. FINDINGS: The cardiac silhouette is within normal limits in size. No significant pulmonary vascular congestion. The lungs are clear of focal pulmonary opacity. No pleural effusion. No pneumothorax. Mild scattered osseous degenerative changes without acute osseous abnormality. IMPRESSION: No acute cardiopulmonary abnormality. Dictated by: Dictated on workstation # [id number]
--- NOTE | 2022-07-16 16:56 | ED Neurological Problem ---
General Chief Complaint: Neuro-Stroke Like Symptoms Stated Complaint: FACIAL DROOP Nursing Triage Note: PT PRESENTS TO ED VIA EMS FROM [facility] WITH COMPLAINTS OF R SIDED FACIAL DROOP STARTING APROX 30 MIN AGO. [facility] STAFF REPORTS PT HAD SOME WEAKNESS TO R ARM AROUND 1300 WHEN HE GOT BACK FROM DIALYSIS, HOWEVER THEY ARE UNSURE WHEN THE WEAKNESS STARTED. THEY DO REPORT HE DID NOT HAVE S/S WHEN HE WENT TO DIALYSIS AT 0600 THIS AM. PT DENIES ANY S/S AND STATES HE FEELS FINE. Source: patient, family, EMS History of Present Illness Date Seen by Provider: Jul 16, 2022 Time Seen by Provider: 16:25 Initial Comments Patient is a 76-year-old male who presents to the emergency department via EMS from his assisted with right upper extremity weakness and right-sided facial droop. Patient left the assisted at 6 this morning for dialysis. Upon his return at approximately 1 PM staff noticed some right upper extremity weakness. They are unsure of when this began. Patient also had some right-sided facial droop that began 30 minutes to an hour prior to arrival. Patient denies any complaints at this time and states he feels fine. Patient has a history of dementia. Patient also has a history of atrial fibrillation for which he takes Eliquis. Patient is also on dialysis for end-stage renal disease. Patient denies any recent falls. Patient did have a stroke in the past but family states he had very mild if any residual deficits. Allergies and Home Medications Allergies Coded Allergies: iodine (Unverified Allergy, Mild, 03/26/09) Patient Home Medication List Home Medication List Reviewed: Yes Acetaminophen (Acetaminophen) 500 Mg Tablet, 500-1,000 MG PO Q6H PRN for PAIN- MILD, (Reported) Entered as Reported by: ALEKSANDER MUKHERJEE on 11/29/18 1603 Amlodipine Besylate (Amlodipine Besylate) 10 Mg Tablet, 10 MG PO DAILY Prescribed by: DOMINIK CRUZ on 12/07/18 0902 Aspirin (Aspirin EC) 81 Mg Tablet., 81 MG PO DAILY Prescribed by: DOMINIK CRUZ on 12/01/18 142 Atorvastatin Calcium (Lipitor) 20 Mg Tablet, 20 MG PO HS Prescribed by: DOMINIK CRUZ on 12/01/18 142 Buspirone HCl (Buspirone HCl) 10 Mg Tablet, 10 MG PO BID, (Reported) Entered as Reported by: DIANELYS SULLIVAN on 08/17/16 043 Clonidine HCl (Clonidine HCl) 0.1 Mg Tablet, 0.1 MG PO Q4HR PRN for SBP >160 Prescribed by: DMOINIK CRUZ on 12/07/18 09 Diphenhydramine HCl (Diphenhist) 25 Mg Tablet, 25 MG PO Q4H PRN for allergies, (Reported) Entered as Reported by: ALEKSANDER MUKHERJEE on 11/29/18 160 Divalproex Sodium (Divalproex Sodium) 125 Mg Cap.sprink, 125 MG PO BID, (Reported) Entered as Reported by: DIANELYS SULLIVAN on 08/17/16435 Donepezil HCl (Donepezil HCl) 5 Mg Tablet, 5 MG PO HS, (Reported) Entered as Reported by: ALEKSANDER MUKHERJEE on 11/29/18 160 Finasteride (Finasteride) 5 Mg Tablet, 5 MG PO HS, (Reported) Entered as Reported by: ALEKSANDER MUKHERJEE on 11/29/18 160 Guaifenesin/Dextromethorphan (Coricidin Hbp Softgel) 1 Each Capsule, 1 TAB PO Q6H PRN for CONGESTION, (Reported) Entered as Reported by: ALEKSANDER MUKHERJEE on 11/29/18 160 Hydralazine HCl (Hydralazine HCl) 25 Mg Tablet, 25 MG PO Q4HR PRN for SBP >160 Prescribed by: DOMINIK CRUZ on 12/07/18 09 Hydrocodone Bit/Acetaminophen (Lortab 5 Mg Tablet) 1 Each Tablet, 1 TAB PO Q6H PRN for PAIN-MODERATE, (Reported) Entered as Reported by: ALEKSANDER MUKHERJEE on 11/29/18 160 Hydroxyzine HCl (Hydroxyzine HCl) 25 Mg Tablet, 25 MG PO Q6H PRN for ANXIETY/AGITATION, (Reported) Entered as Reported by: ALEKSANDER MUKHERJEE on 11/29/18 160 Ibuprofen (Ibuprofen) 800 Mg Tablet, 800 MG PO Q8H PRN for PAIN-MILD, (Reported) Entered as Reported by: ALEKSANDER MUKHERJEE on 11/29/18 160 Ketorolac Tromethamine (Acular Ls) 5 Ml Btl, 1 DROP OU QID PRN for allergic conjuctivitis, (Reported) Entered as Reported by: ALEKSANDER MUKHERJEE on 11/29/18 160 Lorazepam (Ativan) 0.5 Mg Tablet, 0.5 MG PO Q8H PRN for ANXIETY, (Reported) Entered as Reported by: ALEKSANDER MUKHERJEE on 11/29/18 160 Metoprolol Tartrate (Metoprolol Tartrate) 25 Mg Tablet, 25 MG PO BID, (Reported) Entered as Reported by: DIANELYS SULLIVAN on 08/17/16 0436 Tamsulosin HCl (Flomax) 0.4 Mg Cap, 0.4 MG PO HS, (Reported) Entered as Reported by: ALEKSANDER MUKHERJEE on 11/29/18 160 Trazodone HCl (Trazodone HCl) 50 Mg Tablet, 50 MG PO HS PRN for SLEEP, (Reported) Entered as Reported by: ALEKSANDER MUKHERJEE on 11/29/18 160 Triamcinolone Acetonide (Triamcinolone Acetonide 0.5% Cream) 15 Gm Cream..g., TP BID PRN for RASH, (Reported) Entered as Reported by: ALEKSANDER MUKHERJEE on 11/29/18 160 Review of Systems Review of Systems Constitutional: no symptoms reported Eyes: No Symptoms Reported Ears, Nose, Mouth, Throat: no symptoms reported Respiratory: no symptoms reported Cardiovascular: no symptoms reported Gastrointestinal: no symptoms reported Genitourinary: no symptoms reported Musculoskeletal: no symptoms reported Skin: no symptoms reported Psychiatric/Neurological: See HPI Past Yfpnkbz-Phufer-Atuuyz Hx Patient Social History Tobacco Use?: No Smoking Status: Never a Smoker Substance use?: No Alcohol Use?: Yes Alcohol Frequency: Rarely Pt feels they are or have been: No Immunizations Up To Date First/Initial COVID19 Vaccinat: 2020 Second COVID19 Vaccination Alberto: 2020 Third COVID19 Vaccination Date: 2020 Seasonal Allergies Seasonal Allergies: No Past Medical History Surgery/Hospitalization HX: DIALYSIS SHUNT. PMH: HTN, DEPRESSION, ANXIETY, BPH, HIGH CHOL, Surgeries: Yes (left ankle) Dialysis, Orthopedic, Renal, Vascular Surgery Respiratory: No Currently Using CPAP: No Currently Using BIPAP: No Cardiac: Yes Atrial Fibrillation, High Cholesterol, Hypertension Neurological: Yes Dementia, Stroke Reproductive Disorders: No Genitourinary: Yes Benign Prostatic Hyperpl, Bladder Infection, Kidney Stones, Renal Failure, D ialysis Gastrointestinal: Yes Diverticulosis Musculoskeletal: Yes (Left ankle SURGERY) Arthritis, Fractures Endocrine: No HEENT: No Cancer: No Psychosocial: Yes Sleep Difficulties, Anxiety, Depression Integumentary: No Blood Disorders: No Family Medical History Patient reports no known family medical history. No Pertinent Family Hx Physical Exam Vital Signs Vital Signs - First Documented 07/16/22 16:22 Temp 36.0 Pulse 71 Resp 16 B/P (MAP) 140/74 (96) Pulse Ox 100 Capillary Refill : Less Than 3 Seconds Height, Weight, BMI Height: 6'1.00" Weight: 190lbs. 0.2oz. 86.952925gh; 26.00 BMI Method:Stated General Appearance: WD/WN, no apparent distress HEENT: PERRL/EOMI, normal ENT inspection, TMs normal, pharynx normal Neck: non-tender, full range of motion, supple, normal inspection Respiratory: chest non-tender, lungs clear, normal breath sounds, no respiratory distress, no accessory muscle use Cardiovascular: regular rate, rhythm Gastrointestinal: normal bowel sounds, non tender, soft, no organomegaly, no pulsatile mass Extremities: normal range of motion, non-tender, normal inspection, no pedal edema, no calf tenderness Neurologic/Psychiatric: alert, normal mood/affect, facial droop Crainal Nerves: facial droop Motor/Sensory: no motor deficit, no sensory deficit Skin: normal color, warm/dry Right-sided facial droop noted with forehead sparing; slightly slurred speech also noted; no upper extremity asymmetrical weakness appreciated: Patient is alert to person but disoriented to place and time Stroke Onset of Symptoms Date of Onset of Symptoms: Jul 16, 2022 Onset of Symptoms: Yes Symptoms onset unknown: Yes NIH Stroke Scale Assessment Select: Initial Level of Consciousness: 0=Alert (0), Level of Consciousness- Questions: 1=Answers one question (1), LOC Commands: 0=Performs both tasks (0), Gaze: Normal (0), Visual Mora: 0=No visual loss (0), Facial Movement (Facial Paresis): 1=Minor paralysis (1), Motor Function-Arms Right: 0=No drift (0), Motor Function-Arms Left: 0=No drift (0), Motor Function-Legs Right: 0=No drift (0), Motor Function-Legs Left: 0=No drift (0), Limb Ataxia: 0=Absent (0), Sensory: 0=Normal:no loss (0), Best Language: 0=No aphasia (0), Dysarthria: 0=Normal (0), Total: 2 Stroke Thrombolytic Exclusion Age 18 or Over: Yes Acute intenal hemorrhage: No History of CVA: No Uncontrolled Coagulation Defec: No Intracranial Hemorrhage: No Severe Hypertension: No GI or Bleed: No Subarachnoid Hemorrhage: No Intracranial Neoplasm/Aneurysm: No Oral Anticoagulants: Yes Surgery or Trauma: No Puncture of Non-Compressible V: No Recent CPR: No Diabetic Hemorrhagic Retinopat: No Organ Biopsy: No Recent Obstetric Delivery: No Glucose: No Significant Hepatic Dysfunctio: No NIH Stoke Scale >22: No Bacterial Endocarditis: No Pericarditis: No Improving Symptoms: No Progress/Results/Core Measures Results/Orders Lab Results Laboratory Tests Test 07/16/22 16:43 07/16/22 16:47 Range/Units Glucometer 129 H 70-110 MG/DL White Blood Count 7.4 4.3-11.0 10^3/uL Red Blood Count 2.66 L 4.30-5.52 10^6/uL Hemoglobin 9.5 L 13.3-17.7 g/dL Hematocrit 28 L 40-54 % Mean Corpuscular Volume 106 H 80-99 fL Mean Corpuscular Hemoglobin 36 H 25-34 pg Mean Corpuscular Hemoglobin Concent 34 32-36 g/dL Red Cell Distribution Width 16.5 H 10.0-14.5 % Platelet Count 230 130-400 10^3/uL Mean Platelet Volume 9.2 9.0-12.2 fL Immature Granulocyte % (Auto) 0 % Neutrophils (%) (Auto) 65 42-75 % Lymphocytes (%) (Auto) 20 12-44 % Monocytes (%) (Auto) 10 0-12 % Eosinophils (%) (Auto) 4 0-10 % Basophils (%) (Auto) 0 0-10 % Neutrophils # (Auto) 4.8 1.8-7.8 10^3/uL Lymphocytes # (Auto) 1.5 1.0-4.0 10^3/uL Monocytes # (Auto) 0.8 0.0-1.0 10^3/uL Eosinophils # (Auto) 0.3 0.0-0.3 10^3/uL Basophils # (Auto) 0.0 0.0-0.1 10^3/uL Immature Granulocyte # (Auto) 0.0 0.0-0.1 10^3/uL Prothrombin Time 14.4 12.2-14.7 SEC INR Comment 1.1 0.8-1.4 Activated Partial Thromboplast Time 32 24-35 SEC Sodium Level 140 135-145 MMOL/L Potassium Level 3.7 3.6-5.0 MMOL/L Chloride Level 99 98-107 MMOL/L Carbon Dioxide Level 30 21-32 MMOL/L Anion Gap 11 5-14 MMOL/L Blood Urea Nitrogen 17 7-18 MG/DL Creatinine 3.43 H 0.60-1.30 MG/DL Estimat Glomerular Filtration Rate 18 BUN/Creatinine Ratio 5 Glucose Level 127 H 70-105 MG/DL Calcium Level 9.0 8.5-10.1 MG/DL Corrected Calcium 9.0 8.5-10.1 MG/DL Total Bilirubin 0.4 0.1-1.0 MG/DL Aspartate Amino Transf (AST/SGOT) 17 5-34 U/L Alanine Aminotransferase (ALT/SGPT) 14 0-55 U/L Alkaline Phosphatase 68 40-136 U/L Troponin I < 0.028 <0.028 NG/ML Total Protein 7.1 6.4-8.2 GM/DL Albumin 4.0 3.2-4.5 GM/DL Smear Scan YES My Orders Orders - WINNIE GOMEZ EXTRUDER OPERATOR Cbc With Automated Diff (07/16/22 16:32) Protime With Inr (07/16/22 16:32) Partial Thromboplastin Time (07/16/22 16:32) Comprehensive Metabolic Panel (07/16/22 16:32) Troponin I Millie (07/16/22 16:32) Ua Culture If Indicated (07/16/22 16:32) Chest 1 View, Ap/Pa Only (07/16/22 16:32) Ekg Tracing (07/16/22 16:32) Nothing By Mouth (07/16/22 Dinner) Accucheck Stat ONCE (07/16/22 16:32) Ed Iv/Invasive Line Start (07/16/22 16:32) Vital Signs Stroke Patient Q15M (07/16/22 16:32) Ct Head Wo-R/O Stroke (07/16/22 16:32) O2 (07/16/22 16:32) Intake & Output 06,14,22 (07/16/22 16:32) Monitor-Rhythm Ecg Trace Only (07/16/22 16:32) Dysphagia Screening Tool [id number] (07/16/22 16:32) Vital Signs/I&O 07/16/22 16:22 Temp 36.0 Pulse 71 Resp 16 B/P (MAP) 140/74 (96) Pulse Ox 100 Blood Pressure Mean: 96 FSBG Bedside Testing Finger Stick Blood Glucose: 129 Progress Progress Note : Progress Note Patient is nontoxic and well-hydrated on exam. Patient does have some facial droop, disorientation, and slurred speech. Initially patient did not have slurred speech and initial NIH was 2. The facial droop and slurring of speech did slightly progress during the ED stay. Patient denies any other complaints at this time. Specifically denies any chest pain, shortness of air, vision change, focal numbness/weakness. Stroke protocol initiated with orders placed for CBC, CMP, coagulation studies, troponin, EKG, urinalysis, chest x-ray, and CT of the head. CBC is largely unremarkable other than some anemia which is likely related to his kidney disease. CMP notable for elevation in creatinine which is also expected given ESRD. No other significant metabolic derangements appreciated. Coagulation studies are largely unremarkable. Troponin is not elevated. EKG without acute ischemic change or arrhythmia. Chest x-ray acutely negative. CT of the head reveals chronic changes but nothing acute. Dr. Kamara with [facility] medicine states patient is unable to be admitted here due to him needing dialysis. I spoke with neurology at [facility] in [place] who state patient would need vascular imaging prior to them being able to accept him. Patient's chart as well as family state patient is unable to tolerate CT contrast. They were unable to provide an exact reason or history of specific reaction. Due to this I spoke again with neurology at [facility] and they stated they were unable to take the patient. I then spoke with Dr. Tai with neurology at who kindly excepted the patient in transfer. Family was updated on this plan of care and understanding was verbalized. EKG : EKG Time: 16:36 Rate: 71 Rhythm: PAC ECG Impression: Nonspecific Changes Departure Impression Primary Impression: Stroke-like symptoms Disposition: 02 XFER SHT-TRM HOSP Condition: Stable Transfer Transfer Reason: Exceeds level of care Time Spoke to Accepting Phy: 18:18 Transfer Facility: Method of Transfer: EMS Departure-Patient Inst. Referrals: ANTIONETTE RODRIGUES DO (PCP/Family) Primary Care Physician WINNIE GOMEZ APRN Jul 16, 2022 16:56
[2022-07-16 17:05] LABS: CHLORIDE 99 MMOL/L (98-107); POTASSIUM 3.7 MMOL/L (3.6-5.0); SODIUM 140 MMOL/L (135-145)
[2022-07-16 17:07] LABS: GLUCOSE 127 MG/DL (70-105); TOTAL PROTEIN 7.1 GM/DL (6.4-8.2)
[2022-07-16 17:08] LABS: CARBON DIOXIDE 30 MMOL/L (21-32)
[2022-07-16 17:09] LABS: BILIRUBIN,TOTAL 0.4 MG/DL (0.1-1.0)
[2022-07-16 17:10] LABS: ALKALINE PHOSPHATASE 68 U/L (40-136)
[2022-07-16 17:11] LABS: CREATININE SERUM 3.43 MG/DL (0.60-1.30); GFR ESTIMATED 18
[2022-07-16 17:12] LABS: BUN/CREATININE RATIO 5
[2022-07-16 17:13] LABS: ALANINE AMINOTRANSFERASE 14 U/L (0-55)
[2022-07-16 17:14] LABS: INR 1.1 (0.8-1.4); PROTHROMBIN TIME PATIENT 14.4 SEC (12.2-14.7)
[2022-07-16 17:42] LABS: SMEAR SCAN COMMENT YES
[2022-07-16 18:53] LABS: BILIRUBIN,URINE NEGATIVE (NEGATIVE); CLARITY,URINE CLOUDY; COLOR,URINE YELLOW; GLUCOSE, URINE (UA) TRACE (NEGATIVE); KETONES,URINE NEGATIVE (NEGATIVE); LEUKOCYTE ESTERASE ,URINE 3+ (NEGATIVE); NITRITE,URINE NEGATIVE (NEGATIVE); PROTEIN,URINE 2+ (NEGATIVE)
[2022-07-16 19:03] LABS: BACTERIA,URINE FEW /HPF; SQUAMOUS EPITHELIAL CELL,UR 0-2 /HPF
[2022-07-16 19:04] LABS: WBC,URINE >100 /HPF
[2022-07-16 19:25] VITALS: BP 157/75
== END 2022-07-16 19:24 | disposition short-term general hospital (02) ==
LOC: EDUNIT# 16:18 → ER 16:19
DX: I63.9 Cerebral infarction, unspecified (principal); G81.91 Hemiplegia, unspecified affecting right dominant side; R29.702 NIHSS score 2; I48.91 Unspecified atrial fibrillation; I12.0 Hypertensive chronic kidney disease with stage 5 chronic kidney disease or end stage renal disease; N18.6 End stage renal disease; Z99.2 Dependence on renal dialysis; Z79.01 Long term (current) use of anticoagulants
CPT/HCPCS: 36415; 70450; 71045; 80053; 81000; 82947; 84484; 85025; 85610; 85730; 87088; 93005; 93041

== ENCOUNTER 2022-07-23 17:28 | Emergency (ER) | payer MEDICARE, MEDICAID ==
[~2022-07-23] VITALS: Ht 182 cm; Wt 97.0 kg
--- NOTE | 2022-07-23 18:06 | ED General ---
General Chief Complaint: General Problems/Pain Stated Complaint: FISTUAL BLEEDING Nursing Triage Note: PT AMB TO RM 5 PT CO OF FISTULA IN R UPPER ARM BLEEDING SINCE DIALYSIS, ARM IS WRAPPED W KERLEX AT THIS X. NO BLEEDING NOTICED PT HAS DIALYSIS AT APPROX 1200 TODAY. History of Present Illness Date Seen by Provider: Jul 23, 2022 Time Seen by Provider: 18:03 Initial Comments 76-year-old male was sent over because there were concerns of fistula bleeding postdialysis. Patient had dialysis around noon. Upon arrival arm is wrapped and there is no obvious bleeding or blood on dressing. Patient has no other complaints patient's daughter does report that they recently upped his Eliquis because he had a stroke last week. Allergies and Home Medications Allergies Coded Allergies: iodine (Unverified Allergy, Mild, 03/26/09) Patient Home Medication List Home Medication List Reviewed: Yes Acetaminophen (Acetaminophen) 500 Mg Tablet, 500-1,000 MG PO Q6H PRN for PAIN- MILD, (Reported) Entered as Reported by: ALEKSANDER MUKHERJEE on 11/29/18 160 Amlodipine Besylate (Amlodipine Besylate) 10 Mg Tablet, 10 MG PO DAILY Prescribed by: DOMINIK CRUZ on 12/07/18901 Aspirin (Aspirin EC) 81 Mg Tablet.dr, 81 MG PO DAILY Prescribed by: DOMINIK CRUZ on 12/01/18 142 Atorvastatin Calcium (Lipitor) 20 Mg Tablet, 20 MG PO HS Prescribed by: DOMINIK CRUZ on 12/01/18 142 Buspirone HCl (Buspirone HCl) 10 Mg Tablet, 10 MG PO BID, (Reported) Entered as Reported by: DIANELYS SULLIVAN on 08/17/16 043 Clonidine HCl (Clonidine HCl) 0.1 Mg Tablet, 0.1 MG PO Q4HR PRN for SBP >160 Prescribed by: DOMINIK CRUZ on 12/07/18 09 Diphenhydramine HCl (Diphenhist) 25 Mg Tablet, 25 MG PO Q4H PRN for allergies, (Reported) Entered as Reported by: ALEKSANDER MUKHERJEE on 11/29/18 160 Divalproex Sodium (Divalproex Sodium) 125 Mg Cap.sprink, 125 MG PO BID, (Reported) Entered as Reported by: DIANELYS SULLIVAN on 08/17/16435 Donepezil HCl (Donepezil HCl) 5 Mg Tablet, 5 MG PO HS, (Reported) Entered as Reported by: ALEKSANDER MUKHERJEE on 11/29/18 160 Finasteride (Finasteride) 5 Mg Tablet, 5 MG PO HS, (Reported) Entered as Reported by: ALEKSANDER MUKHERJEE on 11/29/18 160 Guaifenesin/Dextromethorphan (Coricidin Hbp Softgel) 1 Each Capsule, 1 TAB PO Q6H PRN for CONGESTION, (Reported) Entered as Reported by: ALEKSANDER MUKHERJEE on 11/29/18 160 Hydralazine HCl (Hydralazine HCl) 25 Mg Tablet, 25 MG PO Q4HR PRN for SBP >160 Prescribed by: DOMINIK CRUZ on 12/07/18 0902 Hydrocodone Bit/Acetaminophen (Lortab 5 Mg Tablet) 1 Each Tablet, 1 TAB PO Q6H PRN for PAIN-MODERATE, (Reported) Entered as Reported by: ALEKSANDER MUKHERJEE on 11/29/18 160 Hydroxyzine HCl (Hydroxyzine HCl) 25 Mg Tablet, 25 MG PO Q6H PRN for ANXIETY/AGITATION, (Reported) Entered as Reported by: ALEKSANDER MUKHERJEE on 11/29/18 160 Ibuprofen (Ibuprofen) 800 Mg Tablet, 800 MG PO Q8H PRN for PAIN-MILD, (Reported) Entered as Reported by: ALEKSANDER MUKHERJEE on 11/29/18 160 Ketorolac Tromethamine (Acular Ls) 5 Ml Btl, 1 DROP OU QID PRN for allergic conjuctivitis, (Reported) Entered as Reported by: ALEKSANDER MUKHERJEE on 11/29/18 160 Lorazepam (Ativan) 0.5 Mg Tablet, 0.5 MG PO Q8H PRN for ANXIETY, (Reported) Entered as Reported by: ALEKSANDER MUKHERJEE on 11/29/18 160 Metoprolol Tartrate (Metoprolol Tartrate) 25 Mg Tablet, 25 MG PO BID, (Reported) Entered as Reported by: DIANELYS SULLIVAN on 08/17/16 0436 Tamsulosin HCl (Flomax) 0.4 Mg Cap, 0.4 MG PO HS, (Reported) Entered as Reported by: ALEKSANDER MUKHERJEE on 11/29/18 160 Trazodone HCl (Trazodone HCl) 50 Mg Tablet, 50 MG PO HS PRN for SLEEP, (Reported) Entered as Reported by: ALEKSANDER MUKHERJEE on 11/29/18 1603 Triamcinolone Acetonide (Triamcinolone Acetonide 0.5% Cream) 15 Gm Cream..g., TP BID PRN for RASH, (Reported) Entered as Reported by: ALEKSANDER MUKHERJEE on 11/29/18 1603 Review of Systems Review of Systems Constitutional: No chills, No fever EENTM: no symptoms reported Respiratory: no symptoms reported Cardiovascular: no symptoms reported Gastrointestinal: no symptoms reported Genitourinary: no symptoms reported Skin: see HPI Psychiatric/Neurological: No Symptoms Reported Past Klxwdss-Dodbjs-Rtcjgj Hx Patient Social History Tobacco Use?: No Substance use?: No Alcohol Use?: No Pt feels they are or have been: No Immunizations Up To Date Influenza Vaccine Up-to-Date: No; Not Current First/Initial COVID19 Vaccinat: 2020 Second COVID19 Vaccination Alberto: 2020 Third COVID19 Vaccination Date: 2020 Seasonal Allergies Seasonal Allergies: No Past Medical History Surgery/Hospitalization HX: DIALYSIS SHUNT. PMH: HTN, DEPRESSION, ANXIETY, BPH, HIGH CHOL, DEMENTIA Surgeries: Yes (left ankle) Dialysis, Orthopedic, Renal, Vascular Surgery Respiratory: No Currently Using CPAP: No Currently Using BIPAP: No Cardiac: Yes Atrial Fibrillation, High Cholesterol, Hypertension Neurological: Yes Dementia, Stroke Reproductive Disorders: No Genitourinary: Yes Benign Prostatic Hyperpl, Bladder Infection, Kidney Stones, Renal Failure, Dialysis Gastrointestinal: Yes Diverticulosis Musculoskeletal: Yes (Left ankle SURGERY) Arthritis, Fractures Endocrine: No HEENT: No Cancer: No Psychosocial: Yes Sleep Difficulties, Anxiety, Depression Integumentary: No Blood Disorders: No Family Medical History Patient reports no known family medical history. No Pertinent Family Hx Physical Exam Vital Signs Vital Signs - First Documented 07/23/22 07/23/22 17:30 18:33 Temp 35.0 Pulse 80 Resp 16 B/P (MAP) 154/56 (88) Pulse Ox 100 O2 Delivery Room Air Capillary Refill : Less Than 3 Seconds Height, Weight, BMI Height: 6'1.00" Weight: 190lbs. 0.2oz. 86.926441es; 29.00 BMI Method:Stated General Appearance: No Apparent Distress, WD/WN Respiratory: Lungs Clear, Normal Breath Sounds Cardiovascular: Regular Rate, Rhythm, No Edema Neurologic/Psychiatric: Alert Skin: Other (Fistula right upper arm with bandage. No bleeding noted) Progress/Results/Core Measures Suspected Sepsis SIRS Temperature: Pulse: 80 Respiratory Rate: 16 Blood Pressure 154 /56 Mean: 88 Results/Orders Vital Signs/I&O 07/23/22 07/23/22 17:30 18:33 Temp 35.0 35.0 Pulse 80 92 Resp 16 16 B/P (MAP) 154/56 (88) 138/56 Pulse Ox 100 100 O2 Delivery Room Air Capillary Refill : Less Than 3 Seconds Blood Pressure Mean: 88 Progress Note : Progress Note Patient was very minimal seepage from fistula needle poke. This is likely due to his increased Eliquis. Discussed with patient daughter. At this time we will just place a pressure dressing as he does not have any significant type of bleed. He should leave it on for 24 hours then remove. Return to the ER with any concerns. At this time no further treatment is indicated. Patient stable and discharged Departure Impression Primary Impression: Bleeding from dialysis shunt Qualified Codes: T82.838A - Hemorrhage due to vascular prosthetic devices, implants and grafts, initial encounter Disposition: 01 HOME, SELF-CARE Condition: Stable Departure-Patient Inst. Referrals: ANTIONETTE RODRIGUES DO (PCP/Family) Primary Care Physician Patient Instructions: Arteriovenous Fistula for Dialysis Add. Discharge Instructions: Please keep pressure dressing on for 24 hours. If you notice dressing becomes saturated or any other concerns please return to the ER. All discharge instructions reviewed with patient and/or family. Voiced understanding. JERMAINE LING DO Jul 23, 2022 18:06
[2022-07-23 18:33] VITALS: BP 138/56
== END 2022-07-23 18:33 | disposition home or self-care (01) ==
LOC: EDUNIT# 17:28 → ER 17:29
DX: T82.838A Hemorrhage due to vascular prosthetic devices, implants and grafts, initial encounter (principal); Y82.9 Unspecified medical devices associated with adverse incidents; Z87.448 Personal history of other diseases of urinary system; Z86.73 Personal history of transient ischemic attack (TIA), and cerebral infarction without residual deficits; Z79.01 Long term (current) use of anticoagulants
CPT/HCPCS: 99281

== ENCOUNTER 2022-08-04 17:09 | Emergency (ER) | payer MEDICARE, MEDICAID ==
[~2022-08-04] VITALS: Ht 185.4 cm; Wt 97.0 kg
--- NOTE | 2022-08-04 17:37 | ED General ---
General Chief Complaint: General Problems/Pain Stated Complaint: BLEEDING DIALYSIS PORT Source of Information: Patient Exam Limitations: No Limitations History of Present Illness Date Seen by Provider: Aug 04, 2022 Time Seen by Provider: 17:27 Initial Comments Patient is a 76-year-old male with a history of end-stage renal disease brought [facility] emergency [facility] chief complaint concern for bleeding at his AV fistula site in the right upper extremity. Patient had dialysis this morning and the area was bandaged. Reportedly he continued to have some blood at the bandage. He denies any pain, nausea, shortness of breath. He is very anxious and states he is not sure why. No issues with dialysis this morning. He is anticoagulated on Eliquis. Timing/Duration: 4-6 Hours Severity: Mild Associated Systoms: Denies Symptoms, Other (Anxiety) Allergies and Home Medications Allergies Coded Allergies: iodine (Unverified Allergy, Mild, 03/26/09) Patient Home Medication List Home Medication List Reviewed: Yes Acetaminophen (Acetaminophen) 500 Mg Tablet, 500-1,000 MG PO Q6H PRN for PAIN- MILD, (Reported) Entered as Reported by: ALEKSANDER MUKHERJEE on 11/29/18 1603 Amlodipine Besylate (Amlodipine Besylate) 10 Mg Tablet, 10 MG PO DAILY Prescribed by: DOMINIK CRUZ on 12/07/18 09 Aspirin (Aspirin EC) 81 Mg Tablet.dr, 81 MG PO DAILY Prescribed by: DOMINIK CRUZ on 12/01/18 142 Atorvastatin Calcium (Lipitor) 20 Mg Tablet, 20 MG PO HS Prescribed by: DOMINIK CRUZ on 12/01/18 1429 Buspirone HCl (Buspirone HCl) 10 Mg Tablet, 10 MG PO BID, (Reported) Entered as Reported by: DIANELYS SULLIVAN on 08/17/16 0436 Clonidine HCl (Clonidine HCl) 0.1 Mg Tablet, 0.1 MG PO Q4HR PRN for SBP >160 Prescribed by: DOMINIK CRUZ on 12/07/18 0902 Diphenhydramine HCl (Diphenhist) 25 Mg Tablet, 25 MG PO Q4H PRN for allergies, (Reported) Entered as Reported by: ALEKSANDER MUKHERJEE on 11/29/18 1603 Divalproex Sodium (Divalproex Sodium) 125 Mg Cap.sprink, 125 MG PO BID, (Reported) Entered as Reported by: DIANELYS SULLIVAN on 08/17/16 043 Donepezil HCl (Donepezil HCl) 5 Mg Tablet, 5 MG PO HS, (Reported) Entered as Reported by: ALEKSANDER MUKHERJEE on 11/29/18 160 Finasteride (Finasteride) 5 Mg Tablet, 5 MG PO HS, (Reported) Entered as Reported by: ALEKSANDER MUKHERJEE on 11/29/18 160 Guaifenesin/Dextromethorphan (Coricidin Hbp Softgel) 1 Each Capsule, 1 TAB PO Q6H PRN for CONGESTION, (Reported) Entered as Reported by: ALEKSANDER MUKHERJEE on 11/29/18 160 Hydralazine HCl (Hydralazine HCl) 25 Mg Tablet, 25 MG PO Q4HR PRN for SBP >160 Prescribed by: DOMINIK CRUZ on 12/07/18 0902 Hydrocodone Bit/Acetaminophen (Lortab 5 Mg Tablet) 1 Each Tablet, 1 TAB PO Q6H PRN for PAIN-MODERATE, (Reported) Entered as Reported by: ALEKSANDER MUKHERJEE on 11/29/18 160 Hydroxyzine HCl (Hydroxyzine HCl) 25 Mg Tablet, 25 MG PO Q6H PRN for ANXIETY/AGITATION, (Reported) Entered as Reported by: ALEKSANDER MUKHERJEE on 11/29/18 160 Ibuprofen (Ibuprofen) 800 Mg Tablet, 800 MG PO Q8H PRN for PAIN-MILD, (Reported) Entered as Reported by: ALEKSANDER MUKHERJEE on 11/29/18 160 Ketorolac Tromethamine (Acular Ls) 5 Ml Btl, 1 DROP OU QID PRN for allergic conjuctivitis, (Reported) Entered as Reported by: ALEKSANDER MUKHERJEE on 11/29/18 160 Lorazepam (Ativan) 0.5 Mg Tablet, 0.5 MG PO Q8H PRN for ANXIETY, (Reported) Entered as Reported by: ALEKSANDER MUKHERJEE on 11/29/18 160 Metoprolol Tartrate (Metoprolol Tartrate) 25 Mg Tablet, 25 MG PO BID, (Reported) Entered as Reported by: DIANELYS SULLIVAN on 08/17/16435 Tamsulosin HCl (Flomax) 0.4 Mg Cap, 0.4 MG PO HS, (Reported) Entered as Reported by: ALEKSANDER MUKHERJEE on 11/29/18 160 Trazodone HCl (Trazodone HCl) 50 Mg Tablet, 50 MG PO HS PRN for SLEEP, (Reported) Entered as Reported by: ALEKSANDER MUKHERJEE on 11/29/18 160 Triamcinolone Acetonide (Triamcinolone Acetonide 0.5% Cream) 15 Gm Cream..g., TP BID PRN for RASH, (Reported) Entered as Reported by: ALEKSANDER MUKHERJEE on 11/29/18 160 Review of Systems Review of Systems Constitutional: see HPI EENTM: no symptoms reported Respiratory: no symptoms reported Cardiovascular: no symptoms reported Gastrointestinal: no symptoms reported Genitourinary: no symptoms reported Musculoskeletal: no symptoms reported Skin: other (Bleeding from AV fistula site right upper extremity) Psychiatric/Neurological: Anxiety All Other Systems Reviewed Negative Unless Noted: Yes Past Gqrjdky-Anhgpj-Fxlsxy Hx Patient Social History Tobacco Use?: No Use of E-Cig and/or Vaping dev: No Substance use?: No Alcohol Use?: No Pt feels they are or have been: No Immunizations Up To Date Influenza Vaccine Up-to-Date: Yes; Up-to-Date First/Initial COVID19 Vaccinat: 2020 Second COVID19 Vaccination Alberto: 2020 Third COVID19 Vaccination Date: 2020 Seasonal Allergies Seasonal Allergies: No Past Medical History Surgery/Hospitalization HX: DIALYSIS FISTULA RIGHT UPPER ARM. PMH: HTN, DEPRESSION, ANXIETY, BPH, HIGH CHOL, DEMENTIA Surgeries: Yes (left ankle) Dialysis, Orthopedic, Renal, Vascular Surgery Respiratory: No Currently Using CPAP: No Currently Using BIPAP: No Cardiac: Yes Atrial Fibrillation, High Cholesterol, Hypertension Neurological: Yes Dementia, Stroke Reproductive Disorders: No Genitourinary: Yes Benign Prostatic Hyperpl, Bladder Infection, Kidney Stones, Renal Failure, Dialysis Gastrointestinal: Yes Diverticulosis Musculoskeletal: Yes (Left ankle SURGERY) Arthritis, Fractures Endocrine: No HEENT: No Cancer: No Psychosocial: Yes Sleep Difficulties, Anxiety, Depression Integumentary: No Blood Disorders: No Family Medical History Patient reports no known family medical history. No Pertinent Family Hx Physical Exam Vital Signs Vital Signs - First Documented 08/04/22 17:10 Temp 36.3 Pulse 83 Resp 17 B/P (MAP) 137/73 (94) Pulse Ox 100 O2 Delivery Room Air Capillary Refill : Height, Weight, BMI Height: 6'1.00" Weight: 190lbs. 0.2oz. 86.065132zv; 29.00 BMI Method:Stated General Appearance: No Apparent Distress, WD/WN Eyes: Bilateral Eye Normal Inspection, Bilateral Eye PERRL, Bilateral Eye EOMI HEENT: PERRL/EOMI Respiratory: Lungs Clear, Normal Breath Sounds, No Accessory Muscle Use, No Respiratory Distress Cardiovascular: Irregularly Irregular Extremity: Normal Range of Motion Neurologic/Psychiatric: Alert, No Motor/Sensory Deficits, Depressed Affect Skin: Normal Color, Warm/Dry, Other (Patient has a pinprick area of bleeding to the medial aspect of the proximal right upper extremity over the AV fistula that is barely oozing a little bit of blood. This area is nontender. There is a palpable thrill over the AV fistula. Distal pulses intact.) Progress/Results/Core Measures Suspected Sepsis SIRS Temperature: Pulse: Respiratory Rate: Blood Pressure / Mean: Results/Orders Vital Signs/I&O 08/04/22 17:10 Temp 36.3 Pulse 83 Resp 17 B/P (MAP) 137/73 (94) Pulse Ox 100 O2 Delivery Room Air Capillary Refill : Progress Note #1: Time: 17:35 Progress Note Patient seen and evaluated, 76-year-old with bleeding from prior access this morning of AV fistula for dialysis. Evaluation today includes physical exam. Patient's exam is remarkable for a pinhole area of bleeding to the proximal right upper extremity. Area is nontender, not erythematous and the fistula has a palpable thrill. Silver nitrate stick was used to gently cauterize the area with controlled bleeding. Patient will be monitored for period of time to make sure that the bleeding does not recur. Vital signs currently stable. Patient's only complaint currently is feeling a little anxious. Progress Note #2: Time: 17:50 Progress Note Patient reassessed approximately 20 minutes after silver nitrate. No evidence of ongoing bleeding. No expanding hematoma under the skin. The patient has no complaints. He continues to have palpable thrill over the fistula site. Distal pulses at the wrist are normal. Hand is warm, vital signs are stable. Patient will be [facility] to the [facility]. Departure Impression Primary Impression: Bleeding from dialysis shunt Qualified Codes: T82.838A - Hemorrhage due to vascular prosthetic devices, implants and grafts, initial encounter Disposition: 01 HOME, SELF-CARE Condition: Improved Departure-Patient Inst. Decision time for Depature: 17:51 Referrals: ANTIONETTE RODRIGUES DO (PCP/Family) Primary Care Physician Add. Discharge Instructions: Resume prior home medications. Return to the emergency department for any new, concerning or emergent complaint s. Copy Copies To 1: ANTIONETTE RODRIGUES KATHRYN M MD Aug 04, 2022 17:37
[2022-08-04 18:00] VITALS: BP 128/57
== END 2022-08-04 17:56 | disposition home or self-care (01) ==
LOC: EDUNIT# 17:09 → ER 17:11
DX: T82.838A Hemorrhage due to vascular prosthetic devices, implants and grafts, initial encounter (principal); I12.0 Hypertensive chronic kidney disease with stage 5 chronic kidney disease or end stage renal disease; N18.6 End stage renal disease; Z99.2 Dependence on renal dialysis; Z79.01 Long term (current) use of anticoagulants
CPT/HCPCS: 99283

== ENCOUNTER 2022-12-20 19:27 | Emergency (ER) | payer MEDICARE, MEDICAID ==
[~2022-12-20] VITALS: Ht 182.9 cm; Wt 91.0 kg
[2022-12-20 19:35] VITALS: BP 125/64
[2022-12-20 19:59] LABS: BASOPHILS % (AUTO) 0 % (0-10); EOSINOPHILS # (AUTO) 0.2 10^3/uL (0.0-0.3); EOSINOPHILS % (AUTO) 3 % (0-10); HEMATOCRIT 37 % (40-54); HEMOGLOBIN 12.1 g/dL (13.3-17.7); LYMPHOCYTES # (AUTO) 2.2 10^3/uL (1.0-4.0); LYMPHOCYTES % (AUTO) 28 % (12-44); MEAN CORPUSCULAR HEMOGLOBIN 34 pg (25-34); MEAN CORPUSCULAR HGB CONC 33 g/dL (32-36); MEAN CORPUSCULAR VOLUME 104 fL (80-99); MEAN PLATELET VOLUME 9.5 fL (9.0-12.2); MONOCYTES # (AUTO) 0.8 10^3/uL (0.0-1.0); MONOCYTES % (AUTO) 10 % (0-12); NEUTROPHILS # (AUTO) 4.6 10^3/uL (1.8-7.8); NEUTROPHILS % (AUTO) 58 % (42-75); PLATELET COUNT 242 10^3/uL (130-400); WHITE BLOOD COUNT 7.8 10^3/uL (4.3-11.0)
[2022-12-20] MEDS ORDERED: LIDOCAINE UROJET 2% GEL 10 ML PKG TOP ONE (20:00)
[2022-12-20 20:03] LABS: INR 1.1 (0.8-1.4); PROTHROMBIN TIME PATIENT 14.1 SEC (12.2-14.7)
[2022-12-20 20:11] LABS: CHLORIDE 103 MMOL/L (98-107); POTASSIUM 4.2 MMOL/L (3.6-5.0); SODIUM 143 MMOL/L (135-145)
--- NOTE | 2022-12-20 20:12 | Diagnostic Imaging Report ---
PROCEDURE: CT head wo r/o stroke. TECHNIQUE: Multiple contiguous axial images were obtained through the brain without the use of intravenous contrast. Auto Exposure Controls were utilized during the CT exam to meet ALARA standards for radiation dose reduction. INDICATION: Altered mental status, slurred speech The ventricles are normal in size, shape and position. There are no masses or hemorrhages. There are no extra-axial fluid collections. IMPRESSION: Senescent changes of the brain with diffuse cerebral degeneration. No acute abnormalities seen. Dictated by: Dictated on workstation # [id number]
[2022-12-20 20:13] LABS: AMMONIA 32 UMOL/L (11-32); AMYLASE 95 U/L (25-125); CALCIUM 9.6 MG/DL (8.5-10.1)
[2022-12-20 20:14] LABS: GLUCOSE 105 MG/DL (70-105); TOTAL PROTEIN 7.4 GM/DL (6.4-8.2)
[2022-12-20 20:15] LABS: CARBON DIOXIDE 27 MMOL/L (21-32)
[2022-12-20 20:16] LABS: BILIRUBIN,TOTAL 0.4 MG/DL (0.1-1.0)
[2022-12-20 20:18] LABS: ALKALINE PHOSPHATASE 67 U/L (40-136); CREATININE SERUM 5.12 MG/DL (0.60-1.30); GFR ESTIMATED 11
[2022-12-20 20:19] LABS: BUN/CREATININE RATIO 7
[2022-12-20 20:21] LABS: ALANINE AMINOTRANSFERASE 11 U/L (0-55); CREATINE KINASE 24 U/L (30-200); MAGNESIUM 2.4 MG/DL (1.6-2.4)
[2022-12-20 20:29] LABS: ERYTHROCYTE SEDIMENTATION RATE 46 MM/HR (0-30)
[2022-12-20 20:33] LABS: ACETAMINOPHEN < 10 UG/ML (10-30)
--- NOTE | 2022-12-20 20:46 | Diagnostic Imaging Report ---
INDICATION: 77-year-old male altered mental status, shortness of breath. COMPARISONS: 07/16/2022 FINDINGS: Single chest shows normal heart, pleura and diaphragm. There is no consolidations. There is no effusion or pneumothorax. There is aortic calcific atherosclerosis. Soft tissues and bony thorax unchanged. IMPRESSION: Some chronic parenchymal changes with its senescent chest, otherwise no acute cardiopulmonary disease. Dictated by: Dictated on workstation # [id number]
--- NOTE | 2022-12-20 20:49 | ED General ---
General Chief Complaint: General Problems/Pain Stated Complaint: UNSTABLE/LETHARGIC/SLURRING WORDS Nursing Triage Note: Pt presents ambulatory to ED without complaint. Pt resides at nursing facility, his daughter reports that he has slept all day today, and she feels he is slurring. Pt does have hx of TIA. PT's at baseline cognatively, ambulated to ER room with out difficulty. Pt is awake and alert, answering questions appropriately, denies pain or needs. Source of Information: Patient (PT WITH POOR MEMORY), Family, [facility], Old Records History of Present Illness Date Seen by Provider: Dec 20, 2022 Time Seen by Provider: 19:45 Initial Comments PT ARRIVES VIA POV WITH DAUGHTER, BROUGHT FROM SENIOR CARE PT REPORTEDLY HAS SLEPT ALL DAY, AND SENIOR CARE STAFF THOUGHT PT WAS SLURRING WORDS PT IS ABLE TO AMBULATE INTO ER ON HIS OWN DAUGHTER BELIEVES THAT HE IS AT NORMAL BASELINE, AND DOES NOT NOTICE ANY SLURRING OF WORDS. NO REPORTED FALLS/INJURIES NO REPORTED FEVER, OR RESPIRATORY SYMPTOMS NO REPORTED GI SYMPTOMS PT DOES STILL MAKE URINE AND HE DENIES ANY PAIN ON URINATION PT HAS NO COMPLAINTS ON DIRECT QUESTIONING, AND IS ABLE TO ANSWER SIMPLE QUESTIONS AND FOLLOW SIMPLE COMMANDS. PT HAS ESRD ON DIALYSIS, DEMENTIA, HX OF TIA, BPH, HTN, DVT, IDDM, SEIZURES TP IS ON ASPIRIN AND ELIQUIS Allergies and Home Medications Allergies Coded Allergies: iodine (Unverified Allergy, Mild, 03/26/09) Patient Home Medication List Acetaminophen (Acetaminophen) 500 Mg Tablet, 500-1,000 MG PO Q6H PRN for PAIN- MILD, (Reported) Entered as Reported by: ALEKSANDER MUKHERJEE on 11/29/18 1603 Amlodipine Besylate (Amlodipine Besylate) 10 Mg Tablet, 10 MG PO DAILY Prescribed by: DOMINIK CRUZ on 12/07/18 0902 Aspirin (Aspirin EC) 81 Mg Tablet.dr, 81 MG PO DAILY Prescribed by: DOMINIK CRUZ on 12/01/18 1429 Atorvastatin Calcium (Lipitor) 20 Mg Tablet, 20 MG PO HS Prescribed by: DOMINIK CRUZ on 12/01/18 1429 Buspirone HCl (Buspirone HCl) 10 Mg Tablet, 10 MG PO BID, (Reported) Entered as Reported by: DIANELYS SULLIVAN on 08/17/16 0436 Cefdinir (Cefdinir) 300 Mg Capsule, 300 MG PO BID Prescribed by: ALEXANDER NULL on 12/20/22 2140 Clonidine HCl (Clonidine HCl) 0.1 Mg Tablet, 0.1 MG PO Q4HR PRN for SBP >160 Prescribed by: DOMINIK CRUZ on 12/07/18 09 Diphenhydramine HCl (Diphenhist) 25 Mg Tablet, 25 MG PO Q4H PRN for allergies, (Reported) Entered as Reported by: ALEKSANDER MUKHERJEE on 11/29/18 1603 Divalproex Sodium (Divalproex Sodium) 125 Mg Cap.sprink, 125 MG PO BID, (Reported) Entered as Reported by: DIANELYS SULLIVAN on 08/17/16 0436 Donepezil HCl (Donepezil HCl) 5 Mg Tablet, 5 MG PO HS, (Reported) Entered as Reported by: LAEKSANDER MUKHERJEE on 11/29/18 160 Finasteride (Finasteride) 5 Mg Tablet, 5 MG PO HS, (Reported) Entered as Reported by: ALEKSANDER MUKHERJEE on 11/29/18 160 Guaifenesin/Dextromethorphan (Coricidin Hbp Softgel) 1 Each Capsule, 1 TAB PO Q6H PRN for CONGESTION, (Reported) Entered as Reported by: ALEKSANDER MUKHERJEE on 11/29/18 1604 Hydralazine HCl (Hydralazine HCl) 25 Mg Tablet, 25 MG PO Q4HR PRN for SBP >160 Prescribed by: DOMINIK CRUZ on 12/07/18 09 Hydrocodone Bit/Acetaminophen (Lortab 5 Mg Tablet) 1 Each Tablet, 1 TAB PO Q6H PRN for PAIN-MODERATE, (Reported) Entered as Reported by: ALEKSANDER MUKHERJEE on 11/29/18 160 Hydroxyzine HCl (Hydroxyzine HCl) 25 Mg Tablet, 25 MG PO Q6H PRN for ANXIETY/AGITATION, (Reported) Entered as Reported by: ALEKSANDER MUKHERJEE on 11/29/18 160 Ibuprofen (Ibuprofen) 800 Mg Tablet, 800 MG PO Q8H PRN for PAIN-MILD, (Reported) Entered as Reported by: ALEKSANDER MUKHERJEE on 11/29/18 160 Ketorolac Tromethamine (Acular Ls) 5 Ml Btl, 1 DROP OU QID PRN for allergic conjuctivitis, (Reported) Entered as Reported by: ALEKSANDER MUKHERJEE on 11/29/18 1603 Lorazepam (Ativan) 0.5 Mg Tablet, 0.5 MG PO Q8H PRN for ANXIETY, (Reported) Entered as Reported by: ALEKSANDER MUKHERJEE on 11/29/18 1603 Metoprolol Tartrate (Metoprolol Tartrate) 25 Mg Tablet, 25 MG PO BID, (Reported) Entered as Reported by: DIANELYS SULLIVAN on 08/17/16 0436 Tamsulosin HCl (Flomax) 0.4 Mg Cap, 0.4 MG PO HS, (Reported) Entered as Reported by: ALEKSANDER MUKHERJEE on 11/29/18 1603 Trazodone HCl (Trazodone HCl) 50 Mg Tablet, 50 MG PO HS PRN for SLEEP, (Repo rted) Entered as Reported by: ALEKSANDER MUKHERJEE on 11/29/18 160 Triamcinolone Acetonide (Triamcinolone Acetonide 0.5% Cream) 15 Gm Cream..g., TP BID PRN for RASH, (Reported) Entered as Reported by: ALEKSANDER MUKHERJEE on 11/29/18 160 Past Aozltxz-Jnlfza-Pnhcvi Hx Immunizations Up To Date First/Initial COVID19 Vaccinat: 2020 Second COVID19 Vaccination Alberto: 2020 Third COVID19 Vaccination Date: 2020 Seasonal Allergies Seasonal Allergies: No Past Medical History Surgery/Hospitalization HX: DIALYSIS FISTULA RIGHT UPPER ARM. PMH: HTN, DEPRESSION, ANXIETY, BPH, HIGH CHOL, DEMENTIA Surgeries: Yes (left ankle) Dialysis, Orthopedic, Renal, Vascular Surgery Respiratory: No Currently Using CPAP: No Currently Using BIPAP: No Cardiac: Yes Atrial Fibrillation, High Cholesterol, Hypertension Neurological: Yes Dementia, Stroke Reproductive Disorders: No Genitourinary: Yes Benign Prostatic Hyperpl, Bladder Infection, Kidney Stones, Renal Failure, Dialysis Gastrointestinal: Yes Diverticulosis Musculoskeletal: Yes (Left ankle SURGERY) Arthritis, Fractures Endocrine: No HEENT: No Cancer: No Psychosocial: Yes Sleep Difficulties, Anxiety, Depression Integumentary: No Blood Disorders: No Family Medical History Patient reports no known family medical history. No Pertinent Family Hx Physical Exam Vital Signs Vital Signs - First Documented 12/20/22 19:35 Temp 36.0 Pulse 64 Resp 16 B/P (MAP) 125/64 (84) Capillary Refill : Less Than 3 Seconds Height, Weight, BMI Height: 6'1.00" Weight: 190lbs. 0.2oz. 86.523046yl; 27.00 BMI Method:Stated Progress/Results/Core Measures Suspected Sepsis SIRS Temperature: Pulse: 64 Respiratory Rate: 16 Laboratory Tests 12/20/22 19:42: White Blood Count 7.8 Blood Pressure 125 /64 Mean: 84 Laboratory Tests 12/20/22 19:42: Creatinine 5.12H, INR Comment 1.1, Platelet Count 242, Total Bilirubin 0.4 Results/Orders Lab Results Laboratory Tests Test 12/20/22 19:42 12/20/22 20:22 12/20/22 20:27 Range/Units White Blood Count 7.8 4.3-11.0 10^3/uL Red Blood Count 3.52 L 4.30-5.52 10^6/uL Hemoglobin 12.1 L 13.3-17.7 g/dL Hematocrit 37 L 40-54 % Mean Corpuscular Volume 104 H 80-99 fL Mean Corpuscular Hemoglobin 34 25-34 pg Mean Corpuscular Hemoglobin Concent 33 32-36 g/dL Red Cell Distribution Width 16.1 H 10.0-14.5 % Platelet Count 242 130-400 10^3/uL Mean Platelet Volume 9.5 9.0-12.2 fL Immature Granulocyte % (Auto) 0 % Neutrophils (%) (Auto) 58 42-75 % Lymphocytes (%) (Auto) 28 12-44 % Monocytes (%) (Auto) 10 0-12 % Eosinophils (%) (Auto) 3 0-10 % Basophils (%) (Auto) 0 0-10 % Neutrophils # (Auto) 4.6 1.8-7.8 10^3/uL Lymphocytes # (Auto) 2.2 1.0-4.0 10^3/uL Monocytes # (Auto) 0.8 0.0-1.0 10^3/uL Eosinophils # (Auto) 0.2 0.0-0.3 10^3/uL Basophils # (Auto) 0.0 0.0-0.1 10^3/uL Immature Granulocyte # (Auto) 0.0 0.0-0.1 10^3/uL Erythrocyte Sedimentation Rate 46 H 0-30 MM/HR Prothrombin Time 14.1 12.2-14.7 SEC INR Comment 1.1 0.8-1.4 Activated Partial Thromboplast Time 34 24-35 SEC Sodium Level 143 135-145 MMOL/L Potassium Level 4.2 3.6-5.0 MMOL/L Chloride Level 103 98-107 MMOL/L Carbon Dioxide Level 27 21-32 MMOL/L Anion Gap 13 5-14 MMOL/L Blood Urea Nitrogen 36 H 7-18 MG/DL Creatinine 5.12 H 0.60-1.30 MG/DL Estimat Glomerular Filtration Rate 11 BUN/Creatinine Ratio 7 Glucose Level 105 70-105 MG/DL Calcium Level 9.6 8.5-10.1 MG/DL Corrected Calcium 9.6 8.5-10.1 MG/DL Magnesium Level 2.4 1.6-2.4 MG/DL Total Bilirubin 0.4 0.1-1.0 MG/DL Aspartate Amino Transf (AST/SGOT) 14 5-34 U/L Alanine Aminotransferase (ALT/SGPT) 11 0-55 U/L Alkaline Phosphatase 67 40-136 U/L Ammonia 32 11-32 UMOL/L Total Creatine Kinase 24 L 30-200 U/L Creatine Kinase MB 1.0 <6.6 NG/ML Myoglobin 125.2 H 10.0-92.0 NG/ML Troponin I 0.040 H <0.028 NG/ML C-Reactive Protein High Sensitivity 0.73 H 0.00-0.50 MG/DL B-Type Natriuretic Peptide 250.4 H <100.0 PG/ML Total Protein 7.4 6.4-8.2 GM/DL Albumin 4.0 3.2-4.5 GM/DL Amylase Level 95 25-125 U/L TSH [place] Testing 1.05 0.35-4.94 UIU/ML Acetaminophen Level < 10 L 10-30 UG/ML Serum Alcohol < 10 <10 MG/DL Urine Color YELLOW Urine Clarity TURBID Urine pH 7.0 5-9 Urine Specific [place] 1.010 L 1.016-1.022 Urine Protein 3+ H NEGATIVE Urine Glucose (UA) NEGATIVE NEGATIVE Urine Ketones NEGATIVE NEGATIVE Urine Nitrite NEGATIVE NEGATIVE Urine Bilirubin NEGATIVE NEGATIVE Urine Urobilinogen 0.2 < = 1.0 MG/DL Urine Leukocyte Esterase 3+ H NEGATIVE Urine RBC (Auto) 2+ H NEGATIVE Urine RBC 5-10 H /HPF Urine WBC TNTC H /HPF Urine Crystals NONE /LPF Urine Bacteria LARGE H /HPF Urine Casts NONE /LPF Urine Mucus NEGATIVE /LPF Urine Culture Indicated YES Urine Opiates Screen NEGATIVE NEGATIVE Urine Oxycodone Screen NEGATIVE NEGATIVE Urine Methadone Screen NEGATIVE NEGATIVE Urine Propoxyphene Screen NEGATIVE NEGATIVE Urine Barbiturates Screen NEGATIVE NEGATIVE Ur Tricyclic Antidepressants Screen NEGATIVE NEGATIVE Urine Phencyclidine Screen NEGATIVE NEGATIVE Urine Amphetamines Screen NEGATIVE NEGATIVE Urine Methamphetamines Screen NEGATIVE NEGATIVE Urine Benzodiazepines Screen NEGATIVE NEGATIVE Urine Cocaine Screen NEGATIVE NEGATIVE Urine Cannabinoids Screen NEGATIVE NEGATIVE Influenza Type A (RT-PCR) Not Detected Not Detecte Influenza Type B (RT-PCR) Not Detected Not Detecte SARS-CoV-2 RNA (RT-PCR) Not Detected Not Detecte Glucometer 94 70-110 MG/DL My Orders Orders - ALEXANDER NULL DO Accucheck Stat ONCE (12/20/22 19:46) Ed Iv/Invasive Line Start (12/20/22 19:46) Ekg Tracing (12/20/22:46) Catheter(Urinary) Insert & Ass 03,15 (12/20/22 19:46) O2 (12/20/22:46) Monitor-Rhythm Ecg Trace Only (12/20/22:46) Acetaminophen (12/20/22:46) Alcohol (12/20/22:46) Ammonia (12/20/22:46) Amylase (12/20/22:46) Bnp [place] (12/20/22 19:46) Cbc With Automated Diff (12/20/22:46) Comprehensive Metabolic Panel (12/20/22:46) Creatine Kinase (12/20/22 19:46) Creatine Kinase Mb (12/20/22 19:46) Hs C Reactive Protein (12/20/22 19:46) Drug Screen Stat (Urine) (12/20/22:46) Lactic Acid Analyzer (12/20/22:46) Magnesium (12/20/22:46) Protime With Inr (12/20/22:46) Partial Thromboplastin Time (12/20/22 19:46) Thyroid Analyzer (12/20/22 19:46) Ua Culture If Indicated (12/20/22:46) Erythrocyte Sedimentation Rate (12/20/22 19:46) Myoglobin Serum (12/20/22 19:46) Troponin I [place] (12/20/22 19:46) Chest 1 View, Ap/Pa Only (12/20/22 19:46) Covid 19 Inhouse Test (12/20/22 19:46) Ct Head Wo-R/O Stroke (12/20/22 19:46) Lidocaine 2% (Urojet) (Xylocaine Urojet) (12/20/22 20:00) Influenza A And B By Pcr (12/20/22 19:46) Urine Culture (12/20/22 20:22) Ceftriaxone Iv/Im (Rocephin Iv/Im) (12/20/22 21:30) Ceftriaxone Iv/Im (Rocephin Iv/Im) (12/20/22 21:35) Ns (Ivpb) (Sodium Chloride 0.9% Ivpb Bag (12/20/22 21:36) Medications Given in ED Current Medications Medications Dose Ordered Sig/Farideh Route Start Time Stop Time Status Last Admin Dose Admin Ceftriaxone Sodium 1000 mg/ Sodium Chloride 50 ml @ 100 mls/hr ONCE ONCE IV 12/20/22 21:30 12/20/22 21:59 12/20/22 21:41 100 MLS/HR Vital Signs/I&O 12/20/22 19:35 Temp 36.0 Pulse 64 Resp 16 B/P (MAP) 125/64 (84) Capillary Refill : Less Than 3 Seconds Blood Pressure Mean: 84 Point of Care Testing Finger Stick Blood Glucose: 94 Blood Glucose Action Taken: rn notified Diagnostic Imaging Comments CT HEAD-- CXR--PER RADIOLOGIST REPORT AT 2047 FINDINGS: Single chest shows normal heart, pleura and diaphragm. There is no consolidations. There is no effusion or pneumothorax. There is aortic calcific atherosclerosis. Soft tissues and bony thorax unchanged. IMPRESSION: Some chronic parenchymal changes with its senescent chest, otherwise no acute cardiopulmonary disease. Reviewed: Reviewed by Me Departure Impression Primary Impression: ESRD on hemodialysis Additional Impressions: Dementia REPORTED TRANSIENT ALTERED MENTAL STATUS WITH RETURN TO NORMAL BASELINE Urinary tract infection Disposition: XF SNF Condition: Stable Departure-Patient Inst. Decision time for Depature: 21:30 Referrals: ANTIONETTE RODRIGUES DO (PCP/Family) Primary Care Physician Patient Instructions: Altered Mental Status (DC), Urinary Tract Infection, Adult (DC) Add. Discharge Instructions: CONTINUE YOUR REGULAR MEDICATIONS PRESCRIBED FOLLOW UP WITH YOUR FAMILY NEXT WEEK FOR FURTHER CARE--CALL ON THURSDAY TO SCHEDULE AN APPOINTMENT All discharge instructions reviewed with patient and/or family. Voiced understanding. Scripts Cefdinir (Cefdinir) 300 Mg Capsule 300 MG PO BID, #20 CAP Prov: ALEXANDER NULL DO 12/20/22 ALEXANDER NULL DO Dec 20, 2022 20:49
[2022-12-20 20:56] LABS: TSH (THYROID ANALYZER) 1.05 UIU/ML (0.35-4.94)
[2022-12-20 21:05] LABS: AMPHETAMINE SCREEN, URINE NEGATIVE (NEGATIVE); BARBITURATE SCREEN URINE NEGATIVE (NEGATIVE); BENZODIAZEPINES SCREEN URINE NEGATIVE (NEGATIVE); CANNABINOID SCREEN, URINE NEGATIVE (NEGATIVE); COCAINE SCREEN URINE NEGATIVE (NEGATIVE); METHADONE STAT NEGATIVE (NEGATIVE); OPIATE SCREEN URINE NEGATIVE (NEGATIVE); OXYCODONE STAT NEGATIVE (NEGATIVE); PROPOXYPHENE STAT NEGATIVE (NEGATIVE); TRICYCLIC ANTIDEPRESSANTS SCRE NEGATIVE (NEGATIVE)
[2022-12-20 21:21] LABS: CLARITY,URINE TURBID; COLOR,URINE YELLOW
[2022-12-20 21:22] LABS: BACTERIA,URINE LARGE /HPF; BILIRUBIN,URINE NEGATIVE (NEGATIVE); GLUCOSE, URINE (UA) NEGATIVE (NEGATIVE); KETONES,URINE NEGATIVE (NEGATIVE); LEUKOCYTE ESTERASE ,URINE 3+ (NEGATIVE); NITRITE,URINE NEGATIVE (NEGATIVE); PROTEIN,URINE 3+ (NEGATIVE); WBC,URINE TNTC /HPF
[2022-12-20] MEDS ORDERED: cefTRIAXone IV/IM 1,000 MG in NS (IVPB) 50 ML IV ONE (21:30)
[2022-12-20] MEDS ORDERED: cefTRIAXone 1,000 MG VIAL (for IV or IM) ONE (21:35)
[2022-12-20] MEDS ORDERED: NS (IVPB) 50 ML ONE (21:36)
[2022-12-20] MEDS ORDERED: CEFD300C3 PO (21:40)
== END 2022-12-20 21:52 ==
LOC: EDUNIT# 19:27 → ER 19:29
DX: R41.82 Altered mental status, unspecified (principal); N39.0 Urinary tract infection, site not specified; I12.0 Hypertensive chronic kidney disease with stage 5 chronic kidney disease or end stage renal disease; E11.22 Type 2 diabetes mellitus with diabetic chronic kidney disease; N18.6 End stage renal disease; F03.90 Unspecified dementia, unspecified severity, without behavioral disturbance, psychotic disturbance, mood disturbance, and anxiety; Z99.2 Dependence on renal dialysis; Z79.82 Long term (current) use of aspirin; Z79.01 Long term (current) use of anticoagulants; Z20.822 Contact with and (suspected) exposure to COVID-19
CPT/HCPCS: 70450; 71045; 80053; 80164; 80306; 81000; 82140; 82150; 82550; 82553; 82947; 83735; 83874; 83880; 84443; 84484; 85025; 85610; 85652; 85730; 86141; 87088; 87636; 93041; 99284; G0480 ×2; 36415; 80320; 80329; 87077; 87186; 93005